=== PATIENT | female | born 1960 | race Caucasian/White ===

== ENCOUNTER 2016-09-01 10:11 | Inpatient (IN) | payer MEDICAID, OTHER ==
[~2016-09-01] VITALS: Ht 162.6 cm; Wt 83.8 kg
[2016-09-01] VITALS (11 sets, daily range): BP systolic 83–109; BP diastolic 52–73; PULSE 80–90; RESP 16–24; TEMP 98.5–98.6; O2SAT 94–98
[~2016-09-01 10:11] MED LIST: ADVAI100I PO; B-COCAP9 PO; CENTTAB8; LEVO.025 PO; PRO-CAP; TUMS500C PO; VENTAER INH
[2016-09-01] MEDS ORDERED: ADVA100A INH (10:33)
[2016-09-01] MEDS ORDERED: OMEP20TA PO (10:33)
[2016-09-01] MEDS ORDERED: LEVO25TA4 PO (10:33)
[2016-09-01] MEDS ORDERED: DICY10CA12 PO (10:34)
[2016-09-01] MEDS ORDERED: SODIUM CHLORIDE 0.9% FLUSH 5 ML FLUSH IVF PRN (11:00)
[2016-09-01 11:06] LABS: BASOPHIL % 0.3 % (0.0-2.0); EOSINOPHIL # 0.3 TH/MM3 (0-0.4); EOSINOPHIL % 1.7 % (0.0-4.0); HEMATOCRIT 34.2 % (35.0-46.0); LYMPH % 11.3 % (9.0-44.0); LYMPHOCYTE # 1.8 TH/MM3 (1.0-4.8); MEAN CELL VOLUME 73.6 FL (80.0-100.0); MEAN CORPUSCULAR HEMOGLOBIN 23.8 PG (27.0-34.0); MEAN CORPUSCULAR HGB CONC 32.4 % (32.0-36.0); NEUT % 80.7 % (16.0-70.0); PLATELET COUNT 365 TH/MM3 (150-450); RED BLOOD COUNT 4.65 MIL/MM3 (4.00-5.30); WHITE BLOOD COUNT 16.1 TH/MM3 (4.0-11.0)
[2016-09-01 11:07] LABS: HEMO FLAGS AUTO DIFF
--- NOTE | 2016-09-01 11:09 | RADRPT ---
EXAM DATE/TIME: 09/01/2016 10:46 [facility] COMPARISON: CHEST SINGLE AP, August 30, 2015, 16:00. CT PULMONARY ANGIOGRAM, August 30, 2015, 17:56. INDICATIONS : Chest pain and shortness of breath. MEDICAL HISTORY : None. SURGICAL HISTORY : None. ENCOUNTER: Initial ACUITY: 1 day PAIN SCORE: 0/10 LOCATION: Bilateral chest FINDINGS: One slight interval worsening in consolidative change in the left lung base. Right lung remains clear . Possible small associated left base effusion. Cardiac contours are stable. CONCLUSION: Worsening left base infiltrate Prateek Walters MD on September 01, 2016 at 11:06 Board Certified Radiologist. This report was verified electronically.
[2016-09-01] MEDS ORDERED: AZITHROMYCIN INJ 500 MG in SODIUM CHLOR 0.9% 250 ML INJ 250 ML IV ONE (11:15)
[2016-09-01] MEDS ORDERED: cefTRIAXone INJ 1,000 MG in SODIUM CHLORIDE 0.9% INJ 100 ML IV ONE (11:15)
[2016-09-01 11:24] LABS: APTT (PATIENT) 28.9 SEC (24.3-30.1); INTERNATIONAL NORMALIZED RATIO 1.1 RATIO; PROTHROMBIN TIME - PATIENT 11.7 SEC (9.8-11.6)
[2016-09-01 11:28] LABS: ANION GAP 9 MEQ/L (5-15); BICARBONATE 24.2 MEQ/L (21.0-32.0); BLOOD UREA NITROGEN 11 MG/DL (7-18); CHLORIDE 109 MEQ/L (98-107); GLOMERULAR FILTRATION RATE 53 ML/MIN (>89); MAGNESIUM 2.3 MG/DL (1.5-2.5); POTASSIUM 3.6 MEQ/L (3.5-5.1); SODIUM (NA) 142 MEQ/L (136-145)
[2016-09-01 11:32] LABS: CREATINE KINASE 98 U/L (26-192)
[2016-09-01 11:52] LABS: SCAN/DIFF AUTO DIFF CONFIRMED
--- NOTE | 2016-09-01 13:14 | PD ---
HPI Chief Complaint: Respiratory Symptoms Time Seen by Provider: 10:35 Travel History International Travel<30 days: No Contact w/Intl Traveler<30days: No Traveled to known affect area: No History of Present Illness HPI 55-year-old female came to the emergency room with history of cough, shortness of breath and coughing up blood. Patient says she has had symptoms of cough for past 1 week. However recently for past 2 days she has been coughing up blood which is in small quantity. She says every time she gets a pneumonia she has these symptoms. However patient was afebrile in the emergency room. She did not take any medication that would reduce her temperature. She says she's been getting chills at home. History of vomiting or diarrhea. No history of recent long distance travel, surgeries or procedures. No past history of PE or DVT. Vital signs were otherwise stable. [facility] Past Medical History Narrative Medical List of her past medical, surgical, social and family history is reviewed from the nursing note. Asthma: No Blood Disorders: No Heart Rhythm Problems: No Cancer: No Cardiovascular Problems: No High Cholesterol: No Chemotherapy: No Chest Pain: No Congestive Heart Failure: No COPD: Yes Diabetes: No Endocrine: No Genitourinary: No Immune Disorder: No Musculoskeletal: No Neurologic: No Psychiatric: No Reproductive: No Respiratory: Yes (COPD ) Radiation Therapy: No Sleep Apnea: No Thyroid Disease: No ?: Not Menopausal: Yes : 2 Para: 2 Miscarriage: 0 : 0 Tubal Ligation: Yes Past Surgical History Appendectomy: Yes Tonsillectomy: Yes Other Surgery: Yes (TONSILLS, APPENDIX, TUBAL LIGATION) Social History Alcohol Use: No Tobacco Use: No (QUIT 15 YEARS AGO - APPROX 1 PPD) Substance Use: No (MARIJUANA HX) Allergies-Medications (Allergen,Severity, Reaction): Coded Allergies: No Known Allergies (Unverified , 09/01/16) Comments No known drug allergies. Reported Meds & Prescriptions Reported Meds & Active Scripts Active Reported Dicyclomine (Dicyclomine HCl) 10 Mg Cap 10 Mg PO TID Levothyroxine (Levothyroxine Sodium) 25 Mcg Tab 25 Mcg PO DAILY Advair Diskus Inh (Fluticasone-Salmeterol Inh) 100-50 Mcg/Blist Aer 1 Puff INH BID Rinse mouth after use. Narrative Medication List of her home medications reviewed from the nursing note. Review of Systems Except as stated in HPI: all other systems reviewed are Neg Physical Exam Narrative GENERAL: Awake, alert, mild distress SKIN: Warm and dry. HEAD: Atraumatic. Normocephalic. EYES: Pupils equal and round. No scleral icterus. No injection or drainage. ENT: No nasal bleeding or discharge. Mucous membranes pink and moist. NECK: Trachea midline. No JVD. CARDIOVASCULAR: Regular rate and rhythm. No murmur appreciated. RESPIRATORY: No accessory muscle use. Decreased air entry left side GASTROINTESTINAL: Abdomen soft, non-tender, nondistended. Hepatic and splenic margins not palpable. MUSCULOSKELETAL: No obvious deformities. No clubbing. No cyanosis. No edema. NEUROLOGICAL: Awake and alert. No obvious cranial nerve deficits. Motor grossly within normal limits. Normal speech. PSYCHIATRIC: Appropriate mood and affect; insight and judgment normal. Data Data Last Documented VS Vital Signs Date Time Temp Pulse Resp B/P Pulse Ox O2 Delivery O2 Flow Rate FiO2 09/01/16 15:00 82 16 87/54 98 Nasal Cannula 2 09/01/16 10:12 98.5 Orders Electrocardiogram (09/01/16 10:37) Basic Metabolic Panel (Bmp) (09/01/16 10:48) B-Type Natriuretic Peptide (09/01/16 10:48) Ckmb (Isoenzyme) Profile (09/01/16 10:48) Complete Blood Count With Diff (09/01/16 10:48) D-Dimer (09/01/16 10:48) Magnesium (Mg) (09/01/16 10:48) Prothrombin Time / Inr (Pt) (09/01/16 10:48) Act Partial Throm Time (Ptt) (09/01/16 10:48) Troponin I (09/01/16 10:48) Chest, Single Ap (09/01/16 10:48) Ecg Monitoring (09/01/16 10:48) Bilateral Bp Monitoring (09/01/16 10:48) Iv Access Insert/Monitor (09/01/16 10:48) Oximetry (09/01/16 10:48) Oxygen Administration (09/01/16 10:48) Sodium Chloride 0.9% Flush (Ns Flush) (09/01/16 11:00) Blood Culture (09/01/16 11:15) Ceftriaxone Inj (Rocephin Inj) (09/01/16 11:15) Azithromycin Inj (Zithromax Inj) (09/01/16 11:15) Albuterol Neb (Albuterol Neb) (09/01/16 13:15) Sodium Chlor 0.9% 1000 Ml Inj (Ns 1000 M (09/01/16 13:15) Ct Pulmonary Angiogram (09/01/16 ) Iohexol 350 Inj (Omnipaque 350 Inj) (09/01/16 14:01) Sodium Chlor 0.9% 1000 Ml Inj (Ns 1000 M (09/01/16 15:15) Admit To Inpatient (09/01/16 ) Inpatient Certification (09/01/16 ) Diet Regular Basic (09/01/16 Dinner) Activity Bed Rest With Brp (09/01/16 15:24) Vital Signs (Adult) [id number].[id number] (09/01/16 15:24) Admit Order (Ed Use Only) (09/01/16 15:24) Labs Laboratory Tests Test 09/01/16 10:50 White Blood Count 16.1 TH/MM3 Red Blood Count 4.65 MIL/MM3 Hemoglobin 11.1 GM/DL Hematocrit 34.2 % Mean Corpuscular Volume 73.6 FL Mean Corpuscular Hemoglobin 23.8 PG Mean Corpuscular Hemoglobin 32.4 % Concent Red Cell Distribution Width 16.0 % Platelet Count 365 TH/MM3 Mean Platelet Volume 7.2 FL Neutrophils (%) (Auto) 80.7 % Lymphocytes (%) (Auto) 11.3 % Monocytes (%) (Auto) 6.0 % Eosinophils (%) (Auto) 1.7 % Basophils (%) (Auto) 0.3 % Neutrophils # (Auto) 13.0 TH/MM3 Lymphocytes # (Auto) 1.8 TH/MM3 Monocytes # (Auto) 1.0 TH/MM3 Eosinophils # (Auto) 0.3 TH/MM3 Basophils # (Auto) 0.0 TH/MM3 CBC Comment AUTO DIFF Differential Comment AUTO DIFF CONFIRMED Prothrombin Time 11.7 SEC Prothromb Time International 1.1 RATIO Ratio Activated Partial 28.9 SEC Thromboplast Time D-Dimer Quantitative (PE/DVT) 1.47 MG/L FEU Sodium Level 142 MEQ/L Potassium Level 3.6 MEQ/L Chloride Level 109 MEQ/L Carbon Dioxide Level 24.2 MEQ/L Anion Gap 9 MEQ/L Blood Urea Nitrogen 11 MG/DL Creatinine 1.08 MG/DL Estimat Glomerular Filtration 53 ML/MIN Rate Random Glucose 96 MG/DL Calcium Level 9.2 MG/DL Magnesium Level 2.3 MG/DL Total Creatine Kinase 98 U/L Troponin I LESS THAN 0.02 NG/ML B-Type Natriuretic Peptide 52 PG/ML MDM Medical Decision Making Medical Screen Exam Complete: Yes Emergency Medical Condition: Yes Medical Record Reviewed: Yes Interpretation(s) Twelve-lead EKG was reviewed by me. Normal sinus rhythm, normal axis, nonspecific ST-T wave changes. Heart rate of 88 bpm. Differential Diagnosis Pneumonia, PE, COPD exacerbation Narrative Course 1:12 PM patient has leukocytosis. Chest x-ray shows a left lobar infiltrate. However there was a d-dimer ordered since patient never had any documented fever and because of the hemoptysis history and that is elevated. I've ordered a CT pulmonary angiogram. Awaiting for the test to be done and resulted. Meanwhile patient received IV Rocephin and Zithromax. If the CT pulmonary angiogram is negative for PE patient probably could be discharged home. However her blood pressure was running in the 90s. I've ordered 1 L of IV fluid bolus. 2:[address] pulmonary exam did not show any PE. There was left lower lobe scattered infiltrate but there was also mass with hilar lymphadenopathy. Radiologist is recommending bronchoscopy. I would prefer to admit this patient at this point. 3:09 PM Her blood pressure is still running low and current systolic blood pressure is 81. I've ordered a second liter of IV fluid bolus. Awaiting for the hospitalist call back. Critical Care Narrative Aggregate critical care time was 30 minutes. Time to perform other separately billable procedures was not included in the critical care time. My time did not include minutes spent treating any other patients simultaneously or on activities that did not directly contribute to the patient's treatment. The services I provided to this patient were to treat and/or prevent clinically significant deterioration that could result in: Respiratory distress, lung mass, consolidation I provided critical care services requiring my management, as noted below: Chart data review, documentation time, medication orders and management, vital sign assessments/reviewing monitor data, ordering and reviewing lab tests, ordering and interpreting/reviewing x-rays and diagnostic studies, care of the patient and discussion of the patient with the admitting physicians. Procedures EKG Prior to Arrival: No Diagnosis Primary Impression: Respiratory distress Additional Impressions: Pneumonia Qualified Code: J18.1 - Pneumonia of left lower lobe due to infectious organism Lung mass Leukocytosis Qualified Code: D72.828 - Other elevated white blood cell (WBC) count Admitting Information Admitting Physician Requests: Admit Scripts Ferrous Sulfate 325 Mg [id number] Mg PO DAILY #30 TAB Ref 0 Prov:Lewis Monte MD 09/04/16 Cefuroxime (Ceftin)500 Mg [id number] Mg PO BID 6 Days Ref 0 Prov:Lewis Monte MD 09/04/16 Jerri Nolen MD Sep 01, 2016 13:13
[2016-09-01] MEDS ORDERED: SODIUM CHLOR 0.9% 1000 ML INJ 1,000 ML IV ONE ×2 (13:15→15:15)
[2016-09-01] MEDS ORDERED: RESP: ALBUTEROL 2.5 MG/3 ML NEB (SCH) NEB ONE (13:15)
[2016-09-01] MEDS ORDERED: IOHEXOL 350 MG/ML 10 ML VIAL (for RAD DIAG) IV ONE (14:01)
--- NOTE | 2016-09-01 14:20 | RADRPT ---
EXAM DATE/TIME: 09/01/2016 13:47 [facility] COMPARISON: CT PULMONARY ANGIOGRAM, August 30, 2015, 17:56. INDICATIONS : COPD exacerbation for 1 day; evaluate for pulmonary embolism. IV CONTRAST: 50 cc Omnipaque 350 (iohexol) IV RADIATION DOSE: 11.15 CTDIvol (mGy) MEDICAL HISTORY : Chronic obstructive pulmonary disease. SURGICAL HISTORY : Tubal ligation. ENCOUNTER: Initial ACUITY: 1 day PAIN SCALE: 0/10 LOCATION: chest TECHNIQUE: Volumetric scanning of the chest was performed using a pulmonary embolism protocol MIP images were re constructed. Using automated exposure control and adjustment of the mA and/or kV according to patien t size, radiation dose was kept as low as reasonably achievable to obtain optimal diagnostic quality images. FINDINGS: PULMONARY ARTERIES: No filling defects are seen in the pulmonary arteries through the segmental level. LUNGS: Patchy infiltrate seen of the left lung, most dense in the posterior lower lobe, more patchy in the u pper lobe and remainder of the lower lobe. There is emphysema. Unchanged 8 mm right lower lobe pulmon chirag nodule. 2 cm area of mildly masslike consolidation seen in the left hilum. PLEURAE: There is no pleural thickening or pleural effusion. MEDIASTINUM: There is a subcarinal lymph node measuring 2.4 x 3.8 cm, considerably larger than on the prior study. MUSCULOSKELETAL: Within normal limits for patient age. MISCELLANEOUS: Moderate to large hiatal hernia again noted. CONCLUSION: 1. No pulmonary embolus. 2. Multifocal pneumonia of the left lung. This is presumably infectious or inflammatory. A mildly mas slike area is seen in the left infrahilar region and bronchoscopy is suggested. There is also an enla rged subcarinal lymph node. 3. Emphysema. 4. Stable subcentimeter nodule of the right lower lobe. 5. Moderate to large hiatal hernia again noted. Prateek Gaviria MD on September 01, 2016 at 14:12 Board Certified Radiologist. This report was verified electronically.
--- NOTE | 2016-09-01 17:42 | HHI.HP ---
[facility] Primary [facility] Physician Nela Lundberg MD Admission Diagnosis pneumonia, hemoptysis, lung mass Diagnoses: Chief Complaint: C cough shortness of breath hemoptysis Travel History International Travel<30 Days: No Contact w/Intl Traveler <30 Da: No Traveled to Known Affected Are: No Sepsis Criteria SIRS Criteria (2 or more): Heart rate over 90 Sepsis Criteria (SIRS+source): Infect source susp/known History of Present Illness Patient is a 55-year-old female known history of COPD not oxygen dependent history of hypothyroidism also with history of chronic abdominal discomfort who came to the emergency room complaining of shortness of breath associated with left-sided chest pain pleuritic in nature worse with deep inspiration. Since yesterday night overnight had had 3 episodes of hemoptysis. Patient also all night with loose stools. Persistence prompted consult to ER where on evaluation was noted to have a white count and on x-ray shows consolidation with and unable to rule out mass. Patient admitted for further evaluation and management. Review of Systems Constitutional: DENIES: Diaphoretic episodes, Fatigue, Fever, Weight gain, Weight loss, Chills, Dizziness, Change in appetite, Night Sweats Endocrine: DENIES: Abnorml menstrual pattern, Heat/cold intolerance, Polydipsia , Polyuria, Polyphagia Eyes: DENIES: Blurred vision, Diplopia, Eye inflammation, Eye pain, Vision loss , Photosensitivity, Double Vision Ears, nose, mouth, throat: DENIES: Tinnitus, Hearing loss, Vertigo, Nasal discharge, Oral lesions, Throat pain, Hoarseness, Ear Pain, Running Nose, Epistaxis, Sinus Pain, Toothache, Odynophagia Respiratory: DENIES: Apneas, Cough, Snoring, Wheezing, Hemoptysis, Sputum production, Shortness of breath Cardiovascular: DENIES: Chest pain, Palpitations, Syncope, Dyspnea on Exertion , PND, Lower Extremity Edema, Orthopnea, Claudication Gastrointestinal: COMPLAINS OF: Abdominal pain, Diarrhea Musculoskeletal: DENIES: Joint pain, Muscle aches, Stiffness, Joint Swelling, Back pain, Neck pain Integumentary: DENIES: Abnormal pigmentation, Pruritus, Rash, Nail changes, Breast masses, Breast skin changes, Nipple discharge Hematologic/lymphatic: DENIES: Bruising, Lymphadenopathy Immunologic/allergic: DENIES: Eczema, Urticaria Neurologic: DENIES: Abnormal gait, Headache, Localized weakness, Paresthesias, Seizures, Speech Problems, Tremor, Poor Balance Psychiatric: DENIES: Anxiety, Confusion, Mood changes, Depression, Hallucinations, Agitation, Suicidal Ideation, Homicidal Ideation, Delusions Past Family Social History Past Medical History History of COPD History of chronic abdominal pain History of alcohol abuse quit 15 months History of polysubstance abuse - crack cocaine and marijuana quit 15 months ago Past Surgical History Appendectomy, tonsillectomy, tubal ligation Reported Medications Dicyclomine 10 mg 3 times a day Advair 100/50 twice a day next and 20 mg daily Synthroid 20 g by mouth daily Allergies: Coded Allergies: No Known Allergies (Unverified , 09/01/16) Family History Noncontributory Social History History of smoking quit 15 months ago a pack per day History of alcohol abuse quit 15 months ago History of substance abuse crack cocaine and marijuana quit 15 months ago Physical Exam Vital Signs Vital Signs Date Time Temp Pulse Resp B/P Pulse Ox O2 Delivery O2 Flow Rate FiO2 09/01/16 15:30 84 16 94/61 97 Nasal Cannula 2 09/01/16 15:00 82 16 87/54 98 Nasal Cannula 2 09/01/16 14:00 82 16 91/53 98 Nasal Cannula 2 09/01/16 13:17 98 Nasal Cannula 2.00 09/01/16 13:00 84 20 99/54 97 Nasal Cannula 2 09/01/16 12:00 80 20 96/64 96 Nasal Cannula 2 09/01/16 10:28 20 96 Room Air 09/01/16 10:28 96 Nasal Cannula 2 09/01/16 10:28 91/58 107/52 09/01/16 10:12 98.5 90 24 109/73 94 Room Air Physical Exam GENERAL: Awake alert appears comfortable on oxygen 2 L nasal cannula SKIN: No rashes, ecchymoses or lesions. Cool and dry. HEAD: Atraumatic. Normocephalic. No temporal or scalp tenderness. EYES: Pupils equal round and reactive. Extraocular motions intact. No scleral icterus. No injection or drainage. ENT: Nose without bleeding, purulent drainage or septal hematoma. Throat without erythema, tonsillar hypertrophy or exudate. Uvula midline. Airway patent. NECK: Trachea midline. No JVD or lymphadenopathy. Supple, nontender, no meningeal signs. CARDIOVASCULAR: Regular rate and rhythm without murmurs, gallops, or rubs. RESPIRATORY: Occasional rhonchi, decreased breath sounds both bases GASTROINTESTINAL: Abdomen soft, non-tender, nondistended. No hepato-splenomegaly , or palpable masses. No guarding. MUSCULOSKELETAL: Extremities without clubbing, cyanosis, or edema. No joint tenderness, effusion, or edema noted. No calf tenderness. Negative Homans sign bilaterally. NEUROLOGICAL: Awake and alert. Cranial nerves II through XII intact. Motor and sensory grossly within normal limits. Five out of 5 muscle strength in all muscle groups. Normal speech. Laboratory Laboratory Tests Test 09/01/16 10:50 White Blood Count 16.1 Red Blood Count 4.65 Hemoglobin 11.1 Hematocrit 34.2 Mean Corpuscular Volume 73.6 Mean Corpuscular Hemoglobin 23.8 Mean Corpuscular Hemoglobin 32.4 Concent Red Cell Distribution Width 16.0 Platelet Count 365 Mean Platelet Volume 7.2 Neutrophils (%) (Auto) 80.7 Lymphocytes (%) (Auto) 11.3 Monocytes (%) (Auto) 6.0 Eosinophils (%) (Auto) 1.7 Basophils (%) (Auto) 0.3 Neutrophils # (Auto) 13.0 Lymphocytes # (Auto) 1.8 Monocytes # (Auto) 1.0 Eosinophils # (Auto) 0.3 Basophils # (Auto) 0.0 CBC Comment AUTO DIFF Differential Comment AUTO DIFF CONFIRMED Prothrombin Time 11.7 Prothromb Time International 1.1 Ratio Activated Partial 28.9 Thromboplast Time D-Dimer Quantitative (PE/DVT) 1.47 Sodium Level 142 Potassium Level 3.6 Chloride Level 109 Carbon Dioxide Level 24.2 Anion Gap 9 Blood Urea Nitrogen 11 Creatinine 1.08 Estimat Glomerular Filtration 53 Rate Random Glucose 96 Calcium Level 9.2 Magnesium Level 2.3 Total Creatine Kinase 98 Troponin I LESS THAN 0.02 B-Type Natriuretic Peptide 52 Date/Time Procedure Status Source Growth 09/01/16 11:40 Aerobic Blood Culture Received Blood Peripheral Pending 09/01/16 11:40 Anaerobic Blood Culture Received Blood Peripheral Pending Result Diagram: 09/01/16 1050 09/01/16 1050 Imaging Last Impressions Chest X-Ray 3/8/17 1048 Signed Impressions: Service Date/Time: Thursday, September 01, 2016 10:46 - CONCLUSION: Worsening left base infiltrate Prateek Walters MD CT Angiography 09/01/16 0000 Signed Impressions: Service Date/Time: Thursday, September 01, 2016 13:47 - CONCLUSION: 1. No pulmonary embolus. 2. Multifocal pneumonia of the left lung. This is presumably infectious or inflammatory. A mildly masslike area is seen in the left infrahilar region and bronchoscopy is suggested. There is also an enlarged subcarinal lymph node. 3. Emphysema. 4. Stable subcentimeter nodule of the right lower lobe. 5. Moderate to large hiatal hernia again noted. Prateek Gaviria MD Assessment and Plan Assessment and Plan 55-year-old female presenting with cough hemoptysis shortness of breath Pneumonia Hemoptysis Leukocytosis Underlying COPD- no wheezes Start Antibiotics- Rocephin and Zithromax Continue on Advair. get PFTs Duonebs every 6 prn for shortness of breath sputum for studies recheck CBC in am Possible Lung mass We'll get a pulmonary consult for evaluation - History of chronic abdominal pain- recent diarrhea - sounds like with IBS we'll continue on dicyclomine 10 mg 3 times a day. Omeprazole 20 mg daily. stools for c diff History of hypothyroidism continue on Synthroid 25 g daily Mechanical DVT prophylaxis. encourage increase activity as tolerated. Physician Certification 2 Midnight Certification Type: Admission for Inpatient Services Order for Inpatient Services The services are ordered in accordance with Medicare regulations or non- Medicare payer requirements, as applicable. In the case of services not specified as inpatient-only, they are appropriately provided as inpatient services in accordance with the 2-midnight benchmark. Estimated LOS (days): 3 days is the estimated time the patient will need to remain in the hospital, assuming treatment plan goals are met and no additional complications. Post-Hospital Plan: Not yet determined eLwis Monte MD Sep 01, 2016 17:42
--- NOTE | 2016-09-01 18:23 | EKG ---
Date Performed: 09/01/2016 Time Performed: 10:43:05 PTAGE: 55 years EKG: Sinus rhythm NORMAL ECG PREVIOUS TRACING : 08/30/2015 16.23 DOCTOR: Jeremie Laureano Interpretating Date/Time 09/01/2016 18:22:38
[2016-09-01] MEDS: NS + KCL 20 MEQ INJ 1,000 ML IV SCH (19:55)
[2016-09-01] MEDS: RESP: ALBUTEROL 2.5 MG/IPRATROPIUM 0.5 MG NEB (SCH) NEB (19:57)
[2016-09-01] MEDS: SODIUM CHLORIDE 0.9% FLUSH 5 ML FLUSH IVF SCH (21:06)
[2016-09-02] VITALS (8 sets, daily range): BP systolic 98–118; BP diastolic 60–70; PULSE 81–93; RESP 7–20; TEMP 97.5–97.8; O2SAT 94–98
[2016-09-02] MEDS: RESP: ALBUTEROL 2.5 MG/IPRATROPIUM 0.5 MG NEB (SCH) NEB ×2 (04:18→09:51)
[2016-09-02] MEDS: NS + KCL 20 MEQ INJ 1,000 ML IV SCH ×2 (07:42→14:04)
[2016-09-02] MEDS: cefTRIAXone INJ 2,000 MG in SODIUM CHLORIDE 0.9% INJ 100 ML IV SCH (08:47)
[2016-09-02] MEDS: SODIUM CHLORIDE 0.9% FLUSH 5 ML FLUSH IVF SCH ×2 (08:57→20:49)
[2016-09-02 09:04] LABS: AUTOMATED NEUTROPHIL # 7.2 TH/MM3 (1.8-7.7); BASOPHIL # 0.1 TH/MM3 (0-0.2); BASOPHIL % 0.7 % (0.0-2.0); EOSINOPHIL # 0.2 TH/MM3 (0-0.4); EOSINOPHIL % 2.2 % (0.0-4.0); HEMATOCRIT 30.1 % (35.0-46.0); LYMPH % 18.7 % (9.0-44.0); LYMPHOCYTE # 1.9 TH/MM3 (1.0-4.8); MEAN CELL VOLUME 75.1 FL (80.0-100.0); MEAN CORPUSCULAR HEMOGLOBIN 24.1 PG (27.0-34.0); MEAN CORPUSCULAR HGB CONC 32.1 % (32.0-36.0); MONO % 6.4 % (0.0-8.0); PLATELET COUNT 304 TH/MM3 (150-450); WHITE BLOOD COUNT 9.9 TH/MM3 (4.0-11.0)
[2016-09-02 09:06] LABS: HEMO FLAGS AUTO DIFF
[2016-09-02 10:20] LABS: KERATOCYTES OCC (NORMAL); OVALOCYTES 1+ (NORMAL); PLATELET ESTIMATE SMEAR NORMAL (NORMAL); PLATELET MORPHOLOGY NORMAL (NORMAL); SCAN/DIFF AUTO DIFF CONFIRMED
[2016-09-02] MEDS: AZITHROMYCIN INJ 500 MG in SODIUM CHLOR 0.9% 250 ML INJ 250 ML IV SCH (11:48)
--- NOTE | 2016-09-02 16:50 | HHI.PR ---
Subjective Remarks feeling better no episodes of hemoptysis since admission no diarrhea feels abdominal bloating but no reflux sensation Objective Vitals Vital Signs Date Time Temp Pulse Resp B/P Pulse Ox O2 Delivery O2 Flow Rate FiO2 09/02/16 16:15 97.5 85 18 107/61 97 09/02/16 14:05 97.8 86 17 98/60 97 Nasal Cannula 2 09/02/16 11:48 88 17 98/60 97 Nasal Cannula 2.00 09/02/16 10:21 97.8 81 18 118/67 98 Nasal Cannula 2.00 09/02/16 09:52 97 Nasal Cannula 2.00 09/02/16 08:30 97 Nasal Cannula 2 09/02/16 05:45 81 20 110/70 98 Nasal Cannula 2 09/02/16 02:30 81 16 99/64 97 Nasal Cannula 2 09/01/16 22:37 90 18 95/59 98 Nasal Cannula 2 09/01/16 19:57 97 Nasal Cannula 2.00 09/01/16 19:50 98.6 90 18 83/54 98 Nasal Cannula 2 I/O 09/01/16 09/01/16 09/01/16 09/02/16 09/02/16 09/02/16 07:00 15:00 23:00 07:00 15:00 23:00 Intake Total 460 ml Balance 460 ml Intake Oral 460 ml # Voids 3 # Bowel Movements 1 Result Diagram: 09/02/16 0757 09/01/16 1050 Imaging Last Impressions Chest X-Ray 09/01/16 1048 Signed Impressions: Service Date/Time: Thursday, September 01, 2016 10:46 - CONCLUSION: Worsening left base infiltrate Prateek Walters MD CT Angiography 09/01/16 0000 Signed Impressions: Service Date/Time: Thursday, September 01, 2016 13:47 - CONCLUSION: 1. No pulmonary embolus. 2. Multifocal pneumonia of the left lung. This is presumably infectious or inflammatory. A mildly masslike area is seen in the left infrahilar region and bronchoscopy is suggested. There is also an enlarged subcarinal lymph node. 3. Emphysema. 4. Stable subcentimeter nodule of the right lower lobe. 5. Moderate to large hiatal hernia again noted. Prateek Gaviria MD Objective Remarks awake and alert anicteric lungs decreased breath sounds, no rales or wheezes regular rhythm abdomen soft, good bowel sounds, distended but soft extremities no edema neuro exam- non focal A/P Assessment and Plan 55-year-old female presenting with cough hemoptysis shortness of breath Pneumonia - left lower lobe infiltrate Hemoptysis likely secondary to pneumonic process- no further episodes Leukocytosis- WBC down Underlying COPD/smoker - Possible Lung Mass On - Rocephin and Zithromax Continue on Advair. get PFTs Duonebs every 6 prn for shortness of breath sputum for studies- pending Pulmonary consulted- Dr. Gadiel Moctezuma- ? need for Bronchoscopy History of chronic abdominal pain- recent diarrhea - sounds like with IBS GERD/Hiatal hernia we'll continue on dicyclomine 10 mg 3 times a day. PPI- - Advise on reflux measures stools for c diff- no further episodes of diarrhea in here since admission History of hypothyroidism continue on Synthroid 25 g daily Microcytosis- check iron studies Patient up and ambulating Lewis Monte MD Sep 02, 2016 16:50 Lewis Monte MD Sep 02, 2016 16:50
[2016-09-02] MEDS: LEVOTHYROXINE SODIUM 25 MCG TAB PO SCH (17:00)
[2016-09-02] MEDS ORDERED: SODIUM CHLORIDE 0.9% FLUSH 5 ML FLUSH IVF PRN (18:00)
[2016-09-02] MEDS: DICYCLOMINE HCL 10 MG CAP PO SCH (18:25)
[2016-09-02] MEDS: PANTOPRAZOLE SOD 40 MG DELAYED RELEASE TAB PO SCH (18:25)
[2016-09-02] MEDS: BUDESONIDE-FORMOTEROL 80/4.5 MCG INHALER INH SCH (20:58)
--- NOTE | 2016-09-02 23:37 | MB ---
cc: Jasmina ALONSO M.D. DATE OF CONSULTATION 09/02/16 HISTORY OF PRESENT ILLNESS Ms. Vieira is a 55-year-old white female with a known history of COPD who quit smoking about a year ago. She also a history of alcoholism and illicit drug use, but apparently quit all of these habits about 15 years ago after 30 years. I asked her quite specifically if she continued to smoke or use any drugs, marijuana, cocaine, any of them and she denied it clearly. She presented today with what she described as hemoptysis, pleuritic chest discomfort and increasing cough with congestion and shortness of breath. On presentation to the emergency room, she had a CT angiogram which reveals no evidence of pulmonary embolism but a patchy infiltrate scattered in the left lung. There was also fullness in the left infrahilar region with enlarged lymph node, underlying emphysema and a small nodule in the right lung which had been seen previously. She also had a large hiatal hernia. The patient is a fair historian, but did not recall having presented last year with very similar symptoms including hemoptysis. I noted that in the medical record of August 30, 2015. She does use albuterol and Advair at home. She is not oxygen dependent. Since admission, there has been no recurrent hemoptysis and she has been afebrile. Her white count was 16,000 on presentation; it is 9000 today. Coag profile is normal. BUN and creatinine are normal. PAST MEDICAL HISTORY 1. Chronic abdominal pain 2. Chronic reflux symptoms. When asked if she had ever been endoscoped she does not believe so. 3. Appendectomy 4. Tubal ligation 5. Distant tonsillectomy. ALLERGIES None known. SOCIAL HISTORY She lives apparently in a hotel room. She does live alone. There is smoking in the area, but not in her room specifically. No animal exposures. No other unusual inhalation exposures and again she denies any inhalation of illicit drugs. REVIEW OF SYSTEMS No headache. No syncope. Chronic reflux with what sounds like chronic indigestion. No recent vomiting. She has had diarrhea. No recent swelling in her legs. PHYSICAL EXAMINATION VITAL SIGNS: 98 degrees, 107/61, respirations 18, pulse 80, sat 97% 2 liters. HEENT: Sclerae anicteric. Mucous membranes are moist. NECK: Neck veins are not distended. CHEST: Chest is minimally congested. No wheezing. HEART: Regular rhythm. No harsh murmur. ABDOMEN: Abdomen is soft, nontender, maybe a little tenderness in the epigastrium. No rebound. EXTREMITIES: No peripheral edema or calf tenderness. No cyanosis. IMAGING STUDIES CT scan is reviewed and she does have patchy infiltrates in the left lung, some fullness in the left hilum. DISCUSSION Mrs. Vieira presents with syndrome consistent with pneumonia. Apparently had some episodes of hemoptysis. We will monitor that. Continue her on antibiotics and see whether or not she needs additional intervention at this point such as bronchoscopy or whether she can be followed up in the clinic where she is normally seen to ensure that this area clears completely. It could certainly be an inflammatory infectious process, although with her prior tobacco history malignancy is also possible. Further diagnostic and/or therapeutic intervention will depend on her ongoing clinical course. R. MD ROBEL Cotton/ /5:58 PM /11:21 PM
[2016-09-03] VITALS (8 sets, daily range): BP systolic 92–113; BP diastolic 54–76; PULSE 80–101; RESP 17–20; TEMP 96.1–98.1; O2SAT 94–98
[2016-09-03] MEDS: RESP: ALBUTEROL 2.5 MG/IPRATROPIUM 0.5 MG NEB (SCH) NEB ×5 (04:10→20:15)
[2016-09-03] MEDS: LEVOTHYROXINE SODIUM 25 MCG TAB PO SCH (06:19)
[2016-09-03] MEDS: PANTOPRAZOLE SOD 40 MG DELAYED RELEASE TAB PO SCH (09:33)
[2016-09-03] MEDS: SODIUM CHLORIDE 0.9% FLUSH 5 ML FLUSH IVF SCH ×2 (09:33→21:00)
[2016-09-03] MEDS: DICYCLOMINE HCL 10 MG CAP PO SCH ×3 (09:33→17:54)
[2016-09-03] MEDS: BUDESONIDE-FORMOTEROL 80/4.5 MCG INHALER INH SCH ×2 (09:34→21:00)
[2016-09-03] MEDS: cefTRIAXone INJ 2,000 MG in SODIUM CHLORIDE 0.9% INJ 100 ML IV SCH (09:45)
[2016-09-03 09:52] LABS: ALKALINE PHOSPHATASE 94 U/L (45-117); ALT (GPT) 18 U/L (10-53); ANION GAP 11 MEQ/L (5-15); AST (GOT) 16 U/L (15-37); BICARBONATE 22.2 MEQ/L (21.0-32.0); BLOOD UREA NITROGEN 7 MG/DL (7-18); CHLORIDE 111 MEQ/L (98-107); FERRITIN 71 NG/ML (8-252); GLOMERULAR FILTRATION RATE 70 ML/MIN (>89); POTASSIUM 3.6 MEQ/L (3.5-5.1); SODIUM (NA) 144 MEQ/L (136-145); TOTAL BILIRUBIN ADULT 0.4 MG/DL (0.2-1.0); TRANSFERRIN IRON PROFILE 173 MG/DL (200-360)
--- NOTE | 2016-09-03 12:23 | HHI.PR ---
Subjective Remarks feeling much better no further episodes of hemoptysis sputum "off whitish" up and ambulating Objective Vitals Vital Signs Date Time Temp Pulse Resp B/P Pulse Ox O2 Delivery O2 Flow Rate FiO2 09/03/16 08:22 96.1 86 18 96/55 94 09/03/16 05:27 97.3 83 17 113/76 94 09/03/16 04:13 98 Nasal Cannula 2.00 09/03/16 00:17 98.1 80 17 108/61 94 09/02/16 20:49 97.6 93 17 108/66 94 09/02/16 16:15 97.5 85 18 107/61 97 09/02/16 14:05 97.8 86 17 98/60 97 Nasal Cannula 2 I/O 09/02/16 09/02/16 09/02/16 09/03/16 09/03/16 09/03/16 07:00 15:00 23:00 07:00 15:00 23:00 Intake Total 460 ml 432 ml 360 ml Balance 460 ml 432 ml 360 ml Intake Oral 460 ml 360 ml IV Total 432 ml # Voids 3 5 # Bowel Movements 1 Result Diagram: 09/02/16 0757 09/03/16 0726 Imaging Last Impressions Chest X-Ray 09/01/16 1048 Signed Impressions: Service Date/Time: Thursday, September 01, 2016 10:46 - CONCLUSION: Worsening left base infiltrate Prateek Walters MD CT Angiography 09/01/16 0000 Signed Impressions: Service Date/Time: Thursday, September 01, 2016 13:47 - CONCLUSION: 1. No pulmonary embolus. 2. Multifocal pneumonia of the left lung. This is presumably infectious or inflammatory. A mildly masslike area is seen in the left infrahilar region and bronchoscopy is suggested. There is also an enlarged subcarinal lymph node. 3. Emphysema. 4. Stable subcentimeter nodule of the right lower lobe. 5. Moderate to large hiatal hernia again noted. Prateek Gaviria MD Objective Remarks awake and alert anicteric lungs decreased breath sounds, no rales or wheezes regular rhythm abdomen soft, good bowel sounds, distended but soft extremities no edema neuro exam- non focal A/P Assessment and Plan 55-year-old female presenting with cough hemoptysis shortness of breath Pneumonia - left lower lobe infiltrate Hemoptysis likely secondary to pneumonic process- no further episodes Leukocytosis- WBC down Underlying COPD/smoker - Possible Lung Mass On - Rocephin and Zithromax Continue on Advair. get PFTs Duonebs every 6 prn for shortness of breath sputum growing gram negative Seen by Pulmonary History of chronic abdominal pain- recent diarrhea - sounds like with IBS GERD/Hiatal hernia we'll continue on dicyclomine 10 mg 3 times a day. PPI-- Advise on reflux measures stools for c diff- no further episodes of diarrhea in here since admission History of hypothyroidism continue on Synthroid 25 g daily Microcytosis- check iron studies Patient up and ambulating ppossible DC today or in am- if continues to do well Lewis Monte MD Sep 03, 2016 12:23
[2016-09-03] MEDS: AZITHROMYCIN INJ 500 MG in SODIUM CHLOR 0.9% 250 ML INJ 250 ML IV SCH (12:52)
[2016-09-04] VITALS: BP 110/71; PULSE 90; RESP 22; TEMP 97; O2SAT 97
[2016-09-04 04:00] VITALS: BP 102/59; PULSE 96; RESP 18; TEMP 98.6; O2SAT 92
[2016-09-04] MEDS: RESP: ALBUTEROL 2.5 MG/IPRATROPIUM 0.5 MG NEB (SCH) NEB ×2 (04:26→09:03)
[2016-09-04 04:29] VITALS: O2SAT 96
[2016-09-04] MEDS: LEVOTHYROXINE SODIUM 25 MCG TAB PO SCH (05:39)
[2016-09-04] MEDS: BUDESONIDE-FORMOTEROL 80/4.5 MCG INHALER INH SCH (08:11)
[2016-09-04] MEDS: cefTRIAXone INJ 2,000 MG in SODIUM CHLORIDE 0.9% INJ 100 ML IV SCH (08:12)
[2016-09-04] MEDS: PANTOPRAZOLE SOD 40 MG DELAYED RELEASE TAB PO SCH (08:12)
[2016-09-04] MEDS: DICYCLOMINE HCL 10 MG CAP PO SCH (08:12)
[2016-09-04] MEDS: SODIUM CHLORIDE 0.9% FLUSH 5 ML FLUSH IVF SCH (08:13)
[2016-09-04 08:41] VITALS: BP 100/61; PULSE 90; RESP 18; TEMP 97.9; O2SAT 93
[2016-09-04 09:03] VITALS: O2SAT 99
--- NOTE | 2016-09-04 09:26 | HHI.PR ---
Subjective Remarks doing better cough minimal whitish sputum up and ambulating Objective Vitals Vital Signs Date Time Temp Pulse Resp B/P Pulse Ox O2 Delivery O2 Flow Rate FiO2 09/04/16 09:03 99 Nasal Cannula 2.00 09/04/16 08:41 97.9 90 18 100/61 93 09/04/16 04:29 96 21 09/04/16 04:00 98.6 96 18 102/59 92 09/04/16 00:00 97.0 90 22 110/71 97 09/03/16 20:17 98 Nasal Cannula 2.00 09/03/16 20:00 98.0 84 20 92/54 96 09/03/16 16:09 97.8 81 18 98/55 96 09/03/16 12:22 96.6 101 105/62 I/O 09/03/16 09/03/16 09/03/16 09/04/16 09/04/16 09/04/16 07:00 15:00 23:00 07:00 15:00 23:00 Intake Total 360 ml 480 ml 0 ml Balance 360 ml 480 ml 0 ml Intake Oral 360 ml 480 ml IV Total 0 ml # Voids 5 2 Result Diagram: 09/02/16 0757 09/03/16 0726 Imaging Last Impressions Chest X-Ray 09/01/16 1048 Signed Impressions: Service Date/Time: Thursday, September 01, 2016 10:46 - CONCLUSION: Worsening left base infiltrate Prateek Walters MD CT Angiography 09/01/16 0000 Signed Impressions: Service Date/Time: Thursday, September 01, 2016 13:47 - CONCLUSION: 1. No pulmonary embolus. 2. Multifocal pneumonia of the left lung. This is presumably infectious or inflammatory. A mildly masslike area is seen in the left infrahilar region and bronchoscopy is suggested. There is also an enlarged subcarinal lymph node. 3. Emphysema. 4. Stable subcentimeter nodule of the right lower lobe. 5. Moderate to large hiatal hernia again noted. Prateek Gaviria MD Objective Remarks awake and alert anicteric lungs decreased breath sounds, no rales or wheezes regular rhythm abdomen soft, good bowel sounds, distended but soft extremities no edema neuro exam- non focal A/P Assessment and Plan 55-year-old female presenting with cough hemoptysis shortness of breath Pneumonia - left lower lobe infiltrate Hemoptysis likely secondary to pneumonic process- no further episodes Leukocytosis- WBC down Underlying COPD/smoker - Possible Lung Mass On - Rocephin and Zithromax Continue on Advair. get PFTs Duonebs every 6 prn for shortness of breath sputum growing gram negative Seen by Pulmonary- OP ff up History of chronic abdominal pain- recent diarrhea - sounds like with IBS GERD/Hiatal hernia we'll continue on dicyclomine 10 mg 3 times a day. PPI-Advise on reflux measures Low Iron stores start Iron sulfate 325 mg po daily History of hypothyroidism continue on Synthroid 25 g daily Microcytosis- check iron studies Patient up and ambulating DC home today - on Levaquin 500 mg po daily x 6 days- total 10 days course Lewis Monte MD Sep 04, 2016 09:26
[2016-09-04] MEDS ORDERED: CEFT500T3 PO (09:37)
--- NOTE | 2016-09-04 09:43 | HHI.DS ---
Discharge Summary Admission Date Sep 01, 2016 at 15:27 Discharge Date: Sep 04, 2016 Admitting Diagnosis pneumonia, hemoptysis, lung mass (1) COPD exacerbation ICD Code: J44.1 Diagnosis: Principal (2) Pneumonia ICD Code: J18.9 Diagnosis: Principal (3) Lung mass ICD Code: R91.8 Diagnosis: Principal Procedures none Brief History - From Admission Patient is a 55-year-old female known history of COPD not oxygen dependent history of hypothyroidism also with history of chronic abdominal discomfort who came to the emergency room complaining of shortness of breath associated with left-sided chest pain pleuritic in nature worse with deep inspiration. Since yesterday night overnight had had 3 episodes of hemoptysis. Patient also all night with loose stools. Persistence prompted consult to ER where on evaluation was noted to have a white count and on x-ray shows consolidation with and unable to rule out mass. Patient admitted for further evaluation and management. CBC/BMP: 09/02/16 0757 09/03/16 0726 Significant Findings Laboratory Tests Test 09/01/16 09/02/16 09/03/16 10:50 07:57 07:26 White Blood Count 16.1 TH/MM3 (4.0-11.0) Hemoglobin 11.1 GM/DL 9.7 GM/DL (11.6-15.3) (11.6-15.3) Hematocrit 34.2 % 30.1 % (35.0-46.0) (35.0-46.0) Mean Corpuscular Volume 73.6 FL 75.1 FL (80.0-100.0) (80.0-100.0) Mean Corpuscular Hemoglobin 23.8 PG 24.1 PG (27.0-34.0) (27.0-34.0) Neutrophils (%) (Auto) 80.7 % 72.0 % (16.0-70.0) (16.0-70.0) Neutrophils # (Auto) 13.0 TH/MM3 (1.8-7.7) Monocytes # (Auto) 1.0 TH/MM3 (0-0.9) Prothrombin Time 11.7 SEC (9.8-11.6) D-Dimer Quantitative (PE/DVT) 1.47 MG/L FEU (0.00-0.50) Chloride Level 109 MEQ/L 111 MEQ/L (98-107) (98-107) Creatinine 1.08 MG/DL (0.50-1.00) Estimat Glomerular Filtration 53 ML/MIN (>89) 70 ML/MIN (>89) Rate Troponin I LESS THAN 0.02 NG/ML (0.02-0.05) Ovalocytes 1+ (NORMAL) Keratocytes OCC (NORMAL) Iron Level 18 MCG/DL (50-170) Total Iron Binding Capacity 242 MCG/DL (250-450) Percent Iron Saturation 7.4 % (20-50) Total Protein 6.3 GM/DL (6.4-8.2) Albumin 2.6 GM/DL (3.4-5.0) Imaging Last Impressions Chest X-Ray 09/01/16 1048 Signed Impressions: Service Date/Time: Thursday, September 01, 2016 10:46 - CONCLUSION: Worsening left base infiltrate Prateek Walters MD CT Angiography 09/01/16 0000 Signed Impressions: Service Date/Time: Thursday, September 01, 2016 13:47 - CONCLUSION: 1. No pulmonary embolus. 2. Multifocal pneumonia of the left lung. This is presumably infectious or inflammatory. A mildly masslike area is seen in the left infrahilar region and bronchoscopy is suggested. There is also an enlarged subcarinal lymph node. 3. Emphysema. 4. Stable subcentimeter nodule of the right lower lobe. 5. Moderate to large hiatal hernia again noted. Prateek Gaviria MD PE at Discharge awake and alert anicteric lungs decreased breath sounds, no rales or wheezes regular rhythm abdomen soft, good bowel sounds, distended but soft extremities no edema neuro exam- non focal Pt update on day of discharge doing well no rales or wheezes, afebrile abdomen soft Hospital Course 55-year-old female presenting with cough hemoptysis shortness of breath Pneumonia - left lower lobe infiltrate Hemoptysis likely secondary to pneumonic process- no further episodes Leukocytosis- WBC down Underlying COPD/smoker - Possible Lung Mass On - Rocephin and Zithromax Continue on Advair. get PFTs Duonebs every 6 prn for shortness of breath sputum growing gram negative Seen by Pulmonary- OP ff up History of chronic abdominal pain- recent diarrhea - sounds like with IBS GERD/Hiatal hernia we'll continue on dicyclomine 10 mg 3 times a day. PPI-Advise on reflux measures Low Iron stores start Iron sulfate 325 mg po daily History of hypothyroidism continue on Synthroid 25 g daily Microcytosis- check iron studies Patient up and ambulating DC home today - on Ceftin 500 mg po bid x 6 days- total 10 days course Pt Condition on Discharge: Stable Discharge Disposition: Discharge Home Discharge Time: <= 30 minutes Discharge Instructions DIET: Follow Instructions for: As Tolerated, No Restrictions Speech Therapy-Diet Recommends: Regular Activities you can perform: Weight Bearing as Gaurang Activities to Avoid: Strenuous Activity Follow up Referrals: PCP Follow-up - 09/09/16 with [facility] - 4 Weeks with Jasmina Moctezuma MD New Medications: Cefuroxime (Ceftin) 500 Mg Tab 500 MG PO BID Infection Days 6 Ref 0 TAB Continued Medications: Dicyclomine (Dicyclomine) 10 Mg Cap 10 MG PO TID Bowel Management Ref 0 CAP Fluticasone-Salmeterol Inh (Advair Diskus Inh) 100-50 Mcg/Blist Aer 1 PUFF INH BID Rinse mouth after use. Asthma Management #1 Ref 0 INHALER Levothyroxine (Levothyroxine) 25 Mcg Tab 25 MCG PO DAILY Thyroid #30 Ref 0 TAB Lewis Monte MD Sep 04, 2016 09:43
[2016-09-04] MEDS ORDERED: FERR325T PO (09:55)
[2016-09-04] MEDS ORDERED: AZITHROMYCIN 250 MG TAB PO SCH (10:00)
[2016-09-05] MEDS ORDERED: CIPROFLOXACIN 500 MG TAB PO SCH (08:00)
[2016-09-20] MEDS ORDERED: ANTA750C CHEW (08:46)
[2016-09-20] MEDS ORDERED: IBUP200T PO (08:46)
[2016-09-20] MEDS ORDERED: ROCE1INJ3 IM (09:16)
[2016-09-20] MEDS ORDERED: ZANT150T2 PO (09:19)
[2016-09-21] MEDS ORDERED: ROCE1INJ3 IM ×2 (14:35→15:22)
[2016-09-22] MEDS ORDERED: ROCE1INJ3 IM (10:55)
[2016-09-23] MEDS ORDERED: ROCE1INJ3 IM (11:43)
[2016-09-24] MEDS ORDERED: ROCE1INJ3 IM (11:02)
[2016-10-28] MEDS ORDERED: DOXY100C PO (12:08)
[2016-10-28] MEDS ORDERED: BIAX500T PO (12:08)
[2016-11-29] MEDS ORDERED: DOXY100C PO (13:00)
[2016-12-06] MEDS ORDERED: FERR325C (10:50)
[2016-12-06] MEDS ORDERED: CYCL5TAB PO (11:29)
[2016-12-06] MEDS ORDERED: DOXY100C PO (11:33)
== END 2016-09-04 11:28 | disposition home or self-care (01) | DRG 194 ==
LOC: NEPE 10:11 → NEDA 15:27 → NEDH 20:04 → NEDA 09-02 01:54 → NEDH 09-02 03:35 → NEDA 09-02 07:48 → N05A 09-02 14:55
PROVIDERS: ADMIT Internal Medicine; ATTEND Internal Medicine
DX: J18.9 Pneumonia, unspecified organism (principal); R04.2 Hemoptysis; R91.8 Other nonspecific abnormal finding of lung field; Z87.891 Personal history of nicotine dependence; J44.9 Chronic obstructive pulmonary disease, unspecified; E03.9 Hypothyroidism, unspecified; K44.9 Diaphragmatic hernia without obstruction or gangrene; G89.29 Other chronic pain; R10.9 Unspecified abdominal pain; K21.9 Gastro-esophageal reflux disease without esophagitis; K58.0 Irritable bowel syndrome with diarrhea
CPT/HCPCS: 71010; 71275; 80048; 80053; 82550; 82728; 83540; 83550; 83735; 83880; 84443; 84484; 85025; 85379; 85610; 85730; 87015; 87040; 87070; 87077; 87116; 87186; 87205; 87206; 93005; 94640; 94664; 96365; 96366; 96367; J0456; J0696; J3480; J7030; J7050; J7613; Q9967

== ENCOUNTER → 2016-09-20 | Outpatient (CLI) | payer OTHER ==
[~2016-09-20] MED LIST changes: +ADVA100A INH; -ADVAI100I PO; +ALBUAER3 INH; +ANTA750C CHEW; -B-COCAP9 PO; +BIAX500T PO; +CEFT500T3 PO; -CENTTAB8; +CYCL5TAB PO; +DICY10CA12 PO; +DOXY100C PO; +FERR325C; +FERR325T PO; +HYDR-3533 PO; +IBUP200T PO; -LEVO.025 PO; +LEVO25TA4 PO; -PRO-CAP; +ROCE1INJ3 IM; -TUMS500C PO; -VENTAER INH; +ZANT150T2 PO
== END ==
LOC: HRAD 10:15
PROVIDERS: ATTEND Family Medicine
DX: R14.0 Abdominal distension (gaseous) (principal); K21.9 Gastro-esophageal reflux disease without esophagitis

== ENCOUNTER 2016-10-04 10:13 | Inpatient (IN) | payer MEDICAID, OTHER ==
[~2016-10-04] VITALS: Ht 162.6 cm; Wt 78.0 kg
[~2016-10-04 10:13] MED LIST changes: -ALBUAER3 INH; -BIAX500T PO; -CEFT500T3 PO; -CYCL5TAB PO; -DICY10CA12 PO; -DOXY100C PO; -FERR325C; -HYDR-3533 PO; -ROCE1INJ3 IM
[2016-10-04 10:16] VITALS: BP 105/50; TEMP 98.2; O2SAT 97
[2016-10-04 10:18] VITALS: BP 110/63; PULSE 116; RESP 22; TEMP 98.2; O2SAT 95
--- NOTE | 2016-10-04 10:53 | PD ---
HPI Chief Complaint: Respiratory Symptoms Time Seen by Provider: 10:32 Travel History International Travel<30 days: No Contact w/Intl Traveler<30days: No Traveled to known affect area: No History of Present Illness HPI 55-year-old female complaining of chest pain abdominal pain and shortness of breath. Patient has history of chronic recurrent abdominal pain. Patient also has history of recurrent left-sided chest pain. Patient was admitted to [facility] September 01 and discharged September 04 with diagnosis of COPD exacerbation, pneumonia, lung mass. CT pulmonary angiogram shows no PE. Multifocal pneumonia on the left lung. Masslike area on the left infrahilar region and bronchoscopy was suggested. Patient was discharged home with prescription for Ceftin, Bentyl, Advair and levothyroxine. Patient states that she had persistent left-sided chest pain abdominal pain. Patient states the pain got worse for the past 2 days. Patient denies any fever chills. Patient states that she has persistent cough with mildly productive. Patient denies any dysuria or frequency. PFSH Past Medical History Asthma: No Blood Disorders: No Heart Rhythm Problems: No Cancer: No Cardiovascular Problems: No High Cholesterol: No Chemotherapy: No Chest Pain: No Congestive Heart Failure: No COPD: Yes Diabetes: No Endocrine: Yes Genitourinary: No Hiatal Hernia: Yes Immune Disorder: No Musculoskeletal: No Neurologic: No Psychiatric: No Reproductive: No Respiratory: Yes Radiation Therapy: No Sleep Apnea: No Thyroid Disease: Yes (Hypothyroid) Tetanus Vaccination: Unknown Influenza Vaccination: No ?: Not Menopausal: Yes : 2 Para: 2 Miscarriage: 0 : 0 Tubal Ligation: Yes Past Surgical History Abdominal Surgery: Yes (Appendix) Appendectomy: Yes Gynecologic Surgery: Yes (Tubal Ligation) Oral Surgery: Yes (Tonsills) Tonsillectomy: Yes Other Surgery: Yes (TONSILLS, APPENDIX, TUBAL LIGATION) Social History Alcohol Use: No Tobacco Use: No (QUIT 1 YEARS AGO - APPROX 1 PPD) Substance Use: Yes (Pt states "I've tried everything at least once, or twice.") Allergies-Medications (Allergen,Severity, Reaction): Coded Allergies: No Known Allergies (Unverified , 10/04/16) Reported Meds & Prescriptions Reported Meds & Active Scripts Active Zantac (Ranitidine HCl) 150 Mg Tab 150 Mg PO BID Ferrous Sulfate 325 Mg Tab 325 Mg PO DAILY Reported Antacid Extra Strength (Calcium Carbonate (Antacid)) 750 Mg Chew 750 Mg CHEW PRN Ibuprofen Pm (Ibuprofen-Diphenhydramine) 200-38 Mg Tab 1 Tab PO HS PRN Levothyroxine (Levothyroxine Sodium) 25 Mcg Tab 25 Mcg PO DAILY Advair Diskus Inh (Fluticasone-Salmeterol Inh) 100-50 Mcg/Blist Aer 1 Puff INH BID Rinse mouth after use. Review of Systems General / Constitutional: No: Fever Eyes: No: Visual changes HENT: No: Headaches Cardiovascular: Positive: Chest Pain or Discomfort Respiratory: No: Shortness of Breath Gastrointestinal: Positive: Abdominal Pain Genitourinary: No: Dysuria Musculoskeletal: No: Pain Skin: No Rash Neurologic: No: Weakness Psychiatric: No: Depression Endocrine: No: Polydipsia Hematologic/Lymphatic: No: Easy Bruising Physical Exam Narrative GENERAL: Well-nourished, well-developed patient. SKIN: Focused skin assessment warm/dry. HEAD: Normocephalic. EYES: No scleral icterus. No injection or drainage. NECK: Supple, trachea midline. No JVD or lymphadenopathy. CARDIOVASCULAR: Regular rate and rhythm without murmurs, gallops, or rubs. RESPIRATORY: Breath sounds equal bilaterally. No accessory muscle use. Patient has few rhonchi at the bases. GASTROINTESTINAL: Abdomen soft, nondistended. Patient has mild diffuse tenderness over the abdomen. No rebound tenderness. No mass. MUSCULOSKELETAL: No cyanosis, or edema. BACK: Nontender without obvious deformity. No CVA tenderness. Neurologic exam normal. Data Data Last Documented VS Vital Signs Date Time Temp Pulse Resp B/P Pulse Ox O2 Delivery O2 Flow Rate FiO2 10/04/16 11:00 98 Room Air 10/04/16 10:31 100 18 10/04/16 10:18 98.2 110/63 Orders Electrocardiogram (10/04/16 10:46) Complete Blood Count With Diff (10/04/16 10:46) Comprehensive Metabolic Panel (10/04/16 10:46) Prothrombin Time / Inr (Pt) (10/04/16 10:46) Act Partial Throm Time (Ptt) (10/04/16 10:46) Blood Culture (10/04/16 10:46) Lipase (10/04/16 10:46) Urinalysis - C+S If Indicated (10/04/16 10:46) Chest, Single Ap (10/04/16 10:46) Iv Access Insert/Monitor (10/04/16 10:46) Ecg Monitoring (10/04/16 10:46) Oximetry (10/04/16 10:46) Creatine Kinase (Cpk) (10/04/16 10:50) Troponin I (10/04/16 10:50) B-Type Natriuretic Peptide (10/04/16 10:50) Ct Abd/Pel W Iv Contrast(Rout) (10/04/16 12:57) Iohexol 350 Inj (Omnipaque 350 Inj) (10/04/16 14:12) Labs Laboratory Tests Test 10/04/16 10:55 White Blood Count 16.5 TH/MM3 Red Blood Count 5.40 MIL/MM3 Hemoglobin 12.9 GM/DL Hematocrit 40.3 % Mean Corpuscular Volume 74.6 FL Mean Corpuscular Hemoglobin 24.0 PG Mean Corpuscular Hemoglobin 32.1 % Concent Red Cell Distribution Width 17.9 % Platelet Count 283 TH/MM3 Mean Platelet Volume 7.3 FL Neutrophils (%) (Auto) 87.6 % Lymphocytes (%) (Auto) 7.3 % Monocytes (%) (Auto) 3.7 % Eosinophils (%) (Auto) 1.2 % Basophils (%) (Auto) 0.2 % Neutrophils # (Auto) 14.5 TH/MM3 Lymphocytes # (Auto) 1.2 TH/MM3 Monocytes # (Auto) 0.6 TH/MM3 Eosinophils # (Auto) 0.2 TH/MM3 Basophils # (Auto) 0.0 TH/MM3 CBC Comment AUTO DIFF Differential Total Cells 100 Counted Neutrophils % (Manual) 71 % Band Neutrophils % 16 % Lymphocytes % 9 % Monocytes % 3 % Eosinophils % 1 % Neutrophils # (Manual) 14.4 TH/MM3 Differential Comment FINAL DIFF MANUAL Platelet Estimate NORMAL Platelet Morphology Comment NORMAL Ovalocytes 1+ Prothrombin Time 10.8 SEC Prothromb Time International 1.0 RATIO Ratio Activated Partial 26.7 SEC Thromboplast Time Urine Color YELLOW Urine Turbidity CLEAR Urine pH 5.0 Urine Specific [place] 1.011 Urine Protein NEG mg/dL Urine Glucose (UA) NEG mg/dL Urine Ketones NEG mg/dL Urine Occult Blood NEG Urine Nitrite NEG Urine Bilirubin NEG Urine Urobilinogen LESS THAN 2.0 MG/DL Urine Leukocyte Esterase NEG Urine RBC 1 /hpf Urine WBC LESS THAN 1 /hpf Urine Squamous Epithelial 2 /hpf Cells Urine Bacteria RARE /hpf Urine Mucus FEW /lpf Microscopic Urinalysis Comment CULT NOT INDICATED Sodium Level 142 MEQ/L Potassium Level 4.1 MEQ/L Chloride Level 106 MEQ/L Carbon Dioxide Level 26.6 MEQ/L Anion Gap 9 MEQ/L Blood Urea Nitrogen 11 MG/DL Creatinine 1.15 MG/DL Estimat Glomerular Filtration 49 ML/MIN Rate Random Glucose 98 MG/DL Calcium Level 9.8 MG/DL Total Bilirubin 0.8 MG/DL Aspartate Amino Transf 20 U/L (AST/SGOT) Alanine Aminotransferase 24 U/L (ALT/SGPT) Alkaline Phosphatase 82 U/L Total Creatine Kinase 100 U/L Troponin I LESS THAN 0.02 NG/ML B-Type Natriuretic Peptide 48 PG/ML Total Protein 8.2 GM/DL Albumin 3.9 GM/DL Lipase 190 U/L MDM Medical Decision Making Medical Screen Exam Complete: Yes Emergency Medical Condition: Yes Interpretation(s) Last Impressions Chest X-Ray 10/04/16 1046 Signed Impressions: Service Date/Time: Tuesday, October 04, 2016 10:50 - CONCLUSION: Left basilar scarring versus linear atelectasis. Walt Sanz MD 12:37 PM. CBC WBC 16.5. Hemoglobin 12.9. MCV 74.6. 87 neutrophil. CMP within normal limit. Creatinine 1.15. Cardiac enzymes are normal. UA is negative. Differential Diagnosis Differential diagnosis including pneumonia, lung mass, gastritis, PUD, and otitis, cholecystitis, colitis, UTI, pyelonephritis, angina, WI, PE, pneumothorax. Narrative Course 55-year-old female with exacerbation of chest pain and abdominal pain. History of recently treated for pneumonia, lung mass, abdominal pain. Cefepime 1 g IV. Zithromax 500 mg IV. Diagnosis Primary Impression: Pneumonia Qualified Code: J18.9 - Pneumonia of both lungs due to infectious organism, unspecified part of lung Additional Impression: Ovarian cyst Qualified Code: N83.209 - Cyst of ovary, unspecified laterality Admitting Information Admitting Physician Requests: Admit Addison Franks MD Oct 04, 2016 10:53
[2016-10-04 11:00] VITALS: O2SAT 98
--- NOTE | 2016-10-04 11:06 | RADRPT ---
EXAM DATE/TIME: 10/04/2016 10:50 [facility] COMPARISON: CHEST SINGLE AP, September 01, 2016, 10:46. INDICATIONS : Chest pain, short of breath, coughing MEDICAL HISTORY : Chronic obstructive pulmonary disease. SURGICAL HISTORY : None. ENCOUNTER: Initial ACUITY: 1 day PAIN SCORE: 10/10 LOCATION: Bilateral chest FINDINGS: There is linear scarring versus atelectasis at the left base. The lungs are otherwise clear. Heart si ze normal. Osseous structures are intact. CONCLUSION: Left basilar scarring versus linear atelectasis. Walt Sanz MD on October 04, 2016 at 11:04 Board Certified Radiologist. This report was verified electronically.
[2016-10-04 11:33] LABS: AUTOMATED NEUTROPHIL # 14.5 TH/MM3 (1.8-7.7); BASOPHIL % 0.2 % (0.0-2.0); EOSINOPHIL # 0.2 TH/MM3 (0-0.4); EOSINOPHIL % 1.2 % (0.0-4.0); HEMATOCRIT 40.3 % (35.0-46.0); LYMPH % 7.3 % (9.0-44.0); LYMPHOCYTE # 1.2 TH/MM3 (1.0-4.8); MEAN CELL VOLUME 74.6 FL (80.0-100.0); MEAN CORPUSCULAR HGB CONC 32.1 % (32.0-36.0); MONO % 3.7 % (0.0-8.0); NEUT % 87.6 % (16.0-70.0); PLATELET COUNT 283 TH/MM3 (150-450); RED CELL DISTRIBUTION WIDTH 17.9 % (11.6-17.2); WHITE BLOOD COUNT 16.5 TH/MM3 (4.0-11.0)
[2016-10-04 11:37] LABS: APTT (PATIENT) 26.7 SEC (24.3-30.1); PROTHROMBIN TIME - PATIENT 10.8 SEC (9.8-11.6)
[2016-10-04 11:38] LABS: HEMO FLAGS AUTO DIFF
[2016-10-04 11:46] LABS: BACTERIA, URINE RARE /hpf; BLOOD, URINE NEG (NEG); COMMENT (UR) CULT NOT INDICATED; CULTURE IF INDICATED CULT NOT INDICATED; GLUCOSE,URINE NEG (NEG); KETONE, URINE NEG (NEG); MUCUS URINE FEW /lpf (OCC); NITRITE,URINE NEG (NEG); SQUAMOUS EPITHELIAL CELL URINE 2 /hpf (0-5); URINE COLOR YELLOW (YELLW/STRAW)
[2016-10-04 11:54] LABS: ALT (GPT) 24 U/L (10-53); ANION GAP 9 MEQ/L (5-15); AST (GOT) 20 U/L (15-37); BICARBONATE 26.6 MEQ/L (21.0-32.0); BLOOD UREA NITROGEN 11 MG/DL (7-18); CHLORIDE 106 MEQ/L (98-107); GLOMERULAR FILTRATION RATE 49 ML/MIN (>89); POTASSIUM 4.1 MEQ/L (3.5-5.1); SODIUM (NA) 142 MEQ/L (136-145)
[2016-10-04 11:56] LABS: ALKALINE PHOSPHATASE 82 U/L (45-117); TOTAL BILIRUBIN ADULT 0.8 MG/DL (0.2-1.0)
[2016-10-04 12:05] LABS: CREATINE KINASE 100 U/L (26-192)
[2016-10-04 12:11] LABS: BANDS 16 % (0-6); EOSINOPHILS 1 % (0-4); NEUTROPHIL # MANUAL DIFF 14.4 TH/MM3 (1.8-7.7); OVALOCYTES 1+ (NORMAL); PLATELET ESTIMATE SMEAR NORMAL (NORMAL); PLATELET MORPHOLOGY NORMAL (NORMAL); POLYS (SEG NEUTROPHILS) 71 % (16-70); SCAN/DIFF FINAL DIFF MANUAL; WBC DIFF SAMPLE 100
[2016-10-04] MEDS ORDERED: IOHEXOL 350 MG/ML 10 ML VIAL (for RAD DIAG) IV ONE (14:12)
--- NOTE | 2016-10-04 14:36 | RADRPT ---
EXAM DATE/TIME: 10/04/2016 13:26 [place] COMPARISON: No previous studies available for comparison. INDICATIONS : Evaluate for abdmenal mass. IV CONTRAST: 70 cc Omnipaque 350 (iohexol) IV ORAL CONTRAST: No oral contrast ingested. RADIATION DOSE: 15.22 CTDIvol (mGy) MEDICAL HISTORY : Hernia, hiatal. Chronic obstructive pulmonary disease. Lung mass SURGICAL HISTORY : Appendectomy. ENCOUNTER: Initial ACUITY: 2 days PAIN SCALE: 5/10 LOCATION: Abdomen TECHNIQUE: Volumetric scanning of the abdomen and pelvis was performed. Using automated exposure control and adjustment of the mA and/or kV according to patient size, radiation dose was kept as low as reasonably achievable to obtain optimal diagnostic quality images. FINDINGS: There is a large hiatal hernia. Liver, gallbladder, spleen, pancreas, adrenal glands, bilateral kidne ys are unremarkable. Atherosclerotic calcification of the aorta and iliac vessels are seen. There is diverticulosis of the sigmoid colon and descending colon, without evidence of diverticulitis. The exa mination demonstrates a large hypodense mass, cystic in appearance measuring 26 x 15 cm in transverse and AP dimension on axial image 53. This is seen within the abdomen and extends into the right upper pelvis believed to arise off the right ovary which is not clearly seen. There is a small enhancing m ass in the fundus on the left measuring 2.4 cm characteristic of a fibroid. The left ovary is normal. There is no lymphadenopathy. 4 mm nonobstructing right lower pole renal calculus. There is severe de generative disc disease at L4-5 and L5-S1. Review of the lung windows demonstrate patchy nodular infi ltrates within the right middle lobe, both lower lobes. A circumscribed nodule in the right lower lob e is present measuring 8.1 mm. CONCLUSION: 1. Large cystic right ovarian mass measuring up to 26 cm. 2. Hiatal hernia. 3. Atherosclerosis. 4. Di verticulosis. 5. Right renal calculus. 6. Lung nodular infiltrate and right lower lobe nodule. Walt Sanz MD on October 04, 2016 at 14:31 Board Certified Radiologist. This report was verified electronically.
[2016-10-04] MEDS ORDERED: AZITHROMYCIN INJ 500 MG in SODIUM CHLOR 0.9% 250 ML INJ 250 ML IV ONE (15:45)
[2016-10-04] MEDS ORDERED: CEFEPIME INJ 1,000 MG in SODIUM CHLORIDE 0.9% INJ 100 ML IV ONE (15:45)
[2016-10-04] MEDS ORDERED: ACETAMINOPHEN 325 MG TAB PO PRN (16:15)
[2016-10-04] MEDS: SODIUM CHLOR 0.9% 1000 ML INJ 1,000 ML IV SCH (16:36)
[2016-10-04 16:39] VITALS: BP 91/52; PULSE 107; RESP 22; O2SAT 95
--- NOTE | 2016-10-04 16:57 | HHI.HP ---
[facility] Service [facility] Primary Care Physician Nela Lundberg MD Admission Diagnosis pneumonia. Ovarian cyst. Diagnoses: (1) Pneumonia Diagnosis: Principal (2) Ovarian mass Diagnosis: Principal Travel History International Travel<30 Days: No Contact w/Intl Traveler <30 Da: No Traveled to Known Affected Are: No History of Present Illness patient is a 55 y/o female with history of COPD , who was treated for pneumonia last month, presented to ER with abdominal pain. she says that she's had this pain for a while but it started to get worse last week. the pain is in lower abdomen and constant. pain is moderate to severe in intensity with no radiation. she's had some nausea but no emesis. she says that she noticed that her abdomen is getting more distended and now this is causing some problem with her sob. she denies any fever or chills. Review of Systems Constitutional: DENIES: Fever, Weight loss, Chills, Night Sweats Eyes: DENIES: Blurred vision, Diplopia, Vision loss, Double Vision Ears, nose, mouth, throat: DENIES: Tinnitus, Vertigo, Throat pain, Epistaxis Respiratory: COMPLAINS OF: Shortness of breath, DENIES: Apneas, Cough, Snoring , Wheezing, Hemoptysis, Sputum production Cardiovascular: DENIES: Chest pain, Palpitations, Syncope, Dyspnea on Exertion , PND, Lower Extremity Edema, Orthopnea, Claudication Gastrointestinal: COMPLAINS OF: Abdominal pain, Nausea, DENIES: Black stools, Bloody stools, Constipation, Diarrhea, Vomiting, Difficulty Swallowing, Anorexia Genitourinary: DENIES: Urinary frequency, Urgency, Hematuria, Dysuria Musculoskeletal: DENIES: Joint pain, Muscle aches, Stiffness, Joint Swelling Integumentary: DENIES: Rash Neurologic: DENIES: Abnormal gait, Headache, Localized weakness, Paresthesias, Seizures, Speech Problems, Tremor, Poor Balance Psychiatric: DENIES: Anxiety, Confusion, Mood changes, Depression, Hallucinations, Agitation, Suicidal Ideation, Homicidal Ideation, Delusions Past Family Social History Past Medical History COPD hypothyroidism Past Surgical History tonsillectomy appendectomy Reported Medications Zantac (Ranitidine HCl) 150 Mg Tab 150 Mg PO BID Ferrous Sulfate 325 Mg Tab 325 Mg PO DAILY Antacid Extra Strength (Calcium Carbonate (Antacid)) 750 Mg Chew 750 Mg CHEW PRN Ibuprofen Pm (Ibuprofen-Diphenhydramine) 200-38 Mg Tab 1 Tab PO HS PRN Levothyroxine (Levothyroxine Sodium) 25 Mcg Tab 25 Mcg PO DAILY Advair Diskus Inh (Fluticasone-Salmeterol Inh) 100-50 Mcg/Blist Aer 1 Puff INH BID Rinse mouth after use. Allergies: Coded Allergies: No Known Allergies (Unverified , 10/04/16) Active Ordered Medications Current Medications Iohexol 70 ml 70 ml STK-MED ONCE IV Last administered on 10/04/16 14:12; Start 10/04/16 at 14:12; Stop 10/04/16 at 14:13; Status DC Cefepime HCl 1000 mg/Sodium Chloride 100 ml @ 200 mls/hr ONCE ONCE IV Last administered on 10/04/16 16:37; Start 10/04/16 at 15:45; Stop 10/04/16 at 16:14 ; Status DC Azithromycin 500 mg/Sodium Chloride 250 ml @ 250 mls/hr ONCE ONCE IV ; Start 10/04/16 at 15:45; Stop 10/04/16 at 16:44 Sodium Chloride (NS 1000 ml Inj) 1,000 ml @ 100 mls/hr Q10H IV Last administered on 10/04/16 16:36; Start 10/04/16 at 15:45 Acetaminophen (Tylenol) 650 mg Q4H PRN PO FEVER; Start 10/04/16 at 16:15 Ferrous Sulfate (Ferrous Sulfate) 325 mg DAILY PO ; Start 10/05/16 at 09:00 Levothyroxine Sodium (Synthroid) 25 mcg DAILY@06 PO ; Start 10/05/16 at 06:00 Non-Formulary Medication 1 puff BID INH AST; Start 10/04/16 at 21:00; Status UNV Non-Formulary Medication 150 mg BID PO Reduce Stomach Acid; Start 10/04/16 at 21 :00; Status UNV Famotidine (Pepcid) 20 mg BID PO ; Start 10/04/16 at 21:00 Budesonide/ Formoterol Fumarate (Symbicort 80-4.5 Mcg Inh) 2 puff BID INH ; Start 10/04/16 at 21:00 Social History quit smoking and drinking a year ago. Physical Exam Vital Signs Vital Signs Date Time Temp Pulse Resp B/P Pulse Ox O2 Delivery O2 Flow Rate FiO2 10/04/16 16:39 107 22 91/52 95 Room Air 10/04/16 11:00 98 Room Air 10/04/16 10:31 100 18 96 Room Air 10/04/16 10:18 98.2 116 22 110/63 95 Room Air 10/04/16 10:16 98.2 99 20 105/50 97 Physical Exam GENERAL: This is a well-nourished, well-developed patient, in no apparent distress. SKIN: No rashes, ecchymoses or lesions. Cool and dry. HEAD: Atraumatic. Normocephalic. No temporal or scalp tenderness. EYES: Pupils equal round and reactive. Extraocular motions intact. No scleral icterus. No injection or drainage. ENT: Nose without bleeding, purulent drainage or septal hematoma. Throat without erythema, tonsillar hypertrophy or exudate. Uvula midline. Airway patent. NECK: Trachea midline. No JVD or lymphadenopathy. Supple, nontender, no meningeal signs. CARDIOVASCULAR: Regular rate and rhythm without murmurs, gallops, or rubs. RESPIRATORY: Clear to auscultation. Breath sounds equal bilaterally. No wheezes , rales, or rhonchi. GASTROINTESTINAL: Abdomen soft, distended with mild to moderate generalized tenderness. MUSCULOSKELETAL: Extremities without clubbing, cyanosis, or edema. No joint tenderness, effusion, or edema noted. No calf tenderness. Negative Homans sign bilaterally. NEUROLOGICAL: Awake and alert. Cranial nerves II through XII intact. Motor and sensory grossly within normal limits. Five out of 5 muscle strength in all muscle groups. Normal speech. Laboratory Laboratory Tests Test 10/04/16 10:55 White Blood Count 16.5 Red Blood Count 5.40 Hemoglobin 12.9 Hematocrit 40.3 Mean Corpuscular Volume 74.6 Mean Corpuscular Hemoglobin 24.0 Mean Corpuscular Hemoglobin 32.1 Concent Red Cell Distribution Width 17.9 Platelet Count 283 Mean Platelet Volume 7.3 Neutrophils (%) (Auto) 87.6 Lymphocytes (%) (Auto) 7.3 Monocytes (%) (Auto) 3.7 Eosinophils (%) (Auto) 1.2 Basophils (%) (Auto) 0.2 Neutrophils # (Auto) 14.5 Lymphocytes # (Auto) 1.2 Monocytes # (Auto) 0.6 Eosinophils # (Auto) 0.2 Basophils # (Auto) 0.0 CBC Comment AUTO DIFF Differential Total Cells 100 Counted Neutrophils % (Manual) 71 Band Neutrophils % 16 Lymphocytes % 9 Monocytes % 3 Eosinophils % 1 Neutrophils # (Manual) 14.4 Differential Comment FINAL DIFF MANUAL Platelet Estimate NORMAL Platelet Morphology Comment NORMAL Ovalocytes 1+ Prothrombin Time 10.8 Prothromb Time International 1.0 Ratio Activated Partial 26.7 Thromboplast Time Urine Color YELLOW Urine Turbidity CLEAR Urine pH 5.0 Urine Specific [place] 1.011 Urine Protein NEG Urine Glucose (UA) NEG Urine Ketones NEG Urine Occult Blood NEG Urine Nitrite NEG Urine Bilirubin NEG Urine Urobilinogen LESS THAN 2.0 Urine Leukocyte Esterase NEG Urine RBC 1 Urine WBC LESS THAN 1 Urine Squamous Epithelial 2 Cells Urine Bacteria RARE Urine Mucus FEW Microscopic Urinalysis Comment CULT NOT INDICATED Sodium Level 142 Potassium Level 4.1 Chloride Level 106 Carbon Dioxide Level 26.6 Anion Gap 9 Blood Urea Nitrogen 11 Creatinine 1.15 Estimat Glomerular Filtration 49 Rate Random Glucose 98 Calcium Level 9.8 Total Bilirubin 0.8 Aspartate Amino Transf 20 (AST/SGOT) Alanine Aminotransferase 24 (ALT/SGPT) Alkaline Phosphatase 82 Total Creatine Kinase 100 Troponin I LESS THAN 0.02 B-Type Natriuretic Peptide 48 Total Protein 8.2 Albumin 3.9 Lipase 190 Date/Time Procedure Status Source Growth 10/04/16 11:00 Aerobic Blood Culture Received Blood Peripheral Pending 10/04/16 11:00 Anaerobic Blood Culture Received Blood Peripheral Pending Result Diagram: 10/04/16 1055 10/04/16 1055 Imaging Last Impressions Abdomen/Pelvis CT 10/04/16 1257 Signed Impressions: Service Date/Time: Tuesday, October 04, 2016 13:26 - CONCLUSION: 1. Large cystic right ovarian mass measuring up to 26 cm. 2. Hiatal hernia. 3. Atherosclerosis. 4. Diverticulosis. 5. Right renal calculus. 6. Lung nodular infiltrate and right lower lobe nodule. Walt Sanz MD Chest X-Ray 10/04/16 1046 Signed Impressions: Service Date/Time: Tuesday, October 04, 2016 10:50 - CONCLUSION: Left basilar scarring versus linear atelectasis. 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 -possible pneumonia continue with IV antibiotics- follow the cultures- will deescalate the antibiotic regimen when cultures resulted. will consider walk test before discharge. -COPD with no exacerbation; resume advair- neb treatment as needed. -lung nodule- f/u as outpatient. -hypothyroidism; resume levothyroxine -DVT prophylaxis with SCD's Discussed Condition With ER physician and the patient. Physician Certification 2 Midnight Certification Type: Admission for Inpatient Services Order for Inpatient Services The services are ordered in accordance with Medicare regulations or non- Medicare payer requirements, as applicable. In the case of services not specified as inpatient-only, they are appropriately provided as inpatient services in accordance with the 2-midnight benchmark. Estimated LOS (days): 2 days is the estimated time the patient will need to remain in the hospital, assuming treatment plan goals are met and no additional complications. Post-Hospital Plan: Home Problem Qualifiers (1) Pneumonia: Qualified Code: J18.9 - Pneumonia of both lungs due to infectious organism, unspecified part of lung Flory Benavides MD Oct 04, 2016 16:57
[2016-10-04] MEDS: RESP: ALBUTEROL 2.5 MG/IPRATROPIUM 0.5 MG NEB (PRN) NEB (17:07)
[2016-10-04 18:00] VITALS: BP 95/60; PULSE 120; RESP 22; O2SAT 93
--- NOTE | 2016-10-04 18:10 | PD.CONS ---
HPI Chief Complaint Consulted secondary to pelvic mass noted on CT. Date Seen: Oct 04, 2016 Travel History International Travel<30 Days: No Contact w/Intl Traveler<30Days: No Known Affected Area: No History of Present Illness HPI 55 yo , postmenopausal since 2016, admitted to medicine service for treatment of pneumonia. Patient reported abdominal pain, pressure, and distension since the beginning of this year. Patient reports not seeking evaluation before this admission. Denies N/V. Tolerating regular diet. Denies urinary or bowel problems. 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 Para: 2 : 2 Last Menstrual Period: Oct 04, 2016 History Past Medical History Narrative Medical COPD, Hiatal hernia Obstetric History Obstetric History 2 FT , LBB 1984, BBB 7# Past Surgical History Narrative Surgical Tonsillectomy, Appendectomy Family History Family History: Negative Social History Alcohol Use: No Tobacco Use: No Substance Abuse: No Allergies-Medications (Allergen,Severity, Reaction): Coded Allergies: No Known Allergies (Unverified , 10/04/16) Home Meds Active Scripts Ranitidine (Zantac)150 Mg [id number] Mg PO BID #60 TAB Ref 3 Prov:Nela Lundberg MD 09/20/16 Ferrous Sulfate 325 Mg [id number] Mg PO DAILY #30 TAB Ref 0 Prov:Lewis Monte MD 09/04/16 Reported Medications Calcium Carbonate (Antacid) (Antacid Extra Strength)750 Mg [id number] Mg CHEW PRN ( REFLUX) 09/20/16 Ibuprofen-Diphenhydramine (Ibuprofen Pm)200-38 Mg Tab1 Tab PO HS PRN (PAIN/SLEEP ) Ref 0 09/20/16 Levothyroxine 25 Mcg Tab25 Mcg PO DAILY #30 TAB Ref 0 09/01/16 Fluticasone-Salmeterol Inh (Advair Diskus Inh)100-50 Mcg/Blist Aer1 Puff INH BID #1 INHALER Ref 0 Rinse mouth after use. 09/01/16 Physical Exam Vital Signs Date Time Temp Pulse Resp B/P Pulse Ox O2 Delivery O2 Flow Rate FiO2 10/04/16 16:39 107 22 91/52 95 Room Air 10/04/16 11:00 98 Room Air 10/04/16 10:31 100 18 96 Room Air 10/04/16 10:18 98.2 116 22 110/63 95 Room Air 10/04/16 10:16 98.2 99 20 105/50 97 Narrative GENERAL: Well-nourished, well-developed patient. SKIN: Warm and dry. HEAD: Normocephalic and atraumatic. EYES: No scleral icterus. No injection or drainage. ENT: No nasal drainage noted. Mucous membranes pink. Airway patent. NECK: Supple, trachea midline. No JVD. CARDIOVASCULAR: Regular rate and rhythm without murmurs, gallops, or rubs. RESPIRATORY: Breath sounds equal bilaterally. No accessory muscle use. BREASTS: Bilateral exam showed no masses , no retractions, no nipple discharge. ABDOMEN/GI: Abdomen soft, non-tender, bowel sounds present, no rebound, no guarding Gravid to [-] weeks size Fundal Height: [-] GENITOURINARY: vault without lesions, pelvic mass palpated to umblicus, NT, non mobile External Genitalia: intact and normal in appearance BUS glands: [-] Cervix: [-] Dilatation: [-] Effacement: [-] Station: [-] Presentation: [-] Membranes: [intact or ruptured] Uterine Contractions: [-] FHT's: Category: [-] Baseline: [-] Reactive: [-] Variability: [-] Decels: [-] EXTREMITIES: No cyanosis or edema. BACK: Nontender without obvious deformity. No CVA tenderness. NEUROLOGICAL: Awake and alert. Motor and sensory grossly within normal limits. Five out of 5 muscle strength in all muscle groups. Normal speech. Data Data Orders Electrocardiogram (10/04/16 10:46) Complete Blood Count With Diff (10/04/16 10:46) Comprehensive Metabolic Panel (10/04/16 10:46) Prothrombin Time / Inr (Pt) (10/04/16 10:46) Act Partial Throm Time (Ptt) (10/04/16 10:46) Blood Culture (10/04/16 10:46) Lipase (10/04/16 10:46) Urinalysis - C+S If Indicated (10/04/16 10:46) Chest, Single Ap (10/04/16 10:46) Iv Access Insert/Monitor (10/04/16 10:46) Ecg Monitoring (10/04/16 10:46) Oximetry (10/04/16 10:46) Creatine Kinase (Cpk) (10/04/16 10:50) Troponin I (10/04/16 10:50) B-Type Natriuretic Peptide (10/04/16 10:50) Ct Abd/Pel W Iv Contrast(Rout) (10/04/16 12:57) Iohexol 350 Inj (Omnipaque 350 Inj) (10/04/16 14:12) Cefepime Inj (Maxipime Inj) (10/04/16 15:45) Azithromycin Inj (Zithromax Inj) (10/04/16 15:45) Sodium Chlor 0.9% 1000 Ml Inj (Ns 1000 M (10/04/16 15:45) Diet Regular Basic (10/04/16 Dinner) Vital Signs (Adult) NIKHIL.Q4H (10/04/16 16:10) Consult Gynecology (10/04/16 ) Acetaminophen (Tylenol) (10/04/16 16:15) Ferrous Sulfate (Ferrous Sulfate) (10/05/16 09:00) Levothyroxine (Synthroid) (10/05/16 09:00) Admit Order (Ed Use Only) (10/04/16 16:10) Famotidine (Pepcid) (10/04/16 21:00) Budeson-Formot 80-4.5 Mcg Inh (Symbicort (10/04/16 21:00) Resp Oxygen Handy C Titrat 1-4 L (10/04/16 ) Scd Bilateral/Knee High NIKHIL.QSHIFT (10/04/16 16:40) Complete Blood Count With Diff (10/05/16 06:00) Cefepime Inj (Maxipime Inj) (10/05/16 04:00) Albuterol-Ipratropium Neb (Duoneb Neb) (10/04/16 17:00) Acetamin-Hydrocod 325-5 Mg ([place] 5-325 (10/04/16 17:00) (Hub Use Only)Inp Phy Cons/Ref (10/04/16 17:25) Labs Laboratory Tests Test 10/04/16 10:55 White Blood Count 16.5 Red Blood Count 5.40 Hemoglobin 12.9 Hematocrit 40.3 Mean Corpuscular Volume 74.6 Mean Corpuscular Hemoglobin 24.0 Mean Corpuscular Hemoglobin 32.1 Concent Red Cell Distribution Width 17.9 Platelet Count 283 Mean Platelet Volume 7.3 Neutrophils (%) (Auto) 87.6 Lymphocytes (%) (Auto) 7.3 Monocytes (%) (Auto) 3.7 Eosinophils (%) (Auto) 1.2 Basophils (%) (Auto) 0.2 Neutrophils # (Auto) 14.5 Lymphocytes # (Auto) 1.2 Monocytes # (Auto) 0.6 Eosinophils # (Auto) 0.2 Basophils # (Auto) 0.0 CBC Comment AUTO DIFF Differential Total Cells 100 Counted Neutrophils % (Manual) 71 Band Neutrophils % 16 Lymphocytes % 9 Monocytes % 3 Eosinophils % 1 Neutrophils # (Manual) 14.4 Differential Comment FINAL DIFF MANUAL Platelet Estimate NORMAL Platelet Morphology Comment NORMAL Ovalocytes 1+ Prothrombin Time 10.8 Prothromb Time International 1.0 Ratio Activated Partial 26.7 Thromboplast Time Urine Color YELLOW Urine Turbidity CLEAR Urine pH 5.0 Urine Specific [place] 1.011 Urine Protein NEG Urine Glucose (UA) NEG Urine Ketones NEG Urine Occult Blood NEG Urine Nitrite NEG Urine Bilirubin NEG Urine Urobilinogen LESS THAN 2.0 Urine Leukocyte Esterase NEG Urine RBC 1 Urine WBC LESS THAN 1 Urine Squamous Epithelial 2 Cells Urine Bacteria RARE Urine Mucus FEW Microscopic Urinalysis Comment CULT NOT INDICATED Sodium Level 142 Potassium Level 4.1 Chloride Level 106 Carbon Dioxide Level 26.6 Anion Gap 9 Blood Urea Nitrogen 11 Creatinine 1.15 Estimat Glomerular Filtration 49 Rate Random Glucose 98 Calcium Level 9.8 Total Bilirubin 0.8 Aspartate Amino Transf 20 (AST/SGOT) Alanine Aminotransferase 24 (ALT/SGPT) Alkaline Phosphatase 82 Total Creatine Kinase 100 Troponin I LESS THAN 0.02 B-Type Natriuretic Peptide 48 Total Protein 8.2 Albumin 3.9 Lipase 190 Date/Time Procedure Status Source Growth 10/04/16 11:00 Aerobic Blood Culture Received Blood Peripheral Pending 10/04/16 11:00 Anaerobic Blood Culture Received Blood Peripheral Pending CT abd/pelvis- right ovarian mass/cyst: 26cm x 15cm, left ovary appearing normal ,possible small fundal fibroid noted measuring 2.4cm. MDM Narrative Course / MDM 55 yo admitted for pneumonia with right ovarian mass. Plan Continue care per admitting team. Recommend obtaining CA 125. Patient will need close f/u upon discharge with [facility]. October f/u with Dr. Patrick, message left with Dr. Patrick. D/w patient surgical therapy as well. All questions answered at this time. Admitting diagnosis: pneumonia. Ovarian cyst. Clara Bishop MD Oct 04, 2016 18:10
[2016-10-04] MEDS: ACETAMINOPHEN/HYDROcodone 325 MG/5 MG TAB PO PRN (19:04)
[2016-10-04] MEDS: BUDESONIDE-FORMOTEROL 80/4.5 MCG INHALER INH SCH (20:25)
[2016-10-04] MEDS: FAMOTIDINE 20 MG TAB PO SCH (20:25)
[2016-10-04 20:30] VITALS: BP 96/60; PULSE 102; RESP 18; TEMP 98.5; O2SAT 93
[2016-10-04] MEDS ORDERED: NON-FORMULARY DRUG (Fluticasone-Salmeterol Inh (Advair Diskus Inh) 1 PUFF) INH SCH (21:00)
[2016-10-04] MEDS ORDERED: NON-FORMULARY DRUG (Ranitidine (Zantac) 150 MG) PO SCH (21:00)
[2016-10-05] VITALS (7 sets, daily range): BP systolic 88–121; BP diastolic 61–92; PULSE 92–113; RESP 12–18; TEMP 97.8–101.8; O2SAT 93–96
[2016-10-05] MEDS: ACETAMINOPHEN/HYDROcodone 325 MG/5 MG TAB PO PRN ×4 (02:34→23:47)
[2016-10-05] MEDS: SODIUM CHLOR 0.9% 1000 ML INJ 1,000 ML IV SCH ×3 (02:36→21:45)
[2016-10-05] MEDS ORDERED: CEFEPIME INJ 2,000 MG in SODIUM CHLORIDE 0.9% INJ 100 ML IV SCH (04:00)
[2016-10-05] MEDS: LEVOTHYROXINE SODIUM 25 MCG TAB PO SCH (05:02)
[2016-10-05 06:56] LABS: AUTOMATED NEUTROPHIL # 17.3 TH/MM3 (1.8-7.7); BASOPHIL # 0.1 TH/MM3 (0-0.2); BASOPHIL % 0.3 % (0.0-2.0); EOSINOPHIL # 0.2 TH/MM3 (0-0.4); HEMATOCRIT 32.5 % (35.0-46.0); LYMPH % 10.5 % (9.0-44.0); LYMPHOCYTE # 2.2 TH/MM3 (1.0-4.8); MEAN CELL VOLUME 75.7 FL (80.0-100.0); MEAN CORPUSCULAR HEMOGLOBIN 23.7 PG (27.0-34.0); MEAN CORPUSCULAR HGB CONC 31.3 % (32.0-36.0); NEUT % 83.2 % (16.0-70.0); PLATELET COUNT 240 TH/MM3 (150-450); RED CELL DISTRIBUTION WIDTH 18.2 % (11.6-17.2); WHITE BLOOD COUNT 20.7 TH/MM3 (4.0-11.0)
[2016-10-05 06:58] LABS: HEMO FLAGS AUTO DIFF
[2016-10-05 08:35] LABS: BANDS 16 % (0-6); EOSINOPHILS 3 % (0-4); NEUTROPHIL # MANUAL DIFF 16.4 TH/MM3 (1.8-7.7); PLATELET ESTIMATE SMEAR NORMAL (NORMAL); PLATELET MORPHOLOGY NORMAL (NORMAL); POLYS (SEG NEUTROPHILS) 63 % (16-70); SCAN/DIFF FINAL DIFF MANUAL; WBC DIFF SAMPLE 100
--- NOTE | 2016-10-05 09:12 | HHI.PR ---
Subjective Remarks in no acute distress. has occasional cough but with no sputum production. no fever. still with some abdominal pain. Objective Vitals Vital Signs Date Time Temp Pulse Resp B/P Pulse Ox O2 Delivery O2 Flow Rate FiO2 10/05/16 04:00 100 18 121/68 95 10/05/16 04:00 97.8 10/05/16 00:00 98.4 106 16 115/64 10/04/16 20:30 98.5 102 18 96/60 93 10/04/16 18:00 120 22 95/60 93 Room Air 10/04/16 16:39 107 22 91/52 95 Room Air 10/04/16 11:00 98 Room Air 10/04/16 10:31 100 18 96 Room Air 10/04/16 10:18 98.2 116 22 110/63 95 Room Air 10/04/16 10:16 98.2 99 20 105/50 97 I/O 10/04/16 10/04/16 10/04/16 10/05/16 10/05/16 10/05/16 07:00 15:00 23:00 07:00 15:00 23:00 Intake Total 360 ml 240 ml Balance 360 ml 240 ml Intake Oral 360 ml 240 ml # Voids 1 2 Result Diagram: 10/05/16 0633 10/04/16 1055 Imaging Last Impressions Abdomen/Pelvis CT 10/04/16 1257 Signed Impressions: Service Date/Time: Tuesday, October 04, 2016 13:26 - CONCLUSION: 1. Large cystic right ovarian mass measuring up to 26 cm. 2. Hiatal hernia. 3. Atherosclerosis. 4. Diverticulosis. 5. Right renal calculus. 6. Lung nodular infiltrate and right lower lobe nodule. Walt Sanz MD Chest X-Ray 10/04/16 1046 Signed Impressions: Service Date/Time: Tuesday, October 04, 2016 10:50 - CONCLUSION: Left basilar scarring versus linear atelectasis. Walt Sanz MD Objective Remarks GENERAL: This is a well-nourished, well-developed patient, in no apparent distress. CARDIOVASCULAR: Regular rate and regular rhythm without murmurs, gallops, or rubs. RESPIRATORY: Clear to auscultation. Breath sounds equal bilaterally. No wheezes , rales, or rhonchi. GASTROINTESTINAL: Abdomen soft, generalized tenderness, distended. Normal, active bowel sounds MUSCULOSKELETAL: Extremities without clubbing, cyanosis, or edema. NEURO: Alert & Oriented x4 to person, place, time, situation. Moves all ext x4 Procedures none Medications and IVs Current Medications Iohexol 70 ml 70 ml STK-MED ONCE IV Last administered on 10/04/16 14:12; Start 10/04/16 at 14:12; Stop 10/04/16 at 14:13; Status DC Cefepime HCl 1000 mg/Sodium Chloride 100 ml @ 200 mls/hr ONCE ONCE IV Last administered on 10/04/16 16:37; Start 10/04/16 at 15:45; Stop 10/04/16 at 16:14 ; Status DC Azithromycin 500 mg/Sodium Chloride 250 ml @ 250 mls/hr ONCE ONCE IV Last administered on 10/04/16 17:30; Start 10/04/16 at 15:45; Stop 10/04/16 at 16:44 ; Status DC Sodium Chloride (NS 1000 ml Inj) 1,000 ml @ 100 mls/hr Q10H IV Last administered on 10/05/16 02:36; Start 10/04/16 at 15:45 Acetaminophen (Tylenol) 650 mg Q4H PRN PO FEVER; Start 10/04/16 at 16:15 Ferrous Sulfate (Ferrous Sulfate) 325 mg DAILY PO ; Start 10/05/16 at 09:00 Levothyroxine Sodium (Synthroid) 25 mcg DAILY@06 PO Last administered on 05:02; Start 10/05/16 at 06:00 Non-Formulary Medication 1 puff BID INH AST; Start 10/04/16 at 21:00; Status UNV Non-Formulary Medication 150 mg BID PO Reduce Stomach Acid; Start 10/04/16 at 21 :00; Status UNV Famotidine (Pepcid) 20 mg BID PO Last administered on 10/04/16 20:25; Start at 21:00 Budesonide/ Formoterol Fumarate (Symbicort 80-4.5 Mcg Inh) 2 puff BID INH Last administered on 10/04/16 20:25; Start 10/04/16 at 21:00 Albuterol/ Ipratropium 1 ampule 1 ampule Q4HR NEB PRN NEB SHORTNESS OF BREATH Last administered on 10/04/16 17:07; Start 10/04/16 at 17:00 Cefepime HCl/ Sodium Chloride (Maxipime Inj/NS Inj) 100 ml @ 200 mls/hr Q12H IV Last administered on 10/05/16 03:14; Start 10/05/16 at 04:00 Acetaminophen/ Hydrocodone Bitart ([place] 5-325 Mg) 1 tab Q4H PRN PO PAIN > 5 Last administered on 10/05/16 02:34; Start 10/04/16 at 17:00 A/P Assessment and Plan A/P - abdominal pain with large ovarian mass [facility] consult appreciated and recommended outpatient f/u- continue with pain control. -sepsis due to pneumonia continue with IV antibiotics- follow the cultures- will consult pulmonary and ID. of note the patient was recently treated for pneumonia. will consider walk test before discharge. -COPD with no exacerbation; resume advair- neb treatment as needed. -lung nodule- pulmonary consult -hypothyroidism; resumed levothyroxine -DVT prophylaxis with SCD's Flory Benavides MD Oct 05, 2016 09:12
[2016-10-05] MEDS: FAMOTIDINE 20 MG TAB PO SCH ×2 (09:26→20:01)
[2016-10-05] MEDS: FERROUS SULFATE 325 MG (65 MG ELEMENTAL IRON) TAB PO SCH (09:26)
[2016-10-05] MEDS: BUDESONIDE-FORMOTEROL 80/4.5 MCG INHALER INH SCH ×2 (09:26→20:01)
[2016-10-05] MEDS: RESP: ALBUTEROL 2.5 MG/IPRATROPIUM 0.5 MG NEB (PRN) NEB ×4 (09:37→19:38)
--- NOTE | 2016-10-05 10:33 | HHI.PR ---
[facility] Note Note Tumor markers ordered. CT scan reviewed with radiology. Given the size of the right pelvic mass I have consulted bilingual branch manager-oncology for their recommendations for management. Ghada Cooper MD Oct 05, 2016 10:33
--- NOTE | 2016-10-05 11:51 | EKG ---
Date Performed: 10/04/2016 Time Performed: 12:22:07 PTAGE: 55 years EKG: SINUS TACHYCARDIA ABNORMAL RHYTHM ECG PREVIOUS TRACING : 09/01/2016 10.43 DOCTOR: Jeremie Laureano Interpretating Date/Time 10/05/2016 11:45:11
[2016-10-05 12:27] LABS: BETA HCG TUMOR MARKER LESS THAN 1 MIU/ML (0-5); LDH SERUM 134 U/L (84-246)
[2016-10-05] MEDS ORDERED: Amikacin Consult Pharmacy 1 EA OTHER SCH (14:00)
--- NOTE | 2016-10-05 14:55 | PD.CONS ---
History of Present Illness Service FERN CUTTER/ONC Consult Requested By Dr. Cooper Reason for Consult large abdominopelvic cyst Primary Care Physician Nela Lundberg MD Diagnoses: (1) Ovarian cyst (2) Pneumonia History of Present Illness This is a 55 year old female who was treated about one month ago for pneumonia. She was started on antibiotics and completed treatment. She states she started to have abdominal pain, reflux and nausea. She denies any fevers or vomiting. She denies any vaginal bleeding she states her last menstrual cycle was 10/2015 and it has been many years since her last brush hand exam. Ct scan was obtained in the ER and shown a large cyst in the pelvis, large hiatal hernia and diverticulum. Review of Systems Constitutional: COMPLAINS OF: Change in appetite Respiratory: COMPLAINS OF: Shortness of breath Gastrointestinal: COMPLAINS OF: Abdominal pain, Constipation, Nausea Past Family Social History Allergies: Coded Allergies: No Known Allergies (Unverified , 10/04/16) Past Medical History COPD hypothyroidism Past Surgical History tonsillectomy appendectomy tubal ligation Reported Medications Zantac (Ranitidine HCl) 150 Mg Tab 150 Mg PO BID Ferrous Sulfate 325 Mg Tab 325 Mg PO DAILY Antacid Extra Strength (Calcium Carbonate (Antacid)) 750 Mg Chew 750 Mg CHEW PRN Ibuprofen Pm (Ibuprofen-Diphenhydramine) 200-38 Mg Tab 1 Tab PO HS PRN Levothyroxine (Levothyroxine Sodium) 25 Mcg Tab 25 Mcg PO DAILY Advair Diskus Inh (Fluticasone-Salmeterol Inh) 100-50 Mcg/Blist Aer 1 Puff INH BID Rinse mouth after use. Active Ordered Medications Current Medications Iohexol 70 ml 70 ml STK-MED ONCE IV Last administered on 10/04/16 14:12; Start 10/04/16 at 14:12; Stop 10/04/16 at 14:13; Status DC Cefepime HCl 1000 mg/Sodium Chloride 100 ml @ 200 mls/hr ONCE ONCE IV Last administered on 10/04/16 16:37; Start 10/04/16 at 15:45; Stop 10/04/16 at 16:14 ; Status DC Azithromycin 500 mg/Sodium Chloride 250 ml @ 250 mls/hr ONCE ONCE IV Last administered on 10/04/16 17:30; Start 10/04/16 at 15:45; Stop 10/04/16 at 16:44 ; Status DC Sodium Chloride (NS 1000 ml Inj) 1,000 ml @ 100 mls/hr Q10H IV Last administered on 10/05/16 02:36; Start 10/04/16 at 15:45 Acetaminophen (Tylenol) 650 mg Q4H PRN PO FEVER; Start 10/04/16 at 16:15 Ferrous Sulfate (Ferrous Sulfate) 325 mg DAILY PO Last administered on 09:26; Start 10/05/16 at 09:00 Levothyroxine Sodium (Synthroid) 25 mcg DAILY@06 PO Last administered on 05:02; Start 10/05/16 at 06:00 Non-Formulary Medication 1 puff BID INH AST; Start 10/04/16 at 21:00; Status UNV Non-Formulary Medication 150 mg BID PO Reduce Stomach Acid; Start 10/04/16 at 21 :00; Status UNV Famotidine (Pepcid) 20 mg BID PO Last administered on 10/05/16 09:26; Start at 21:00 Budesonide/ Formoterol Fumarate (Symbicort 80-4.5 Mcg Inh) 2 puff BID INH Last administered on 10/05/16 09:26; Start 10/04/16 at 21:00 Albuterol/ Ipratropium 1 ampule 1 ampule Q4HR NEB PRN NEB SHORTNESS OF BREATH Last administered on 10/05/16 13:39; Start 10/04/16 at 17:00 Cefepime HCl/ Sodium Chloride (Maxipime Inj/NS Inj) 100 ml @ 200 mls/hr Q12H IV Last administered on 10/05/16 03:14; Start 10/05/16 at 04:00; Stop at 13:52; Status DC Acetaminophen/ Hydrocodone Bitart 1 tab 1 tab Q4H PRN PO PAIN > 5 Last administered on 10/05/16 09:31; Start 10/04/16 at 17:00; Stop 10/05/16 at 13:53 ; Status DC Pharmacy Profile Note 0 ml @ 0 mls/hr UNSCH OTHER ; Start 10/05/16 at 14:00; Status UNV Cefoxitin Sodium/ Sodium Chloride (Mefoxin Inj/NS Inj) 100 ml @ 200 mls/hr Q4HR IV ; Start 10/05/16 at 16:00; Status UNV Ciprofloxacin (Cipro) 750 mg Q12HR PO ; Start 10/05/16 at 21:00; Status UNV Acetaminophen/ Hydrocodone Bitart ([place] 5-325 Mg) 1 tab Q6HR PRN PO PAIN > 5 ; Start 10/05/16 at 18:00; Status UNV Social History 3 children quit tobacco and alcohol 06/10 Physical Exam Vital Signs Vital Signs Date Time Temp Pulse Resp B/P Pulse Ox O2 Delivery O2 Flow Rate FiO2 10/05/16 12:00 99.3 98 12 88/92 93 10/05/16 08:00 99.0 92 12 103/73 96 10/05/16 04:00 100 18 121/68 95 10/05/16 04:00 97.8 10/05/16 00:00 98.4 106 16 115/64 10/04/16 20:30 98.5 102 18 96/60 93 10/04/16 18:00 120 22 95/60 93 Room Air 10/04/16 16:39 107 22 91/52 95 Room Air Physical Exam GENERAL: This is a well-nourished, well-developed patient, in NAD SKIN: No rashes, ecchymoses or lesions. Cool and dry. HEAD: Atraumatic. Normocephalic. EYES: Pupils equal round and reactive. Extraocular motions intact. No scleral icterus. No injection or drainage. NECK: Trachea midline. CARDIOVASCULAR: Regular rate and rhythm without murmurs, gallops, or rubs. RESPIRATORY: Clear to auscultation. Breath sounds equal bilaterally. GASTROINTESTINAL: Abdomen distended and firm, generalized tenderness with area of ecchymosis to mid abdomen MUSCULOSKELETAL: Extremities without clubbing, cyanosis, or edema. No joint tenderness, effusion, or edema noted. No calf tenderness. Negative Homans sign bilaterally. NEUROLOGICAL: Awake and alert. Normal speech. Laboratory Laboratory Tests Test 10/05/16 10/05/16 06:33 11:22 White Blood Count 20.7 Red Blood Count 4.30 Hemoglobin 10.2 Hematocrit 32.5 Mean Corpuscular Volume 75.7 Mean Corpuscular Hemoglobin 23.7 Mean Corpuscular Hemoglobin 31.3 Concent Red Cell Distribution Width 18.2 Platelet Count 240 Mean Platelet Volume 7.1 Neutrophils (%) (Auto) 83.2 Lymphocytes (%) (Auto) 10.5 Monocytes (%) (Auto) 5.0 Eosinophils (%) (Auto) 1.0 Basophils (%) (Auto) 0.3 Neutrophils # (Auto) 17.3 Lymphocytes # (Auto) 2.2 Monocytes # (Auto) 1.0 Eosinophils # (Auto) 0.2 Basophils # (Auto) 0.1 CBC Comment AUTO DIFF Differential Total Cells 100 Counted Neutrophils % (Manual) 63 Band Neutrophils % 16 Lymphocytes % 12 Monocytes % 6 Eosinophils % 3 Neutrophils # (Manual) 16.4 Differential Comment FINAL DIFF MANUAL Platelet Estimate NORMAL Platelet Morphology Comment NORMAL Lactate Dehydrogenase 134 Tumor Marker Alpha Fetoprotein 3.1 Carcinoembryonic Antigen 1.9 CA 125 Antigen 42.1 Tumor Marker HCG LESS THAN 1 Date/Time Procedure Status Source Growth 10/04/16 11:00 Aerobic Blood Culture - Preliminary Resulted Blood Peripheral NO GROWTH IN 1 DAY 10/04/16 11:00 Anaerobic Blood Culture - Preliminary Resulted Blood Peripheral NO GROWTH IN 1 DAY Result Diagram: 10/05/16 0633 10/04/16 1055 Imaging Last Impressions Abdomen/Pelvis CT 10/04/16 1257 Signed Impressions: Service Date/Time: Tuesday, October 04, 2016 13:26 - CONCLUSION: 1. Large cystic right ovarian mass measuring up to 26 cm. 2. Hiatal hernia. 3. Atherosclerosis. 4. Diverticulosis. 5. Right renal calculus. 6. Lung nodular infiltrate and right lower lobe nodule. Walt Sanz MD Chest X-Ray 10/04/16 1046 Signed Impressions: Service Date/Time: Tuesday, October 04, 2016 10:50 - CONCLUSION: Left basilar scarring versus linear atelectasis. Walt Sanz MD Assessment and Plan Problem List: (1) Ovarian cyst Status: Acute Plan: Plan for future surgical resection of pelvic cyst and ovary along with contralateral ovary. If patient wishes for hysterectomy then that can be completed during the same surgery as well. she has to be clear of any infection prior to surgery. we would also update brush hand exam as long as pap smear prior to a hysterectomy. (2) Pneumonia Status: Acute Plan: ID and pulmonology has been consulted ABX per EMR any infection would have to be resolved prior to surgical intervention, this was explained to Ms. Vieira. Discussed Condition With Dr. Loredo and he is in agreement with plan. Problem Qualifiers (1) Ovarian cyst: Qualified Code: N83.209 - Cyst of ovary, unspecified laterality (2) Pneumonia: Qualified Code: J18.9 - Pneumonia of both lungs due to infectious organism, unspecified part of lung Nirmal Armenta [facility] Oct 05, 2016 14:55
[2016-10-05] MEDS ORDERED: SODIUM CHLOR 0.9% IV ONE (16:00)
[2016-10-05] MEDS ORDERED: AMIKACIN IV ONE (16:00)
[2016-10-05] MEDS: ceFOXitin INJ 2 GM in SODIUM CHLORIDE 0.9% INJ 100 ML IV SCH ×3 (16:02→23:49)
--- NOTE | 2016-10-05 16:02 | MB ---
cc: BENEDICT YAP MD DATE OF CONSULTATION 10/05/[address] Benavides REASON FOR CONSULTATION Sepsis/pneumonia. HISTORY OF PRESENT ILLNESS This is a 55-year-old white female who presented to the emergency department on 10/04 with respiratory symptoms. The patient complained of chest pain, abdominal pain and shortness of breath. She was recently admitted to the hospital in August and was discharged on September 04 after a few days admission. She was diagnosed with COPD exacerbation and pneumonia. The patient at the time had hemoptysis and was seen by accreditation specialist. It was decided to treat her with antibiotics because of pneumonia which improved after she was hospitalized. The patient now has severe pain in her left chest. She states that the pain is worse when she takes a deep breath. She has no hemoptysis currently and the hemoptysis did not recur after she was discharged from the hospital in August. White blood cell count is elevated at 20,000. She is afebrile but she states that she gets hot and cold spells. 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 The patient states that she is coughing but not bringing up sputum currently. Blood cultures from admission have no growth. Chest x-ray shows left basilar scarring versus atelectasis and a CT scan of the abdomen shows large cystic right ovarian mass, hiatal hernia and lung nodular infiltrates and right lower lobe nodule. The patient notes pain in the left chest is sharp and constant. PAST MEDICAL HISTORY 1. COPD. 2. Hypothyroidism. 3. Appendectomy. 4. Tonsillectomy. 5. Pneumonia on five occasions in the past. ALLERGIES NO KNOWN DRUG ALLERGIES. MEDICATIONS 1. Cefepime 2. [place] 5 p.r.n. 3. Ferrous sulfate. 4. Synthroid. 5. Pepcid. 6. Symbicort. 7. Albuterol neb. SOCIAL HISTORY The patient is a former smoker. She quit smoking cigarettes one year ago after smoking for 30 years. No alcohol use. No illicit drugs. The patient moved to [place] from [place] in 2010. FAMILY HISTORY Noncontributory. REVIEW OF SYSTEMS CONSTITUTIONAL: No fever, chills or weight loss. HEAD, EYES, EARS, NOSE, AND THROAT: No visual blurring or diplopia. No difficulty swallowing or soreness of the throat. No nasal drainage or congestion. RESPIRATORY: Significant for shortness of breath. The patient denies hemoptysis. CARDIOVASCULAR: Denies chest pain or palpitations. GASTROINTESTINAL: Denies nausea, vomiting, abdominal pain or diarrhea. GENITOURINARY: The patient denies urgency, frequency, dysuria. MUSCULOSKELETAL: Significant for left chest pain. Denies joint aches or stiffness. INTEGUMENT: Denies skin rash or itching. ENDOCRINE: Denies polyuria, polydipsia. NEUROLOGIC: Denies problems with tremors. Denies headaches. PHYSICAL EXAMINATION GENERAL: This is a moderately obese female in no acute distress. She is awake and alert and oriented. VITAL SIGNS: Include a temperature 99.3, blood pressure 88/92, respirations 18, heart rate 98. HEENT: Head is atraumatic. Extraocular movements grossly intact, pupils reactive to light. No icterus. Oropharynx no visible lesions. Moist mucosa. No thrush. NECK: Supple without adenopathy or swelling. LUNGS: Has rhonchi at both lung bases. HEART: Regular S1-S2 without audible murmurs. ABDOMEN: Bowel sounds present, soft, nontender. RECTAL: Not performed. EXTREMITIES: No clubbing, cyanosis or edema. SKIN: No rash. NEUROLOGIC: Nonfocal. PSYCHIATRIC: The patient calm and cooperative. LABORATORY DATA WBC 20.7, 16% bands, 63% neutrophils, hemoglobin 10.2, platelet count 240. Creatinine 1.15, BUN 11, sodium 142. Liver function tests normal. IMPRESSION 1. 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 Patient with nodular lung infiltrate at the right lower lobe. 2. Leukocytosis secondary to pneumonia and possibly sepsis in patient with tachycardia on admission along with increased respiratory rate and pneumonia. 3. Renal insufficiency. RECOMMENDATIONS 1. Discontinue cefepime. 2. Begin amikacin. Pharmacy to assist with amikacin dosing. 3. Cefoxitin 2 grams IV q.4h. 4. Begin ciprofloxacin 500 mg p.o. q.12 hours. 5. Follow the sensitivities on the Mycobacterium abscesses recovered on the last hospitalization for antibiotic adjustments. I will notify microbiology that we need sensitivities on the organism. 6. Monitor the patient's clinical response. 7. Monitor white blood cell count. Thank you for this consultation. The patient's progress will be monitored and further recommendations will be given on followup if necessary. MD SVETLANA Montalvo /1:56 PM /3:39 PM JOSE ANTONIO
--- NOTE | 2016-10-05 17:01 | MB ---
cc: NETTENETTE DATE OF CONSULTATION 10/05/16 REASON FOR CONSULTATION Pneumonia. HISTORY OF PRESENT ILLNESS Mrs. Vieira is a 55-year-old female who was admitted with abdominal pain and nausea. CT scan of the abdomen revealed a large ovarian cyst followed by gynecology for same. The patient as well had a low grade fever, 99.3, although she denies any temperature elevation, occasional dry cough, no hemoptysis. No TB, no previous industrial exposure. CT scan of the chest with some scarring at the bases. No definite acute infiltrate. The patient does have previous history of pneumonia for which she was treated recently. PAST MEDICAL HISTORY 1. COPD, 2. Hypothyroidism. ALLERGIES None known to medication MEDICATIONS Home medications 1. Zantac 2. Iron 3. Antacids. 4. Ibuprofen p.r.n. 5. Levothyroxine 6. Advair twice daily 7. Albuterol p.r.n. FAMILY HISTORY Noncontributory. REVIEW OF SYSTEMS 12-point review of systems as per HPI and past history otherwise negative. PHYSICAL EXAMINATION GENERAL: The patient is alert. VITAL SIGNS: Max temperature 99.3. Pulse 99, respirations 18. Blood pressure 90/65. HEENT: Exam unremarkable. Eyes without icterus. NECK: Without adenopathy or thyroid enlargement. Central trachea. CHEST: No dullness to percussion. Few scattered rhonchi on auscultation. CARDIAC: PMI distant, S1, S2 audible. No murmur or rub. ABDOMEN: Lax, bowel sounds audible. EXTREMITIES: No clubbing, cyanosis or edema. LABORATORY DATA White count 20,000, hemoglobin 10, hematocrit 30. Sodium 142, potassium 4.1, BUN 11, creatinine 1.5. IMAGING STUDIES CT scan of abdomen and pelvis with large cyst about 26 cm in size, right lower lobe nodular infiltrate as well some left basilar scarring by chest x-ray. Oxygen saturation 93-96% room air. IMPRESSION 1. Question pneumonia 2. Renal cyst PLAN The patient has been started on antibiotic therapy and appropriately so. Bronchodilator therapy would be appropriate as well. I am now sure she actually has an acute pneumonia, not at this stage, but she does complain of left-sided chest discomfort which is aggravated by movement and pressure which has not been musculoskeletal related underlying cough. We will follow her course along with you and obtain a follow-up chest x-ray in a few days. Meanwhile, continue antibiotic therapy. She has been seen by infectious disease as well. I do thank you for asking me to partake in Mrs. Vieira's care. Nette Perdue MD WWW/ /4:04 PM /4:50 PM
[2016-10-05] MEDS: CIPROFLOXACIN 750 MG TAB PO SCH (20:01)
[2016-10-06] VITALS (13 sets, daily range): BP systolic 94–114; BP diastolic 55–73; PULSE 83–105; RESP 16–20; TEMP 96.3–98.7; O2SAT 92–96
[2016-10-06] MEDS: ceFOXitin INJ 2 GM in SODIUM CHLORIDE 0.9% INJ 100 ML IV SCH ×5 (04:16→20:34)
[2016-10-06] MEDS: LEVOTHYROXINE SODIUM 25 MCG TAB PO SCH (05:29)
[2016-10-06] MEDS: ACETAMINOPHEN/HYDROcodone 325 MG/5 MG TAB PO PRN ×3 (06:12→18:35)
[2016-10-06] MEDS: FAMOTIDINE 20 MG TAB PO SCH ×2 (07:41→20:33)
[2016-10-06] MEDS: CIPROFLOXACIN 750 MG TAB PO SCH ×2 (07:41→20:33)
[2016-10-06] MEDS: BUDESONIDE-FORMOTEROL 80/4.5 MCG INHALER INH SCH ×2 (07:42→20:33)
[2016-10-06] MEDS: FERROUS SULFATE 325 MG (65 MG ELEMENTAL IRON) TAB PO SCH (07:42)
[2016-10-06] MEDS: SODIUM CHLOR 0.9% 1000 ML INJ 1,000 ML IV SCH ×2 (07:45→17:45)
[2016-10-06] MEDS ORDERED: ONDANSETRON HCL 4 MG/2 ML VIAL IV PUSH PRN (08:15)
--- NOTE | 2016-10-06 08:44 | HHI.PR ---
STATE TESTED NURSING ASSISTANT Note Note S: Patient febrile to 101.8F 10/05 at 1600 w/ tachycardia to 113 bpm; O2 saturations have remained ~92-94%. Patient reports that she has continued to have chest and abdominal pain over the past couple days; no significant change in degree or location of pain. Patient questions whether steroid therapy would improve pulmonary function due to her COPD. Patient otherwise does not report complaints at this time. O: Gen: NAD Skin: No visible lesions or rashes CV: Regular rate and rhythm; no murmurs. Grossly normal perfusion Respiratory: Normal rate; CTAB, no wheezing Abdomen: Mild tenderness to palpation. Abdomen appears distended. Normal BS. EXT: No calf pain, swelling, or asymmetry A/P: Ovarian mass Impression: Large cystic R ovarian mass measuring up to 26 cm per A/P CT 10/04 -RADIO INTERFERENCE SUPERVISOR/ONC consulted -Plan for surgical resection following infection clearance -Plan for preoperative RADIO INTERFERENCE SUPERVISOR exam and PAP smear -Tumor markers- -CEA- 1.9 -CA125- 42 (mildly elevated) -LDH- 134 HCG- <1 -AFP- 3.1 Pneumonia/Sepsis -Per primary team -ID and Pulmonology consulted -IV Cefoxitin, Ciprofloxacin -Management of other medical conditions per primary team (Yoel Pearl MD R2) Collaborating MD Comments Agree with care. Legal Transcriber oncology consult obtained with pelvic mass and slightly elevated Ca125 (Ghada Cooper MD) Yoel Pearl MD R2 Oct 06, 2016 08:44 Ghada Cooper MD Oct 06, 2016 09:13
--- NOTE | 2016-10-06 08:54 | HHI.PR ---
Subjective Remarks resting comfortably in no distress. T max 101.8. had some nausea and vomiting earlier. abdominal pain is slightly better today. d/w the RN. Objective Vitals Vital Signs Date Time Temp Pulse Resp B/P Pulse Ox O2 Delivery O2 Flow Rate FiO2 10/06/16 06:14 114/72 10/06/16 04:00 98.6 97 16 99/64 92 10/06/16 00:00 98.7 98 16 101/55 94 10/05/16 20:00 97.8 109 18 94/61 94 10/05/16 17:30 98.2 93 10/05/16 16:00 101.8 113 12 111/85 10/05/16 12:00 99.3 98 12 88/92 93 I/O 10/05/16 10/05/16 10/05/16 10/06/16 10/06/16 10/06/16 07:00 15:00 23:00 07:00 15:00 23:00 Intake Total 240 ml 480 ml 480 ml 480 ml Balance 240 ml 480 ml 480 ml 480 ml Intake Oral 240 ml 480 ml 480 ml 480 ml # Voids 2 5 2 2 Result Diagram: 10/05/16 0633 10/06/16 0705 Imaging Last Impressions Abdomen/Pelvis CT 10/04/16 1257 Signed Impressions: Service Date/Time: Tuesday, October 04, 2016 13:26 - CONCLUSION: 1. Large cystic right ovarian mass measuring up to 26 cm. 2. Hiatal hernia. 3. Atherosclerosis. 4. Diverticulosis. 5. Right renal calculus. 6. Lung nodular infiltrate and right lower lobe nodule. Walt Sanz MD Chest X-Ray 10/04/16 1046 Signed Impressions: Service Date/Time: Tuesday, October 04, 2016 10:50 - CONCLUSION: Left basilar scarring versus linear atelectasis. Walt Sanz MD Objective Remarks GENERAL: This is a well-nourished, well-developed patient, in no apparent distress. CARDIOVASCULAR: Regular rate and regular rhythm without murmurs, gallops, or rubs. RESPIRATORY: Clear to auscultation. Breath sounds equal bilaterally. No wheezes , rales, or rhonchi. GASTROINTESTINAL: Abdomen soft, generalized tenderness, distended. Normal, active bowel sounds MUSCULOSKELETAL: Extremities without clubbing, cyanosis, or edema. NEURO: Alert & Oriented x4 to person, place, time, situation. Moves all ext x4 Procedures none Medications and IVs Current Medications Iohexol 70 ml 70 ml STK-MED ONCE IV Last administered on 10/04/16 14:12; Start 10/04/16 at 14:12; Stop 10/04/16 at 14:13; Status DC Cefepime HCl 1000 mg/Sodium Chloride 100 ml @ 200 mls/hr ONCE ONCE IV Last administered on 10/04/16 16:37; Start 10/04/16 at 15:45; Stop 10/04/16 at 16:14 ; Status DC Azithromycin 500 mg/Sodium Chloride 250 ml @ 250 mls/hr ONCE ONCE IV Last administered on 10/04/16 17:30; Start 10/04/16 at 15:45; Stop 10/04/16 at 16:44 ; Status DC Sodium Chloride (NS 1000 ml Inj) 1,000 ml @ 100 mls/hr Q10H IV Last administered on 10/05/16 15:00; Start 10/04/16 at 15:45 Acetaminophen (Tylenol) 650 mg Q4H PRN PO FEVER Last administered on 10/05/16 16:28; Start 10/04/16 at 16:15 Ferrous Sulfate (Ferrous Sulfate) 325 mg DAILY PO Last administered on 07:42; Start 10/05/16 at 09:00 Levothyroxine Sodium (Synthroid) 25 mcg DAILY@06 PO Last administered on 05:29; Start 10/05/16 at 06:00 Non-Formulary Medication 1 puff BID INH AST; Start 10/04/16 at 21:00; Status UNV Non-Formulary Medication 150 mg BID PO Reduce Stomach Acid; Start 10/04/16 at 21 :00; Status UNV Famotidine (Pepcid) 20 mg BID PO Last administered on 10/06/16 07:41; Start at 21:00 Budesonide/ Formoterol Fumarate (Symbicort 80-4.5 Mcg Inh) 2 puff BID INH Last administered on 10/06/16 07:42; Start 10/04/16 at 21:00 Albuterol/ Ipratropium 1 ampule 1 ampule Q4HR NEB PRN NEB SHORTNESS OF BREATH Last administered on 10/05/16 19:38; Start 10/04/16 at 17:00 Cefepime HCl/ Sodium Chloride (Maxipime Inj/NS Inj) 100 ml @ 200 mls/hr Q12H IV Last administered on 10/05/16 03:14; Start 10/05/16 at 04:00; Stop at 13:52; Status DC Acetaminophen/ Hydrocodone Bitart 1 tab 1 tab Q4H PRN PO PAIN > 5 Last administered on 10/05/16 09:31; Start 10/04/16 at 17:00; Stop 10/05/16 at 13:53 ; Status DC Pharmacy Profile Note 0 ml @ 0 mls/hr UNSCH OTHER ; Start 10/05/16 at 14:00 Cefoxitin Sodium/ Sodium Chloride (Mefoxin Inj/NS Inj) 100 ml @ 200 mls/hr Q4HR IV Last administered on 10/06/16 07:41; Start 10/05/16 at 16:00 Ciprofloxacin (Cipro) 750 mg Q12HR PO Last administered on 10/06/16 07:41; Start 10/05/16 at 21:00 Acetaminophen/ Hydrocodone Bitart 1 tab 1 tab Q6HR PRN PO PAIN > 5 Last administered on 10/06/16 06:12; Start 10/05/16 at 18:00 Amikacin Sulfate/ Sodium Chloride (Amikin Inj/NS 250 ml Inj) 254 ml @ 250 mls/ hr ONCE ONCE IV Last administered on 10/05/16 16:02; Start 10/05/16 at 16:00 ; Stop 10/05/16 at 17:00; Status DC Ondansetron HCl (Zofran Inj) 4 mg Q8HR PRN IV PUSH NAUSEA; Start 10/06/16 at 08 :15 A/P Assessment and Plan A/P - abdominal pain with large ovarian mass 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 IR consulted for drainage of the mass. -sepsis due to pneumonia due to mycobacterium abscesses antibiotics per ID- follow the sensitivity on the sputum culture from last admission. pulmonary consulted. will consider walk test before discharge. -COPD with no exacerbation; resumed advair- neb treatment as needed. -lung nodule- pulmonary consult as noted above. -hypothyroidism; resumed levothyroxine -DVT prophylaxis with SCD's. Flory Benavides MD Oct 06, 2016 08:54
--- NOTE | 2016-10-06 09:10 | MB ---
cc: KAMINI NELSON MD, WAHBA W. M.D. HADDOX, LINDA M.D. MINOUEI, MOHAMMADREZA MD DONTFRAID, FRANKLYN F. MD DATE OF CONSULTATION: 10/06/[address] Flory Benav[address]. Dr. Ghada Cooper. REASON FOR CONSULTATION Large cystic pelvic mass. This patient is seen, her findings are reviewed. She is evaluated, counseled and examined by me in conjunction with our nurse practitioner (Nirmal Armenta). I agree with her findings, assessment and plan of care. HISTORY OF PRESENT ILLNESS This is a 55-year-old female who is admitted with signs and symptoms of pneumonia. She has had prior hospital admissions because of hemoptysis, left-sided chest pain, febrile illness. 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 She is re-admitted to the hospital where she was started on antibiotics. Cultures show no growth to date. She has not yet been able to elicit any sputum for sputum cultures. She spiked a temperature yesterday afternoon to 101.8 degrees and her white count went from 16.5 to 20.7. Pulmonary and infectious disease services are involved as well and has made recommendations, change for antibiotics and these steps have been initiated. Also in her findings are that of a very large, smooth-walled cystic mass that is thought to quite probably be of ovarian origin and measures approximately 26 cm in greatest dimension, it is smooth-walled, fluid-filled, no internal septations or solid component. No adenopathy, ascites, intraperitoneal or retroperitoneal nodularities to suggest metastatic disease. CA-125 is not appreciably elevated, just above normal at 42. AFP CEA are normal at 3.1 and 1.9, respectively. Imaging also shows a hiatal hernia, atherosclerotic changes, diverticulosis, right renal stone, nodular infiltrate and right lower lobe nodule. She is admitted to the hospital for evaluation and management of the aforementioned findings. PAST MEDICAL HISTORY Her past medical history is as outlined above and reviewed in the chart. PAST SURGICAL HISTORY Abdominal surgeries, notable for a tubal ligation and appendectomy. Tonsillectomy. ALLERGIES She has no known drug allergies. MEDICATION Medications are as listed in the record and are reviewed. No changes were elicited during discussion. REVIEW OF SYSTEMS Review of systems as per history of present illness. Also she has a sense of abdominal distension, discomfort. She has a tendency towards heartburn, reflux type symptomatology and at the present time she complains of nausea but without emesis. ADDITIONAL OBJECTIVE DATA Serial troponins have been less than 0.02. H&H currently 10.2 and 32.5, platelet count 240. Renal function, BUN and creatinine 11 and 1.15. Electrolytes otherwise normal. PHYSICAL EXAMINATION VITAL SIGNS: At the present time she is afebrile, maximum temperature last 24 hours 101.8 degrees, pulse 97-113, respirations 12-18, blood pressure 94-111 over 55-85, O2 saturations 92%. She is sitting up on the edge of the bed, respirations are mildly labored. She appears to be feeling poorly from reported nausea. Her abdomen is diffusely distended. There is a smooth-walled palpable fullness that extends well above the umbilicus, while she is in the sitting position, extends to the level of the sternum, it extends laterally to occupy the width of the abdominopelvic cavity. It is nonacute. There is no rebound or guarding but it is associated with some discomfort. Time is spent in discussion with her reviewing the findings in her case to date, the reason for PATENT ATTORNEY oncology consultation. She cannot remember the time of her last PATENT ATTORNEY exam but we recommended considering updated exam and Pap smear when we can get a more optimal setting. We reviewed the findings and explained that there are benign masses that can occur in the pelvis and there are malignant masses, the best way to figure that out and to treat the problem is to remove it. There are certain features that favor a benign entity versus malignant and given that this is a very large, smooth-walled cyst, fluid-filled without internal septation, solid component nodularity or other findings to suggest metastatic disease, it favors a benign mass. Ultimately we recommend surgical resection. It may be able to be done through minimally invasive techniques if we drain the fluid component to reduce the size and allow surgical delivery. However, at the present time I would recommend against surgery and anesthesia because of her febrile pulmonary issues and compromised respiratory status would put her at significantly increased perioperative risk of worsening pulmonary condition, worsening overall status. In this particular set of circumstances I think it may be quite reasonable to ask interventional radiology if they would be willing to do an ultrasound aspiration of this mass, remove as much fluid as possible to reduce the size of the mass, to alleviate her symptoms as it is contributing to her abdominal symptoms and may well be contributing to her limited respiratory excursion and at least indirectly contributing to some of her pulmonary problems and pulmonary symptoms. Ultimately, the mass will need to be removed. As long as the capsule remains in situ it will fill up with fluid over time again, but we may be able to get her some immediate relief by drainage of this cystic mass. Discussion ensued, questions were answered. She expressed good understanding and agreed. ASSESSMENT 1. A 55-year-old female admitted for signs and symptoms of pneumonia, sepsis with ongoing evaluation and treatment. 2. Large, smooth-walled cystic mass of probable ovarian origin of which may be contributing directly or indirectly to her pulmonary and abdominal symptoms. 3. Extensive discussion. PLAN 1. Consult interventional radiology for ultrasound-guided aspiration to remove as much fluid as possible from this mass to alleviate symptomatology. It would be reasonable to send fluid for cytology as well as gram stain culture and sensitivity, although the expectations is that this would be benign and not part of an infectious process. 2. Ultimately she will need outpatient followup reevaluation and consideration of definitive surgery once her acute pulmonary and infectious problems are resolved. Thank you for the consultation. We will follow along in her care. MD SILVER Natarajan/FADY /8:07 AM /8:36 AM
[2016-10-06] MEDS: RESP: ALBUTEROL 2.5 MG/IPRATROPIUM 0.5 MG NEB (PRN) NEB ×4 (12:36→23:42)
[2016-10-06] MEDS ORDERED: SODIUM BICARBONATE 8.4% INJ 50 MEQ/50 ML SYR ONE (16:05)
[2016-10-06] MEDS ORDERED: LIDOCAINE HCL 1% PF 30 ML VIAL ONE (16:05)
--- NOTE | 2016-10-06 16:14 | RADRPT ---
EXAM DATE/TIME: 10/06/2016 14:50 [facility] COMPARISON: CT ABDOMEN & PELVIS W CONTRAST, October 04, 2016, 13:26. INDICATIONS : Pelvic cystic mass. MEDICAL HISTORY : Hypothyroidism. Chronic obstructive pulmonary disease. Dyspnea. Hiatal hernia. SURGICAL HISTORY : Tonsillectomy. Appendectomy. Tubal ligation. ENCOUNTER: Initial ACUITY: 1 day PAIN SCORE: 0/10 LOCATION: Left lower quadrant FLUID: Total volume of 3,760 of clear, yellow fluid was removed. Fluid was sent to lab for ordered studies. Post procedure scanning reveals no hematoma or other complication. TECHNIQUE: 1. Ultrasound guidance for needle aspiration. 2. Aspiration. The risks, benefits, and alternatives to ultrasound guided aspiration were explained to the patient i n detail including the risk of bleeding and infection. Written and verbal informed consent was obtai heide. With the patient on the ultrasound table, ultrasound imaging was used to select the most appropriate approach for aspiration. Ultrasound imaging documents a cystic lesion within the abdomen and pelvis measuring approximately 23.6 x 20.9 x 13.2 cm. It is overall relatively simple but at the inferior an d right lateral aspect there are several septations. No solid components are identified. Overlying sk in was prepped and draped in the usual sterile fashion and with local anesthetic a dermatotomy was ma de with an 11 blade scalpel. A catheter was introduced into the lesion and fluid was collected. CONCLUSION: Uncomplicated ultrasound guided aspiration of an abdomen and pelvic cystic lesion measuring up to 23. 6 cm. It is presumed to be ovarian in origin and contains septations along the right lateral and infe rior aspect. The lesion was almost completely drained except for the septated portion inferiorly. Prateek Pate MD on October 06, 2016 at 16:11 Board Certified Radiologist. This report was verified electronically.
--- NOTE | 2016-10-06 16:25 | HHI.PR ---
Subjective Remarks ALERT LESS SOB LESS CHEST PAIN POS5T NEEDLE ASPIRATION OVARIAN CYST Objective Vital Signs Date Time Temp Pulse Resp B/P Pulse Ox O2 Delivery O2 Flow Rate FiO2 10/06/16 15:02 97.5 83 16 106/73 95 10/06/16 12:35 86 101/66 10/06/16 11:50 97.3 90 20 94/59 94 10/06/16 10:27 96 21 10/06/16 07:50 96.5 97 20 104/68 10/06/16 06:14 114/72 10/06/16 04:00 98.6 97 16 99/64 92 10/06/16 00:00 98.7 98 16 101/55 94 10/05/16 20:00 97.8 109 18 94/61 94 10/05/16 17:30 98.2 93 I/O 10/05/16 10/05/16 10/05/16 10/06/16 10/06/16 10/06/16 07:00 15:00 23:00 07:00 15:00 23:00 Intake Total 240 ml 480 ml 480 ml 480 ml Balance 240 ml 480 ml 480 ml 480 ml Intake Oral 240 ml 480 ml 480 ml 480 ml # Voids 2 5 2 2 Result Diagram: 10/05/16 0633 10/06/16 0705 Objective Remarks GENERAL: SKIN: Warm and dry. HEAD: Atraumatic. Normocephalic. EYES: Pupils equal and round. No scleral icterus. No injection or drainage. ENT: No nasal bleeding or discharge. Mucous membranes pink and moist. NECK: Trachea midline. No JVD. CARDIOVASCULAR: Regular rate and rhythm. RESPIRATORY: No accessory muscle use. Clear to auscultation. Breath sounds equal bilaterally. GASTROINTESTINAL: Abdomen soft, non-tender, nondistended. Hepatic and splenic margins not palpable. MUSCULOSKELETAL: Extremities without clubbing, cyanosis, or edema. No obvious deformities. NEUROLOGICAL: Awake and alert. No obvious cranial nerve deficits. Motor grossly within normal limits. Five out of 5 muscle strength in the arms and legs. Normal speech. PSYCHIATRIC: Appropriate mood and affect; insight and judgment normal. Assessment and Plan Assessment and Plan PNA RESOLVING PLAN INCREASE ACTIVITY Nette Perdue MD Oct 06, 2016 16:25
[2016-10-07] VITALS (8 sets, daily range): BP systolic 91–127; BP diastolic 55–75; PULSE 99–107; RESP 16–20; TEMP 96.3–97.8; O2SAT 94–97
[2016-10-07] MEDS: ceFOXitin INJ 2 GM in SODIUM CHLORIDE 0.9% INJ 100 ML IV SCH ×7 (00:12→23:47)
[2016-10-07] MEDS: ACETAMINOPHEN/HYDROcodone 325 MG/5 MG TAB PO PRN ×4 (02:22→22:59)
[2016-10-07] MEDS: SODIUM CHLOR 0.9% 1000 ML INJ 1,000 ML IV SCH ×3 (02:23→23:45)
[2016-10-07] MEDS: RESP: ALBUTEROL 2.5 MG/IPRATROPIUM 0.5 MG NEB (PRN) NEB ×4 (03:33→19:29)
[2016-10-07] MEDS: AMIKACIN IV SCH (04:55)
[2016-10-07] MEDS: LEVOTHYROXINE SODIUM 25 MCG TAB PO SCH (04:55)
[2016-10-07] MEDS: SODIUM CHLOR 0.9% IV SCH (04:55)
[2016-10-07 06:44] LABS: AUTOMATED NEUTROPHIL # 6.7 TH/MM3 (1.8-7.7); BASOPHIL # 0.1 TH/MM3 (0-0.2); BASOPHIL % 0.6 % (0.0-2.0); EOSINOPHIL # 0.2 TH/MM3 (0-0.4); EOSINOPHIL % 2.4 % (0.0-4.0); HEMATOCRIT 28.3 % (35.0-46.0); LYMPH % 12.9 % (9.0-44.0); LYMPHOCYTE # 1.1 TH/MM3 (1.0-4.8); MEAN CELL VOLUME 74.6 FL (80.0-100.0); MEAN CORPUSCULAR HEMOGLOBIN 24.4 PG (27.0-34.0); MEAN CORPUSCULAR HGB CONC 32.7 % (32.0-36.0); NEUT % 78.1 % (16.0-70.0); PLATELET COUNT 247 TH/MM3 (150-450); RED CELL DISTRIBUTION WIDTH 17.7 % (11.6-17.2); WHITE BLOOD COUNT 8.6 TH/MM3 (4.0-11.0)
[2016-10-07 06:53] LABS: HEMO FLAGS AUTO DIFF
[2016-10-07 07:42] LABS: BICARBONATE 21.7 MEQ/L (21.0-32.0); POTASSIUM 3.5 MEQ/L (3.5-5.1)
[2016-10-07 08:03] LABS: OVALOCYTES 1+ (NORMAL); PLATELET ESTIMATE SMEAR NORMAL (NORMAL); PLATELET MORPHOLOGY NORMAL (NORMAL); SCAN/DIFF AUTO DIFF CONFIRMED
[2016-10-07] MEDS: BUDESONIDE-FORMOTEROL 80/4.5 MCG INHALER INH SCH ×2 (08:15→20:05)
[2016-10-07] MEDS: FERROUS SULFATE 325 MG (65 MG ELEMENTAL IRON) TAB PO SCH (08:15)
[2016-10-07] MEDS: FAMOTIDINE 20 MG TAB PO SCH ×2 (08:15→20:04)
[2016-10-07] MEDS: CIPROFLOXACIN 750 MG TAB PO SCH (08:15)
--- NOTE | 2016-10-07 08:26 | HHI.PR ---
Subjective Remarks ALERT LESS SOB LESS CHEST PAIN POS5T NEEDLE ASPIRATION OVARIAN CYST Objective Vital Signs Date Time Temp Pulse Resp B/P Pulse Ox O2 Delivery O2 Flow Rate FiO2 10/07/16 07:58 96 10/07/16 04:00 97.3 18 127/68 94 10/07/16 03:22 18 10/07/16 00:00 97.5 99 16 99/55 95 10/06/16 20:08 94 21 10/06/16 20:00 97.2 105 16 98/61 95 10/06/16 16:15 96.3 90 20 114/71 96 10/06/16 16:00 98.5 91 20 107/59 94 10/06/16 15:02 97.5 83 16 106/73 95 10/06/16 12:35 86 101/66 10/06/16 11:50 97.3 90 20 94/59 94 10/06/16 10:27 96 21 I/O 10/06/16 10/06/16 10/06/16 10/07/16 10/07/16 10/07/16 07:00 15:00 23:00 07:00 15:00 23:00 Intake Total 480 ml 360 ml 800 ml 480 ml Balance 480 ml 360 ml 800 ml 480 ml Intake Oral 480 ml 360 ml 480 ml IV Total 800 ml # Voids 2 5 2 # Bowel Movements 0 Result Diagram: 10/07/1660110/07/16601 Objective Remarks GENERAL: SKIN: Warm and dry. HEAD: Atraumatic. Normocephalic. EYES: Pupils equal and round. No scleral icterus. No injection or drainage. ENT: No nasal bleeding or discharge. Mucous membranes pink and moist. NECK: Trachea midline. No JVD. CARDIOVASCULAR: Regular rate and rhythm. RESPIRATORY: No accessory muscle use. Clear to auscultation. Breath sounds equal bilaterally. GASTROINTESTINAL: Abdomen soft, non-tender, nondistended. Hepatic and splenic margins not palpable. MUSCULOSKELETAL: Extremities without clubbing, cyanosis, or edema. No obvious deformities. NEUROLOGICAL: Awake and alert. No obvious cranial nerve deficits. Motor grossly within normal limits. Five out of 5 muscle strength in the arms and legs. Normal speech. PSYCHIATRIC: Appropriate mood and affect; insight and judgment normal. Assessment and Plan Assessment and Plan PNA RESOLVING PLAN INCREASE ACTIVITY check pft, abtg Nette,Nette Wadie MD Oct 07, 2016 08:26
--- NOTE | 2016-10-07 10:19 | HHI.PR ---
Subjective Remarks looks more comfortable today. no fever. abdominal pain seems to be improving. Objective Vitals Vital Signs Date Time Temp Pulse Resp B/P Pulse Ox O2 Delivery O2 Flow Rate FiO2 10/07/16 07:58 96 10/07/16 07:50 96.3 99 20 93/55 96 10/07/16 04:00 97.3 18 127/68 94 10/07/16 03:22 18 10/07/16 00:00 97.5 99 16 99/55 95 10/06/16 20:08 94 21 10/06/16 20:00 97.2 105 16 98/61 95 10/06/16 16:15 96.3 90 20 114/71 96 10/06/16 16:00 98.5 91 20 107/59 94 10/06/16 15:02 97.5 83 16 106/73 95 10/06/16 12:35 86 101/66 10/06/16 11:50 97.3 90 20 94/59 94 10/06/16 10:27 96 21 I/O 10/06/16 10/06/16 10/06/16 10/07/16 10/07/16 10/07/16 07:00 15:00 23:00 07:00 15:00 23:00 Intake Total 480 ml 360 ml 800 ml 480 ml Balance 480 ml 360 ml 800 ml 480 ml Intake Oral 480 ml 360 ml 480 ml IV Total 800 ml # Voids 2 5 2 # Bowel Movements 0 Result Diagram: 10/07/16 0602 10/07/16 0602 Imaging Last Impressions Needle Aspiration Ultrasound 10/06/16 0000 Signed Impressions: Service Date/Time: Thursday, October 06, 2016 14:50 - CONCLUSION: Uncomplicated ultrasound guided aspiration of an abdomen and pelvic cystic lesion measuring up to 23.6 cm. It is presumed to be ovarian in origin and contains septations along the right lateral and inferior aspect. The lesion was almost completely drained except for the septated portion inferiorly. Prateek Pate MD Abdomen/Pelvis CT 10/04/16 1257 Signed Impressions: Service Date/Time: Tuesday, October 04, 2016 13:26 - CONCLUSION: 1. Large cystic right ovarian mass measuring up to 26 cm. 2. Hiatal hernia. 3. Atherosclerosis. 4. Diverticulosis. 5. Right renal calculus. 6. Lung nodular infiltrate and right lower lobe nodule. Walt Sanz MD Chest X-Ray 10/04/16 1046 Signed Impressions: Service Date/Time: Tuesday, October 04, 2016 10:50 - CONCLUSION: Left basilar scarring versus linear atelectasis. Walt Sanz MD Objective Remarks GENERAL: This is a well-nourished, well-developed patient, in no apparent distress. CARDIOVASCULAR: Regular rate and regular rhythm without murmurs, gallops, or rubs. RESPIRATORY: Clear to auscultation. Breath sounds equal bilaterally. No wheezes , rales, or rhonchi. GASTROINTESTINAL: Abdomen soft, generalized tenderness, distended. Normal, active bowel sounds MUSCULOSKELETAL: Extremities without clubbing, cyanosis, or edema. NEURO: Alert & Oriented x4 to person, place, time, situation. Moves all ext x4 Procedures needle aspiration of the ovarian mass Medications and IVs Current Medications Iohexol 70 ml 70 ml STK-MED ONCE IV Last administered on 10/04/16 14:12; Start 10/04/16 at 14:12; Stop 10/04/16 at 14:13; Status DC Cefepime HCl 1000 mg/Sodium Chloride 100 ml @ 200 mls/hr ONCE ONCE IV Last administered on 10/04/16 16:37; Start 10/04/16 at 15:45; Stop 10/04/16 at 16:14 ; Status DC Azithromycin 500 mg/Sodium Chloride 250 ml @ 250 mls/hr ONCE ONCE IV Last administered on 10/04/16 17:30; Start 10/04/16 at 15:45; Stop 10/04/16 at 16:44 ; Status DC Sodium Chloride (NS 1000 ml Inj) 1,000 ml @ 100 mls/hr Q10H IV Last administered on 10/07/16 02:23; Start 10/04/16 at 15:45 Acetaminophen (Tylenol) 650 mg Q4H PRN PO FEVER Last administered on 10/05/16 16:28; Start 10/04/16 at 16:15 Ferrous Sulfate (Ferrous Sulfate) 325 mg DAILY PO Last administered on 08:15; Start 10/05/16 at 09:00 Levothyroxine Sodium (Synthroid) 25 mcg DAILY@06 PO Last administered on 04:55; Start 10/05/16 at 06:00 Non-Formulary Medication 1 puff BID INH AST; Start 10/04/16 at 21:00; Status UNV Non-Formulary Medication 150 mg BID PO Reduce Stomach Acid; Start 10/04/16 at 21 :00; Status UNV Famotidine (Pepcid) 20 mg BID PO Last administered on 10/07/16 08:15; Start at 21:00 Budesonide/ Formoterol Fumarate (Symbicort 80-4.5 Mcg Inh) 2 puff BID INH Last administered on 10/07/16 08:15; Start 10/04/16 at 21:00 Albuterol/ Ipratropium 1 ampule 1 ampule Q4HR NEB PRN NEB SHORTNESS OF BREATH Last administered on 10/07/16 07:58; Start 10/04/16 at 17:00 Cefepime HCl/ Sodium Chloride (Maxipime Inj/NS Inj) 100 ml @ 200 mls/hr Q12H IV Last administered on 10/05/16 03:14; Start 10/05/16 at 04:00; Stop at 13:52; Status DC Acetaminophen/ Hydrocodone Bitart 1 tab 1 tab Q4H PRN PO PAIN > 5 Last administered on 10/05/16 09:31; Start 10/04/16 at 17:00; Stop 10/05/16 at 13:53 ; Status DC Pharmacy Profile Note 0 ml @ 0 mls/hr UNSCH OTHER ; Start 10/05/16 at 14:00 Cefoxitin Sodium/ Sodium Chloride (Mefoxin Inj/NS Inj) 100 ml @ 200 mls/hr Q4HR IV Last administered on 10/07/16 08:15; Start 10/05/16 at 16:00 Ciprofloxacin (Cipro) 750 mg Q12HR PO Last administered on 10/07/16 08:15; Start 10/05/16 at 21:00 Acetaminophen/ Hydrocodone Bitart 1 tab 1 tab Q6HR PRN PO PAIN > 5 Last administered on 10/07/16 09:49; Start 10/05/16 at 18:00 Amikacin Sulfate/ Sodium Chloride (Amikin Inj/NS 250 ml Inj) 254 ml @ 250 mls/ hr ONCE ONCE IV Last administered on 10/05/16 16:02; Start 10/05/16 at 16:00 ; Stop 10/05/16 at 17:00; Status DC Ondansetron HCl (Zofran Inj) 4 mg Q8HR PRN IV PUSH NAUSEA; Start 10/06/16 at 08 :15 Lidocaine HCl (Xylocaine-Mpf 1% Inj) 30 ml STK-MED ONCE .ROUTE Last administered on 10/06/16 16:05; Start 10/06/16 at 16:05; Stop 10/06/16 at 16:06 ; Status DC Sodium Bicarbonate 50 meq 50 meq STK-MED ONCE .ROUTE Last administered on 16:05; Start 10/06/16 at 16:05; Stop 10/06/16 at 16:06; Status DC Amikacin Sulfate/ Sodium Chloride (Amikin Inj/NS 250 ml Inj) 254 ml @ 250 mls/ hr Q36H IV Last administered on 10/07/16 04:55; Start 10/07/16 at 04:00 A/P Assessment and Plan A/P - abdominal pain with large ovarian mass s/p needle aspiration of the mass - follow the culture and pathology. 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 pulmonary following. will consider walk test before discharge. -COPD with no exacerbation; resumed advair- neb treatment as needed. -lung nodule- pulmonary consult as noted above. -hypothyroidism; resumed levothyroxine -DVT prophylaxis with SCD's. Discharge Planning when cleared by consultants. Flory Benavides MD Oct 07, 2016 10:19
[2016-10-07 10:35] LABS: BLOOD GAS BASE EXCESS -5.3 mmol/L (-2-2); BLOOD GAS CARBOXYHEMOGLOBIN 1.7 % (0-4); BLOOD GAS HCO3 18 mmol/L (22-26); BLOOD GAS O2 HGB SATURATION 93 % (90-100); BLOOD GAS OXYGEN CONTENT 16.7 Vol % (12.0-20.0); BLOOD GAS PCO2 29 mmHg (38-42); BLOOD GAS PO2 76 mmHg (61-120); BLOOD GAS TOTAL HGB 12.8 G/DL (12.0-16.0); TEMP CORR TO 98.6
[2016-10-07 10:36] LABS: CRITICAL VALUE NO; DRAW SITE LT RADIAL; FIO2 21 %; NUMBER OF ARTERIAL PUNCTURES 1; STAT NO; ULNAR PULSE PRESENT
[2016-10-07] MEDS ORDERED: LORazepam 0.5 MG TAB PO PRN (10:45)
[2016-10-07] MEDS ORDERED: D5-1/2 NS + KCL 20 MEQ INJ 1,000 ML IV SCH (10:45)
[2016-10-07] MEDS ORDERED: KETOROLAC TROMETHAMINE 30 MG/ML (IVP) VIAL IVP SCH (10:45)
[2016-10-07] MEDS ORDERED: SODIUM CHLORIDE 0.9% FLUSH 10 ML FLUSH IV FLUSH PRN (10:45)
[2016-10-07] MEDS ORDERED: [UNRECOGNIZED DRUG - OTHER] PO PRN (10:45)
[2016-10-07] MEDS ORDERED: ONDANSETRON HCL 4 MG/2 ML VIAL IVP PRN (10:45)
[2016-10-07] MEDS ORDERED: oxyCODONE/ACETAMINOPHEN 5 MG/325 MG TAB PO PRN ×2 (10:45)
--- NOTE | 2016-10-07 12:09 | HHI.IDPN ---
Note Infectious Disease Note Patient currently having breathing treatment. Coughing up creamy/beige sputum. Afebrile. Presented to the emergency department on 10/04 with respiratory symptoms. The patient complained of chest pain, abdominal pain and shortness of breath. PAST MEDICAL HISTORY 1. COPD. 2. Hypothyroidism. 3. Appendectomy. 4. Tonsillectomy. 5. Pneumonia on five occasions in the past. ALLERGIES NO KNOWN DRUG ALLERGIES. ANTIBIOTICS: Cipro. Amikacin. Cefoxitin. SOCIAL HISTORY The patient is a former smoker. She quit smoking cigarettes one year ago after smoking for 30 years. No alcohol use. No illicit drugs. The patient moved to [place] from [place] in 2010. OBJECTIVE Vital Signs Date Time Temp Pulse Resp B/P Pulse Ox O2 Delivery O2 Flow Rate FiO2 10/07/16 07:58 96 10/07/16 07:50 96.3 99 20 93/55 96 10/07/16 04:00 97.3 18 127/68 94 10/07/16 03:22 18 10/07/16 00:00 97.5 99 16 99/55 95 10/06/16 20:08 94 21 10/06/16 20:00 97.2 105 16 98/61 95 10/06/16 16:15 96.3 90 20 114/71 96 10/06/16 16:00 98.5 91 20 107/59 94 10/06/16 15:02 97.5 83 16 106/73 95 10/06/16 12:35 86 101/66 Laboratory Tests Test 10/07/16 10/07/16 06:02 10:25 White Blood Count 8.6 TH/MM3 Red Blood Count 3.80 MIL/MM3 Hemoglobin 9.3 GM/DL Hematocrit 28.3 % Mean Corpuscular Volume 74.6 FL Mean Corpuscular Hemoglobin 24.4 PG Mean Corpuscular Hemoglobin 32.7 % Concent Red Cell Distribution Width 17.7 % Platelet Count 247 TH/MM3 Mean Platelet Volume 7.5 FL Neutrophils (%) (Auto) 78.1 % Lymphocytes (%) (Auto) 12.9 % Monocytes (%) (Auto) 6.0 % Eosinophils (%) (Auto) 2.4 % Basophils (%) (Auto) 0.6 % Neutrophils # (Auto) 6.7 TH/MM3 Lymphocytes # (Auto) 1.1 TH/MM3 Monocytes # (Auto) 0.5 TH/MM3 Eosinophils # (Auto) 0.2 TH/MM3 Basophils # (Auto) 0.1 TH/MM3 CBC Comment AUTO DIFF Differential Comment AUTO DIFF CONFIRMED Platelet Estimate NORMAL Platelet Morphology Comment NORMAL Ovalocytes 1+ Sodium Level 140 MEQ/L Potassium Level 3.5 MEQ/L Chloride Level 109 MEQ/L Carbon Dioxide Level 21.7 MEQ/L Anion Gap 9 MEQ/L Blood Urea Nitrogen 7 MG/DL Creatinine 1.23 MG/DL Estimat Glomerular Filtration 46 ML/MIN Rate Random Glucose 105 MG/DL Calcium Level 8.7 MG/DL Blood Gas Puncture Site LT RADIAL Blood Gas Patient Temperature 98.6 Blood Gas HCO3 18 mmol/L Blood Gas Base Excess -5.3 mmol/L Blood Gas Oxygen Saturation 93 % Arterial Blood pH 7.42 Arterial Blood Partial 29 mmHg Pressure CO2 Arterial Blood Partial 76 mmHg Pressure O2 Arterial Blood Oxygen Content 16.7 Vol % Arterial Blood 1.7 % Carboxyhemoglobin Arterial Blood Methemoglobin 1.0 % Blood Gas Hemoglobin 12.8 G/DL Blood Gas Inspired Oxygen 21 % IMAGING: Needle Aspiration Ultrasound 10/06/16 0000 Signed Impressions: Service Date/Time: Thursday, October 06, 2016 14:50 - CONCLUSION: Uncomplicated ultrasound guided aspiration of an abdomen and pelvic cystic lesion measuring up to 23.6 cm. It is presumed to be ovarian in origin and contains septations along the right lateral and inferior aspect. The lesion was almost completely drained except for the septated portion inferiorly. Prateek Pate MD Abdomen/Pelvis CT 10/04/16 1257 Signed Impressions: Service Date/Time: Tuesday, October 04, 2016 13:26 - CONCLUSION: 1. Large cystic right ovarian mass measuring up to 26 cm. 2. Hiatal hernia. 3. Atherosclerosis. 4. Diverticulosis. 5. Right renal calculus. 6. Lung nodular infiltrate and right lower lobe nodule. Walt Sanz MD Chest X-Ray 10/04/16 1046 Signed Impressions: Service Date/Time: Tuesday, October 04, 2016 10:50 - CONCLUSION: Left basilar scarring versus linear atelectasis. Walt Sanz MD PHYSICAL EXAMINATION GENERAL: o acute distress. Awake and alert and oriented. HEENT: Extraocular movements grossly intact, pupils reactive to light. No icterus. Oropharynx: No visible lesions. Moist mucosa. No thrush. NECK: Supple without adenopathy or swelling. LUNGS: Rhonchi at both lung bases. HEART: Regular S1-S2 without audible murmurs. ABDOMEN: Bowel sounds present, soft, nontender. EXTREMITIES: No clubbing, cyanosis or edema. SKIN: No rash. NEUROLOGIC: Nonfocal. PSYCHIATRIC: Calm and cooperative. IMPRESSION 1. 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 Patient with nodular lung infiltrate at the right lower lobe. 2. Leukocytosis secondary to pneumonia. WBC improved. 3. Renal insufficiency. RECOMMENDATIONS 1. Start Biaxin PO. 2. Continue Amikacin. Pharmacy to assist with amikacin dosing. 3. Continue Cefoxitin 2 grams IV q.4h. 4. Stop Ciprofloxacin. 5. Follow the sensitivities on the Mycobacterium abscesses recovered on the last hospitalization for antibiotic adjustments. I will notify microbiology that we need sensitivities on the organism. 6. Repeat sputum culture. 7. Monitor the patient's clinical response. Treatment of the mycobacteria abscessus with Amikacin and cefoxitin x 2 weeks followed by PO antibiotic guided by sensitivities for another 2 months or until sputum is negative. Treatment sometimes have to be given up to 12 months. Alan Yarbrough MD Oct 07, 2016 12:09
--- NOTE | 2016-10-07 15:47 | PD.ONC.PN ---
Subjective Subjective Remarks pt is resting in bed states that she is having pain mostly at the site of cyst drainage. 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 She needs to be cleared from any infection prior to surgery. Objective Data Date Time Temp Pulse Resp B/P Pulse Ox O2 Delivery O2 Flow Rate FiO2 10/07/16 11:50 97.7 102 20 91/55 95 10/07/16 07:58 96 10/07/16 07:50 96.3 99 20 93/55 96 10/07/16 04:00 97.3 18 127/68 94 10/07/16 03:22 18 10/07/16 00:00 97.5 99 16 99/55 95 10/06/16 20:08 94 21 10/06/16 20:00 97.2 105 16 98/61 95 10/06/16 16:15 96.3 90 20 114/71 96 10/06/16 16:00 98.5 91 20 107/59 94 10/07/16 10/07/16 10/07/16 07:00 15:00 23:00 Intake Total 480 ml 671 ml Balance 480 ml 671 ml Result Diagram: 10/07/1660110/07/16601 Laboratory Results Laboratory Tests Test 10/07/16 10/07/16 06:02 10:25 White Blood Count 8.6 TH/MM3 Red Blood Count 3.80 MIL/MM3 Hemoglobin 9.3 GM/DL Hematocrit 28.3 % Mean Corpuscular Volume 74.6 FL Mean Corpuscular Hemoglobin 24.4 PG Mean Corpuscular Hemoglobin 32.7 % Concent Red Cell Distribution Width 17.7 % Platelet Count 247 TH/MM3 Mean Platelet Volume 7.5 FL Neutrophils (%) (Auto) 78.1 % Lymphocytes (%) (Auto) 12.9 % Monocytes (%) (Auto) 6.0 % Eosinophils (%) (Auto) 2.4 % Basophils (%) (Auto) 0.6 % Neutrophils # (Auto) 6.7 TH/MM3 Lymphocytes # (Auto) 1.1 TH/MM3 Monocytes # (Auto) 0.5 TH/MM3 Eosinophils # (Auto) 0.2 TH/MM3 Basophils # (Auto) 0.1 TH/MM3 CBC Comment AUTO DIFF Differential Comment AUTO DIFF CONFIRMED Platelet Estimate NORMAL Platelet Morphology Comment NORMAL Ovalocytes 1+ Sodium Level 140 MEQ/L Potassium Level 3.5 MEQ/L Chloride Level 109 MEQ/L Carbon Dioxide Level 21.7 MEQ/L Anion Gap 9 MEQ/L Blood Urea Nitrogen 7 MG/DL Creatinine 1.23 MG/DL Estimat Glomerular Filtration 46 ML/MIN Rate Random Glucose 105 MG/DL Calcium Level 8.7 MG/DL Blood Gas Puncture Site LT RADIAL Blood Gas Patient Temperature 98.6 Blood Gas HCO3 18 mmol/L Blood Gas Base Excess -5.3 mmol/L Blood Gas Oxygen Saturation 93 % Arterial Blood pH 7.42 Arterial Blood Partial 29 mmHg Pressure CO2 Arterial Blood Partial 76 mmHg Pressure O2 Arterial Blood Oxygen Content 16.7 Vol % Arterial Blood 1.7 % Carboxyhemoglobin Arterial Blood Methemoglobin 1.0 % Blood Gas Hemoglobin 12.8 G/DL Blood Gas Inspired Oxygen 21 % Culture Results Microbiology Date/Time Procedure Status Source Growth 10/06/16 15:15 Gram Stain - Final Resulted Fluid Other 10/06/16 15:15 Body Fluid Culture - Preliminary Resulted Fluid Other NO GROWTH IN 24 HOURS. Administered Medications Medications (Trade) Dose Ordered Sig/Felix Route PRN Reason Start Time Stop Time Status Last Admin Dose Admin Sodium Chloride (NS 1000 ml Inj) 1,000 ml @ 100 mls/hr Q10H IV 10/04/16 15:45 10/07/16 02:23 Acetaminophen (Tylenol) 650 mg Q4H PRN PO FEVER 10/04/16 16:15 10/05/16 16:28 Ferrous Sulfate (Ferrous Sulfate) 325 mg DAILY PO 10/05/16 09:00 10/07/16 08:15 Levothyroxine Sodium (Synthroid) 25 mcg DAILY@06 PO 10/05/16 06:00 10/07/16 04:55 Famotidine (Pepcid) 20 mg BID PO 10/04/16 21:00 10/07/16 08:15 Budesonide/ Formoterol Fumarate 2 puff 2 puff BID INH 10/04/16 21:00 10/07/16 08:15 Cefoxitin Sodium/ Sodium Chloride (Mefoxin Inj/NS Inj) 100 ml @ 200 mls/hr Q4HR IV 10/05/16 16:00 10/07/16 12:27 Acetaminophen/ Hydrocodone Bitart 1 tab 1 tab Q6HR PRN PO PAIN > 5 10/05/16 18:00 10/07/16 09:49 Amikacin Sulfate/ Sodium Chloride (Amikin Inj/NS 250 ml Inj) 254 ml @ 250 mls/hr Q36H IV 10/07/16 04:00 10/07/16 04:55 Objective Remarks GENERAL: Well-nourished, well-developed patient. SKIN: Warm and dry. HEAD: Normocephalic. EYES: No scleral icterus. No injection or drainage. CARDIOVASCULAR: Regular rate and rhythm without murmurs. RESPIRATORY: Breath sounds equal bilaterally. No accessory muscle use. GASTROINTESTINAL: Abdomen soft, generalized tenderness, dressing is C/D/I EXTREMITIES: No cyanosis, or edema. MUSCULOSKELETAL: Adequate muscle tone. NEUROLOGICAL: No obvious focal deficit. Awake, alert, and oriented x3. PSYCHIATRIC: Appropriate mood and affect; insight and judgment normal. Assessment/Plan Problem List: (1) Ovarian cyst Status: Acute Plan: s/p IR drainage of cyst fluid is pending cytology pt will follow up as outpt for consideration of surgery once infection has cleared. (2) Pneumonia Status: Acute Plan: ID following pulmonary following abx per ID Problem Qualifiers (1) Ovarian cyst: Qualified Code: N83.201 - Cyst of right ovary (2) Pneumonia: Qualified Code: J18.9 - Pneumonia of both lungs due to infectious organism, unspecified part of lung Nirmal Armenta Oct 07, 2016 15:47
[2016-10-07] MEDS ORDERED: RESP: ALBUTEROL 2.5 MG/3 ML NEB (SCH) NEB (16:00)
[2016-10-07] MEDS: CLARITHROMYCIN 500 MG TAB PO SCH (20:04)
[2016-10-07] MEDS ORDERED: SODIUM CHLORIDE 0.9% FLUSH 10 ML FLUSH IV FLUSH SCH (21:00)
[2016-10-08] VITALS: BP 112/77; PULSE 97; RESP 18; TEMP 97; O2SAT 94
[2016-10-08] MEDS: ceFOXitin INJ 2 GM in SODIUM CHLORIDE 0.9% INJ 100 ML IV SCH ×5 (05:03→20:51)
[2016-10-08] MEDS: ACETAMINOPHEN/HYDROcodone 325 MG/5 MG TAB PO PRN ×3 (05:03→19:05)
[2016-10-08] MEDS: LEVOTHYROXINE SODIUM 25 MCG TAB PO SCH (05:03)
[2016-10-08] MEDS ORDERED: LEVOTHYROXINE SODIUM 25 MCG TAB PO SCH (06:00)
[2016-10-08 07:32] LABS: BICARBONATE 22.7 MEQ/L (21.0-32.0); POTASSIUM 3.7 MEQ/L (3.5-5.1)
--- NOTE | 2016-10-08 08:09 | HHI.PR ---
Subjective Remarks looks and feels better today. abdominal pain is better. no sob. no fever. Objective Vitals Vital Signs Date Time Temp Pulse Resp B/P Pulse Ox O2 Delivery O2 Flow Rate FiO2 10/08/16 00:00 97.0 97 18 112/77 94 10/07/16 20:00 97.3 107 19 107/75 96 10/07/16 19:30 97 10/07/16 15:30 97.8 104 20 104/60 95 10/07/16 11:50 97.7 102 20 91/55 95 I/O 10/07/16 10/07/16 10/07/16 10/08/16 10/08/16 10/08/16 07:00 15:00 23:00 07:00 15:00 23:00 Intake Total 480 ml 671 ml 240 ml 480 ml Balance 480 ml 671 ml 240 ml 480 ml Intake Oral 480 ml 671 ml 240 ml 480 ml # Voids 2 2 1 2 # Bowel Movements 1 0 0 Result Diagram: 10/07/16 0602 10/08/16 0655 Imaging Last Impressions Needle Aspiration Ultrasound 10/06/16 0000 Signed Impressions: Service Date/Time: Thursday, October 06, 2016 14:50 - CONCLUSION: Uncomplicated ultrasound guided aspiration of an abdomen and pelvic cystic lesion measuring up to 23.6 cm. It is presumed to be ovarian in origin and contains septations along the right lateral and inferior aspect. The lesion was almost completely drained except for the septated portion inferiorly. Prateek Pate MD Abdomen/Pelvis CT 10/04/16 1257 Signed Impressions: Service Date/Time: Tuesday, October 04, 2016 13:26 - CONCLUSION: 1. Large cystic right ovarian mass measuring up to 26 cm. 2. Hiatal hernia. 3. Atherosclerosis. 4. Diverticulosis. 5. Right renal calculus. 6. Lung nodular infiltrate and right lower lobe nodule. Walt Sanz MD Chest X-Ray 10/04/16 1046 Signed Impressions: Service Date/Time: Tuesday, October 04, 2016 10:50 - CONCLUSION: Left basilar scarring versus linear atelectasis. Walt Sanz MD Objective Remarks GENERAL: This is a well-nourished, well-developed patient, in no apparent distress. CARDIOVASCULAR: Regular rate and regular rhythm without murmurs, gallops, or rubs. RESPIRATORY: Clear to auscultation. Breath sounds equal bilaterally. No wheezes , rales, or rhonchi. GASTROINTESTINAL: Abdomen soft, generalized tenderness, distended. Normal, active bowel sounds MUSCULOSKELETAL: Extremities without clubbing, cyanosis, or edema. NEURO: Alert & Oriented x4 to person, place, time, situation. Moves all ext x4 Procedures needle aspiration of the ovarian mass Medications and IVs Current Medications Iohexol 70 ml 70 ml STK-MED ONCE IV Last administered on 10/04/16 14:12; Start 10/04/16 at 14:12; Stop 10/04/16 at 14:13; Status DC Cefepime HCl 1000 mg/Sodium Chloride 100 ml @ 200 mls/hr ONCE ONCE IV Last administered on 10/04/16 16:37; Start 10/04/16 at 15:45; Stop 10/04/16 at 16:14 ; Status DC Azithromycin 500 mg/Sodium Chloride 250 ml @ 250 mls/hr ONCE ONCE IV Last administered on 10/04/16 17:30; Start 10/04/16 at 15:45; Stop 10/04/16 at 16:44 ; Status DC Sodium Chloride (NS 1000 ml Inj) 1,000 ml @ 100 mls/hr Q10H IV Last administered on 10/07/16 02:23; Start 10/04/16 at 15:45 Acetaminophen (Tylenol) 650 mg Q4H PRN PO FEVER Last administered on 10/05/16 16:28; Start 10/04/16 at 16:15 Ferrous Sulfate (Ferrous Sulfate) 325 mg DAILY PO Last administered on 08:15; Start 10/05/16 at 09:00 Levothyroxine Sodium (Synthroid) 25 mcg DAILY@06 PO Last administered on 05:03; Start 10/05/16 at 06:00 Non-Formulary Medication 1 puff BID INH AST; Start 10/04/16 at 21:00; Status UNV Non-Formulary Medication 150 mg BID PO Reduce Stomach Acid; Start 10/04/16 at 21 :00; Status UNV Famotidine (Pepcid) 20 mg BID PO Last administered on 10/07/16 20:04; Start at 21:00 Budesonide/ Formoterol Fumarate (Symbicort 80-4.5 Mcg Inh) 2 puff BID INH Last administered on 10/07/16 20:05; Start 10/04/16 at 21:00 Albuterol/ Ipratropium 1 ampule 1 ampule Q4HR NEB PRN NEB SHORTNESS OF BREATH Last administered on 10/07/16 19:29; Start 10/04/16 at 17:00 Cefepime HCl/ Sodium Chloride (Maxipime Inj/NS Inj) 100 ml @ 200 mls/hr Q12H IV Last administered on 10/05/16 03:14; Start 10/05/16 at 04:00; Stop at 13:52; Status DC Acetaminophen/ Hydrocodone Bitart 1 tab 1 tab Q4H PRN PO PAIN > 5 Last administered on 10/05/16 09:31; Start 10/04/16 at 17:00; Stop 10/05/16 at 13:53 ; Status DC Pharmacy Profile Note 0 ml @ 0 mls/hr UNSCH OTHER ; Start 10/05/16 at 14:00 Cefoxitin Sodium/ Sodium Chloride (Mefoxin Inj/NS Inj) 100 ml @ 200 mls/hr Q4HR IV Last administered on 10/08/16 05:03; Start 10/05/16 at 16:00 Ciprofloxacin (Cipro) 750 mg Q12HR PO Last administered on 10/07/16 08:15; Start 10/05/16 at 21:00; Stop 10/07/16 at 12:11; Status DC Acetaminophen/ Hydrocodone Bitart 1 tab 1 tab Q6HR PRN PO PAIN > 5 Last administered on 10/08/16 05:03; Start 10/05/16 at 18:00 Amikacin Sulfate/ Sodium Chloride (Amikin Inj/NS 250 ml Inj) 254 ml @ 250 mls/ hr ONCE ONCE IV Last administered on 10/05/16 16:02; Start 10/05/16 at 16:00 ; Stop 10/05/16 at 17:00; Status DC Ondansetron HCl (Zofran Inj) 4 mg Q8HR PRN IV PUSH NAUSEA; Start 10/06/16 at 08 :15 Lidocaine HCl (Xylocaine-Mpf 1% Inj) 30 ml STK-MED ONCE .ROUTE Last administered on 10/06/16 16:05; Start 10/06/16 at 16:05; Stop 10/06/16 at 16:06 ; Status DC Sodium Bicarbonate 50 meq 50 meq STK-MED ONCE .ROUTE Last administered on 16:05; Start 10/06/16 at 16:05; Stop 10/06/16 at 16:06; Status DC Amikacin Sulfate/ Sodium Chloride (Amikin Inj/NS 250 ml Inj) 254 ml @ 250 mls/ hr Q36H IV Last administered on 10/07/16 04:55; Start 10/07/16 at 04:00 Non-Formulary Medication 1 tab HS PRN PO PAIN/SLEEP; Start 10/07/16 at 10:45; Status UNV Levothyroxine Sodium (Synthroid) 25 mcg DAILY@0600 PO ; Start 10/08/16 at 06:00 ; Status UNV Albuterol Sulfate 2.5 mg 2.5 mg Q6HR NEB NEB ; Start 10/07/16 at 16:00; Stop at 16:00; Status UNV Potassium Chloride/Dextrose/ Sod Cl (D5-1/2 NS + KCl 20 Meq Inj) 1,000 ml @ 75 mls/hr [id number] IV ; Start 10/07/16 at 10:45; Status UNV Sodium Chloride (NS Flush) 2 ml UNSCH PRN IV FLUSH FLUSH AFTER USING IV ACCESS ; Start 10/07/16 at 10:45; Status UNV Sodium Chloride (NS Flush) 2 ml BID IV FLUSH ; Start 10/07/16 at 21:00; Status UNV Ketorolac Tromethamine (Toradol Inj) 15 mg Q6H IVP ; Start 10/07/16 at 10:45; Stop 10/08/16 at 04:46; Status UNV Oxycodone/ Acetaminophen (Percocet 5-325 Mg) 1 tab Q4H PRN PO PAIN SCALE 1 TO 5; Start 10/07/16 at 10:45; Status UNV Oxycodone/ Acetaminophen (Percocet 5-325 Mg) 2 tab Q4H PRN PO PAIN SCALE 6 TO 10; Start 10/07/16 at 10:45; Status UNV Ondansetron HCl (Zofran Inj) 4 mg Q6H PRN IVP NAUSEA OR VOMITING; Start at 10:45; Status UNV Lorazepam (Ativan) 0.5 mg Q8H PRN PO ANXIETY; Start 10/07/16 at 10:45; Status UNV Clarithromycin (Biaxin) 500 mg Q12HR PO Last administered on 10/07/16t 20:04; Start 10/07/16 at 21:00 Hydromorphone HCl (Dilaudid Pf Inj) 0.2 mg Q4H PRN IV PUSH BREAKTHROUGH PAIN; Start 10/07/16 at 12:30 A/P Assessment and Plan A/P - abdominal pain with large ovarian mass s/p needle aspiration of the mass - follow the culture and pathology. 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 repeat the sputum culture. pulmonary following. will consider walk test before discharge. -COPD with no exacerbation; resumed advair- neb treatment as needed. -lung nodule- pulmonary consult as noted above. -hypothyroidism; resumed levothyroxine -DVT prophylaxis with SCD's. Discharge Planning when cleared by consultants. Flory Benavides MD Oct 08, 2016 08:09
[2016-10-08] MEDS: FERROUS SULFATE 325 MG (65 MG ELEMENTAL IRON) TAB PO SCH (08:45)
[2016-10-08] MEDS: CLARITHROMYCIN 500 MG TAB PO SCH ×2 (08:45→20:50)
[2016-10-08] MEDS: FAMOTIDINE 20 MG TAB PO SCH ×2 (08:45→20:50)
[2016-10-08] MEDS: BUDESONIDE-FORMOTEROL 80/4.5 MCG INHALER INH SCH ×2 (08:46→20:50)
[2016-10-08 12:00] VITALS: BP 115/63; PULSE 88; RESP 19; TEMP 96.8; O2SAT 97
--- NOTE | 2016-10-08 13:48 | HHI.PR ---
Subjective Remarks ALERT LESS SOB LESS CHEST PAIN POS5T NEEDLE ASPIRATION OVARIAN CYST Objective Vital Signs Date Time Temp Pulse Resp B/P Pulse Ox O2 Delivery O2 Flow Rate FiO2 10/08/16 12:00 96.8 88 19 115/63 97 10/08/16 00:00 97.0 97 18 112/77 94 10/07/16 20:00 97.3 107 19 107/75 96 10/07/16 19:30 97 10/07/16 15:30 97.8 104 20 104/60 95 I/O 10/07/16 10/07/16 10/07/16 10/08/16 10/08/16 10/08/16 07:00 15:00 23:00 07:00 15:00 23:00 Intake Total 480 ml 671 ml 240 ml 480 ml Balance 480 ml 671 ml 240 ml 480 ml Intake Oral 480 ml 671 ml 240 ml 480 ml # Voids 2 2 1 2 # Bowel Movements 1 0 0 Result Diagram: 10/07/16 0602 10/08/16 0655 Objective Remarks GENERAL: SKIN: Warm and dry. HEAD: Atraumatic. Normocephalic. EYES: Pupils equal and round. No scleral icterus. No injection or drainage. ENT: No nasal bleeding or discharge. Mucous membranes pink and moist. NECK: Trachea midline. No JVD. CARDIOVASCULAR: Regular rate and rhythm. RESPIRATORY: No accessory muscle use. Clear to auscultation. Breath sounds equal bilaterally. GASTROINTESTINAL: Abdomen soft, non-tender, nondistended. Hepatic and splenic margins not palpable. MUSCULOSKELETAL: Extremities without clubbing, cyanosis, or edema. No obvious deformities. NEUROLOGICAL: Awake and alert. No obvious cranial nerve deficits. Motor grossly within normal limits. Five out of 5 muscle strength in the arms and legs. Normal speech. PSYCHIATRIC: Appropriate mood and affect; insight and judgment normal. Assessment and Plan Assessment and Plan PNA RESOLVING PLAN INCREASE ACTIVITY check pft, abtg F/U Cxray Nette Perdue MD Oct 08, 2016 13:48
--- NOTE | 2016-10-08 14:54 | RADRPT ---
EXAM DATE/TIME: 10/08/2016 14:31 [facility] COMPARISON: CHEST PA & LAT, September 25, 2012, 14:21. INDICATIONS : Cough. MEDICAL HISTORY : Chronic obstructive pulmonary disease. Hypothyroidism. hiatal hernia SURGICAL HISTORY : Appendectomy. ENCOUNTER: Subsequent ACUITY: 2 days PAIN SCORE: 0/10 LOCATION: Bilateral upper chest FINDINGS: There is patchy airspace disease in the left lower lobe. No effusions. Osseous structures are intact the lingular parenchymal infiltrate is also suspected. Cardiomegaly. CONCLUSION: Left lower lobe and lingular airspace disease. Walt Sanz MD on October 08, 2016 at 14:52 Board Certified Radiologist. This report was verified electronically.
[2016-10-08] MEDS: RESP: ALBUTEROL 2.5 MG/IPRATROPIUM 0.5 MG NEB (PRN) NEB ×2 (15:26→21:40)
[2016-10-08 16:00] VITALS: BP 106/62; PULSE 89; RESP 19; TEMP 97.4; O2SAT 95
[2016-10-08] MEDS: AMIKACIN IV SCH (17:44)
[2016-10-08] MEDS: SODIUM CHLOR 0.9% IV SCH (17:44)
[2016-10-08] MEDS: SODIUM CHLOR 0.9% 1000 ML INJ 1,000 ML IV SCH (19:45)
[2016-10-08 20:00] VITALS: BP 113/69; PULSE 96; RESP 18; TEMP 97.7; O2SAT 96
[2016-10-08 21:42] VITALS: O2SAT 96
[2016-10-09] VITALS (8 sets, daily range): BP systolic 96–129; BP diastolic 55–82; PULSE 83–96; RESP 16–20; TEMP 96–98.4; O2SAT 94–97
[2016-10-09] MEDS: ACETAMINOPHEN/HYDROcodone 325 MG/5 MG TAB PO PRN ×3 (00:53→20:02)
[2016-10-09] MEDS: ceFOXitin INJ 2 GM in SODIUM CHLORIDE 0.9% INJ 100 ML IV SCH ×6 (00:54→20:03)
[2016-10-09] MEDS: SODIUM CHLOR 0.9% 1000 ML INJ 1,000 ML IV SCH ×2 (02:01→20:04)
[2016-10-09] MEDS: LEVOTHYROXINE SODIUM 25 MCG TAB PO SCH (04:43)
[2016-10-09] MEDS: RESP: ALBUTEROL 2.5 MG/IPRATROPIUM 0.5 MG NEB (PRN) NEB ×3 (07:53→20:32)
[2016-10-09] MEDS: CLARITHROMYCIN 500 MG TAB PO SCH ×2 (08:59→20:03)
[2016-10-09] MEDS: FERROUS SULFATE 325 MG (65 MG ELEMENTAL IRON) TAB PO SCH (08:59)
[2016-10-09] MEDS: FAMOTIDINE 20 MG TAB PO SCH ×2 (09:00→20:03)
[2016-10-09] MEDS: BUDESONIDE-FORMOTEROL 80/4.5 MCG INHALER INH SCH ×2 (09:00→20:03)
--- NOTE | 2016-10-09 10:00 | HHI.PR ---
Subjective Remarks in no distress. no sob. abdominal pain is better. no new complaints. Objective Vitals Vital Signs Date Time Temp Pulse Resp B/P Pulse Ox O2 Delivery O2 Flow Rate FiO2 10/09/16 08:00 98.4 87 20 118/69 95 10/09/16 07:53 94 21 10/09/16 04:00 97.2 87 18 129/72 97 10/09/16 00:00 96.3 96 17 116/82 94 10/08/16 21:42 96 21 10/08/16 20:00 97.7 96 18 113/69 96 10/08/16 16:00 97.4 89 19 106/62 95 10/08/16 12:00 96.8 88 19 115/63 97 I/O 10/08/16 10/08/16 10/08/16 10/09/16 10/09/16 10/09/16 07:00 15:00 23:00 07:00 15:00 23:00 Intake Total 480 ml 600 ml 240 ml Balance 480 ml 600 ml 240 ml Intake Oral 480 ml 600 ml 240 ml # Voids 2 5 2 # Bowel Movements 0 0 0 Result Diagram: 10/07/16 0602 10/08/16 0655 Imaging Last Impressions Chest X-Ray 10/08/16 0000 Signed Impressions: Service Date/Time: Saturday, October 08, 2016 14:31 - CONCLUSION: Left lower lobe and lingular airspace disease. Walt Sanz MD Needle Aspiration Ultrasound 10/06/16 0000 Signed Impressions: Service Date/Time: Thursday, October 06, 2016 14:50 - CONCLUSION: Uncomplicated ultrasound guided aspiration of an abdomen and pelvic cystic lesion measuring up to 23.6 cm. It is presumed to be ovarian in origin and contains septations along the right lateral and inferior aspect. The lesion was almost completely drained except for the septated portion inferiorly. Prateek Pate MD Abdomen/Pelvis CT 10/04/16 1257 Signed Impressions: Service Date/Time: Tuesday, October 04, 2016 13:26 - CONCLUSION: 1. Large cystic right ovarian mass measuring up to 26 cm. 2. Hiatal hernia. 3. Atherosclerosis. 4. Diverticulosis. 5. Right renal calculus. 6. Lung nodular infiltrate and right lower lobe nodule. Walt Sanz MD Objective Remarks GENERAL: This is a well-nourished, well-developed patient, in no apparent distress. CARDIOVASCULAR: Regular rate and regular rhythm without murmurs, gallops, or rubs. RESPIRATORY: Clear to auscultation. Breath sounds equal bilaterally. No wheezes , rales, or rhonchi. GASTROINTESTINAL: Abdomen soft, generalized tenderness, distended. Normal, active bowel sounds MUSCULOSKELETAL: Extremities without clubbing, cyanosis, or edema. NEURO: Alert & Oriented x4 to person, place, time, situation. Moves all ext x4 Procedures needle aspiration of the ovarian mass Medications and IVs Current Medications Iohexol 70 ml 70 ml STK-MED ONCE IV Last administered on 10/04/16 14:12; Start 10/04/16 at 14:12; Stop 10/04/16 at 14:13; Status DC Cefepime HCl 1000 mg/Sodium Chloride 100 ml @ 200 mls/hr ONCE ONCE IV Last administered on 10/04/16 16:37; Start 10/04/16 at 15:45; Stop 10/04/16 at 16:14 ; Status DC Azithromycin 500 mg/Sodium Chloride 250 ml @ 250 mls/hr ONCE ONCE IV Last administered on 10/04/16 17:30; Start 10/04/16 at 15:45; Stop 10/04/16 at 16:44 ; Status DC Sodium Chloride (NS 1000 ml Inj) 1,000 ml @ 100 mls/hr Q10H IV Last administered on 10/07/16 02:23; Start 10/04/16 at 15:45 Acetaminophen (Tylenol) 650 mg Q4H PRN PO FEVER Last administered on 10/05/16 16:28; Start 10/04/16 at 16:15 Ferrous Sulfate (Ferrous Sulfate) 325 mg DAILY PO Last administered on 08:59; Start 10/05/16 at 09:00 Levothyroxine Sodium (Synthroid) 25 mcg DAILY@06 PO Last administered on 04:43; Start 10/05/16 at 06:00 Non-Formulary Medication 1 puff BID INH AST; Start 10/04/16 at 21:00; Status UNV Non-Formulary Medication 150 mg BID PO Reduce Stomach Acid; Start 10/04/16 at 21 :00; Status UNV Famotidine (Pepcid) 20 mg BID PO Last administered on 10/08/16 20:50; Start at 21:00; Stop 10/09/16 at 08:19; Status DC Budesonide/ Formoterol Fumarate (Symbicort 80-4.5 Mcg Inh) 2 puff BID INH Last administered on 10/09/16 09:00; Start 10/04/16 at 21:00 Albuterol/ Ipratropium 1 ampule 1 ampule Q4HR NEB PRN NEB SHORTNESS OF BREATH Last administered on 10/08/16 15:26; Start 10/04/16 at 17:00; Stop 10/08/16 at 17:00; Status DC Cefepime HCl/ Sodium Chloride (Maxipime Inj/NS Inj) 100 ml @ 200 mls/hr Q12H IV Last administered on 10/05/16 03:14; Start 10/05/16 at 04:00; Stop at 13:52; Status DC Acetaminophen/ Hydrocodone Bitart 1 tab 1 tab Q4H PRN PO PAIN > 5 Last administered on 10/05/16 09:31; Start 10/04/16 at 17:00; Stop 10/05/16 at 13:53 ; Status DC Pharmacy Profile Note 0 ml @ 0 mls/hr UNSCH OTHER ; Start 10/05/16 at 14:00 Cefoxitin Sodium/ Sodium Chloride (Mefoxin Inj/NS Inj) 100 ml @ 200 mls/hr Q4HR IV Last administered on 10/09/16 08:59; Start 10/05/16 at 16:00 Ciprofloxacin (Cipro) 750 mg Q12HR PO Last administered on 10/07/16 08:15; Start 10/05/16 at 21:00; Stop 10/07/16 at 12:11; Status DC Acetaminophen/ Hydrocodone Bitart 1 tab 1 tab Q6HR PRN PO PAIN > 5 Last administered on 10/09/16 00:53; Start 10/05/16 at 18:00 Amikacin Sulfate/ Sodium Chloride (Amikin Inj/NS 250 ml Inj) 254 ml @ 250 mls/ hr ONCE ONCE IV Last administered on 10/05/16 16:02; Start 10/05/16 at 16:00 ; Stop 10/05/16 at 17:00; Status DC Ondansetron HCl (Zofran Inj) 4 mg Q8HR PRN IV PUSH NAUSEA; Start 10/06/16 at 08 :15 Lidocaine HCl (Xylocaine-Mpf 1% Inj) 30 ml STK-MED ONCE .ROUTE Last administered on 10/06/16 16:05; Start 10/06/16 at 16:05; Stop 10/06/16 at 16:06 ; Status DC Sodium Bicarbonate 50 meq 50 meq STK-MED ONCE .ROUTE Last administered on 16:05; Start 10/06/16 at 16:05; Stop 10/06/16 at 16:06; Status DC Amikacin Sulfate/ Sodium Chloride (Amikin Inj/NS 250 ml Inj) 254 ml @ 250 mls/ hr Q36H IV Last administered on 10/08/16 17:44; Start 10/07/16 at 04:00 Non-Formulary Medication 1 tab HS PRN PO PAIN/SLEEP; Start 10/07/16 at 10:45; Status UNV Levothyroxine Sodium (Synthroid) 25 mcg DAILY@0600 PO ; Start 10/08/16 at 06:00 ; Status UNV Albuterol Sulfate 2.5 mg 2.5 mg Q6HR NEB NEB ; Start 10/07/16 at 16:00; Stop at 16:00; Status UNV Potassium Chloride/Dextrose/ Sod Cl (D5-1/2 NS + KCl 20 Meq Inj) 1,000 ml @ 75 mls/hr [id number] IV ; Start 10/07/16 at 10:45; Status UNV Sodium Chloride (NS Flush) 2 ml UNSCH PRN IV FLUSH FLUSH AFTER USING IV ACCESS ; Start 10/07/16 at 10:45; Status UNV Sodium Chloride (NS Flush) 2 ml BID IV FLUSH ; Start 10/07/16 at 21:00; Status UNV Ketorolac Tromethamine (Toradol Inj) 15 mg Q6H IVP ; Start 10/07/16 at 10:45; Stop 10/08/16 at 04:46; Status UNV Oxycodone/ Acetaminophen (Percocet 5-325 Mg) 1 tab Q4H PRN PO PAIN SCALE 1 TO 5; Start 4/13/17 at 10:45; Status UNV Oxycodone/ Acetaminophen (Percocet 5-325 Mg) 2 tab Q4H PRN PO PAIN SCALE 6 TO 10; Start 10/07/16 at 10:45; Status UNV Ondansetron HCl (Zofran Inj) 4 mg Q6H PRN IVP NAUSEA OR VOMITING; Start at 10:45; Status UNV Lorazepam (Ativan) 0.5 mg Q8H PRN PO ANXIETY; Start 10/07/16 at 10:45; Status UNV Clarithromycin (Biaxin) 500 mg Q12HR PO Last administered on 10/09/16 08:59; Start 10/07/16 at 21:00 Hydromorphone HCl (Dilaudid Pf Inj) 0.2 mg Q4H PRN IV PUSH BREAKTHROUGH PAIN; Start 10/07/16 at 12:30 Albuterol/ Ipratropium (Duoneb Neb) 1 ampule Q4HR NEB PRN NEB SHORTNESS OF BREATH Last administered on 10/09/16 07:53; Start 10/08/16 at 21:45 Famotidine (Pepcid) 10 mg BID PO Last administered on 10/09/16 09:00; Start at 09:00 A/P Assessment and Plan A/P - abdominal pain with large ovarian mass- now pain has improved. s/p needle aspiration of the mass -cultures negative-pathology pending. 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 repeat the sputum culture. pulmonary following. will consider walk test before discharge. -COPD with no exacerbation; resumed advair- neb treatment as needed. -lung nodule- pulmonary consult as noted above. -hypothyroidism; resumed levothyroxine -DVT prophylaxis with SCD's. Discharge Planning when cleared by consultants. Flory Benavides MD Oct 09, 2016 09:59
--- NOTE | 2016-10-09 13:32 | HHI.PR ---
Subjective Remarks ALERT LESS SOB LESS CHEST PAIN POS5T NEEDLE ASPIRATION OVARIAN CYST Objective Vital Signs Date Time Temp Pulse Resp B/P Pulse Ox O2 Delivery O2 Flow Rate FiO2 10/09/16 12:00 97.4 90 18 96/55 95 10/09/16 08:00 98.4 87 20 118/69 95 10/09/16 07:53 94 21 10/09/16 04:00 97.2 87 18 129/72 97 10/09/16 00:00 96.3 96 17 116/82 94 10/08/16 21:42 96 21 10/08/16 20:00 97.7 96 18 113/69 96 10/08/16 16:00 97.4 89 19 106/62 95 I/O 10/08/16 10/08/16 10/08/16 10/09/16 10/09/16 10/09/16 07:00 15:00 23:00 07:00 15:00 23:00 Intake Total 480 ml 600 ml 240 ml Balance 480 ml 600 ml 240 ml Intake Oral 480 ml 600 ml 240 ml # Voids 2 5 2 # Bowel Movements 0 0 0 Result Diagram: 10/07/16 0602 10/08/16 0655 Objective Remarks GENERAL: SKIN: Warm and dry. HEAD: Atraumatic. Normocephalic. EYES: Pupils equal and round. No scleral icterus. No injection or drainage. ENT: No nasal bleeding or discharge. Mucous membranes pink and moist. NECK: Trachea midline. No JVD. CARDIOVASCULAR: Regular rate and rhythm. RESPIRATORY: No accessory muscle use. Clear to auscultation. Breath sounds equal bilaterally. GASTROINTESTINAL: Abdomen soft, non-tender, nondistended. Hepatic and splenic margins not palpable. MUSCULOSKELETAL: Extremities without clubbing, cyanosis, or edema. No obvious deformities. NEUROLOGICAL: Awake and alert. No obvious cranial nerve deficits. Motor grossly within normal limits. Five out of 5 muscle strength in the arms and legs. Normal speech. PSYCHIATRIC: Appropriate mood and affect; insight and judgment normal. Assessment and Plan Assessment and Plan PNA RESOLVING PLAN INCREASE ACTIVITY check pft, abtg F/U Cxray Nette Perdue MD Oct 09, 2016 13:32
[2016-10-10] MEDS: SODIUM CHLOR 0.9% 1000 ML INJ 1,000 ML IV SCH ×3 (00:24→20:00)
[2016-10-10] MEDS: ceFOXitin INJ 2 GM in SODIUM CHLORIDE 0.9% INJ 100 ML IV SCH ×7 (00:24→22:52)
[2016-10-10 04:00] VITALS: BP 96/67; PULSE 78; RESP 20; TEMP 96.1; O2SAT 97
[2016-10-10] MEDS: SODIUM CHLOR 0.9% IV SCH (04:21)
[2016-10-10] MEDS: AMIKACIN IV SCH (04:21)
[2016-10-10] MEDS: LEVOTHYROXINE SODIUM 25 MCG TAB PO SCH (05:45)
[2016-10-10 08:00] VITALS: BP 101/65; PULSE 85; RESP 20; TEMP 97.7; O2SAT 95
[2016-10-10] MEDS: CLARITHROMYCIN 500 MG TAB PO SCH ×2 (08:22→20:00)
[2016-10-10] MEDS: FERROUS SULFATE 325 MG (65 MG ELEMENTAL IRON) TAB PO SCH (08:22)
[2016-10-10] MEDS: FAMOTIDINE 20 MG TAB PO SCH ×2 (08:22→20:00)
[2016-10-10] MEDS: BUDESONIDE-FORMOTEROL 80/4.5 MCG INHALER INH SCH ×2 (08:22→20:00)
--- NOTE | 2016-10-10 09:14 | HHI.PR ---
Subjective Remarks in no acute distress. no sob or fever. no abdominal pain. no new complaints. Objective Vitals Vital Signs Date Time Temp Pulse Resp B/P Pulse Ox O2 Delivery O2 Flow Rate FiO2 10/10/16 04:00 96.1 78 20 96/67 97 10/09/16 20:52 96.0 83 18 97/62 96 10/09/16 20:35 96 10/09/16 16:00 97.5 85 16 97/55 95 10/09/16 12:00 97.4 90 18 96/55 95 I/O 10/09/16 10/09/16 10/09/16 10/10/16 10/10/16 10/10/16 07:00 15:00 23:00 07:00 15:00 23:00 Intake Total 720 ml Balance 720 ml Intake Oral 720 ml # Voids 2 Result Diagram: 10/07/16 0602 10/08/16 0655 Imaging Last Impressions Chest X-Ray 10/08/16 0000 Signed Impressions: Service Date/Time: Saturday, October 08, 2016 14:31 - CONCLUSION: Left lower lobe and lingular airspace disease. Walt Sanz MD Needle Aspiration Ultrasound 10/06/16 0000 Signed Impressions: Service Date/Time: Thursday, October 06, 2016 14:50 - CONCLUSION: Uncomplicated ultrasound guided aspiration of an abdomen and pelvic cystic lesion measuring up to 23.6 cm. It is presumed to be ovarian in origin and contains septations along the right lateral and inferior aspect. The lesion was almost completely drained except for the septated portion inferiorly. Prateek Pate MD Abdomen/Pelvis CT 10/04/16 1257 Signed Impressions: Service Date/Time: Tuesday, October 04, 2016 13:26 - CONCLUSION: 1. Large cystic right ovarian mass measuring up to 26 cm. 2. Hiatal hernia. 3. Atherosclerosis. 4. Diverticulosis. 5. Right renal calculus. 6. Lung nodular infiltrate and right lower lobe nodule. Walt Sanz MD Objective Remarks GENERAL: This is a well-nourished, well-developed patient, in no apparent distress. CARDIOVASCULAR: Regular rate and regular rhythm without murmurs, gallops, or rubs. RESPIRATORY: Clear to auscultation. Breath sounds equal bilaterally. No wheezes , rales, or rhonchi. GASTROINTESTINAL: Abdomen soft, generalized tenderness, distended. Normal, active bowel sounds MUSCULOSKELETAL: Extremities without clubbing, cyanosis, or edema. NEURO: Alert & Oriented x4 to person, place, time, situation. Moves all ext x4 Procedures needle aspiration of the ovarian mass Medications and IVs Current Medications Iohexol 70 ml 70 ml STK-MED ONCE IV Last administered on 10/04/16 14:12; Start 10/04/16 at 14:12; Stop 10/04/16 at 14:13; Status DC Cefepime HCl 1000 mg/Sodium Chloride 100 ml @ 200 mls/hr ONCE ONCE IV Last administered on 10/04/16 16:37; Start 10/04/16 at 15:45; Stop 10/04/16 at 16:14 ; Status DC Azithromycin 500 mg/Sodium Chloride 250 ml @ 250 mls/hr ONCE ONCE IV Last administered on 10/04/16 17:30; Start 10/04/16 at 15:45; Stop 10/04/16 at 16:44 ; Status DC Sodium Chloride (NS 1000 ml Inj) 1,000 ml @ 100 mls/hr Q10H IV Last administered on 10/10/16 00:24; Start 10/04/16 at 15:45 Acetaminophen (Tylenol) 650 mg Q4H PRN PO FEVER Last administered on 10/05/16 16:28; Start 10/04/16 at 16:15 Ferrous Sulfate (Ferrous Sulfate) 325 mg DAILY PO Last administered on 08:22; Start 10/05/16 at 09:00 Levothyroxine Sodium (Synthroid) 25 mcg DAILY@06 PO Last administered on 05:45; Start 10/05/16 at 06:00 Non-Formulary Medication 1 puff BID INH AST; Start 10/04/16 at 21:00; Status UNV Non-Formulary Medication 150 mg BID PO Reduce Stomach Acid; Start 10/04/16 at 21 :00; Status UNV Famotidine (Pepcid) 20 mg BID PO Last administered on 10/08/16 20:50; Start at 21:00; Stop 10/09/16 at 08:19; Status DC Budesonide/ Formoterol Fumarate (Symbicort 80-4.5 Mcg Inh) 2 puff BID INH Last administered on 10/10/16 08:22; Start 10/04/16 at 21:00 Albuterol/ Ipratropium 1 ampule 1 ampule Q4HR NEB PRN NEB SHORTNESS OF BREATH Last administered on 10/08/16 15:26; Start 10/04/16 at 17:00; Stop 10/08/16 at 17:00; Status DC Cefepime HCl/ Sodium Chloride (Maxipime Inj/NS Inj) 100 ml @ 200 mls/hr Q12H IV Last administered on 10/05/16 03:14; Start 10/05/16 at 04:00; Stop at 13:52; Status DC Acetaminophen/ Hydrocodone Bitart 1 tab 1 tab Q4H PRN PO PAIN > 5 Last administered on 10/05/16 09:31; Start 10/04/16 at 17:00; Stop 10/05/16 at 13:53 ; Status DC Pharmacy Profile Note 0 ml @ 0 mls/hr UNSCH OTHER ; Start 10/05/16 at 14:00 Cefoxitin Sodium/ Sodium Chloride (Mefoxin Inj/NS Inj) 100 ml @ 200 mls/hr Q4HR IV Last administered on 10/10/16 08:22; Start 10/05/16 at 16:00 Ciprofloxacin (Cipro) 750 mg Q12HR PO Last administered on 10/07/16 08:15; Start 10/05/16 at 21:00; Stop 10/07/16 at 12:11; Status DC Acetaminophen/ Hydrocodone Bitart 1 tab 1 tab Q6HR PRN PO PAIN > 5 Last administered on 10/09/16 20:02; Start 10/05/16 at 18:00 Amikacin Sulfate/ Sodium Chloride (Amikin Inj/NS 250 ml Inj) 254 ml @ 250 mls/ hr ONCE ONCE IV Last administered on 10/05/16 16:02; Start 10/05/16 at 16:00 ; Stop 10/05/16 at 17:00; Status DC Ondansetron HCl (Zofran Inj) 4 mg Q8HR PRN IV PUSH NAUSEA; Start 10/06/16 at 08 :15 Lidocaine HCl (Xylocaine-Mpf 1% Inj) 30 ml STK-MED ONCE .ROUTE Last administered on 10/06/16 16:05; Start 10/06/16 at 16:05; Stop 10/06/16 at 16:06 ; Status DC Sodium Bicarbonate 50 meq 50 meq STK-MED ONCE .ROUTE Last administered on 16:05; Start 10/06/16 at 16:05; Stop 10/06/16 at 16:06; Status DC Amikacin Sulfate/ Sodium Chloride (Amikin Inj/NS 250 ml Inj) 254 ml @ 250 mls/ hr Q36H IV Last administered on 10/10/16 04:21; Start 10/07/16 at 04:00 Non-Formulary Medication 1 tab HS PRN PO PAIN/SLEEP; Start 10/07/16 at 10:45; Status UNV Levothyroxine Sodium (Synthroid) 25 mcg DAILY@0600 PO ; Start 10/08/16 at 06:00 ; Status UNV Albuterol Sulfate 2.5 mg 2.5 mg Q6HR NEB NEB ; Start 10/07/16 at 16:00; Stop at 16:00; Status UNV Potassium Chloride/Dextrose/ Sod Cl (D5-1/2 NS + KCl 20 Meq Inj) 1,000 ml @ 75 mls/hr [id number] IV ; Start 10/07/16 at 10:45; Status UNV Sodium Chloride (NS Flush) 2 ml UNSCH PRN IV FLUSH FLUSH AFTER USING IV ACCESS ; Start 10/07/16 at 10:45; Status UNV Sodium Chloride (NS Flush) 2 ml BID IV FLUSH ; Start 10/07/16 at 21:00; Status UNV Ketorolac Tromethamine (Toradol Inj) 15 mg Q6H IVP ; Start 10/07/16 at 10:45; Stop 10/08/16 at 04:46; Status UNV Oxycodone/ Acetaminophen (Percocet 5-325 Mg) 1 tab Q4H PRN PO PAIN SCALE 1 TO 5; Start 10/07/16 at 10:45; Status UNV Oxycodone/ Acetaminophen (Percocet 5-325 Mg) 2 tab Q4H PRN PO PAIN SCALE 6 TO 10; Start 10/07/16 at 10:45; Status UNV Ondansetron HCl (Zofran Inj) 4 mg Q6H PRN IVP NAUSEA OR VOMITING; Start at 10:45; Status UNV Lorazepam (Ativan) 0.5 mg Q8H PRN PO ANXIETY; Start 10/07/16 at 10:45; Status UNV Clarithromycin (Biaxin) 500 mg Q12HR PO Last administered on 10/10/16 08:22; Start 10/07/16 at 21:00 Hydromorphone HCl (Dilaudid Pf Inj) 0.2 mg Q4H PRN IV PUSH BREAKTHROUGH PAIN; Start 10/07/16 at 12:30 Albuterol/ Ipratropium (Duoneb Neb) 1 ampule Q4HR NEB PRN NEB SHORTNESS OF BREATH Last administered on 10/09/16 20:32; Start 10/08/16 at 21:45 Famotidine (Pepcid) 10 mg BID PO Last administered on 10/10/16 08:22; Start at 09:00 Miscellaneous Information SPECIFIC LAB TO BE ... ONCE ONCE .XX ; Start 10/13 at 03:45; Stop 10/13/16 at 03:46 A/P Assessment and Plan A/P - abdominal pain with large ovarian mass- now pain has much improved. s/p needle aspiration of the mass -cultures negative-pathology pending. 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 will follow the repeated sputum culture. pulmonary following. will consider walk test before discharge. -COPD with no exacerbation; resumed advair- neb treatment as needed. -lung nodule- pulmonary consult as noted above. -hypothyroidism; resumed levothyroxine -DVT prophylaxis with SCD's. Discharge Planning when cleared by ID. Flory Benavides MD Oct 10, 2016 09:14
[2016-10-10] MEDS: ACETAMINOPHEN/HYDROcodone 325 MG/5 MG TAB PO PRN ×3 (10:58→22:52)
[2016-10-10 12:00] VITALS: BP 105/67; PULSE 82; RESP 18; TEMP 96.9; O2SAT 95
--- NOTE | 2016-10-10 12:49 | HHI.PR ---
Subjective Remarks ALERT LESS SOB LESS CHEST PAIN POS5T NEEDLE ASPIRATION OVARIAN CYST Objective Vital Signs Date Time Temp Pulse Resp B/P Pulse Ox O2 Delivery O2 Flow Rate FiO2 10/10/16 12:00 96.9 82 18 105/67 95 10/10/16 08:00 97.7 85 20 101/65 95 10/10/16 04:00 96.1 78 20 96/67 97 10/09/16 20:52 96.0 83 18 97/62 96 10/09/16 20:35 96 10/09/16 16:00 97.5 85 16 97/55 95 I/O 10/09/16 10/09/16 10/09/16 10/10/16 10/10/16 10/10/16 07:00 15:00 23:00 07:00 15:00 23:00 Intake Total 720 ml Balance 720 ml Intake Oral 720 ml # Voids 2 Result Diagram: 10/07/16 0602 10/10/16 0859 Objective Remarks GENERAL: SKIN: Warm and dry. HEAD: Atraumatic. Normocephalic. EYES: Pupils equal and round. No scleral icterus. No injection or drainage. ENT: No nasal bleeding or discharge. Mucous membranes pink and moist. NECK: Trachea midline. No JVD. CARDIOVASCULAR: Regular rate and rhythm. RESPIRATORY: No accessory muscle use. Clear to auscultation. Breath sounds equal bilaterally. GASTROINTESTINAL: Abdomen soft, non-tender, nondistended. Hepatic and splenic margins not palpable. MUSCULOSKELETAL: Extremities without clubbing, cyanosis, or edema. No obvious deformities. NEUROLOGICAL: Awake and alert. No obvious cranial nerve deficits. Motor grossly within normal limits. Five out of 5 muscle strength in the arms and legs. Normal speech. PSYCHIATRIC: Appropriate mood and affect; insight and judgment normal. Assessment and Plan Assessment and Plan PNA RESOLVING PLAN INCREASE ACTIVITY Nette Perdue MD Oct 10, 2016 12:49
[2016-10-10 16:00] VITALS: BP 113/67; PULSE 86; RESP 16; TEMP 98.4; O2SAT 95
[2016-10-10] MEDS: RESP: ALBUTEROL 2.5 MG/IPRATROPIUM 0.5 MG NEB (PRN) NEB (16:03)
[2016-10-10 20:00] VITALS: BP 107/75; PULSE 93; RESP 18; TEMP 96.6; O2SAT 96
[2016-10-11] VITALS: BP 97/66; PULSE 88; RESP 16; TEMP 96.4; O2SAT 95
[2016-10-11] MEDS: ceFOXitin INJ 2 GM in SODIUM CHLORIDE 0.9% INJ 100 ML IV SCH ×7 (00:16→23:51)
[2016-10-11 04:00] VITALS: BP 108/75; PULSE 73; RESP 16; TEMP 96.6; O2SAT 95
[2016-10-11] MEDS: LEVOTHYROXINE SODIUM 25 MCG TAB PO SCH (04:17)
[2016-10-11 08:00] VITALS: BP 100/60; PULSE 102; RESP 18; TEMP 96.2; O2SAT 95
[2016-10-11] MEDS: FERROUS SULFATE 325 MG (65 MG ELEMENTAL IRON) TAB PO SCH (08:20)
[2016-10-11] MEDS: CLARITHROMYCIN 500 MG TAB PO SCH ×2 (08:21→19:49)
[2016-10-11] MEDS: FAMOTIDINE 20 MG TAB PO SCH ×2 (08:21→19:50)
[2016-10-11] MEDS: BUDESONIDE-FORMOTEROL 80/4.5 MCG INHALER INH SCH ×2 (08:21→19:50)
--- NOTE | 2016-10-11 09:05 | PD.ONC.PN ---
Subjective Subjective Remarks pt sitting along side of bed eating breakfast states she feels like the cyst is filling back up again Objective Data Date Time Temp Pulse Resp B/P Pulse Ox O2 Delivery O2 Flow Rate FiO2 10/11/16 04:00 96.6 73 16 108/75 95 10/11/16 00:00 96.4 88 16 97/66 95 10/10/16 20:00 96.6 93 18 107/75 96 10/10/16 16:00 98.4 86 16 113/67 95 10/10/16 12:00 96.9 82 18 105/67 95 Result Diagram: 10/07/16 0602 10/10/16 0859 Culture Results Microbiology Date/Time Procedure Status Source Growth 10/10/16 00:00 Gram Stain - Final Resulted Sputum Expectorated Sputum 10/10/16 00:00 Sputum Culture Resulted Sputum Expectorated Sputum Pending Administered Medications Medications (Trade) Dose Ordered Sig/Felix Route PRN Reason Start Time Stop Time Status Last Admin Dose Admin Sodium Chloride (NS 1000 ml Inj) 1,000 ml @ 100 mls/hr Q10H IV 10/04/16 15:45 10/10/16 00:24 Acetaminophen (Tylenol) 650 mg Q4H PRN PO FEVER 10/04/16 16:15 10/05/16 16:28 Ferrous Sulfate (Ferrous Sulfate) 325 mg DAILY PO 10/05/16 09:00 10/11/16 08:20 Levothyroxine Sodium (Synthroid) 25 mcg DAILY@06 PO 10/05/16 06:00 10/11/16 04:17 Budesonide/ Formoterol Fumarate 2 puff 2 puff BID INH 10/04/16 21:00 10/11/16 08:21 Cefoxitin Sodium/ Sodium Chloride (Mefoxin Inj/NS Inj) 100 ml @ 200 mls/hr Q4HR IV 10/05/16 16:00 10/11/16 08:20 Acetaminophen/ Hydrocodone Bitart 1 tab 1 tab Q6HR PRN PO PAIN > 5 10/05/16 18:00 10/10/16 22:52 Amikacin Sulfate/ Sodium Chloride (Amikin Inj/NS 250 ml Inj) 254 ml @ 250 mls/hr Q36H IV 10/07/16 04:00 10/10/16 04:21 Clarithromycin (Biaxin) 500 mg Q12HR PO 10/07/16 21:00 10/11/16 08:21 Famotidine (Pepcid) 10 mg BID PO 10/09/16 09:00 10/11/16 08:21 Objective Remarks GENERAL: Well-nourished, well-developed patient. SKIN: Warm and dry. HEAD: Normocephalic. EYES: No scleral icterus. No injection or drainage. EXTREMITIES:teds MUSCULOSKELETAL: Adequate muscle tone. NEUROLOGICAL: No obvious focal deficit. Awake, alert, and oriented x3. PSYCHIATRIC: Appropriate mood and affect; insight and judgment normal. Assessment/Plan Problem List: (1) Ovarian cyst Status: Acute Plan: s/p IR drainage of cyst fluid is pending cytology pt will follow up as outpt for consideration of surgery once infection has cleared. 10/11/18: pt will follow up in our office once cleared of her pneumonia cultures neg and cytology is pending (2) Pneumonia Status: Acute Plan: ID following pulmonary following abx per ID Attending Statement Dr. Loredo is in agreement with this plan of care. Problem Qualifiers (1) Ovarian cyst: Qualified Code: N83.201 - Cyst of right ovary (2) Pneumonia: Qualified Code: J18.9 - Pneumonia of both lungs due to infectious organism, unspecified part of lung Nirmal Armenta Oct 11, 2016 09:05
--- NOTE | 2016-10-11 09:07 | HHI.PR ---
Subjective Remarks in no acute distress. afebrile. has mild abdominal pain. Objective Vitals Vital Signs Date Time Temp Pulse Resp B/P Pulse Ox O2 Delivery O2 Flow Rate FiO2 10/11/16 04:00 96.6 73 16 108/75 95 10/11/16 00:00 96.4 88 16 97/66 95 10/10/16 20:00 96.6 93 18 107/75 96 10/10/16 16:00 98.4 86 16 113/67 95 10/10/16 12:00 96.9 82 18 105/67 95 I/O 10/10/16 10/10/16 10/10/16 10/11/16 10/11/16 10/11/16 07:00 15:00 23:00 07:00 15:00 23:00 Intake Total 720 ml 240 ml Balance 720 ml 240 ml Intake Oral 720 ml 240 ml # Voids 6 2 # Bowel Movements 0 Result Diagram: 10/07/16 0602 10/10/16 0859 Imaging Last Impressions Chest X-Ray 10/08/16 0000 Signed Impressions: Service Date/Time: Saturday, October 08, 2016 14:31 - CONCLUSION: Left lower lobe and lingular airspace disease. Walt Sanz MD Needle Aspiration Ultrasound 10/06/16 0000 Signed Impressions: Service Date/Time: Thursday, October 06, 2016 14:50 - CONCLUSION: Uncomplicated ultrasound guided aspiration of an abdomen and pelvic cystic lesion measuring up to 23.6 cm. It is presumed to be ovarian in origin and contains septations along the right lateral and inferior aspect. The lesion was almost completely drained except for the septated portion inferiorly. Prateek Pate MD Abdomen/Pelvis CT 10/04/16 1257 Signed Impressions: Service Date/Time: Tuesday, October 04, 2016 13:26 - CONCLUSION: 1. Large cystic right ovarian mass measuring up to 26 cm. 2. Hiatal hernia. 3. Atherosclerosis. 4. Diverticulosis. 5. Right renal calculus. 6. Lung nodular infiltrate and right lower lobe nodule. Walt Sanz MD Objective Remarks GENERAL: This is a well-nourished, well-developed patient, in no apparent distress. CARDIOVASCULAR: Regular rate and regular rhythm without murmurs, gallops, or rubs. RESPIRATORY: Clear to auscultation. Breath sounds equal bilaterally. No wheezes , rales, or rhonchi. GASTROINTESTINAL: Abdomen soft, generalized tenderness, distended. Normal, active bowel sounds MUSCULOSKELETAL: Extremities without clubbing, cyanosis, or edema. NEURO: Alert & Oriented x4 to person, place, time, situation. Moves all ext x4 Procedures needle aspiration of the ovarian mass Medications and IVs Current Medications Iohexol 70 ml 70 ml STK-MED ONCE IV Last administered on 10/04/16 14:12; Start 10/04/16 at 14:12; Stop 10/04/16 at 14:13; Status DC Cefepime HCl 1000 mg/Sodium Chloride 100 ml @ 200 mls/hr ONCE ONCE IV Last administered on 10/04/16 16:37; Start 10/04/16 at 15:45; Stop 10/04/16 at 16:14 ; Status DC Azithromycin 500 mg/Sodium Chloride 250 ml @ 250 mls/hr ONCE ONCE IV Last administered on 10/04/16 17:30; Start 10/04/16 at 15:45; Stop 10/04/16 at 16:44 ; Status DC Sodium Chloride (NS 1000 ml Inj) 1,000 ml @ 100 mls/hr Q10H IV Last administered on 10/10/16 00:24; Start 10/04/16 at 15:45 Acetaminophen (Tylenol) 650 mg Q4H PRN PO FEVER Last administered on 10/05/16 16:28; Start 10/04/16 at 16:15 Ferrous Sulfate (Ferrous Sulfate) 325 mg DAILY PO Last administered on 08:20; Start 10/05/16 at 09:00 Levothyroxine Sodium (Synthroid) 25 mcg DAILY@06 PO Last administered on 04:17; Start 10/05/16 at 06:00 Non-Formulary Medication 1 puff BID INH AST; Start 10/04/16 at 21:00; Status UNV Non-Formulary Medication 150 mg BID PO Reduce Stomach Acid; Start 10/04/16 at 21 :00; Status UNV Famotidine (Pepcid) 20 mg BID PO Last administered on 10/08/16 20:50; Start at 21:00; Stop 10/09/16 at 08:19; Status DC Budesonide/ Formoterol Fumarate (Symbicort 80-4.5 Mcg Inh) 2 puff BID INH Last administered on 10/11/16 08:21; Start 10/04/16 at 21:00 Albuterol/ Ipratropium 1 ampule 1 ampule Q4HR NEB PRN NEB SHORTNESS OF BREATH Last administered on 10/08/16 15:26; Start 10/04/16 at 17:00; Stop 10/08/16 at 17:00; Status DC Cefepime HCl/ Sodium Chloride (Maxipime Inj/NS Inj) 100 ml @ 200 mls/hr Q12H IV Last administered on 10/05/16 03:14; Start 10/05/16 at 04:00; Stop at 13:52; Status DC Acetaminophen/ Hydrocodone Bitart 1 tab 1 tab Q4H PRN PO PAIN > 5 Last administered on 10/05/16 09:31; Start 10/04/16 at 17:00; Stop 10/05/16 at 13:53 ; Status DC Pharmacy Profile Note 0 ml @ 0 mls/hr UNSCH OTHER ; Start 10/05/16 at 14:00 Cefoxitin Sodium/ Sodium Chloride (Mefoxin Inj/NS Inj) 100 ml @ 200 mls/hr Q4HR IV Last administered on 10/11/16 08:20; Start 10/05/16 at 16:00 Ciprofloxacin (Cipro) 750 mg Q12HR PO Last administered on 10/07/16 08:15; Start 10/05/16 at 21:00; Stop 10/07/16 at 12:11; Status DC Acetaminophen/ Hydrocodone Bitart 1 tab 1 tab Q6HR PRN PO PAIN > 5 Last administered on 10/10/16 22:52; Start 10/05/16 at 18:00 Amikacin Sulfate/ Sodium Chloride (Amikin Inj/NS 250 ml Inj) 254 ml @ 250 mls/ hr ONCE ONCE IV Last administered on 10/05/16 16:02; Start 10/05/16 at 16:00 ; Stop 10/05/16 at 17:00; Status DC Ondansetron HCl (Zofran Inj) 4 mg Q8HR PRN IV PUSH NAUSEA; Start 10/06/16 at 08 :15 Lidocaine HCl (Xylocaine-Mpf 1% Inj) 30 ml STK-MED ONCE .ROUTE Last administered on 10/06/16 16:05; Start 10/06/16 at 16:05; Stop 10/06/16 at 16:06 ; Status DC Sodium Bicarbonate 50 meq 50 meq STK-MED ONCE .ROUTE Last administered on 16:05; Start 10/06/16 at 16:05; Stop 10/06/16 at 16:06; Status DC Amikacin Sulfate/ Sodium Chloride (Amikin Inj/NS 250 ml Inj) 254 ml @ 250 mls/ hr Q36H IV Last administered on 10/10/16 04:21; Start 10/07/16 at 04:00 Non-Formulary Medication 1 tab HS PRN PO PAIN/SLEEP; Start 10/07/16 at 10:45; Status UNV Levothyroxine Sodium (Synthroid) 25 mcg DAILY@0600 PO ; Start 10/08/16 at 06:00 ; Status UNV Albuterol Sulfate 2.5 mg 2.5 mg Q6HR NEB NEB ; Start 10/07/16 at 16:00; Stop at 16:00; Status UNV Potassium Chloride/Dextrose/ Sod Cl (D5-1/2 NS + KCl 20 Meq Inj) 1,000 ml @ 75 mls/hr [id number] IV ; Start 10/07/16 at 10:45; Status UNV Sodium Chloride (NS Flush) 2 ml UNSCH PRN IV FLUSH FLUSH AFTER USING IV ACCESS ; Start 10/07/16 at 10:45; Status UNV Sodium Chloride (NS Flush) 2 ml BID IV FLUSH ; Start 10/07/16 at 21:00; Status UNV Ketorolac Tromethamine (Toradol Inj) 15 mg Q6H IVP ; Start 10/07/16 at 10:45; Stop 10/08/16 at 04:46; Status UNV Oxycodone/ Acetaminophen (Percocet 5-325 Mg) 1 tab Q4H PRN PO PAIN SCALE 1 TO 5; Start 10/07/16 at 10:45; Status UNV Oxycodone/ Acetaminophen (Percocet 5-325 Mg) 2 tab Q4H PRN PO PAIN SCALE 6 TO 10; Start 10/07/16 at 10:45; Status UNV Ondansetron HCl (Zofran Inj) 4 mg Q6H PRN IVP NAUSEA OR VOMITING; Start at 10:45; Status UNV Lorazepam (Ativan) 0.5 mg Q8H PRN PO ANXIETY; Start 10/07/16 at 10:45; Status UNV Clarithromycin (Biaxin) 500 mg Q12HR PO Last administered on 10/11/16 08:21; Start 10/07/16 at 21:00 Hydromorphone HCl (Dilaudid Pf Inj) 0.2 mg Q4H PRN IV PUSH BREAKTHROUGH PAIN; Start 10/07/16 at 12:30 Albuterol/ Ipratropium (Duoneb Neb) 1 ampule Q4HR NEB PRN NEB SHORTNESS OF BREATH Last administered on 10/10/16 16:03; Start 10/08/16 at 21:45 Famotidine (Pepcid) 10 mg BID PO Last administered on 10/11/16 08:21; Start at 09:00 Miscellaneous Information SPECIFIC LAB TO BE ... ONCE ONCE .XX ; Start 10/13 at 03:45; Stop 10/13/16 at 03:46 A/P Assessment and Plan A/P - abdominal pain with large ovarian mass- now pain has improved. s/p needle aspiration of the mass -cultures negative-pathology pending. 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 will follow the repeated sputum culture. pulmonary following. will consider walk test before discharge. -acute kidney injury; likely due to Amikacin- will monitor I/O ,renal function and electrolytes closely - hold Amikacin for now ( next dose previously scheduled for tomorrow) - pharmacy consulted for dosing- continue IV fluid. d/w and pharmacy. -COPD with no exacerbation; resumed advair- neb treatment as needed. -lung nodule- f/u as outpatient- pulmonary following. -hypothyroidism; resumed levothyroxine -DVT prophylaxis with SCD's. Flory Benavides MD Oct 11, 2016 09:07
[2016-10-11] MEDS: ACETAMINOPHEN/HYDROcodone 325 MG/5 MG TAB PO PRN ×2 (09:57→17:27)
[2016-10-11 12:00] VITALS: BP 88/71; PULSE 79; RESP 18; TEMP 96.2; O2SAT 96
[2016-10-11] MEDS: RESP: ALBUTEROL 2.5 MG/IPRATROPIUM 0.5 MG NEB (PRN) NEB (15:15)
[2016-10-11 16:00] VITALS: BP 98/70; PULSE 86; RESP 18; TEMP 96.5; O2SAT 93
--- NOTE | 2016-10-11 17:16 | HHI.PR ---
Subjective Remarks ALERT , no SOB LESS CHEST PAIN POS5T NEEDLE ASPIRATION OVARIAN CYST Objective Vital Signs Date Time Temp Pulse Resp B/P Pulse Ox O2 Delivery O2 Flow Rate FiO2 10/11/16 12:00 96.2 79 18 88/71 96 10/11/16 08:00 96.2 102 18 100/60 95 10/11/16 04:00 96.6 73 16 108/75 95 10/11/16 00:00 96.4 88 16 97/66 95 10/10/16 20:00 96.6 93 18 107/75 96 I/O 10/10/16 10/10/16 10/10/16 10/11/16 10/11/16 10/11/16 07:00 15:00 23:00 07:00 15:00 23:00 Intake Total 720 ml 240 ml Balance 720 ml 240 ml Intake Oral 720 ml 240 ml # Voids 6 2 # Bowel Movements 0 Result Diagram: 10/07/16 0602 10/10/16 0859 Objective Remarks GENERAL: SKIN: Warm and dry. HEAD: Atraumatic. Normocephalic. EYES: Pupils equal and round. No scleral icterus. No injection or drainage. ENT: No nasal bleeding or discharge. Mucous membranes pink and moist. NECK: Trachea midline. No JVD. CARDIOVASCULAR: Regular rate and rhythm. RESPIRATORY: No accessory muscle use. Clear to auscultation. Breath sounds equal bilaterally. GASTROINTESTINAL: Abdomen soft, non-tender, nondistended. Hepatic and splenic margins not palpable. MUSCULOSKELETAL: Extremities without clubbing, cyanosis, or edema. No obvious deformities. NEUROLOGICAL: Awake and alert. No obvious cranial nerve deficits. Motor grossly within normal limits. Five out of 5 muscle strength in the arms and legs. Normal speech. PSYCHIATRIC: Appropriate mood and affect; insight and judgment normal. Assessment and Plan Assessment and Plan PNA RESOLVING PLAN INCREASE ACTIVITY F/U CXNette Medeiros MD Oct 11, 2016 17:16
[2016-10-11] MEDS: SODIUM CHLOR 0.9% 1000 ML INJ 1,000 ML IV SCH (17:27)
[2016-10-11 20:00] VITALS: BP 98/54; PULSE 91; RESP 18; TEMP 96.9; O2SAT 94
[2016-10-12] VITALS: BP 97/60; PULSE 73; RESP 18; TEMP 96.8; O2SAT 94
[2016-10-12] MEDS: ACETAMINOPHEN/HYDROcodone 325 MG/5 MG TAB PO PRN ×3 (02:56→16:08)
[2016-10-12] MEDS: SODIUM CHLOR 0.9% 1000 ML INJ 1,000 ML IV SCH ×2 (03:00→20:50)
[2016-10-12 04:00] VITALS: BP 90/55; PULSE 73; RESP 17; TEMP 96.4; O2SAT 94
[2016-10-12] MEDS: ceFOXitin INJ 2 GM in SODIUM CHLORIDE 0.9% INJ 100 ML IV SCH ×5 (04:31→20:49)
[2016-10-12] MEDS: LEVOTHYROXINE SODIUM 25 MCG TAB PO SCH (04:32)
[2016-10-12 05:39] LABS: AUTOMATED NEUTROPHIL # 4.1 TH/MM3 (1.8-7.7); BASOPHIL % 0.6 % (0.0-2.0); EOSINOPHIL # 0.6 TH/MM3 (0-0.4); EOSINOPHIL % 8.5 % (0.0-4.0); HEMATOCRIT 29.9 % (35.0-46.0); LYMPH % 29.4 % (9.0-44.0); LYMPHOCYTE # 2.1 TH/MM3 (1.0-4.8); MEAN CELL VOLUME 73.2 FL (80.0-100.0); MEAN CORPUSCULAR HEMOGLOBIN 24.4 PG (27.0-34.0); MEAN CORPUSCULAR HGB CONC 33.3 % (32.0-36.0); MONO % 5.6 % (0.0-8.0); NEUT % 55.9 % (16.0-70.0); PLATELET COUNT 460 TH/MM3 (150-450); RED BLOOD COUNT 4.08 MIL/MM3 (4.00-5.30); RED CELL DISTRIBUTION WIDTH 17.9 % (11.6-17.2); WHITE BLOOD COUNT 7.3 TH/MM3 (4.0-11.0)
[2016-10-12 05:47] LABS: POTASSIUM 4.7 MEQ/L (3.5-5.1)
[2016-10-12 05:48] LABS: HEMO FLAGS AUTO DIFF
--- NOTE | 2016-10-12 08:15 | HHI.PR ---
Subjective Remarks ALERT , no SOB LESS CHEST PAIN POS5T NEEDLE ASPIRATION OVARIAN CYST Objective Vital Signs Date Time Temp Pulse Resp B/P Pulse Ox O2 Delivery O2 Flow Rate FiO2 10/12/16 04:00 96.4 73 17 90/55 94 10/12/16 00:00 96.8 73 18 97/60 94 10/11/16 20:00 96.9 91 18 98/54 94 10/11/16 16:00 96.5 86 18 98/70 93 10/11/16 12:00 96.2 79 18 88/71 96 I/O 10/11/16 10/11/16 10/11/16 10/12/16 10/12/16 10/12/16 07:00 15:00 23:00 07:00 15:00 23:00 Intake Total 920 ml 240 ml 1733 ml Balance 920 ml 240 ml 1733 ml Intake Oral 720 ml 240 ml IV Total 200 ml 1733 ml # Voids 2 4 1 Result Diagram: 10/12/16 0451 10/12/16 0451 Objective Remarks GENERAL: SKIN: Warm and dry. HEAD: Atraumatic. Normocephalic. EYES: Pupils equal and round. No scleral icterus. No injection or drainage. ENT: No nasal bleeding or discharge. Mucous membranes pink and moist. NECK: Trachea midline. No JVD. CARDIOVASCULAR: Regular rate and rhythm. RESPIRATORY: No accessory muscle use. Clear to auscultation. Breath sounds equal bilaterally. GASTROINTESTINAL: Abdomen soft, non-tender, nondistended. Hepatic and splenic margins not palpable. MUSCULOSKELETAL: Extremities without clubbing, cyanosis, or edema. No obvious deformities. NEUROLOGICAL: Awake and alert. No obvious cranial nerve deficits. Motor grossly within normal limits. Five out of 5 muscle strength in the arms and legs. Normal speech. PSYCHIATRIC: Appropriate mood and affect; insight and judgment normal. Assessment and Plan Assessment and Plan PNA RESOLVING PLAN INCREASE ACTIVITY F/U CXNette Medeiros MD Oct 12, 2016 08:15
[2016-10-12 08:25] VITALS: BP 95/68; PULSE 80; RESP 16; TEMP 96.3; O2SAT 96
[2016-10-12 09:10] LABS: OVALOCYTES 1+ (NORMAL); SCAN/DIFF AUTO DIFF CONFIRMED
--- NOTE | 2016-10-12 10:16 | RADRPT ---
EXAM DATE/TIME: 10/12/2016 08:34 [facility] COMPARISON: CHEST PA & LAT, October 08, 2016, 14:31. INDICATIONS : Cough, evaluate pneumonia MEDICAL HISTORY : Chronic obstructive pulmonary disease. Hiatal hernia. SURGICAL HISTORY : Appendectomy. ENCOUNTER: Subsequent ACUITY: 4 - 6 days PAIN SCORE: 0/10 LOCATION: Bilateral chest FINDINGS: There is persistent partially consolidated infiltrate in the left lower lung causing loss of delineat ion of a portion of the medial left hemidiaphragm and inferolateral left heart border. Patchy areas of interstitial infiltrate in the medial one third of both lungs is also stable. The heart is normal size. The right hemidiaphragm is well delineated. No evidence of pneumothorax. CONCLUSION: Left lower lobe infiltrates, stable. jT Robins MD on October 12, 2016 at 10:14 Board Certified Radiologist. This report was verified electronically.
[2016-10-12] MEDS: FERROUS SULFATE 325 MG (65 MG ELEMENTAL IRON) TAB PO SCH (10:25)
[2016-10-12] MEDS: CLARITHROMYCIN 500 MG TAB PO SCH ×2 (10:25→20:49)
[2016-10-12] MEDS: FAMOTIDINE 20 MG TAB PO SCH ×2 (10:25→20:49)
[2016-10-12] MEDS: BUDESONIDE-FORMOTEROL 80/4.5 MCG INHALER INH SCH ×2 (10:26→20:50)
--- NOTE | 2016-10-12 11:28 | HHI.PR ---
Subjective Remarks Seen screener and blender. In bed, appears in nad. Says she feels tired. Abd pain is controlled by meds. Some cough, nonproductive. No fevers or chills overnight. Had a BM 2 days ago. No nausea or vomiting. Tolerates food. Objective Vitals Vital Signs Date Time Temp Pulse Resp B/P Pulse Ox O2 Delivery O2 Flow Rate FiO2 10/12/16 08:25 96.3 80 16 95/68 96 10/12/16 04:00 96.4 73 17 90/55 94 10/12/16 00:00 96.8 73 18 97/60 94 10/11/16 20:00 96.9 91 18 98/54 94 10/11/16 16:00 96.5 86 18 98/70 93 10/11/16 12:00 96.2 79 18 88/71 96 I/O 10/11/16 10/11/16 10/11/16 10/12/16 10/12/16 10/12/16 07:00 15:00 23:00 07:00 15:00 23:00 Intake Total 920 ml 240 ml 1733 ml Balance 920 ml 240 ml 1733 ml Intake Oral 720 ml 240 ml IV Total 200 ml 1733 ml # Voids 2 4 1 Result Diagram: 10/12/16 0451 10/12/16 0451 Imaging Last Impressions Chest X-Ray 10/12/16 0000 Signed Impressions: Service Date/Time: Wednesday, October 12, 2016 08:34 - CONCLUSION: Left lower lobe infiltrates, stable. Tj Robins MD Needle Aspiration Ultrasound 10/06/16 0000 Signed Impressions: Service Date/Time: Thursday, October 06, 2016 14:50 - CONCLUSION: Uncomplicated ultrasound guided aspiration of an abdomen and pelvic cystic lesion measuring up to 23.6 cm. It is presumed to be ovarian in origin and contains septations along the right lateral and inferior aspect. The lesion was almost completely drained except for the septated portion inferiorly. Prateek Pate MD Abdomen/Pelvis CT 10/04/16 1257 Signed Impressions: Service Date/Time: Tuesday, October 04, 2016 13:26 - CONCLUSION: 1. Large cystic right ovarian mass measuring up to 26 cm. 2. Hiatal hernia. 3. Atherosclerosis. 4. Diverticulosis. 5. Right renal calculus. 6. Lung nodular infiltrate and right lower lobe nodule. Walt Sanz MD Objective Remarks GENERAL: This is a pleasant 55 yo F, well-nourished, well-developed patient, in no apparent distress. CARDIOVASCULAR: Regular rate and regular rhythm without murmurs, gallops, or rubs. RESPIRATORY: Clear to auscultation. Breath sounds equal bilaterally. No wheezes , rales, or rhonchi. GASTROINTESTINAL: Abdomen soft, generalized tenderness, distended. Normal, active bowel sounds MUSCULOSKELETAL: Extremities without clubbing, cyanosis, or edema. NEURO: Alert & Oriented x4 to person, place, time, situation. Moves all ext x4 Procedures needle aspiration of the ovarian mass A/P Problem List: (1) Pneumonia ICD Code: J18.9 Status: Acute (2) Ovarian mass ICD Code: N83.9 Status: Acute Assessment and Plan Abdominal pain with large ovarian mass- now pain has improved. s/p needle aspiration of the mass -cultures negative-pathology pending. 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 will follow the repeated sputum culture. pulmonary following. will consider walk test before discharge. Acute kidney injury: likely due to Amikacin- will monitor I/O ,renal function and electrolytes closely - hold Amikacin for now ( next dose previously scheduled for tomorrow) - pharmacy consulted for dosing- continue IV fluid. d/w and pharmacy. COPD with no exacerbation; resumed advair- neb treatment as needed. Lung nodule- f/u as outpatient- pulmonary following. Hypothyroidism: resumed levothyroxine -DVT prophylaxis with SCD's. Discussed with the patient, nurse Problem Qualifiers (1) Pneumonia: Qualified Code: J18.9 - Pneumonia of both lungs due to infectious organism, unspecified part of lung Rebekah Boyd MD Oct 12, 2016 11:28
[2016-10-12 12:00] VITALS: BP 108/71; PULSE 93; RESP 16; TEMP 96.9; O2SAT 96
[2016-10-12 16:00] VITALS: BP 87/65; PULSE 96; RESP 16; TEMP 96.2; O2SAT 95
[2016-10-12] MEDS ORDERED: SODIUM CHLOR 0.9% IV SCH (18:00)
[2016-10-12] MEDS ORDERED: AMIKACIN IV SCH (18:00)
[2016-10-12 20:00] VITALS: BP 96/51; PULSE 80; RESP 18; TEMP 96.5; O2SAT 94
[2016-10-12] MEDS: HYDROmorphone HCL PF 1 MG/ML VIAL IV PUSH PRN (20:52)
[2016-10-13] VITALS: BP 104/57; PULSE 70; RESP 18; TEMP 96; O2SAT 96
[2016-10-13] MEDS: ceFOXitin INJ 2 GM in SODIUM CHLORIDE 0.9% INJ 100 ML IV SCH ×7 (00:59→23:53)
[2016-10-13] MEDS: ACETAMINOPHEN/HYDROcodone 325 MG/5 MG TAB PO PRN ×4 (01:02→22:09)
[2016-10-13] MEDS ORDERED: PHARMACY ORDERED LAB ONE (03:45)
[2016-10-13 04:00] VITALS: BP 100/60; PULSE 77; RESP 18; TEMP 96.6; O2SAT 95
[2016-10-13] MEDS: LEVOTHYROXINE SODIUM 25 MCG TAB PO SCH (05:20)
[2016-10-13 08:00] VITALS: BP 114/72; PULSE 79; RESP 15; TEMP 96.4; O2SAT 96
[2016-10-13] MEDS: FAMOTIDINE 20 MG TAB PO SCH ×2 (08:49→20:30)
[2016-10-13] MEDS: FERROUS SULFATE 325 MG (65 MG ELEMENTAL IRON) TAB PO SCH (08:49)
[2016-10-13] MEDS: CLARITHROMYCIN 500 MG TAB PO SCH ×2 (08:49→20:30)
[2016-10-13] MEDS: BUDESONIDE-FORMOTEROL 80/4.5 MCG INHALER INH SCH ×2 (08:50→20:30)
[2016-10-13] MEDS: SODIUM CHLOR 0.9% 1000 ML INJ 1,000 ML IV SCH ×2 (08:51→22:20)
--- NOTE | 2016-10-13 09:10 | RADRPT ---
EXAM DATE/TIME: 10/13/2016 08:34 [facility] COMPARISON: CHEST PA & LAT, October 12, 2016, 8:34. INDICATIONS : Short of breath. MEDICAL HISTORY : Chronic obstructive pulmonary disease. SURGICAL HISTORY : None. ENCOUNTER: Subsequent ACUITY: 1 week PAIN SCORE: 0/10 LOCATION: Bilateral chest FINDINGS: Mild hyperinflation is evident. Minimal airspace disease persists in the left base, stable in the short interval. The portion of the bony skeleton visualized is unremarkable. CONCLUSION: . Minimal airspace disease persists in the left base, stable in the short interval. Joss Salinas MD FACR on October 13, 2016 at 9:07 Board Certified Radiologist. This report was verified electronically.
[2016-10-13 12:00] VITALS: BP 106/72; PULSE 73; RESP 20; TEMP 96.5; O2SAT 97
--- NOTE | 2016-10-13 14:53 | HHI.PR ---
Subjective Remarks Patient at the margin of the bed. Says she feels tired. Denies nausea or vomiting, not eating much. No diarrhea or constipation. Denies fevers or chills. Reports less cough. She is sob especially when she needs to walk to the bath. No sputum production. Objective Vitals Vital Signs Date Time Temp Pulse Resp B/P Pulse Ox O2 Delivery O2 Flow Rate FiO2 10/13/16 12:00 96.5 73 20 106/72 97 10/13/16 08:00 96.4 79 15 114/72 96 10/13/16 04:00 96.6 77 18 100/60 95 10/13/16 02:00 16 10/13/16 00:00 96.0 70 18 104/57 96 10/12/16 21:20 16 10/12/16 20:00 96.5 80 18 96/51 94 10/12/16 16:00 96.2 96 16 87/65 95 I/O 10/12/16 10/12/16 10/12/16 10/13/16 10/13/16 10/13/16 07:00 15:00 23:00 07:00 15:00 23:00 Intake Total 240 ml 3113 ml 1452 ml Balance 240 ml 3113 ml 1452 ml Intake Oral 240 ml 720 ml IV Total 2393 ml 1452 ml # Voids 1 4 1 Result Diagram: 10/12/16 0451 10/12/16 0451 Imaging Last Impressions Chest X-Ray 10/13/16 0000 Signed Impressions: Service Date/Time: Thursday, October 13, 2016 08:34 - CONCLUSION: . Minimal airspace disease persists in the left base, stable in the short interval. Joss Salinas MD FACR Needle Aspiration Ultrasound 10/06/16 0000 Signed Impressions: Service Date/Time: Thursday, October 06, 2016 14:50 - CONCLUSION: Uncomplicated ultrasound guided aspiration of an abdomen and pelvic cystic lesion measuring up to 23.6 cm. It is presumed to be ovarian in origin and contains septations along the right lateral and inferior aspect. The lesion was almost completely drained except for the septated portion inferiorly. Prateek Pate MD Abdomen/Pelvis CT 10/04/16 1257 Signed Impressions: Service Date/Time: Tuesday, October 04, 2016 13:26 - CONCLUSION: 1. Large cystic right ovarian mass measuring up to 26 cm. 2. Hiatal hernia. 3. Atherosclerosis. 4. Diverticulosis. 5. Right renal calculus. 6. Lung nodular infiltrate and right lower lobe nodule. Walt Sanz MD Objective Remarks GENERAL: This is a pleasant 55 yo F, well-nourished, well-developed patient, in no apparent distress. CARDIOVASCULAR: Regular rate and regular rhythm without murmurs, gallops, or rubs. RESPIRATORY: Clear to auscultation. Breath sounds equal bilaterally. No wheezes , rales, or rhonchi. GASTROINTESTINAL: Abdomen soft, generalized tenderness, distended. Normal, active bowel sounds MUSCULOSKELETAL: Extremities without clubbing, cyanosis, or edema. NEURO: Alert & Oriented x4 to person, place, time, situation. Moves all ext x4 Procedures needle aspiration of the ovarian mass A/P Problem List: (1) Pneumonia ICD Code: J18.9 Status: Acute (2) Ovarian mass ICD Code: N83.9 Status: Acute Assessment and Plan Abdominal pain with large ovarian mass- now pain has improved. s/p needle aspiration of the mass -cultures negative-pathology pending. 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 will follow the repeated sputum culture. pulmonary following. will consider walk test before discharge. Acute kidney injury: likely due to Amikacin- will monitor I/O ,renal function and electrolytes closely - hold Amikacin for now ( next dose previously scheduled for tomorrow) - pharmacy consulted for dosing- continue IV fluid. d/w and pharmacy. COPD with no exacerbation; resumed advair- neb treatment as needed. Lung nodule- f/u as outpatient- pulmonary following. Hypothyroidism: resumed levothyroxine -DVT prophylaxis with SCD's. Discussed with the patient, nurse Discussed with Dr Yarbrough ID appreciate recommendations. Patient needs IV abx until 10/21/16 and plan to administer while inpatient because patient needs frequent doses and also monitoring kidney function. Problem Qualifiers (1) Pneumonia: Qualified Code: J18.9 - Pneumonia of both lungs due to infectious organism, unspecified part of lung Rebekah Boyd MD Oct 13, 2016 14:53
--- NOTE | 2016-10-13 15:15 | HHI.IDPN ---
Note Infectious Disease Note Patient occasionally coughs up greenish sputum. notes left lower abdominal pain. No nausea or vomiting. Afebrile. Awaiting sensitivity on the mycobacterium abscessus from admission. Presented to the emergency department on 10/04 with respiratory symptoms. The patient complained of chest pain, abdominal pain and shortness of breath. PAST MEDICAL HISTORY 1. COPD. 2. Hypothyroidism. 3. Appendectomy. 4. Tonsillectomy. 5. Pneumonia on five occasions in the past. ALLERGIES NO KNOWN DRUG ALLERGIES. ANTIBIOTICS: Biaxin. Amikacin. Cefoxitin. SOCIAL HISTORY The patient is a former smoker. She quit smoking cigarettes one year ago after smoking for 30 years. No alcohol use. No illicit drugs. The patient moved to [place] from [place] in 2010. OBJECTIVE Vital Signs Date Time Temp Pulse Resp B/P Pulse Ox O2 Delivery O2 Flow Rate FiO2 10/13/16 12:00 96.5 73 20 106/72 97 10/13/16 08:00 96.4 79 15 114/72 96 10/13/16 04:00 96.6 77 18 100/60 95 10/13/16 02:00 16 10/13/16 00:00 96.0 70 18 104/57 96 10/12/16 21:20 16 10/12/16 20:00 96.5 80 18 96/51 94 10/12/16 16:00 96.2 96 16 87/65 95 10/12/16 10/12/16 10/13/16 15:00 23:00 07:00 Intake Total 3113 ml 1452 ml Balance 3113 ml 1452 ml Intake Oral 720 ml IV Total 2393 ml 1452 ml # Voids 4 1 Laboratory Tests Test 10/12/16 04:51 White Blood Count 7.3 TH/MM3 Red Blood Count 4.08 MIL/MM3 Hemoglobin 10.0 GM/DL Hematocrit 29.9 % Mean Corpuscular Volume 73.2 FL Mean Corpuscular Hemoglobin 24.4 PG Mean Corpuscular Hemoglobin 33.3 % Concent Red Cell Distribution Width 17.9 % Platelet Count 460 TH/MM3 Mean Platelet Volume 6.7 FL Neutrophils (%) (Auto) 55.9 % Lymphocytes (%) (Auto) 29.4 % Monocytes (%) (Auto) 5.6 % Eosinophils (%) (Auto) 8.5 % Basophils (%) (Auto) 0.6 % Neutrophils # (Auto) 4.1 TH/MM3 Lymphocytes # (Auto) 2.1 TH/MM3 Monocytes # (Auto) 0.4 TH/MM3 Eosinophils # (Auto) 0.6 TH/MM3 Basophils # (Auto) 0.0 TH/MM3 CBC Comment AUTO DIFF Differential Comment AUTO DIFF CONFIRMED Ovalocytes 1+ Laboratory Tests Test 10/12/16 04:51 Sodium Level 140 MEQ/L Potassium Level 4.7 MEQ/L Chloride Level 106 MEQ/L Carbon Dioxide Level 28.0 MEQ/L Anion Gap 6 MEQ/L Blood Urea Nitrogen 13 MG/DL Creatinine 1.43 MG/DL Estimat Glomerular Filtration 38 ML/MIN Rate Random Glucose 84 MG/DL Calcium Level 9.1 MG/DL IMAGING: Needle Aspiration Ultrasound 10/06/16 0000 Signed Impressions: Service Date/Time: Thursday, October 06, 2016 14:50 - CONCLUSION: Uncomplicated ultrasound guided aspiration of an abdomen and pelvic cystic lesion measuring up to 23.6 cm. It is presumed to be ovarian in origin and contains septations along the right lateral and inferior aspect. The lesion was almost completely drained except for the septated portion inferiorly. Prateek Pate MD Abdomen/Pelvis CT 10/04/16 1257 Signed Impressions: Service Date/Time: Tuesday, October 04, 2016 13:26 - CONCLUSION: 1. Large cystic right ovarian mass measuring up to 26 cm. 2. Hiatal hernia. 3. Atherosclerosis. 4. Diverticulosis. 5. Right renal calculus. 6. Lung nodular infiltrate and right lower lobe nodule. Walt Sanz MD Chest X-Ray 10/04/16 1046 Signed Impressions: Service Date/Time: Tuesday, October 04, 2016 10:50 - CONCLUSION: Left basilar scarring versus linear atelectasis. Walt Sanz MD PHYSICAL EXAMINATION GENERAL: No acute distress. Awake and alert and oriented. HEENT: No icterus. Oropharynx: No visible lesions. Moist mucosa. No thrush. NECK: Supple without adenopathy or swelling. LUNGS: Rhonchi at the lung bases. HEART: Regular S1-S2 without audible murmurs. ABDOMEN: Bowel sounds present, soft, nontender. EXTREMITIES: No clubbing, cyanosis or edema. SKIN: No rash. NEUROLOGIC: Nonfocal. PSYCHIATRIC: Calm and cooperative. IMPRESSION 1. 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 Patient with nodular lung infiltrate at the right lower lobe. 2. Leukocytosis secondary to pneumonia. WBC improved. 3. Renal insufficiency. RECOMMENDATIONS 1. Continue Biaxin PO. 2. Continue Amikacin. Adjusted for renal function. Pharmacy to assist with amikacin dosing. 3. Continue Cefoxitin 2 grams IV q.4h. 4. Follow the sensitivities on the Mycobacterium abscesses recovered on the last hospitalization for antibiotic adjustments. Sample sent to [facility] in [place] for sensitivities. 5. Repeat sputum AFB culture. Treatment of the mycobacteria abscessus with IV Amikacin, and cefoxitin every 4 hours until 10/21. Hopefully we will have sensitivities from [facility] to determine PO antibiotics. Microbiology to notify when sensitivities comes back. PO antibiotic to be guided by sensitivities for another 12 months. Alan Yarbrough MD Oct 13, 2016 15:15
[2016-10-13] MEDS: RESP: ALBUTEROL 2.5 MG/IPRATROPIUM 0.5 MG NEB (PRN) NEB ×2 (15:24→19:19)
[2016-10-13 17:00] VITALS: BP 93/68; PULSE 81; RESP 24; TEMP 96.6; O2SAT 96
--- NOTE | 2016-10-13 19:15 | HHI.PR ---
Subjective Remarks ALERT , no SOB LESS CHEST PAIN POS5T NEEDLE ASPIRATION OVARIAN CYST Objective Vital Signs Date Time Temp Pulse Resp B/P Pulse Ox O2 Delivery O2 Flow Rate FiO2 10/13/16 17:00 96.6 81 24 93/68 96 10/13/16 12:00 96.5 73 20 106/72 97 10/13/16 08:00 96.4 79 15 114/72 96 10/13/16 04:00 96.6 77 18 100/60 95 10/13/16 02:00 16 10/13/16 00:00 96.0 70 18 104/57 96 10/12/16 21:20 16 10/12/16 20:00 96.5 80 18 96/51 94 I/O 10/12/16 10/12/16 10/12/16 10/13/16 10/13/16 10/13/16 07:00 15:00 23:00 07:00 15:00 23:00 Intake Total 240 ml 3113 ml 1452 ml 840 ml Balance 240 ml 3113 ml 1452 ml 840 ml Intake Oral 240 ml 720 ml 840 ml IV Total 2393 ml 1452 ml # Voids 1 4 1 10 # Bowel Movements 1 Result Diagram: 10/12/16 0451 10/12/16 0451 Objective Remarks GENERAL: SKIN: Warm and dry. HEAD: Atraumatic. Normocephalic. EYES: Pupils equal and round. No scleral icterus. No injection or drainage. ENT: No nasal bleeding or discharge. Mucous membranes pink and moist. NECK: Trachea midline. No JVD. CARDIOVASCULAR: Regular rate and rhythm. RESPIRATORY: No accessory muscle use. Clear to auscultation. Breath sounds equal bilaterally. GASTROINTESTINAL: Abdomen soft, non-tender, nondistended. Hepatic and splenic margins not palpable. MUSCULOSKELETAL: Extremities without clubbing, cyanosis, or edema. No obvious deformities. NEUROLOGICAL: Awake and alert. No obvious cranial nerve deficits. Motor grossly within normal limits. Five out of 5 muscle strength in the arms and legs. Normal speech. PSYCHIATRIC: Appropriate mood and affect; insight and judgment normal. Assessment and Plan Assessment and Plan PNA RESOLVING CXRAY minimal rewsidual infiltrate PLAN INCREASE ACTIVITY home soon Nette Perdue MD Oct 13, 2016 19:15
[2016-10-13 20:00] VITALS: BP 98/60; PULSE 95; RESP 17; TEMP 96.1; O2SAT 99
[2016-10-14] VITALS: BP 99/60; PULSE 74; RESP 17; TEMP 96.4; O2SAT 97
[2016-10-14 04:00] VITALS: BP 100/66; PULSE 77; RESP 17; TEMP 97; O2SAT 98
[2016-10-14] MEDS: LEVOTHYROXINE SODIUM 25 MCG TAB PO SCH (05:10)
[2016-10-14] MEDS: ceFOXitin INJ 2 GM in SODIUM CHLORIDE 0.9% INJ 100 ML IV SCH ×6 (05:10→23:27)
[2016-10-14] MEDS: ACETAMINOPHEN/HYDROcodone 325 MG/5 MG TAB PO PRN ×4 (05:11→23:24)
[2016-10-14] MEDS: SODIUM CHLOR 0.9% 1000 ML INJ 1,000 ML IV SCH (05:15)
[2016-10-14 08:00] VITALS: BP 121/58; PULSE 77; RESP 16; TEMP 98; O2SAT 98
[2016-10-14] MEDS: CLARITHROMYCIN 500 MG TAB PO SCH ×2 (08:22→20:34)
[2016-10-14] MEDS: FERROUS SULFATE 325 MG (65 MG ELEMENTAL IRON) TAB PO SCH (08:22)
[2016-10-14] MEDS: FAMOTIDINE 20 MG TAB PO SCH ×2 (08:22→20:34)
[2016-10-14] MEDS: BUDESONIDE-FORMOTEROL 80/4.5 MCG INHALER INH SCH ×2 (08:23→20:35)
[2016-10-14] MEDS: HYDROmorphone HCL PF 1 MG/ML VIAL IV PUSH PRN (08:28)
--- NOTE | 2016-10-14 08:41 | HHI.PR ---
Subjective Remarks ALERT , no SOB LESS CHEST PAIN POS5T NEEDLE ASPIRATION OVARIAN CYST Objective Vital Signs Date Time Temp Pulse Resp B/P Pulse Ox O2 Delivery O2 Flow Rate FiO2 10/14/16 06:11 18 10/14/16 04:00 97.0 77 17 100/66 98 10/14/16 00:00 96.4 74 17 99/60 97 10/13/16 20:00 96.1 95 17 98/60 99 10/13/16 17:00 96.6 81 24 93/68 96 10/13/16 12:00 96.5 73 20 106/72 97 I/O 10/13/16 10/13/16 10/13/16 10/14/16 10/14/16 10/14/16 07:00 15:00 23:00 07:00 15:00 23:00 Intake Total 1452 ml 840 ml Balance 1452 ml 840 ml Intake Oral 840 ml IV Total 1452 ml # Voids 10 1 # Bowel Movements 1 Result Diagram: 10/12/16 0451 10/12/16 0451 Objective Remarks GENERAL: SKIN: Warm and dry. HEAD: Atraumatic. Normocephalic. EYES: Pupils equal and round. No scleral icterus. No injection or drainage. ENT: No nasal bleeding or discharge. Mucous membranes pink and moist. NECK: Trachea midline. No JVD. CARDIOVASCULAR: Regular rate and rhythm. RESPIRATORY: No accessory muscle use. Clear to auscultation. Breath sounds equal bilaterally. GASTROINTESTINAL: Abdomen soft, non-tender, nondistended. Hepatic and splenic margins not palpable. MUSCULOSKELETAL: Extremities without clubbing, cyanosis, or edema. No obvious deformities. NEUROLOGICAL: Awake and alert. No obvious cranial nerve deficits. Motor grossly within normal limits. Five out of 5 muscle strength in the arms and legs. Normal speech. PSYCHIATRIC: Appropriate mood and affect; insight and judgment normal. Assessment and Plan Assessment and Plan PNA RESOLVING CXRAY minimal rewsidual infiltrate PLAN INCREASE ACTIVITY home Nette Sandy MD Oct 14, 2016 08:41
[2016-10-14 12:00] VITALS: BP 115/62; PULSE 90; RESP 16; TEMP 96.6; O2SAT 98
[2016-10-14] MEDS: RESP: ALBUTEROL 2.5 MG/IPRATROPIUM 0.5 MG NEB (PRN) NEB ×2 (12:11→16:47)
--- NOTE | 2016-10-14 12:56 | HHI.PR ---
Subjective Remarks The patient is in bed, denies having any fever or chills. Says she was coughing less overnight. No nausea or vomiting. Denies having any abdominal pain. The patient says her belly is getting distended and she is requesting paracentesis. I explained to the patient will hold on paracentesis at this time. Also Dr. price gynecology signed off on the case as surgery for the mass. Begun nose outpatient later on after the patient is treated for her pulmonary issues. Patient is requesting another doctor, to come and see her. Objective Vitals Vital Signs Date Time Temp Pulse Resp B/P Pulse Ox O2 Delivery O2 Flow Rate FiO2 10/14/16 08:00 98.0 77 16 121/58 98 10/14/16 06:11 18 10/14/16 04:00 97.0 77 17 100/66 98 10/14/16 00:00 96.4 74 17 99/60 97 10/13/16 20:00 96.1 95 17 98/60 99 10/13/16 17:00 96.6 81 24 93/68 96 I/O 10/13/16 10/13/16 10/13/16 10/14/16 10/14/16 10/14/16 07:00 15:00 23:00 07:00 15:00 23:00 Intake Total 1452 ml 840 ml Balance 1452 ml 840 ml Intake Oral 840 ml IV Total 1452 ml # Voids 10 1 # Bowel Movements 1 Result Diagram: 10/12/16 0451 10/14/16 0810 Imaging Last Impressions Chest X-Ray 10/13/16 0000 Signed Impressions: Service Date/Time: Thursday, October 13, 2016 08:34 - CONCLUSION: . Minimal airspace disease persists in the left base, stable in the short interval. Joss Salinas MD FACR Needle Aspiration Ultrasound 10/06/16 0000 Signed Impressions: Service Date/Time: Thursday, October 06, 2016 14:50 - CONCLUSION: Uncomplicated ultrasound guided aspiration of an abdomen and pelvic cystic lesion measuring up to 23.6 cm. It is presumed to be ovarian in origin and contains septations along the right lateral and inferior aspect. The lesion was almost completely drained except for the septated portion inferiorly. Prateek Pate MD Abdomen/Pelvis CT 10/04/16 1257 Signed Impressions: Service Date/Time: Tuesday, October 04, 2016 13:26 - CONCLUSION: 1. Large cystic right ovarian mass measuring up to 26 cm. 2. Hiatal hernia. 3. Atherosclerosis. 4. Diverticulosis. 5. Right renal calculus. 6. Lung nodular infiltrate and right lower lobe nodule. Wlat Sanz MD Objective Remarks GENERAL: This is a pleasant 55 yo F, well-nourished, well-developed patient, in no apparent distress. CARDIOVASCULAR: Regular rate and regular rhythm without murmurs, gallops, or rubs. RESPIRATORY: Clear to auscultation. Breath sounds equal bilaterally. No wheezes , rales, or rhonchi. GASTROINTESTINAL: Abdomen soft, generalized tenderness, distended. Normal, active bowel sounds MUSCULOSKELETAL: Extremities without clubbing, cyanosis, or edema. NEURO: Alert & Oriented x4 to person, place, time, situation. Moves all ext x4 Procedures needle aspiration of the ovarian mass A/P Problem List: (1) Pneumonia ICD Code: J18.9 Status: Acute (2) Ovarian mass ICD Code: N83.9 Status: Acute Assessment and Plan Abdominal pain with large ovarian mass- now pain has improved/resolved. s/p needle aspiration of the mass -cultures negative-pathology pending. 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 will follow the repeated sputum culture. Discussed with ID control patient is on isolation N95 mask, will order sputum cx to r/o TB. 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 pulmonary following. will consider walk test before discharge. Acute kidney injury: likely due to Amikacin- will monitor I/O ,renal function and electrolytes closely - hold Amikacin for now - pharmacy consulted for dosing- continue IV fluid. d/w and pharmacy. COPD with no exacerbation; resumed advair- neb treatment as needed. Lung nodule- f/u as outpatient- pulmonary following. Hypothyroidism: resumed levothyroxine -DVT prophylaxis with SCD's. Discussed with the patient, nurse Discussed with Dr Yarbrough ID appreciate recommendations. Patient needs IV abx until 10/21/16 and plan to administer while inpatient because patient needs frequent doses and also monitoring kidney function. Discussed with ID control recommends r/o TB test undergoing. On isolation N95 at this time. Note: patient is requesting other physician to see her. She si requesting another paracenthesis and she wants the large ovarian mass to be operated on. I discussed with the patient at length. She knows Dr Loredo indications for surgery at a later time after done with iv abx. Problem Qualifiers (1) Pneumonia: Qualified Code: J18.9 - Pneumonia of both lungs due to infectious organism, unspecified part of lung Rebekah Boyd MD Oct 14, 2016 12:56
[2016-10-14 16:00] VITALS: BP 103/57; PULSE 98; RESP 16; TEMP 96.7; O2SAT 95
[2016-10-14] MEDS ORDERED: PHARMACY ORDERED LAB ONE (17:45)
[2016-10-14] MEDS: AMIKACIN IV SCH (18:27)
[2016-10-14] MEDS: SODIUM CHLOR 0.9% IV SCH (18:27)
[2016-10-14 20:00] VITALS: BP 99/55; PULSE 94; RESP 17; TEMP 96.2; O2SAT 98
[2016-10-15] VITALS: BP 95/54; PULSE 80; RESP 17; TEMP 96.3; O2SAT 98
[2016-10-15 04:00] VITALS: BP 102/55; PULSE 73; RESP 16; TEMP 96.7; O2SAT 97
[2016-10-15] MEDS: LEVOTHYROXINE SODIUM 25 MCG TAB PO SCH (05:17)
[2016-10-15] MEDS: ceFOXitin INJ 2 GM in SODIUM CHLORIDE 0.9% INJ 100 ML IV SCH ×5 (05:17→20:12)
[2016-10-15] MEDS: FERROUS SULFATE 325 MG (65 MG ELEMENTAL IRON) TAB PO SCH (07:37)
[2016-10-15] MEDS: CLARITHROMYCIN 500 MG TAB PO SCH ×2 (07:37→20:11)
[2016-10-15] MEDS: FAMOTIDINE 20 MG TAB PO SCH ×2 (07:37→20:11)
[2016-10-15] MEDS: SODIUM CHLOR 0.9% 1000 ML INJ 1,000 ML IV SCH (07:38)
[2016-10-15] MEDS: BUDESONIDE-FORMOTEROL 80/4.5 MCG INHALER INH SCH ×2 (07:38→20:11)
[2016-10-15 08:00] VITALS: BP 92/50; PULSE 94; RESP 16; TEMP 97.1; O2SAT 96
[2016-10-15] MEDS: RESP: ALBUTEROL 2.5 MG/IPRATROPIUM 0.5 MG NEB (PRN) NEB (08:04)
--- NOTE | 2016-10-15 08:11 | HHI.PR ---
Subjective Remarks in no acute distress. says that she's feeling better today. no sob or fever. Objective Vitals Vital Signs Date Time Temp Pulse Resp B/P Pulse Ox O2 Delivery O2 Flow Rate FiO2 10/15/16 04:00 96.7 73 16 102/55 97 10/15/16 00:00 96.3 80 17 95/54 98 10/14/16 20:00 96.2 94 17 99/55 98 10/14/16 16:00 96.7 98 16 103/57 95 10/14/16 12:00 96.6 90 16 115/62 98 I/O 10/14/16 10/14/16 10/14/16 10/15/16 10/15/16 10/15/16 07:00 15:00 23:00 07:00 15:00 23:00 Intake Total 1200 ml 240 ml 720 ml Balance 1200 ml 240 ml 720 ml Intake Oral 1200 ml 240 ml 720 ml # Voids 1 7 1 3 # Bowel Movements 0 1 Result Diagram: 10/12/16 0451 10/14/16 0810 Imaging Last Impressions Chest X-Ray 10/13/16 0000 Signed Impressions: Service Date/Time: Thursday, October 13, 2016 08:34 - CONCLUSION: . Minimal airspace disease persists in the left base, stable in the short interval. Joss Salinas MD FACR Needle Aspiration Ultrasound 10/06/16 0000 Signed Impressions: Service Date/Time: Thursday, October 06, 2016 14:50 - CONCLUSION: Uncomplicated ultrasound guided aspiration of an abdomen and pelvic cystic lesion measuring up to 23.6 cm. It is presumed to be ovarian in origin and contains septations along the right lateral and inferior aspect. The lesion was almost completely drained except for the septated portion inferiorly. Prateek Pate MD Abdomen/Pelvis CT 10/04/16 1257 Signed Impressions: Service Date/Time: Tuesday, October 04, 2016 13:26 - CONCLUSION: 1. Large cystic right ovarian mass measuring up to 26 cm. 2. Hiatal hernia. 3. Atherosclerosis. 4. Diverticulosis. 5. Right renal calculus. 6. Lung nodular infiltrate and right lower lobe nodule. Walt Sanz MD Objective Remarks GENERAL: This is a well-nourished, well-developed patient, in no apparent distress. CARDIOVASCULAR: Regular rate and regular rhythm without murmurs, gallops, or rubs. RESPIRATORY: Clear to auscultation. Breath sounds equal bilaterally. No wheezes , rales, or rhonchi. GASTROINTESTINAL: Abdomen soft, generalized tenderness, distended. Normal, active bowel sounds MUSCULOSKELETAL: Extremities without clubbing, cyanosis, or edema. NEURO: Alert & Oriented x4 to person, place, time, situation. Moves all ext x4 Procedures needle aspiration of the ovarian mass Medications and IVs Current Medications Iohexol 70 ml 70 ml STK-MED ONCE IV Last administered on 10/04/16 14:12; Start 10/04/16 at 14:12; Stop 10/04/16 at 14:13; Status DC Cefepime HCl 1000 mg/Sodium Chloride 100 ml @ 200 mls/hr ONCE ONCE IV Last administered on 10/04/16 16:37; Start 10/04/16 at 15:45; Stop 10/04/16 at 16:14 ; Status DC Azithromycin 500 mg/Sodium Chloride 250 ml @ 250 mls/hr ONCE ONCE IV Last administered on 10/04/16 17:30; Start 10/04/16 at 15:45; Stop 10/04/16 at 16:44 ; Status DC Sodium Chloride (NS 1000 ml Inj) 1,000 ml @ 100 mls/hr Q10H IV Last administered on 10/10/16 00:24; Start 10/04/16 at 15:45; Stop 10/11/16 at 17:02 ; Status DC Acetaminophen (Tylenol) 650 mg Q4H PRN PO FEVER Last administered on 10/05/16 16:28; Start 10/04/16 at 16:15 Ferrous Sulfate (Ferrous Sulfate) 325 mg DAILY PO Last administered on 07:37; Start 10/05/16 at 09:00 Levothyroxine Sodium (Synthroid) 25 mcg DAILY@06 PO Last administered on 05:17; Start 10/05/16 at 06:00 Non-Formulary Medication 1 puff BID INH AST; Start 10/04/16 at 21:00; Status UNV Non-Formulary Medication 150 mg BID PO Reduce Stomach Acid; Start 10/04/16 at 21 :00; Status UNV Famotidine (Pepcid) 20 mg BID PO Last administered on 10/08/16 20:50; Start at 21:00; Stop 10/09/16 at 08:19; Status DC Budesonide/ Formoterol Fumarate (Symbicort 80-4.5 Mcg Inh) 2 puff BID INH Last administered on 10/15/16 07:38; Start 10/04/16 at 21:00 Albuterol/ Ipratropium 1 ampule 1 ampule Q4HR NEB PRN NEB SHORTNESS OF BREATH Last administered on 10/08/16 15:26; Start 10/04/16 at 17:00; Stop 10/08/16 at 17:00; Status DC Cefepime HCl/ Sodium Chloride (Maxipime Inj/NS Inj) 100 ml @ 200 mls/hr Q12H IV Last administered on 10/05/16 03:14; Start 10/05/16 at 04:00; Stop at 13:52; Status DC Acetaminophen/ Hydrocodone Bitart 1 tab 1 tab Q4H PRN PO PAIN > 5 Last administered on 10/05/16 09:31; Start 10/04/16 at 17:00; Stop 10/05/16 at 13:53 ; Status DC Pharmacy Profile Note 0 ml @ 0 mls/hr UNSCH OTHER ; Start 10/05/16 at 14:00; Status Hold Cefoxitin Sodium/ Sodium Chloride (Mefoxin Inj/NS Inj) 100 ml @ 200 mls/hr Q4HR IV Last administered on 10/15/16 07:37; Start 10/05/16 at 16:00 Ciprofloxacin (Cipro) 750 mg Q12HR PO Last administered on 10/07/16 08:15; Start 10/05/16 at 21:00; Stop 10/07/16 at 12:11; Status DC Acetaminophen/ Hydrocodone Bitart 1 tab 1 tab Q6HR PRN PO PAIN > 5 Last administered on 10/14/16 23:24; Start 10/05/16 at 18:00 Amikacin Sulfate/ Sodium Chloride (Amikin Inj/NS 250 ml Inj) 254 ml @ 250 mls/ hr ONCE ONCE IV Last administered on 10/05/16 16:02; Start 10/05/16 at 16:00 ; Stop 10/05/16 at 17:00; Status DC Ondansetron HCl (Zofran Inj) 4 mg Q8HR PRN IV PUSH NAUSEA; Start 10/06/16 at 08 :15 Lidocaine HCl (Xylocaine-Mpf 1% Inj) 30 ml STK-MED ONCE .ROUTE Last administered on 10/06/16 16:05; Start 10/06/16 at 16:05; Stop 10/06/16 at 16:06 ; Status DC Sodium Bicarbonate 50 meq 50 meq STK-MED ONCE .ROUTE Last administered on 16:05; Start 10/06/16 at 16:05; Stop 10/06/16 at 16:06; Status DC Amikacin Sulfate/ Sodium Chloride (Amikin Inj/NS 250 ml Inj) 254 ml @ 250 mls/ hr Q36H IV Last administered on 10/10/16 04:21; Start 10/07/16 at 04:00; Stop 10/12/16 at 15:34; Status DC Non-Formulary Medication 1 tab HS PRN PO PAIN/SLEEP; Start 10/07/16 at 10:45; Status UNV Levothyroxine Sodium (Synthroid) 25 mcg DAILY@0600 PO ; Start 10/08/16 at 06:00 ; Status UNV Albuterol Sulfate 2.5 mg 2.5 mg Q6HR NEB NEB ; Start 10/07/16 at 16:00; Stop at 16:00; Status UNV Potassium Chloride/Dextrose/ Sod Cl (D5-1/2 NS + KCl 20 Meq Inj) 1,000 ml @ 75 mls/hr [id number] IV ; Start 10/07/16 at 10:45; Status UNV Sodium Chloride (NS Flush) 2 ml UNSCH PRN IV FLUSH FLUSH AFTER USING IV ACCESS ; Start 10/07/16 at 10:45; Status UNV Sodium Chloride (NS Flush) 2 ml BID IV FLUSH ; Start 10/07/16 at 21:00; Status UNV Ketorolac Tromethamine (Toradol Inj) 15 mg Q6H IVP ; Start 10/07/16 at 10:45; Stop 10/08/16 at 04:46; Status UNV Oxycodone/ Acetaminophen (Percocet 5-325 Mg) 1 tab Q4H PRN PO PAIN SCALE 1 TO 5; Start 10/07/16 at 10:45; Status UNV Oxycodone/ Acetaminophen (Percocet 5-325 Mg) 2 tab Q4H PRN PO PAIN SCALE 6 TO 10; Start 10/07/16 at 10:45; Status UNV Ondansetron HCl (Zofran Inj) 4 mg Q6H PRN IVP NAUSEA OR VOMITING; Start at 10:45; Status UNV Lorazepam (Ativan) 0.5 mg Q8H PRN PO ANXIETY; Start 10/07/16 at 10:45; Status UNV Clarithromycin (Biaxin) 500 mg Q12HR PO Last administered on 10/15/16 07:37; Start 10/07/16 at 21:00 Hydromorphone HCl (Dilaudid Pf Inj) 0.2 mg Q4H PRN IV PUSH BREAKTHROUGH PAIN Last administered on 10/14/16 08:28; Start 10/07/16 at 12:30 Albuterol/ Ipratropium (Duoneb Neb) 1 ampule Q4HR NEB PRN NEB SHORTNESS OF BREATH Last administered on 10/14/16 16:47; Start 10/08/16 at 21:45 Famotidine (Pepcid) 10 mg BID PO Last administered on 10/15/16 07:37; Start at 09:00 Miscellaneous Information SPECIFIC LAB TO BE [facility]... ONCE ONCE .XX ; Start 10/13 at 03:45; Stop 10/13/16 at 03:46; Status Cancel Sodium Chloride 1,000 ml @ 75 mls/hr [id number] IV Last administered on 05:15; Start 10/11/16 at 17:00 Amikacin Sulfate/ Sodium Chloride (Amikin Inj/NS 250 ml Inj) 254 ml @ 250 mls/ hr Q48H IV ; Start 10/12/16 at 18:00; Stop 10/14/16 at 11:57; Status DC Miscellaneous Information SPECIFIC LAB TO BE DRAWN:AMIKACIN TROUGH DATE TO... ONCE ONCE .XX ; Start 10/14/16 at 17:45; Stop 10/14/16 at 17:46; Status Cancel Amikacin Sulfate/ Sodium Chloride (Amikin Inj/NS 250 ml Inj) 254 ml @ 250 mls/ hr Q36H IV Last administered on 10/14/16t 18:27; Start 10/14/16 at 14:00 A/P Assessment and Plan A/P Abdominal pain with large ovarian mass- now pain has resolved. s/p needle aspiration of the mass -cultures negative-pathology suggestive of follicular cyst. 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 will follow the repeated sputum culture. pulmonary and ID following. will consider walk test before discharge. Acute kidney injury: likely due to Amikacin- will monitor I/O ,renal function and electrolytes closely - pharmacy consulted for dosing- continue IV fluid. COPD with no exacerbation; resumed advair- neb treatment as needed. Lung nodule- f/u as outpatient- pulmonary following. Hypothyroidism: resumed levothyroxine -DVT prophylaxis with SCD's. Discharge Planning when has finished the course of IV Abx. Flory Benavides MD Oct 15, 2016 08:11
--- NOTE | 2016-10-15 09:10 | HHI.PR ---
Subjective Remarks ALERT , no SOB POST NEEDLE ASPIRATION OVARIAN CYST Objective Vital Signs Date Time Temp Pulse Resp B/P Pulse Ox O2 Delivery O2 Flow Rate FiO2 10/15/16 04:00 96.7 73 16 102/55 97 10/15/16 00:00 96.3 80 17 95/54 98 10/14/16 20:00 96.2 94 17 99/55 98 10/14/16 16:00 96.7 98 16 103/57 95 10/14/16 12:00 96.6 90 16 115/62 98 I/O 10/14/16 10/14/16 10/14/16 10/15/16 10/15/16 10/15/16 07:00 15:00 23:00 07:00 15:00 23:00 Intake Total 1200 ml 240 ml 720 ml Balance 1200 ml 240 ml 720 ml Intake Oral 1200 ml 240 ml 720 ml # Voids 1 7 1 3 # Bowel Movements 0 1 Result Diagram: 10/12/16 0451 10/15/16 0723 Objective Remarks GENERAL: SKIN: Warm and dry. HEAD: Atraumatic. Normocephalic. EYES: Pupils equal and round. No scleral icterus. No injection or drainage. ENT: No nasal bleeding or discharge. Mucous membranes pink and moist. NECK: Trachea midline. No JVD. CARDIOVASCULAR: Regular rate and rhythm. RESPIRATORY: No accessory muscle use. Clear to auscultation. Breath sounds equal bilaterally. GASTROINTESTINAL: Abdomen soft, non-tender, nondistended. Hepatic and splenic margins not palpable. MUSCULOSKELETAL: Extremities without clubbing, cyanosis, or edema. No obvious deformities. NEUROLOGICAL: Awake and alert. No obvious cranial nerve deficits. Motor grossly within normal limits. Five out of 5 muscle strength in the arms and legs. Normal speech. PSYCHIATRIC: Appropriate mood and affect; insight and judgment normal. Assessment and Plan Assessment and Plan PNA RESOLVING CXRAY minimal rewsidual infiltrate PLAN INCREASE ACTIVITY home soon Nette Perdue MD Oct 15, 2016 09:10
[2016-10-15 12:00] VITALS: BP 110/73; PULSE 84; RESP 16; TEMP 97.3; O2SAT 98
[2016-10-15] MEDS: ACETAMINOPHEN/HYDROcodone 325 MG/5 MG TAB PO PRN ×2 (13:27→19:34)
[2016-10-15 16:00] VITALS: BP 119/75; PULSE 86; RESP 16; TEMP 96.7; O2SAT 98
[2016-10-15 20:00] VITALS: BP 106/70; PULSE 74; RESP 17; TEMP 96.3; O2SAT 96
[2016-10-16] VITALS: BP 107/70; PULSE 72; RESP 17; TEMP 97.6; O2SAT 96
[2016-10-16] MEDS: ceFOXitin INJ 2 GM in SODIUM CHLORIDE 0.9% INJ 100 ML IV SCH ×6 (00:16→20:45)
[2016-10-16] MEDS: AMIKACIN IV SCH (02:20)
[2016-10-16] MEDS: SODIUM CHLOR 0.9% IV SCH (02:20)
[2016-10-16] MEDS: SODIUM CHLOR 0.9% 1000 ML INJ 1,000 ML IV SCH ×2 (03:40→15:38)
[2016-10-16 04:00] VITALS: BP 99/61; PULSE 68; RESP 16; TEMP 96.3; O2SAT 96
[2016-10-16] MEDS: LEVOTHYROXINE SODIUM 25 MCG TAB PO SCH (04:36)
[2016-10-16 08:00] VITALS: BP 126/70; PULSE 75; RESP 18; TEMP 97.4; O2SAT 94
--- NOTE | 2016-10-16 08:01 | HHI.PR ---
Subjective Remarks resting comfortably with no distress. denies pain. no fever. no new complaints. Objective Vitals Vital Signs Date Time Temp Pulse Resp B/P Pulse Ox O2 Delivery O2 Flow Rate FiO2 10/16/16 04:00 96.3 68 16 99/61 96 10/16/16 00:00 97.6 72 17 107/70 96 10/15/16 20:00 96.3 74 17 106/70 96 10/15/16 16:00 96.7 86 16 119/75 98 10/15/16 12:00 97.3 84 16 110/73 98 10/15/16 08:00 97.1 94 16 92/50 96 I/O 10/15/16 10/15/16 10/15/16 10/16/16 10/16/16 10/16/16 07:00 15:00 23:00 07:00 15:00 23:00 Intake Total 720 ml 720 ml 620 ml 960 ml Balance 720 ml 720 ml 620 ml 960 ml Intake Oral 720 ml 720 ml 240 ml 960 ml IV Total 380 ml # Voids 3 4 2 4 # Bowel Movements 1 1 Result Diagram: 10/12/16 0451 10/15/16 0723 Imaging Last Impressions Chest X-Ray 10/13/16 0000 Signed Impressions: Service Date/Time: Thursday, October 13, 2016 08:34 - CONCLUSION: . Minimal airspace disease persists in the left base, stable in the short interval. Joss Salinas MD FACR Needle Aspiration Ultrasound 10/06/16 0000 Signed Impressions: Service Date/Time: Thursday, October 06, 2016 14:50 - CONCLUSION: Uncomplicated ultrasound guided aspiration of an abdomen and pelvic cystic lesion measuring up to 23.6 cm. It is presumed to be ovarian in origin and contains septations along the right lateral and inferior aspect. The lesion was almost completely drained except for the septated portion inferiorly. Prateek Pate MD Abdomen/Pelvis CT 10/04/16 1257 Signed Impressions: Service Date/Time: Tuesday, October 04, 2016 13:26 - CONCLUSION: 1. Large cystic right ovarian mass measuring up to 26 cm. 2. Hiatal hernia. 3. Atherosclerosis. 4. Diverticulosis. 5. Right renal calculus. 6. Lung nodular infiltrate and right lower lobe nodule. Walt Sanz MD Objective Remarks GENERAL: This is a well-nourished, well-developed patient, in no apparent distress. CARDIOVASCULAR: Regular rate and regular rhythm without murmurs, gallops, or rubs. RESPIRATORY: Clear to auscultation. Breath sounds equal bilaterally. No wheezes , rales, or rhonchi. GASTROINTESTINAL: Abdomen soft, generalized tenderness, distended. Normal, active bowel sounds MUSCULOSKELETAL: Extremities without clubbing, cyanosis, or edema. NEURO: Alert & Oriented x4 to person, place, time, situation. Moves all ext x4 Procedures needle aspiration of the ovarian mass Medications and IVs Current Medications Iohexol 70 ml 70 ml STK-MED ONCE IV Last administered on 10/04/16 14:12; Start 10/04/16 at 14:12; Stop 10/04/16 at 14:13; Status DC Cefepime HCl 1000 mg/Sodium Chloride 100 ml @ 200 mls/hr ONCE ONCE IV Last administered on 10/04/16 16:37; Start 10/04/16 at 15:45; Stop 10/04/16 at 16:14 ; Status DC Azithromycin 500 mg/Sodium Chloride 250 ml @ 250 mls/hr ONCE ONCE IV Last administered on 10/04/16 17:30; Start 10/04/16 at 15:45; Stop 10/04/16 at 16:44 ; Status DC Sodium Chloride (NS 1000 ml Inj) 1,000 ml @ 100 mls/hr Q10H IV Last administered on 10/10/16 00:24; Start 10/04/16 at 15:45; Stop 10/11/16 at 17:02 ; Status DC Acetaminophen (Tylenol) 650 mg Q4H PRN PO FEVER Last administered on 10/05/16 16:28; Start 10/04/16 at 16:15 Ferrous Sulfate (Ferrous Sulfate) 325 mg DAILY PO Last administered on 07:37; Start 10/05/16 at 09:00 Levothyroxine Sodium (Synthroid) 25 mcg DAILY@06 PO Last administered on 04:36; Start 10/05/16 at 06:00 Non-Formulary Medication 1 puff BID INH AST; Start 10/04/16 at 21:00; Status UNV Non-Formulary Medication 150 mg BID PO Reduce Stomach Acid; Start 10/04/16 at 21 :00; Status UNV Famotidine (Pepcid) 20 mg BID PO Last administered on 10/08/16 20:50; Start at 21:00; Stop 10/09/16 at 08:19; Status DC Budesonide/ Formoterol Fumarate (Symbicort 80-4.5 Mcg Inh) 2 puff BID INH Last administered on 10/15/16 20:11; Start 10/04/16 at 21:00 Albuterol/ Ipratropium 1 ampule 1 ampule Q4HR NEB PRN NEB SHORTNESS OF BREATH Last administered on 10/08/16 15:26; Start 10/04/16 at 17:00; Stop 10/08/16 at 17:00; Status DC Cefepime HCl/ Sodium Chloride (Maxipime Inj/NS Inj) 100 ml @ 200 mls/hr Q12H IV Last administered on 10/05/16 03:14; Start 10/05/16 at 04:00; Stop at 13:52; Status DC Acetaminophen/ Hydrocodone Bitart 1 tab 1 tab Q4H PRN PO PAIN > 5 Last administered on 10/05/16 09:31; Start 10/04/16 at 17:00; Stop 10/05/16 at 13:53 ; Status DC Pharmacy Profile Note 0 ml @ 0 mls/hr UNSCH OTHER ; Start 10/05/16 at 14:00; Status Hold Cefoxitin Sodium/ Sodium Chloride (Mefoxin Inj/NS Inj) 100 ml @ 200 mls/hr Q4HR IV Last administered on 10/16/16 04:36; Start 10/05/16 at 16:00 Ciprofloxacin (Cipro) 750 mg Q12HR PO Last administered on 10/07/16 08:15; Start 10/05/16 at 21:00; Stop 10/07/16 at 12:11; Status DC Acetaminophen/ Hydrocodone Bitart 1 tab 1 tab Q6HR PRN PO PAIN > 5 Last administered on 10/15/16 19:34; Start 10/05/16 at 18:00 Amikacin Sulfate/ Sodium Chloride (Amikin Inj/NS 250 ml Inj) 254 ml @ 250 mls/ hr ONCE ONCE IV Last administered on 10/05/16 16:02; Start 10/05/16 at 16:00 ; Stop 10/05/16 at 17:00; Status DC Ondansetron HCl (Zofran Inj) 4 mg Q8HR PRN IV PUSH NAUSEA; Start 10/06/16 at 08 :15 Lidocaine HCl (Xylocaine-Mpf 1% Inj) 30 ml STK-MED ONCE .ROUTE Last administered on 10/06/16 16:05; Start 10/06/16 at 16:05; Stop 10/06/16 at 16:06 ; Status DC Sodium Bicarbonate 50 meq 50 meq STK-MED ONCE .ROUTE Last administered on 16:05; Start 10/06/16 at 16:05; Stop 10/06/16 at 16:06; Status DC Amikacin Sulfate/ Sodium Chloride (Amikin Inj/NS 250 ml Inj) 254 ml @ 250 mls/ hr Q36H IV Last administered on 10/10/16 04:21; Start 10/07/16 at 04:00; Stop 10/12/16 at 15:34; Status DC Non-Formulary Medication 1 tab HS PRN PO PAIN/SLEEP; Start 10/07/16 at 10:45; Status UNV Levothyroxine Sodium (Synthroid) 25 mcg DAILY@0600 PO ; Start 10/08/16 at 06:00 ; Status UNV Albuterol Sulfate 2.5 mg 2.5 mg Q6HR NEB NEB ; Start 10/07/16 at 16:00; Stop at 16:00; Status UNV Potassium Chloride/Dextrose/ Sod Cl (D5-1/2 NS + KCl 20 Meq Inj) 1,000 ml @ 75 mls/hr [id number] IV ; Start 10/07/16 at 10:45; Status UNV Sodium Chloride (NS Flush) 2 ml UNSCH PRN IV FLUSH FLUSH AFTER USING IV ACCESS ; Start 10/07/16 at 10:45; Status UNV Sodium Chloride (NS Flush) 2 ml BID IV FLUSH ; Start 10/07/16 at 21:00; Status UNV Ketorolac Tromethamine (Toradol Inj) 15 mg Q6H IVP ; Start 10/07/16 at 10:45; Stop 10/08/16 at 04:46; Status UNV Oxycodone/ Acetaminophen (Percocet 5-325 Mg) 1 tab Q4H PRN PO PAIN SCALE 1 TO 5; Start 10/07/16 at 10:45; Status UNV Oxycodone/ Acetaminophen (Percocet 5-325 Mg) 2 tab Q4H PRN PO PAIN SCALE 6 TO 10; Start 10/07/16 at 10:45; Status UNV Ondansetron HCl (Zofran Inj) 4 mg Q6H PRN IVP NAUSEA OR VOMITING; Start at 10:45; Status UNV Lorazepam (Ativan) 0.5 mg Q8H PRN PO ANXIETY; Start 10/07/16 at 10:45; Status UNV Clarithromycin (Biaxin) 500 mg Q12HR PO Last administered on 10/15/16 20:11; Start 10/07/16 at 21:00 Hydromorphone HCl (Dilaudid Pf Inj) 0.2 mg Q4H PRN IV PUSH BREAKTHROUGH PAIN Last administered on 10/14/16 08:28; Start 10/07/16 at 12:30 Albuterol/ Ipratropium (Duoneb Neb) 1 ampule Q4HR NEB PRN NEB SHORTNESS OF BREATH Last administered on 10/15/16 08:04; Start 10/08/16 at 21:45 Famotidine (Pepcid) 10 mg BID PO Last administered on 10/15/16 20:11; Start at 09:00 Miscellaneous Information SPECIFIC LAB TO BE [facility]... ONCE ONCE .XX ; Start 10/13 at 03:45; Stop 10/13/16 at 03:46; Status Cancel Sodium Chloride 1,000 ml @ 75 mls/hr [id number] IV Last administered on 05:15; Start 10/11/16 at 17:00 Amikacin Sulfate/ Sodium Chloride (Amikin Inj/NS 250 ml Inj) 254 ml @ 250 mls/ hr Q48H IV ; Start 10/12/16 at 18:00; Stop 10/14/16 at 11:57; Status DC Miscellaneous Information SPECIFIC LAB TO BE DRAWN:AM[facility]ACIN TROUGH DATE TO... ONCE ONCE .XX ; Start 10/14/16 at 17:45; Stop 10/14/16 at 17:46; Status Cancel Amikacin Sulfate/ Sodium Chloride (Amikin Inj/NS 250 ml Inj) 254 ml @ 250 mls/ hr Q36H IV Last administered on 10/16/16t 02:20; Start 10/14/16 at 14:00 A/P Assessment and Plan A/P Abdominal pain with large ovarian mass- now pain has resolved. s/p needle aspiration of the mass -cultures negative-pathology suggestive of follicular cyst. 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 will follow the repeated sputum culture. pulmonary and ID following. will consider walk test before discharge. Acute kidney injury:likely due to Amikacin-renal function now fairly stable. will monitor I/O ,renal function and electrolytes closely - pharmacy consulted for dosing- continue IV fluid. COPD with no exacerbation; resumed advair- neb treatment as needed. Lung nodule- f/u as outpatient- pulmonary following. Hypothyroidism: resumed levothyroxine -DVT prophylaxis with SCD's. Discharge Planning when has finished the course of IV Abx. Flory Benavides MD Oct 16, 2016 08:01
[2016-10-16] MEDS: CLARITHROMYCIN 500 MG TAB PO SCH ×2 (09:42→20:45)
[2016-10-16] MEDS: FAMOTIDINE 20 MG TAB PO SCH ×2 (09:42→20:45)
[2016-10-16] MEDS: FERROUS SULFATE 325 MG (65 MG ELEMENTAL IRON) TAB PO SCH (09:42)
[2016-10-16] MEDS: BUDESONIDE-FORMOTEROL 80/4.5 MCG INHALER INH SCH ×2 (09:46→20:46)
[2016-10-16 12:00] VITALS: BP 111/63; PULSE 76; RESP 18; TEMP 97.6; O2SAT 93
[2016-10-16 16:00] VITALS: BP 110/70; PULSE 75; RESP 16; TEMP 97.6; O2SAT 93
[2016-10-16 20:00] VITALS: BP 90/55; PULSE 93; RESP 18; TEMP 97.6; O2SAT 96
--- NOTE | 2016-10-16 20:19 | HHI.PR ---
Subjective Remarks ALERT , no SOB POST NEEDLE ASPIRATION OVARIAN CYST Objective Vital Signs Date Time Temp Pulse Resp B/P Pulse Ox O2 Delivery O2 Flow Rate FiO2 10/16/16 16:00 97.6 75 16 110/70 93 10/16/16 12:00 97.6 76 18 111/63 93 10/16/16 08:00 97.4 75 18 126/70 94 10/16/16 04:00 96.3 68 16 99/61 96 10/16/16 00:00 97.6 72 17 107/70 96 I/O 10/15/16 10/15/16 10/15/16 10/16/16 10/16/16 10/16/16 07:00 15:00 23:00 07:00 15:00 23:00 Intake Total 720 ml 720 ml 620 ml 960 ml 960 ml Balance 720 ml 720 ml 620 ml 960 ml 960 ml Intake Oral 720 ml 720 ml 240 ml 960 ml 960 ml IV Total 380 ml # Voids 3 4 2 4 7 # Bowel Movements 1 1 1 Result Diagram: 10/12/16 0451 10/15/16 0723 Objective Remarks GENERAL: SKIN: Warm and dry. HEAD: Atraumatic. Normocephalic. EYES: Pupils equal and round. No scleral icterus. No injection or drainage. ENT: No nasal bleeding or discharge. Mucous membranes pink and moist. NECK: Trachea midline. No JVD. CARDIOVASCULAR: Regular rate and rhythm. RESPIRATORY: No accessory muscle use. Clear to auscultation. Breath sounds equal bilaterally. GASTROINTESTINAL: Abdomen soft, non-tender, nondistended. Hepatic and splenic margins not palpable. MUSCULOSKELETAL: Extremities without clubbing, cyanosis, or edema. No obvious deformities. NEUROLOGICAL: Awake and alert. No obvious cranial nerve deficits. Motor grossly within normal limits. Five out of 5 muscle strength in the arms and legs. Normal speech. PSYCHIATRIC: Appropriate mood and affect; insight and judgment normal. Assessment and Plan Assessment and Plan PNA RESOLVING CXRAY minimal rewsidual infiltrate PLAN INCREASE ACTIVITYwill sighn off please call PRN home Nette Sandy MD Oct 16, 2016 20:19
[2016-10-16] MEDS: ACETAMINOPHEN/HYDROcodone 325 MG/5 MG TAB PO PRN (20:50)
[2016-10-16] MEDS: RESP: ALBUTEROL 2.5 MG/IPRATROPIUM 0.5 MG NEB (PRN) NEB (20:51)
[2016-10-17] VITALS: BP 99/56; PULSE 71; RESP 17; TEMP 97.3; O2SAT 98
[2016-10-17] MEDS: ceFOXitin INJ 2 GM in SODIUM CHLORIDE 0.9% INJ 100 ML IV SCH ×8 (00:12→23:30)
[2016-10-17 04:00] VITALS: BP 101/58; PULSE 90; RESP 18; TEMP 97.2; O2SAT 98
[2016-10-17] MEDS: LEVOTHYROXINE SODIUM 25 MCG TAB PO SCH (04:36)
[2016-10-17 08:00] VITALS: BP 101/70; PULSE 74; RESP 16; TEMP 97.8; O2SAT 95
--- NOTE | 2016-10-17 08:22 | HHI.PR ---
Subjective Remarks resting comfortably with no distress. denies pain. no fever. d/w the RN and no acute issues over night. Objective Vitals Vital Signs Date Time Temp Pulse Resp B/P Pulse Ox O2 Delivery O2 Flow Rate FiO2 10/17/16 04:00 97.2 90 18 101/58 98 10/17/16 00:00 97.3 71 17 99/56 98 10/16/16 20:00 97.6 93 18 90/55 96 10/16/16 16:00 97.6 75 16 110/70 93 10/16/16 12:00 97.6 76 18 111/63 93 I/O 10/16/16 10/16/16 10/16/16 10/17/16 10/17/16 10/17/16 07:00 15:00 23:00 07:00 15:00 23:00 Intake Total 960 ml 960 ml 240 ml 698 ml Balance 960 ml 960 ml 240 ml 698 ml Intake Oral 960 ml 960 ml 240 ml IV Total 698 ml # Voids 4 7 1 # Bowel Movements 1 1 0 Result Diagram: 10/17/16 0655 Imaging Last Impressions Chest X-Ray 10/13/16 0000 Signed Impressions: Service Date/Time: Thursday, October 13, 2016 08:34 - CONCLUSION: . Minimal airspace disease persists in the left base, stable in the short interval. Joss Salinas MD FACR Needle Aspiration Ultrasound 10/06/16 0000 Signed Impressions: Service Date/Time: Thursday, October 06, 2016 14:50 - CONCLUSION: Uncomplicated ultrasound guided aspiration of an abdomen and pelvic cystic lesion measuring up to 23.6 cm. It is presumed to be ovarian in origin and contains septations along the right lateral and inferior aspect. The lesion was almost completely drained except for the septated portion inferiorly. Prateek Pate MD Abdomen/Pelvis CT 10/04/16 1257 Signed Impressions: Service Date/Time: Tuesday, October 04, 2016 13:26 - CONCLUSION: 1. Large cystic right ovarian mass measuring up to 26 cm. 2. Hiatal hernia. 3. Atherosclerosis. 4. Diverticulosis. 5. Right renal calculus. 6. Lung nodular infiltrate and right lower lobe nodule. Walt Sanz MD Objective Remarks GENERAL: This is a well-nourished, well-developed patient, in no apparent distress. CARDIOVASCULAR: Regular rate and regular rhythm without murmurs, gallops, or rubs. RESPIRATORY: Clear to auscultation. Breath sounds equal bilaterally. No wheezes , rales, or rhonchi. GASTROINTESTINAL: Abdomen soft, generalized tenderness, distended. Normal, active bowel sounds MUSCULOSKELETAL: Extremities without clubbing, cyanosis, or edema. NEURO: Alert & Oriented x4 to person, place, time, situation. Moves all ext x4 Procedures needle aspiration of the ovarian mass Medications and IVs Current Medications Iohexol 70 ml 70 ml STK-MED ONCE IV Last administered on 10/04/16 14:12; Start 10/04/16 at 14:12; Stop 10/04/16 at 14:13; Status DC Cefepime HCl 1000 mg/Sodium Chloride 100 ml @ 200 mls/hr ONCE ONCE IV Last administered on 10/04/16 16:37; Start 10/04/16 at 15:45; Stop 10/04/16 at 16:14 ; Status DC Azithromycin 500 mg/Sodium Chloride 250 ml @ 250 mls/hr ONCE ONCE IV Last administered on 10/04/16 17:30; Start 10/04/16 at 15:45; Stop 10/04/16 at 16:44 ; Status DC Sodium Chloride (NS 1000 ml Inj) 1,000 ml @ 100 mls/hr Q10H IV Last administered on 10/10/16 00:24; Start 10/04/16 at 15:45; Stop 10/11/16 at 17:02 ; Status DC Acetaminophen (Tylenol) 650 mg Q4H PRN PO FEVER Last administered on 10/05/16 16:28; Start 10/04/16 at 16:15 Ferrous Sulfate (Ferrous Sulfate) 325 mg DAILY PO Last administered on 09:42; Start 10/05/16 at 09:00 Levothyroxine Sodium (Synthroid) 25 mcg DAILY@06 PO Last administered on 04:36; Start 10/05/16 at 06:00 Non-Formulary Medication 1 puff BID INH AST; Start 10/04/16 at 21:00; Status UNV Non-Formulary Medication 150 mg BID PO Reduce Stomach Acid; Start 10/04/16 at 21 :00; Status UNV Famotidine (Pepcid) 20 mg BID PO Last administered on 10/08/16 20:50; Start at 21:00; Stop 10/09/16 at 08:19; Status DC Budesonide/ Formoterol Fumarate (Symbicort 80-4.5 Mcg Inh) 2 puff BID INH Last administered on 10/16/16 20:46; Start 10/04/16 at 21:00 Albuterol/ Ipratropium 1 ampule 1 ampule Q4HR NEB PRN NEB SHORTNESS OF BREATH Last administered on 10/08/16 15:26; Start 10/04/16 at 17:00; Stop 10/08/16 at 17:00; Status DC Cefepime HCl/ Sodium Chloride (Maxipime Inj/NS Inj) 100 ml @ 200 mls/hr Q12H IV Last administered on 10/05/16 03:14; Start 10/05/16 at 04:00; Stop at 13:52; Status DC Acetaminophen/ Hydrocodone Bitart 1 tab 1 tab Q4H PRN PO PAIN > 5 Last administered on 10/05/16 09:31; Start 10/04/16 at 17:00; Stop 10/05/16 at 13:53 ; Status DC Pharmacy Profile Note 0 ml @ 0 mls/hr UNSCH OTHER ; Start 10/05/16 at 14:00; Status Hold Cefoxitin Sodium/ Sodium Chloride (Mefoxin Inj/NS Inj) 100 ml @ 200 mls/hr Q4HR IV Last administered on 10/17/16 04:36; Start 10/05/16 at 16:00 Ciprofloxacin (Cipro) 750 mg Q12HR PO Last administered on 10/07/16 08:15; Start 10/05/16 at 21:00; Stop 10/07/16 at 12:11; Status DC Acetaminophen/ Hydrocodone Bitart 1 tab 1 tab Q6HR PRN PO PAIN > 5 Last administered on 10/16/16 20:50; Start 10/05/16 at 18:00 Amikacin Sulfate/ Sodium Chloride (Amikin Inj/NS 250 ml Inj) 254 ml @ 250 mls/ hr ONCE ONCE IV Last administered on 10/05/16 16:02; Start 10/05/16 at 16:00 ; Stop 10/05/16 at 17:00; Status DC Ondansetron HCl (Zofran Inj) 4 mg Q8HR PRN IV PUSH NAUSEA; Start 10/06/16 at 08 :15 Lidocaine HCl (Xylocaine-Mpf 1% Inj) 30 ml STK-MED ONCE .ROUTE Last administered on 10/06/16 16:05; Start 10/06/16 at 16:05; Stop 10/06/16 at 16:06 ; Status DC Sodium Bicarbonate 50 meq 50 meq STK-MED ONCE .ROUTE Last administered on 16:05; Start 10/06/16 at 16:05; Stop 10/06/16 at 16:06; Status DC Amikacin Sulfate/ Sodium Chloride (Amikin Inj/NS 250 ml Inj) 254 ml @ 250 mls/ hr Q36H IV Last administered on 10/10/16 04:21; Start 10/07/16 at 04:00; Stop 10/12/16 at 15:34; Status DC Non-Formulary Medication 1 tab HS PRN PO PAIN/SLEEP; Start 10/07/16 at 10:45; Status UNV Levothyroxine Sodium (Synthroid) 25 mcg DAILY@0600 PO ; Start 10/08/16 at 06:00 ; Status UNV Albuterol Sulfate 2.5 mg 2.5 mg Q6HR NEB NEB ; Start 10/07/16 at 16:00; Stop at 16:00; Status UNV Potassium Chloride/Dextrose/ Sod Cl (D5-1/2 NS + KCl 20 Meq Inj) 1,000 ml @ 75 mls/hr [id number] IV ; Start 10/07/16 at 10:45; Status UNV Sodium Chloride (NS Flush) 2 ml UNSCH PRN IV FLUSH FLUSH AFTER USING IV ACCESS ; Start 10/07/16 at 10:45; Status UNV Sodium Chloride (NS Flush) 2 ml BID IV FLUSH ; Start 10/07/16 at 21:00; Status UNV Ketorolac Tromethamine (Toradol Inj) 15 mg Q6H IVP ; Start 10/07/16 at 10:45; Stop 10/08/16 at 04:46; Status UNV Oxycodone/ Acetaminophen (Percocet 5-325 Mg) 1 tab Q4H PRN PO PAIN SCALE 1 TO 5; Start 10/07/16 at 10:45; Status UNV Oxycodone/ Acetaminophen (Percocet 5-325 Mg) 2 tab Q4H PRN PO PAIN SCALE 6 TO 10; Start 10/07/16 at 10:45; Status UNV Ondansetron HCl (Zofran Inj) 4 mg Q6H PRN IVP NAUSEA OR VOMITING; Start at 10:45; Status UNV Lorazepam (Ativan) 0.5 mg Q8H PRN PO ANXIETY; Start 10/07/16 at 10:45; Status UNV Clarithromycin (Biaxin) 500 mg Q12HR PO Last administered on 10/16/16 20:45; Start 10/07/16 at 21:00 Hydromorphone HCl (Dilaudid Pf Inj) 0.2 mg Q4H PRN IV PUSH BREAKTHROUGH PAIN Last administered on 10/14/16 08:28; Start 10/07/16 at 12:30 Albuterol/ Ipratropium (Duoneb Neb) 1 ampule Q4HR NEB PRN NEB SHORTNESS OF BREATH Last administered on 10/16/16 20:51; Start 10/08/16 at 21:45 Famotidine (Pepcid) 10 mg BID PO Last administered on 10/16/16 20:45; Start at 09:00 Miscellaneous Information SPECIFIC LAB TO BE [facility]... ONCE ONCE .XX ; Start 10/13 at 03:45; Stop 10/13/16 at 03:46; Status Cancel Sodium Chloride 1,000 ml @ 75 mls/hr [id number] IV Last administered on 15:38; Start 10/11/16 at 17:00 Amikacin Sulfate/ Sodium Chloride (Amikin Inj/NS 250 ml Inj) 254 ml @ 250 mls/ hr Q48H IV ; Start 10/12/16 at 18:00; Stop 10/14/16 at 11:57; Status DC Miscellaneous Information SPECIFIC LAB TO BE DRAWN:AMIKACIN TROUGH DATE TO... ONCE ONCE .XX ; Start 10/14/16 at 17:45; Stop 10/14/16 at 17:46; Status Cancel Amikacin Sulfate/ Sodium Chloride (Amikin Inj/NS 250 ml Inj) 254 ml @ 250 mls/ hr Q36H IV Last administered on 10/16/16t 02:20; Start 10/14/16 at 14:00 A/P Assessment and Plan A/P Abdominal pain with large ovarian mass- now pain has resolved. s/p needle aspiration of the mass -cultures negative-pathology suggestive of follicular cyst. 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 sputum culture with normal respiratory yeimy- mycobacterial culture pending. pulmonary has signed off. ID following. will consider walk test before discharge. Acute kidney injury:likely due to Amikacin-renal function now fairly stable. will monitor I/O ,renal function and electrolytes closely - pharmacy consulted for dosing- continue gentle IV hydration. COPD with no exacerbation; resumed advair- neb treatment as needed. Lung nodule- f/u as outpatient- pulmonary following. Hypothyroidism: resumed levothyroxine -DVT prophylaxis with SCD's. Discharge Planning when has finished the course of IV Abx. Flory Benavides MD Oct 17, 2016 08:22
[2016-10-17] MEDS: CLARITHROMYCIN 500 MG TAB PO SCH ×2 (10:00→19:13)
[2016-10-17] MEDS: FERROUS SULFATE 325 MG (65 MG ELEMENTAL IRON) TAB PO SCH (10:00)
[2016-10-17] MEDS: FAMOTIDINE 20 MG TAB PO SCH ×2 (10:01→19:13)
[2016-10-17] MEDS: BUDESONIDE-FORMOTEROL 80/4.5 MCG INHALER INH SCH ×2 (10:02→19:14)
[2016-10-17 12:00] VITALS: BP 110/58; PULSE 75; RESP 18; TEMP 96.8; O2SAT 97
[2016-10-17] MEDS: SODIUM CHLOR 0.9% IV SCH (15:08)
[2016-10-17] MEDS: AMIKACIN IV SCH (15:08)
[2016-10-17 16:00] VITALS: BP 110/58; PULSE 84; RESP 18; TEMP 97.3; O2SAT 94
[2016-10-17 20:00] VITALS: BP 99/58; PULSE 81; RESP 17; TEMP 96.3; O2SAT 95
[2016-10-17] MEDS: SODIUM CHLOR 0.9% 1000 ML INJ 1,000 ML IV SCH (23:32)
[2016-10-18] VITALS: BP 107/54; PULSE 78; RESP 17; TEMP 97.2; O2SAT 96
[2016-10-18 04:00] VITALS: BP 111/55; PULSE 70; RESP 17; TEMP 96.4; O2SAT 96
[2016-10-18] MEDS: ceFOXitin INJ 2 GM in SODIUM CHLORIDE 0.9% INJ 100 ML IV SCH ×5 (04:36→19:24)
[2016-10-18] MEDS: LEVOTHYROXINE SODIUM 25 MCG TAB PO SCH (04:36)
[2016-10-18 08:00] VITALS: BP 112/72; PULSE 81; RESP 18; TEMP 96.6; O2SAT 98
[2016-10-18] MEDS: FERROUS SULFATE 325 MG (65 MG ELEMENTAL IRON) TAB PO SCH (08:21)
[2016-10-18] MEDS: FAMOTIDINE 20 MG TAB PO SCH ×2 (08:22→19:24)
[2016-10-18] MEDS: BUDESONIDE-FORMOTEROL 80/4.5 MCG INHALER INH SCH ×2 (08:22→19:24)
--- NOTE | 2016-10-18 08:34 | HHI.PR ---
Subjective Remarks resting comfortably with no acute distress. no fever. denies pain. no new complaints. Objective Vitals Vital Signs Date Time Temp Pulse Resp B/P Pulse Ox O2 Delivery O2 Flow Rate FiO2 10/18/16 04:00 96.4 70 17 111/55 96 10/18/16 00:00 97.2 78 17 107/54 96 10/17/16 20:00 96.3 81 17 99/58 95 10/17/16 16:00 97.3 84 18 110/58 94 10/17/16 12:00 96.8 75 18 110/58 97 I/O 10/17/16 10/17/16 10/17/16 10/18/16 10/18/16 10/18/16 07:00 15:00 23:00 07:00 15:00 23:00 Intake Total 698 ml 840 ml 1803 ml 762 ml Balance 698 ml 840 ml 1803 ml 762 ml Intake Oral 840 ml 960 ml IV Total 698 ml 843 ml 762 ml # Voids 8 2 # Bowel Movements 0 0 Result Diagram: 10/17/16 0655 Imaging Last Impressions Chest X-Ray 10/13/16 0000 Signed Impressions: Service Date/Time: Thursday, October 13, 2016 08:34 - CONCLUSION: . Minimal airspace disease persists in the left base, stable in the short interval. Joss Salinas MD FACR Needle Aspiration Ultrasound 10/06/16 0000 Signed Impressions: Service Date/Time: Thursday, October 06, 2016 14:50 - CONCLUSION: Uncomplicated ultrasound guided aspiration of an abdomen and pelvic cystic lesion measuring up to 23.6 cm. It is presumed to be ovarian in origin and contains septations along the right lateral and inferior aspect. The lesion was almost completely drained except for the septated portion inferiorly. Prateek Pate MD Abdomen/Pelvis CT 10/04/16 1257 Signed Impressions: Service Date/Time: Tuesday, October 04, 2016 13:26 - CONCLUSION: 1. Large cystic right ovarian mass measuring up to 26 cm. 2. Hiatal hernia. 3. Atherosclerosis. 4. Diverticulosis. 5. Right renal calculus. 6. Lung nodular infiltrate and right lower lobe nodule. Walt Sanz MD Objective Remarks GENERAL: This is a well-nourished, well-developed patient, in no apparent distress. CARDIOVASCULAR: Regular rate and regular rhythm without murmurs, gallops, or rubs. RESPIRATORY: Clear to auscultation. Breath sounds equal bilaterally. No wheezes , rales, or rhonchi. GASTROINTESTINAL: Abdomen soft, generalized tenderness, distended. Normal, active bowel sounds MUSCULOSKELETAL: Extremities without clubbing, cyanosis, or edema. NEURO: Alert & Oriented x4 to person, place, time, situation. Moves all ext x4 Procedures needle aspiration of the ovarian mass Medications and IVs Current Medications Iohexol 70 ml 70 ml STK-MED ONCE IV Last administered on 10/04/16 14:12; Start 10/04/16 at 14:12; Stop 10/04/16 at 14:13; Status DC Cefepime HCl 1000 mg/Sodium Chloride 100 ml @ 200 mls/hr ONCE ONCE IV Last administered on 10/04/16 16:37; Start 10/04/16 at 15:45; Stop 10/04/16 at 16:14 ; Status DC Azithromycin 500 mg/Sodium Chloride 250 ml @ 250 mls/hr ONCE ONCE IV Last administered on 10/04/16 17:30; Start 10/04/16 at 15:45; Stop 10/04/16 at 16:44 ; Status DC Sodium Chloride (NS 1000 ml Inj) 1,000 ml @ 100 mls/hr Q10H IV Last administered on 10/10/16 00:24; Start 10/04/16 at 15:45; Stop 10/11/16 at 17:02 ; Status DC Acetaminophen (Tylenol) 650 mg Q4H PRN PO FEVER Last administered on 10/05/16 16:28; Start 10/04/16 at 16:15 Ferrous Sulfate (Ferrous Sulfate) 325 mg DAILY PO Last administered on 10:00; Start 10/05/16 at 09:00 Levothyroxine Sodium (Synthroid) 25 mcg DAILY@06 PO Last administered on 04:36; Start 10/05/16 at 06:00 Non-Formulary Medication 1 puff BID INH AST; Start 10/04/16 at 21:00; Status UNV Non-Formulary Medication 150 mg BID PO Reduce Stomach Acid; Start 10/04/16 at 21 :00; Status UNV Famotidine (Pepcid) 20 mg BID PO Last administered on 10/08/16 20:50; Start at 21:00; Stop 10/09/16 at 08:19; Status DC Budesonide/ Formoterol Fumarate (Symbicort 80-4.5 Mcg Inh) 2 puff BID INH Last administered on 10/17/16 19:14; Start 10/04/16 at 21:00 Albuterol/ Ipratropium 1 ampule 1 ampule Q4HR NEB PRN NEB SHORTNESS OF BREATH Last administered on 10/08/16 15:26; Start 10/04/16 at 17:00; Stop 10/08/16 at 17:00; Status DC Cefepime HCl/ Sodium Chloride (Maxipime Inj/NS Inj) 100 ml @ 200 mls/hr Q12H IV Last administered on 10/05/16 03:14; Start 10/05/16 at 04:00; Stop at 13:52; Status DC Acetaminophen/ Hydrocodone Bitart 1 tab 1 tab Q4H PRN PO PAIN > 5 Last administered on 10/05/16 09:31; Start 10/04/16 at 17:00; Stop 10/05/16 at 13:53 ; Status DC Pharmacy Profile Note 0 ml @ 0 mls/hr UNSCH OTHER ; Start 10/05/16 at 14:00; Status Hold Cefoxitin Sodium/ Sodium Chloride (Mefoxin Inj/NS Inj) 100 ml @ 200 mls/hr Q4HR IV Last administered on 10/18/16 04:36; Start 10/05/16 at 16:00 Ciprofloxacin (Cipro) 750 mg Q12HR PO Last administered on 10/07/16 08:15; Start 10/05/16 at 21:00; Stop 10/07/16 at 12:11; Status DC Acetaminophen/ Hydrocodone Bitart 1 tab 1 tab Q6HR PRN PO PAIN > 5 Last administered on 10/16/16 20:50; Start 10/05/16 at 18:00 Amikacin Sulfate/ Sodium Chloride (Amikin Inj/NS 250 ml Inj) 254 ml @ 250 mls/ hr ONCE ONCE IV Last administered on 10/05/16 16:02; Start 10/05/16 at 16:00 ; Stop 10/05/16 at 17:00; Status DC Ondansetron HCl (Zofran Inj) 4 mg Q8HR PRN IV PUSH NAUSEA; Start 10/06/16 at 08 :15 Lidocaine HCl (Xylocaine-Mpf 1% Inj) 30 ml STK-MED ONCE .ROUTE Last administered on 10/06/16 16:05; Start 10/06/16 at 16:05; Stop 10/06/16 at 16:06 ; Status DC Sodium Bicarbonate 50 meq 50 meq STK-MED ONCE .ROUTE Last administered on 16:05; Start 10/06/16 at 16:05; Stop 10/06/16 at 16:06; Status DC Amikacin Sulfate/ Sodium Chloride (Amikin Inj/NS 250 ml Inj) 254 ml @ 250 mls/ hr Q36H IV Last administered on 10/10/16 04:21; Start 10/07/16 at 04:00; Stop 10/12/16 at 15:34; Status DC Non-Formulary Medication 1 tab HS PRN PO PAIN/SLEEP; Start 10/07/16 at 10:45; Status UNV Levothyroxine Sodium (Synthroid) 25 mcg DAILY@0600 PO ; Start 10/08/16 at 06:00 ; Status UNV Albuterol Sulfate 2.5 mg 2.5 mg Q6HR NEB NEB ; Start 10/07/16 at 16:00; Stop at 16:00; Status UNV Potassium Chloride/Dextrose/ Sod Cl (D5-1/2 NS + KCl 20 Meq Inj) 1,000 ml @ 75 mls/hr [id number] IV ; Start 10/07/16 at 10:45; Status UNV Sodium Chloride (NS Flush) 2 ml UNSCH PRN IV FLUSH FLUSH AFTER USING IV ACCESS ; Start 10/07/16 at 10:45; Status UNV Sodium Chloride (NS Flush) 2 ml BID IV FLUSH ; Start 10/07/16 at 21:00; Status UNV Ketorolac Tromethamine (Toradol Inj) 15 mg Q6H IVP ; Start 10/07/16 at 10:45; Stop 10/08/16 at 04:46; Status UNV Oxycodone/ Acetaminophen (Percocet 5-325 Mg) 1 tab Q4H PRN PO PAIN SCALE 1 TO 5; Start 10/07/16 at 10:45; Status UNV Oxycodone/ Acetaminophen (Percocet 5-325 Mg) 2 tab Q4H PRN PO PAIN SCALE 6 TO 10; Start 10/07/16 at 10:45; Status UNV Ondansetron HCl (Zofran Inj) 4 mg Q6H PRN IVP NAUSEA OR VOMITING; Start at 10:45; Status UNV Lorazepam (Ativan) 0.5 mg Q8H PRN PO ANXIETY; Start 10/07/16 at 10:45; Status UNV Clarithromycin (Biaxin) 500 mg Q12HR PO Last administered on 10/17/16 19:13; Start 10/07/16 at 21:00 Hydromorphone HCl (Dilaudid Pf Inj) 0.2 mg Q4H PRN IV PUSH BREAKTHROUGH PAIN Last administered on 10/14/16 08:28; Start 10/07/16 at 12:30 Albuterol/ Ipratropium (Duoneb Neb) 1 ampule Q4HR NEB PRN NEB SHORTNESS OF BREATH Last administered on 10/16/16 20:51; Start 10/08/16 at 21:45 Famotidine (Pepcid) 10 mg BID PO Last administered on 10/17/16 19:13; Start at 09:00 Miscellaneous Information SPECIFIC LAB TO BE [facility]... ONCE ONCE .XX ; Start 10/13 at 03:45; Stop 10/13/16 at 03:46; Status Cancel Sodium Chloride 1,000 ml @ 50 mls/hr Q20H IV Last administered on 10/17/16 23 :32; Start 10/11/16 at 17:00 Amikacin Sulfate/ Sodium Chloride (Amikin Inj/NS 250 ml Inj) 254 ml @ 250 mls/ hr Q48H IV ; Start 10/12/16 at 18:00; Stop 10/14/16 at 11:57; Status DC Miscellaneous Information SPECIFIC LAB TO BE DRAWN:AMIKACIN TROUGH DATE TO... ONCE ONCE .XX ; Start 10/14/16 at 17:45; Stop 10/14/16 at 17:46; Status Cancel Amikacin Sulfate/ Sodium Chloride (Amikin Inj/NS 250 ml Inj) 254 ml @ 250 mls/ hr Q36H IV Last administered on 10/17/16t 15:08; Start 10/14/16 at 14:00 A/P Assessment and Plan A/P Abdominal pain with large ovarian mass- now pain has resolved. s/p needle aspiration of the mass -cultures negative-pathology suggestive of follicular cyst. 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 pulmonary has signed off. ID following. will consider walk test before discharge. Acute kidney injury:likely due to Amikacin-renal function now fairly stable. will monitor I/O ,renal function and electrolytes closely - pharmacy consulted for dosing- continue gentle IV hydration. COPD with no exacerbation; resumed advair- neb treatment as needed. Lung nodule- f/u as outpatient- pulmonary following. Hypothyroidism: resumed levothyroxine -DVT prophylaxis with SCD's. Discharge Planning when has finished the course of IV Abx. Flory Benavides MD Oct 18, 2016 08:34
[2016-10-18] MEDS: CLARITHROMYCIN 500 MG TAB PO SCH ×2 (11:24→19:24)
[2016-10-18 12:00] VITALS: BP 103/57; PULSE 80; RESP 18; TEMP 97.2; O2SAT 96
[2016-10-18 16:00] VITALS: BP 122/74; PULSE 85; RESP 18; TEMP 97.7; O2SAT 97
[2016-10-18] MEDS: SODIUM CHLOR 0.9% 1000 ML INJ 1,000 ML IV SCH (19:24)
[2016-10-18 20:00] VITALS: BP 90/61; PULSE 71; RESP 18; TEMP 96.1; O2SAT 95
[2016-10-19] VITALS: BP 117/57; PULSE 72; RESP 16; TEMP 97; O2SAT 94
[2016-10-19] MEDS: ceFOXitin INJ 2 GM in SODIUM CHLORIDE 0.9% INJ 100 ML IV SCH ×7 (00:05→23:12)
[2016-10-19] MEDS ORDERED: PHARMACY ORDERED LAB ONE (01:45)
[2016-10-19] MEDS: SODIUM CHLOR 0.9% IV SCH (02:11)
[2016-10-19] MEDS: AMIKACIN IV SCH (02:11)
[2016-10-19 04:00] VITALS: BP 99/57; PULSE 67; RESP 17; TEMP 97.5; O2SAT 98
[2016-10-19] MEDS: LEVOTHYROXINE SODIUM 25 MCG TAB PO SCH (04:50)
[2016-10-19 07:44] LABS: AUTOMATED NEUTROPHIL # 3.7 TH/MM3 (1.8-7.7); BASOPHIL # 0.1 TH/MM3 (0-0.2); BASOPHIL % 1.2 % (0.0-2.0); EOSINOPHIL % 13.1 % (0.0-4.0); HEMATOCRIT 34.3 % (35.0-46.0); LYMPH % 32.4 % (9.0-44.0); LYMPHOCYTE # 2.5 TH/MM3 (1.0-4.8); MEAN CELL VOLUME 74.8 FL (80.0-100.0); MEAN CORPUSCULAR HEMOGLOBIN 23.6 PG (27.0-34.0); MEAN CORPUSCULAR HGB CONC 31.6 % (32.0-36.0); MONO % 5.9 % (0.0-8.0); NEUT % 47.4 % (16.0-70.0); PLATELET COUNT 416 TH/MM3 (150-450); RED BLOOD COUNT 4.58 MIL/MM3 (4.00-5.30); RED CELL DISTRIBUTION WIDTH 18.1 % (11.6-17.2); WHITE BLOOD COUNT 7.8 TH/MM3 (4.0-11.0)
[2016-10-19 07:55] LABS: ALT (GPT) 29 U/L (10-53); ANION GAP 8 MEQ/L (5-15); AST (GOT) 20 U/L (15-37); BICARBONATE 25.1 MEQ/L (21.0-32.0); BLOOD UREA NITROGEN 14 MG/DL (7-18); CHLORIDE 107 MEQ/L (98-107); GLOMERULAR FILTRATION RATE 47 ML/MIN (>89); POTASSIUM 4.2 MEQ/L (3.5-5.1); SODIUM (NA) 140 MEQ/L (136-145)
[2016-10-19 07:57] LABS: ALKALINE PHOSPHATASE 107 U/L (45-117); TOTAL BILIRUBIN ADULT 0.4 MG/DL (0.2-1.0)
[2016-10-19 08:00] VITALS: BP 96/63; PULSE 74; RESP 18; TEMP 97.8; O2SAT 95
[2016-10-19 08:01] LABS: HEMO FLAGS AUTO DIFF
[2016-10-19] MEDS: FAMOTIDINE 20 MG TAB PO SCH ×2 (08:37→19:57)
[2016-10-19] MEDS: FERROUS SULFATE 325 MG (65 MG ELEMENTAL IRON) TAB PO SCH (08:37)
[2016-10-19] MEDS: CLARITHROMYCIN 500 MG TAB PO SCH ×2 (08:37→19:57)
[2016-10-19] MEDS: BUDESONIDE-FORMOTEROL 80/4.5 MCG INHALER INH SCH ×2 (08:38→19:58)
[2016-10-19 09:03] LABS: OVALOCYTES 1+ (NORMAL); SCAN/DIFF AUTO DIFF CONFIRMED
--- NOTE | 2016-10-19 11:37 | HHI.PR ---
Subjective Remarks resting comfortably with no distress. denies pain. remains afebrile. no new complaints. Objective Vitals Vital Signs Date Time Temp Pulse Resp B/P Pulse Ox O2 Delivery O2 Flow Rate FiO2 10/19/16 08:00 97.8 74 18 96/63 95 10/19/16 04:00 97.5 67 17 99/57 98 10/19/16 00:00 97.0 72 16 117/57 94 10/18/16 20:00 96.1 71 18 90/61 95 10/18/16 16:00 97.7 85 18 122/74 97 10/18/16 12:00 97.2 80 18 103/57 96 I/O 10/18/16 10/18/16 10/18/16 10/19/16 10/19/16 10/19/16 07:00 15:00 23:00 07:00 15:00 23:00 Intake Total 762 ml 1320 ml 1798 ml Balance 762 ml 1320 ml 1798 ml Intake Oral 1320 ml 200 ml IV Total 762 ml 1598 ml # Voids 6 2 # Bowel Movements 1 Result Diagram: 10/19/16 0655 10/19/16 0655 Imaging Last Impressions Chest X-Ray 10/13/16 0000 Signed Impressions: Service Date/Time: Thursday, October 13, 2016 08:34 - CONCLUSION: . Minimal airspace disease persists in the left base, stable in the short interval. Joss Salinas MD FACR Needle Aspiration Ultrasound 10/06/16 0000 Signed Impressions: Service Date/Time: Thursday, October 06, 2016 14:50 - CONCLUSION: Uncomplicated ultrasound guided aspiration of an abdomen and pelvic cystic lesion measuring up to 23.6 cm. It is presumed to be ovarian in origin and contains septations along the right lateral and inferior aspect. The lesion was almost completely drained except for the septated portion inferiorly. Prateek Pate MD Abdomen/Pelvis CT 10/04/16 1257 Signed Impressions: Service Date/Time: Tuesday, October 04, 2016 13:26 - CONCLUSION: 1. Large cystic right ovarian mass measuring up to 26 cm. 2. Hiatal hernia. 3. Atherosclerosis. 4. Diverticulosis. 5. Right renal calculus. 6. Lung nodular infiltrate and right lower lobe nodule. Walt Sanz MD Objective Remarks GENERAL: This is a well-nourished, well-developed patient, in no apparent distress. CARDIOVASCULAR: Regular rate and regular rhythm without murmurs, gallops, or rubs. RESPIRATORY: Clear to auscultation. Breath sounds equal bilaterally. No wheezes , rales, or rhonchi. GASTROINTESTINAL: Abdomen soft, generalized tenderness, distended. Normal, active bowel sounds MUSCULOSKELETAL: Extremities without clubbing, cyanosis, or edema. NEURO: Alert & Oriented x4 to person, place, time, situation. Moves all ext x4 Procedures needle aspiration of the ovarian mass Medications and IVs Current Medications Iohexol 70 ml 70 ml STK-MED ONCE IV Last administered on 10/04/16 14:12; Start 10/04/16 at 14:12; Stop 10/04/16 at 14:13; Status DC Cefepime HCl 1000 mg/Sodium Chloride 100 ml @ 200 mls/hr ONCE ONCE IV Last administered on 10/04/16 16:37; Start 10/04/16 at 15:45; Stop 10/04/16 at 16:14 ; Status DC Azithromycin 500 mg/Sodium Chloride 250 ml @ 250 mls/hr ONCE ONCE IV Last administered on 10/04/16 17:30; Start 10/04/16 at 15:45; Stop 10/04/16 at 16:44 ; Status DC Sodium Chloride (NS 1000 ml Inj) 1,000 ml @ 100 mls/hr Q10H IV Last administered on 10/10/16 00:24; Start 10/04/16 at 15:45; Stop 10/11/16 at 17:02 ; Status DC Acetaminophen (Tylenol) 650 mg Q4H PRN PO FEVER Last administered on 10/05/16 16:28; Start 10/04/16 at 16:15 Ferrous Sulfate (Ferrous Sulfate) 325 mg DAILY PO Last administered on 08:37; Start 10/05/16 at 09:00 Levothyroxine Sodium (Synthroid) 25 mcg DAILY@06 PO Last administered on 04:50; Start 10/05/16 at 06:00 Non-Formulary Medication 1 puff BID INH AST; Start 10/04/16 at 21:00; Status UNV Non-Formulary Medication 150 mg BID PO Reduce Stomach Acid; Start 10/04/16 at 21 :00; Status UNV Famotidine (Pepcid) 20 mg BID PO Last administered on 10/08/16 20:50; Start at 21:00; Stop 10/09/16 at 08:19; Status DC Budesonide/ Formoterol Fumarate (Symbicort 80-4.5 Mcg Inh) 2 puff BID INH Last administered on 10/19/16 08:38; Start 10/04/16 at 21:00 Albuterol/ Ipratropium 1 ampule 1 ampule Q4HR NEB PRN NEB SHORTNESS OF BREATH Last administered on 10/08/16 15:26; Start 10/04/16 at 17:00; Stop 10/08/16 at 17:00; Status DC Cefepime HCl/ Sodium Chloride (Maxipime Inj/NS Inj) 100 ml @ 200 mls/hr Q12H IV Last administered on 10/05/16 03:14; Start 10/05/16 at 04:00; Stop at 13:52; Status DC Acetaminophen/ Hydrocodone Bitart 1 tab 1 tab Q4H PRN PO PAIN > 5 Last administered on 10/05/16 09:31; Start 10/04/16 at 17:00; Stop 10/05/16 at 13:53 ; Status DC Pharmacy Profile Note 0 ml @ 0 mls/hr UNSCH OTHER ; Start 10/05/16 at 14:00; Status Hold Cefoxitin Sodium/ Sodium Chloride (Mefoxin Inj/NS Inj) 100 ml @ 200 mls/hr Q4HR IV Last administered on 10/19/16 08:40; Start 10/05/16 at 16:00 Ciprofloxacin (Cipro) 750 mg Q12HR PO Last administered on 10/07/16 08:15; Start 10/05/16 at 21:00; Stop 10/07/16 at 12:11; Status DC Acetaminophen/ Hydrocodone Bitart 1 tab 1 tab Q6HR PRN PO PAIN > 5 Last administered on 10/16/16 20:50; Start 10/05/16 at 18:00 Amikacin Sulfate/ Sodium Chloride (Amikin Inj/NS 250 ml Inj) 254 ml @ 250 mls/ hr ONCE ONCE IV Last administered on 10/05/16 16:02; Start 10/05/16 at 16:00 ; Stop 10/05/16 at 17:00; Status DC Ondansetron HCl (Zofran Inj) 4 mg Q8HR PRN IV PUSH NAUSEA; Start 10/06/16 at 08 :15 Lidocaine HCl (Xylocaine-Mpf 1% Inj) 30 ml STK-MED ONCE .ROUTE Last administered on 10/06/16 16:05; Start 10/06/16 at 16:05; Stop 10/06/16 at 16:06 ; Status DC Sodium Bicarbonate 50 meq 50 meq STK-MED ONCE .ROUTE Last administered on 16:05; Start 10/06/16 at 16:05; Stop 10/06/16 at 16:06; Status DC Amikacin Sulfate/ Sodium Chloride (Amikin Inj/NS 250 ml Inj) 254 ml @ 250 mls/ hr Q36H IV Last administered on 10/10/16 04:21; Start 10/07/16 at 04:00; Stop 10/12/16 at 15:34; Status DC Non-Formulary Medication 1 tab HS PRN PO PAIN/SLEEP; Start 10/07/16 at 10:45; Status UNV Levothyroxine Sodium (Synthroid) 25 mcg DAILY@0600 PO ; Start 10/08/16 at 06:00 ; Status UNV Albuterol Sulfate 2.5 mg 2.5 mg Q6HR NEB NEB ; Start 10/07/16 at 16:00; Stop at 16:00; Status UNV Potassium Chloride/Dextrose/ Sod Cl (D5-1/2 NS + KCl 20 Meq Inj) 1,000 ml @ 75 mls/hr [id number] IV ; Start 10/07/16 at 10:45; Status UNV Sodium Chloride (NS Flush) 2 ml UNSCH PRN IV FLUSH FLUSH AFTER USING IV ACCESS ; Start 10/07/16 at 10:45; Status UNV Sodium Chloride (NS Flush) 2 ml BID IV FLUSH ; Start 10/07/16 at 21:00; Status UNV Ketorolac Tromethamine (Toradol Inj) 15 mg Q6H IVP ; Start 10/07/16 at 10:45; Stop 10/08/16 at 04:46; Status UNV Oxycodone/ Acetaminophen (Percocet 5-325 Mg) 1 tab Q4H PRN PO PAIN SCALE 1 TO 5; Start 10/07/16 at 10:45; Status UNV Oxycodone/ Acetaminophen (Percocet 5-325 Mg) 2 tab Q4H PRN PO PAIN SCALE 6 TO 10; Start 10/07/16 at 10:45; Status UNV Ondansetron HCl (Zofran Inj) 4 mg Q6H PRN IVP NAUSEA OR VOMITING; Start at 10:45; Status UNV Lorazepam (Ativan) 0.5 mg Q8H PRN PO ANXIETY; Start 10/07/16 at 10:45; Status UNV Clarithromycin (Biaxin) 500 mg Q12HR PO Last administered on 10/19/16 08:37; Start 10/07/16 at 21:00 Hydromorphone HCl (Dilaudid Pf Inj) 0.2 mg Q4H PRN IV PUSH BREAKTHROUGH PAIN Last administered on 10/14/16 08:28; Start 10/07/16 at 12:30 Albuterol/ Ipratropium (Duoneb Neb) 1 ampule Q4HR NEB PRN NEB SHORTNESS OF BREATH Last administered on 10/16/16 20:51; Start 10/08/16 at 21:45 Famotidine (Pepcid) 10 mg BID PO Last administered on 10/19/16 08:37; Start at 09:00 Miscellaneous Information SPECIFIC LAB TO BE BYRON... ONCE ONCE .XX ; Start 10/13 at 03:45; Stop 10/13/16 at 03:46; Status Cancel Sodium Chloride 1,000 ml @ 50 mls/hr Q20H IV Last administered on 10/18/16 19 :24; Start 10/11/16 at 17:00 Amikacin Sulfate/ Sodium Chloride (Amikin Inj/NS 250 ml Inj) 254 ml @ 250 mls/ hr Q48H IV ; Start 10/12/16 at 18:00; Stop 10/14/16 at 11:57; Status DC Miscellaneous Information SPECIFIC LAB TO BE DRAWN:AMIKACIN TROUGH DATE TO... ONCE ONCE .XX ; Start 10/14/16 at 17:45; Stop 10/14/16 at 17:46; Status Cancel Amikacin Sulfate/ Sodium Chloride (Amikin Inj/NS 250 ml Inj) 254 ml @ 250 mls/ hr Q36H IV Last administered on 10/19/16 02:11; Start 10/14/16 at 14:00 Miscellaneous Information SPECIFIC LAB TO BE . ONCE ONCE .XX Last administered on 10/19/16 02:05; Start 10/19/16 at 01:45; Stop 10/19/16 at 01:46 ; Status DC A/P Assessment and Plan A/P Abdominal pain with large ovarian mass- now pain has resolved. s/p needle aspiration of the mass -cultures negative-pathology suggestive of follicular cyst. 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 pulmonary has signed off. ID following. will consider walk test before discharge. Acute kidney injury:likely due to Amikacin-renal function now fairly stable. will monitor I/O ,renal function and electrolytes closely - pharmacy consulted for dosing- continue gentle IV hydration. COPD with no exacerbation; resumed advair- neb treatment as needed. Lung nodule- f/u as outpatient- pulmonary following. Hypothyroidism: resumed levothyroxine -DVT prophylaxis with SCD's. Discharge Planning likely later this week when has finished the course of IV Abx. Flory Benavides MD Oct 19, 2016 11:37
[2016-10-19 12:00] VITALS: BP 98/58; PULSE 85; RESP 18; TEMP 97.7; O2SAT 96
[2016-10-19 16:00] VITALS: BP 104/53; PULSE 78; RESP 16; TEMP 96.5; O2SAT 95
[2016-10-19] MEDS: SODIUM CHLOR 0.9% 1000 ML INJ 1,000 ML IV SCH (19:56)
[2016-10-19 20:00] VITALS: BP 95/56; PULSE 84; RESP 18; TEMP 96.6; O2SAT 95
[2016-10-19] MEDS: ACETAMINOPHEN/HYDROcodone 325 MG/5 MG TAB PO PRN (20:03)
[2016-10-20] VITALS (7 sets, daily range): BP systolic 88–99; BP diastolic 51–69; PULSE 64–77; RESP 15–18; TEMP 96–97.7; O2SAT 96–98
[2016-10-20] MEDS: LEVOTHYROXINE SODIUM 25 MCG TAB PO SCH (04:24)
[2016-10-20] MEDS: ceFOXitin INJ 2 GM in SODIUM CHLORIDE 0.9% INJ 100 ML IV SCH ×6 (04:25→23:43)
[2016-10-20] MEDS: BUDESONIDE-FORMOTEROL 80/4.5 MCG INHALER INH SCH ×2 (09:03→20:08)
[2016-10-20] MEDS: FERROUS SULFATE 325 MG (65 MG ELEMENTAL IRON) TAB PO SCH (09:04)
[2016-10-20] MEDS: FAMOTIDINE 20 MG TAB PO SCH ×2 (09:04→20:08)
[2016-10-20] MEDS: CLARITHROMYCIN 500 MG TAB PO SCH ×2 (09:04→20:08)
--- NOTE | 2016-10-20 09:12 | HHI.PR ---
Subjective Remarks resting comfortably with no distress. denies pain and no fever. no new complaints. Objective Vitals Vital Signs Date Time Temp Pulse Resp B/P Pulse Ox O2 Delivery O2 Flow Rate FiO2 10/20/16 04:00 97.1 69 17 94/69 96 10/20/16 00:00 96.2 64 17 99/62 97 10/19/16 20:00 96.6 84 18 95/56 95 10/19/16 16:00 96.5 78 16 104/53 95 10/19/16 12:00 97.7 85 18 98/58 96 I/O 10/19/16 10/19/16 10/19/16 10/20/16 10/20/16 10/20/16 07:00 15:00 23:00 07:00 15:00 23:00 Intake Total 1798 ml 805 ml 2400 ml 680 ml Balance 1798 ml 805 ml 2400 ml 680 ml Intake Oral 200 ml 2400 ml 680 ml IV Total 1598 ml 805 ml # Voids 2 9 4 # Bowel Movements 1 Result Diagram: 10/19/16 0655 10/19/16 0655 Imaging Last Impressions Chest X-Ray 10/13/16 0000 Signed Impressions: Service Date/Time: Thursday, October 13, 2016 08:34 - CONCLUSION: . Minimal airspace disease persists in the left base, stable in the short interval. Joss Salinas MD FACR Needle Aspiration Ultrasound 10/06/16 0000 Signed Impressions: Service Date/Time: Thursday, October 06, 2016 14:50 - CONCLUSION: Uncomplicated ultrasound guided aspiration of an abdomen and pelvic cystic lesion measuring up to 23.6 cm. It is presumed to be ovarian in origin and contains septations along the right lateral and inferior aspect. The lesion was almost completely drained except for the septated portion inferiorly. Prateek Pate MD Abdomen/Pelvis CT 10/04/16 1257 Signed Impressions: Service Date/Time: Tuesday, October 04, 2016 13:26 - CONCLUSION: 1. Large cystic right ovarian mass measuring up to 26 cm. 2. Hiatal hernia. 3. Atherosclerosis. 4. Diverticulosis. 5. Right renal calculus. 6. Lung nodular infiltrate and right lower lobe nodule. Walt Sanz MD Objective Remarks GENERAL: This is a well-nourished, well-developed patient, in no apparent distress. CARDIOVASCULAR: Regular rate and regular rhythm without murmurs, gallops, or rubs. RESPIRATORY: Clear to auscultation. Breath sounds equal bilaterally. No wheezes , rales, or rhonchi. GASTROINTESTINAL: Abdomen soft, generalized tenderness, distended. Normal, active bowel sounds MUSCULOSKELETAL: Extremities without clubbing, cyanosis, or edema. NEURO: Alert & Oriented x4 to person, place, time, situation. Moves all ext x4 Procedures needle aspiration of the ovarian mass Medications and IVs Current Medications Iohexol 70 ml 70 ml STK-MED ONCE IV Last administered on 10/04/16 14:12; Start 10/04/16 at 14:12; Stop 10/04/16 at 14:13; Status DC Cefepime HCl 1000 mg/Sodium Chloride 100 ml @ 200 mls/hr ONCE ONCE IV Last administered on 10/04/16 16:37; Start 10/04/16 at 15:45; Stop 10/04/16 at 16:14 ; Status DC Azithromycin 500 mg/Sodium Chloride 250 ml @ 250 mls/hr ONCE ONCE IV Last administered on 10/04/16 17:30; Start 10/04/16 at 15:45; Stop 10/04/16 at 16:44 ; Status DC Sodium Chloride (NS 1000 ml Inj) 1,000 ml @ 100 mls/hr Q10H IV Last administered on 10/10/16 00:24; Start 10/04/16 at 15:45; Stop 10/11/16 at 17:02 ; Status DC Acetaminophen (Tylenol) 650 mg Q4H PRN PO FEVER Last administered on 10/05/16 16:28; Start 10/04/16 at 16:15 Ferrous Sulfate (Ferrous Sulfate) 325 mg DAILY PO Last administered on 09:04; Start 10/05/16 at 09:00 Levothyroxine Sodium (Synthroid) 25 mcg DAILY@06 PO Last administered on 04:24; Start 10/05/16 at 06:00 Non-Formulary Medication 1 puff BID INH AST; Start 10/04/16 at 21:00; Status UNV Non-Formulary Medication 150 mg BID PO Reduce Stomach Acid; Start 10/04/16 at 21 :00; Status UNV Famotidine (Pepcid) 20 mg BID PO Last administered on 10/08/16 20:50; Start at 21:00; Stop 10/09/16 at 08:19; Status DC Budesonide/ Formoterol Fumarate (Symbicort 80-4.5 Mcg Inh) 2 puff BID INH Last administered on 10/20/16 09:03; Start 10/04/16 at 21:00 Albuterol/ Ipratropium 1 ampule 1 ampule Q4HR NEB PRN NEB SHORTNESS OF BREATH Last administered on 10/08/16 15:26; Start 10/04/16 at 17:00; Stop 10/08/16 at 17:00; Status DC Cefepime HCl/ Sodium Chloride (Maxipime Inj/NS Inj) 100 ml @ 200 mls/hr Q12H IV Last administered on 10/05/16 03:14; Start 10/05/16 at 04:00; Stop at 13:52; Status DC Acetaminophen/ Hydrocodone Bitart 1 tab 1 tab Q4H PRN PO PAIN > 5 Last administered on 10/05/16 09:31; Start 10/04/16 at 17:00; Stop 10/05/16 at 13:53 ; Status DC Pharmacy Profile Note 0 ml @ 0 mls/hr UNSCH OTHER ; Start 10/05/16 at 14:00; Status Hold Cefoxitin Sodium/ Sodium Chloride (Mefoxin Inj/NS Inj) 100 ml @ 200 mls/hr Q4HR IV Last administered on 10/20/16 09:03; Start 10/05/16 at 16:00 Ciprofloxacin (Cipro) 750 mg Q12HR PO Last administered on 10/07/16 08:15; Start 10/05/16 at 21:00; Stop 10/07/16 at 12:11; Status DC Acetaminophen/ Hydrocodone Bitart 1 tab 1 tab Q6HR PRN PO PAIN > 5 Last administered on 10/19/16 20:03; Start 10/05/16 at 18:00 Amikacin Sulfate/ Sodium Chloride (Amikin Inj/NS 250 ml Inj) 254 ml @ 250 mls/ hr ONCE ONCE IV Last administered on 10/05/16 16:02; Start 10/05/16 at 16:00 ; Stop 10/05/16 at 17:00; Status DC Ondansetron HCl (Zofran Inj) 4 mg Q8HR PRN IV PUSH NAUSEA; Start 10/06/16 at 08 :15 Lidocaine HCl (Xylocaine-Mpf 1% Inj) 30 ml STK-MED ONCE .ROUTE Last administered on 10/06/16 16:05; Start 10/06/16 at 16:05; Stop 10/06/16 at 16:06 ; Status DC Sodium Bicarbonate 50 meq 50 meq STK-MED ONCE .ROUTE Last administered on 16:05; Start 10/06/16 at 16:05; Stop 10/06/16 at 16:06; Status DC Amikacin Sulfate/ Sodium Chloride (Amikin Inj/NS 250 ml Inj) 254 ml @ 250 mls/ hr Q36H IV Last administered on 10/10/16 04:21; Start 10/07/16 at 04:00; Stop 10/12/16 at 15:34; Status DC Non-Formulary Medication 1 tab HS PRN PO PAIN/SLEEP; Start 10/07/16 at 10:45; Status UNV Levothyroxine Sodium (Synthroid) 25 mcg DAILY@0600 PO ; Start 10/08/16 at 06:00 ; Status UNV Albuterol Sulfate 2.5 mg 2.5 mg Q6HR NEB NEB ; Start 10/07/16 at 16:00; Stop at 16:00; Status UNV Potassium Chloride/Dextrose/ Sod Cl (D5-1/2 NS + KCl 20 Meq Inj) 1,000 ml @ 75 mls/hr [id number] IV ; Start 10/07/16 at 10:45; Status UNV Sodium Chloride (NS Flush) 2 ml UNSCH PRN IV FLUSH FLUSH AFTER USING IV ACCESS ; Start 10/07/16 at 10:45; Status UNV Sodium Chloride (NS Flush) 2 ml BID IV FLUSH ; Start 10/07/16 at 21:00; Status UNV Ketorolac Tromethamine (Toradol Inj) 15 mg Q6H IVP ; Start 10/07/16 at 10:45; Stop 10/08/16 at 04:46; Status UNV Oxycodone/ Acetaminophen (Percocet 5-325 Mg) 1 tab Q4H PRN PO PAIN SCALE 1 TO 5; Start 10/07/16 at 10:45; Status UNV Oxycodone/ Acetaminophen (Percocet 5-325 Mg) 2 tab Q4H PRN PO PAIN SCALE 6 TO 10; Start 10/07/16 at 10:45; Status UNV Ondansetron HCl (Zofran Inj) 4 mg Q6H PRN IVP NAUSEA OR VOMITING; Start at 10:45; Status UNV Lorazepam (Ativan) 0.5 mg Q8H PRN PO ANXIETY; Start 10/07/16 at 10:45; Status UNV Clarithromycin (Biaxin) 500 mg Q12HR PO Last administered on 10/20/16 09:04; Start 10/07/16 at 21:00 Hydromorphone HCl (Dilaudid Pf Inj) 0.2 mg Q4H PRN IV PUSH BREAKTHROUGH PAIN Last administered on 10/14/16 08:28; Start 10/07/16 at 12:30 Albuterol/ Ipratropium (Duoneb Neb) 1 ampule Q4HR NEB PRN NEB SHORTNESS OF BREATH Last administered on 10/16/16 20:51; Start 10/08/16 at 21:45 Famotidine (Pepcid) 10 mg BID PO Last administered on 10/20/16 09:04; Start at 09:00 Miscellaneous Information SPECIFIC LAB TO BE BY[facility]... ONCE ONCE .XX ; Start 10/13 at 03:45; Stop 10/13/16 at 03:46; Status Cancel Sodium Chloride 1,000 ml @ 50 mls/hr Q20H IV Last administered on 10/19/16 19 :56; Start 10/11/16 at 17:00 Amikacin Sulfate/ Sodium Chloride (Amikin Inj/NS 250 ml Inj) 254 ml @ 250 mls/ hr Q48H IV ; Start 10/12/16 at 18:00; Stop 10/14/16 at 11:57; Status DC Miscellaneous Information SPECIFIC LAB TO BE DRAWN:AMIKACIN TROUGH DATE TO... ONCE ONCE .XX ; Start 10/14/16 at 17:45; Stop 10/14/16 at 17:46; Status Cancel Amikacin Sulfate/ Sodium Chloride (Amikin Inj/NS 250 ml Inj) 254 ml @ 250 mls/ hr Q36H IV Last administered on 10/19/16 02:11; Start 10/14/16 at 14:00 Miscellaneous Information SPECIFIC LAB TO BE ... ONCE ONCE .XX Last administered on 10/19/16 02:05; Start 10/19/16 at 01:45; Stop 10/19/16 at 01:46 ; Status DC A/P Assessment and Plan A/P Abdominal pain with large ovarian mass- now pain has resolved. s/p needle aspiration of the mass -cultures negative-pathology suggestive of follicular cyst. 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 pulmonary has signed off. ID following; previously d/w on 10/19. will consider walk test before discharge. Acute kidney injury:likely due to Amikacin-renal function now fairly stable. will monitor I/O ,renal function and electrolytes closely - pharmacy consulted for dosing- continue gentle IV hydration. COPD with no exacerbation; resumed advair- neb treatment as needed. Lung nodule- f/u as outpatient- pulmonary following. Hypothyroidism: resumed levothyroxine -DVT prophylaxis with SCD's. Discharge Planning she has medicaid with share of cost. d/w the case management regarding dc planning today; she needs a close f/u and possible assistance with her po Abx. Flory Benavides MD Oct 20, 2016 09:12
[2016-10-20] MEDS: SODIUM CHLOR 0.9% 1000 ML INJ 1,000 ML IV SCH (13:22)
[2016-10-20] MEDS: AMIKACIN IV SCH (13:22)
[2016-10-20] MEDS: SODIUM CHLOR 0.9% IV SCH (13:22)
--- NOTE | 2016-10-20 14:11 | HHI.IDPN ---
Note Infectious Disease Note Patient feels better. Not coughing up sputum. Not SOB. No chest pain. Afebrile. Awaiting sensitivity on the mycobacterium abscessus from admission. Presented to the emergency department on 10/04 with respiratory symptoms. The patient complained of chest pain, abdominal pain and shortness of breath. PAST MEDICAL HISTORY 1. COPD. 2. Hypothyroidism. 3. Appendectomy. 4. Tonsillectomy. 5. Pneumonia on five occasions in the past. ALLERGIES NO KNOWN DRUG ALLERGIES. ANTIBIOTICS: Biaxin. Amikacin. Cefoxitin. SOCIAL HISTORY The patient is a former smoker. She quit smoking cigarettes one year ago after smoking for 30 years. No alcohol use. No illicit drugs. The patient moved to [place] from [place] in 2010. OBJECTIVE Vital Signs Date Time Temp Pulse Resp B/P Pulse Ox O2 Delivery O2 Flow Rate FiO2 10/20/16 12:00 97.7 67 18 90/64 98 10/20/16 10:10 71 95/53 10/20/16 08:00 96.5 77 15 88/51 96 10/20/16 04:00 97.1 69 17 94/69 96 10/20/16 00:00 96.2 64 17 99/62 97 10/19/16 20:00 96.6 84 18 95/56 95 10/19/16 16:00 96.5 78 16 104/53 95 10/19/16 10/19/16 10/20/16 15:00 23:00 07:00 Intake Total 805 ml 2400 ml 680 ml Balance 805 ml 2400 ml 680 ml Intake Oral 2400 ml 680 ml IV Total 805 ml # Voids 9 4 # Bowel Movements 1 Laboratory Tests Test 10/19/16 06:55 White Blood Count 7.8 TH/MM3 Red Blood Count 4.58 MIL/MM3 Hemoglobin 10.8 GM/DL Hematocrit 34.3 % Mean Corpuscular Volume 74.8 FL Mean Corpuscular Hemoglobin 23.6 PG Mean Corpuscular Hemoglobin 31.6 % Concent Red Cell Distribution Width 18.1 % Platelet Count 416 TH/MM3 Mean Platelet Volume 6.7 FL Neutrophils (%) (Auto) 47.4 % Lymphocytes (%) (Auto) 32.4 % Monocytes (%) (Auto) 5.9 % Eosinophils (%) (Auto) 13.1 % Basophils (%) (Auto) 1.2 % Neutrophils # (Auto) 3.7 TH/MM3 Lymphocytes # (Auto) 2.5 TH/MM3 Monocytes # (Auto) 0.5 TH/MM3 Eosinophils # (Auto) 1.0 TH/MM3 Basophils # (Auto) 0.1 TH/MM3 CBC Comment AUTO DIFF Differential Comment AUTO DIFF CONFIRMED Ovalocytes 1+ Laboratory Tests Test 10/19/16 06:55 Sodium Level 140 MEQ/L Potassium Level 4.2 MEQ/L Chloride Level 107 MEQ/L Carbon Dioxide Level 25.1 MEQ/L Anion Gap 8 MEQ/L Blood Urea Nitrogen 14 MG/DL Creatinine 1.20 MG/DL Estimat Glomerular Filtration 47 ML/MIN Rate Random Glucose 75 MG/DL Calcium Level 9.2 MG/DL Total Bilirubin 0.4 MG/DL Aspartate Amino Transf 20 U/L (AST/SGOT) Alanine Aminotransferase 29 U/L (ALT/SGPT) Alkaline Phosphatase 107 U/L Total Protein 6.8 GM/DL Albumin 3.0 GM/DL IMAGING: Needle Aspiration Ultrasound 10/06/16 0000 Signed Impressions: Service Date/Time: Thursday, October 06, 2016 14:50 - CONCLUSION: Uncomplicated ultrasound guided aspiration of an abdomen and pelvic cystic lesion measuring up to 23.6 cm. It is presumed to be ovarian in origin and contains septations along the right lateral and inferior aspect. The lesion was almost completely drained except for the septated portion inferiorly. Prateek Pate MD Abdomen/Pelvis CT 10/04/16 1257 Signed Impressions: Service Date/Time: Tuesday, October 04, 2016 13:26 - CONCLUSION: 1. Large cystic right ovarian mass measuring up to 26 cm. 2. Hiatal hernia. 3. Atherosclerosis. 4. Diverticulosis. 5. Right renal calculus. 6. Lung nodular infiltrate and right lower lobe nodule. Walt Sanz MD Chest X-Ray 10/04/16 1046 Signed Impressions: Service Date/Time: Tuesday, October 04, 2016 10:50 - CONCLUSION: Left basilar scarring versus linear atelectasis. Walt Sanz MD PHYSICAL EXAMINATION GENERAL: No acute distress. Awake and alert and oriented. HEENT: No icterus. Oropharynx: No visible lesions. Moist mucosa. NECK: Supple without adenopathy or swelling. LUNGS: Decreased breath sounds. HEART: Regular S1-S2 without audible murmurs. ABDOMEN: Bowel sounds present, soft, nontender. EXTREMITIES: No clubbing, cyanosis or edema. SKIN: No rash. NEUROLOGIC: Nonfocal. PSYCHIATRIC: Calm and cooperative. IMPRESSION 1. 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 Patient with nodular lung infiltrate at the right lower lobe. 2. Leukocytosis secondary to pneumonia. WBC improved. 3. Renal insufficiency. Stable. Doing well on antibiotic therapy. RECOMMENDATIONS Finish IV antibiotics on 10/21, then discharge on PO Biaxin 500mg BID and Doxycycline 100 mg BID PO. Follow up with DR Lundberg in clinic in 1 week. The sensitivities on the Mycobacterium abscesses recovered on the last hospitalization sent to [facility] in [place] for sensitivities should be available in a week. I have asked microbiology to fax results to Dr. Lundberg. PO antibiotic to be guided by sensitivities for another 12 months. D/W Dr. Benavides. Alan Yarbrough MD Oct 20, 2016 14:11
[2016-10-21] VITALS: BP 104/66; PULSE 67; RESP 18; TEMP 96.1; O2SAT 97
[2016-10-21 04:00] VITALS: BP 103/56; PULSE 67; RESP 17; TEMP 96.4; O2SAT 97
[2016-10-21] MEDS: ceFOXitin INJ 2 GM in SODIUM CHLORIDE 0.9% INJ 100 ML IV SCH ×4 (04:58→16:14)
[2016-10-21] MEDS: LEVOTHYROXINE SODIUM 25 MCG TAB PO SCH (04:58)
[2016-10-21] MEDS: FERROUS SULFATE 325 MG (65 MG ELEMENTAL IRON) TAB PO SCH (08:27)
[2016-10-21] MEDS: FAMOTIDINE 20 MG TAB PO SCH (08:27)
[2016-10-21] MEDS: CLARITHROMYCIN 500 MG TAB PO SCH (08:27)
[2016-10-21] MEDS: BUDESONIDE-FORMOTEROL 80/4.5 MCG INHALER INH SCH (08:28)
[2016-10-21 08:52] VITALS: BP 106/74; PULSE 80; RESP 16; TEMP 97.8; O2SAT 97
--- NOTE | 2016-10-21 10:01 | HHI.PR ---
Subjective Remarks resting comfortably with no distress. denies pain. no fever or sob. d/w the RN. Objective Vitals Vital Signs Date Time Temp Pulse Resp B/P Pulse Ox O2 Delivery O2 Flow Rate FiO2 10/21/16 08:52 97.8 80 16 106/74 97 10/21/16 04:00 96.4 67 17 103/56 97 10/21/16 00:00 96.1 67 18 104/66 97 10/20/16 20:00 96.0 69 18 94/55 97 10/20/16 16:00 96.3 76 18 95/69 98 10/20/16 12:00 97.7 67 18 90/64 98 10/20/16 10:10 71 95/53 I/O 10/20/16 10/20/16 10/20/16 10/21/16 10/21/16 10/21/16 07:00 15:00 23:00 07:00 15:00 23:00 Intake Total 680 ml 2676 ml 480 ml Balance 680 ml 2676 ml 480 ml Intake Oral 680 ml 1320 ml 480 ml IV Total 1356 ml # Voids 4 5 1 1 # Bowel Movements 0 Result Diagram: 10/19/16 0655 10/21/16 0606 Imaging Last Impressions Chest X-Ray 10/13/16 0000 Signed Impressions: Service Date/Time: Thursday, October 13, 2016 08:34 - CONCLUSION: . Minimal airspace disease persists in the left base, stable in the short interval. Jsos Salinas MD FACR Needle Aspiration Ultrasound 10/06/16 0000 Signed Impressions: Service Date/Time: Thursday, October 06, 2016 14:50 - CONCLUSION: Uncomplicated ultrasound guided aspiration of an abdomen and pelvic cystic lesion measuring up to 23.6 cm. It is presumed to be ovarian in origin and contains septations along the right lateral and inferior aspect. The lesion was almost completely drained except for the septated portion inferiorly. Prateek Pate MD Abdomen/Pelvis CT 10/04/16 1257 Signed Impressions: Service Date/Time: Tuesday, October 04, 2016 13:26 - CONCLUSION: 1. Large cystic right ovarian mass measuring up to 26 cm. 2. Hiatal hernia. 3. Atherosclerosis. 4. Diverticulosis. 5. Right renal calculus. 6. Lung nodular infiltrate and right lower lobe nodule. Walt Snaz MD Objective Remarks GENERAL: This is a well-nourished, well-developed patient, in no apparent distress. CARDIOVASCULAR: Regular rate and regular rhythm without murmurs, gallops, or rubs. RESPIRATORY: Clear to auscultation. Breath sounds equal bilaterally. No wheezes , rales, or rhonchi. GASTROINTESTINAL: Abdomen soft, generalized tenderness, distended. Normal, active bowel sounds MUSCULOSKELETAL: Extremities without clubbing, cyanosis, or edema. NEURO: Alert & Oriented x4 to person, place, time, situation. Moves all ext x4 Procedures needle aspiration of the ovarian mass Medications and IVs Current Medications Iohexol 70 ml 70 ml STK-MED ONCE IV Last administered on 10/04/16 14:12; Start 10/04/16 at 14:12; Stop 10/04/16 at 14:13; Status DC Cefepime HCl 1000 mg/Sodium Chloride 100 ml @ 200 mls/hr ONCE ONCE IV Last administered on 10/04/16 16:37; Start 10/04/16 at 15:45; Stop 10/04/16 at 16:14 ; Status DC Azithromycin 500 mg/Sodium Chloride 250 ml @ 250 mls/hr ONCE ONCE IV Last administered on 10/04/16 17:30; Start 10/04/16 at 15:45; Stop 10/04/16 at 16:44 ; Status DC Sodium Chloride (NS 1000 ml Inj) 1,000 ml @ 100 mls/hr Q10H IV Last administered on 10/10/16 00:24; Start 10/04/16 at 15:45; Stop 10/11/16 at 17:02 ; Status DC Acetaminophen (Tylenol) 650 mg Q4H PRN PO FEVER Last administered on 10/05/16 16:28; Start 10/04/16 at 16:15 Ferrous Sulfate (Ferrous Sulfate) 325 mg DAILY PO Last administered on 08:27; Start 10/05/16 at 09:00 Levothyroxine Sodium (Synthroid) 25 mcg DAILY@06 PO Last administered on 04:58; Start 10/05/16 at 06:00 Non-Formulary Medication 1 puff BID INH AST; Start 10/04/16 at 21:00; Status UNV Non-Formulary Medication 150 mg BID PO Reduce Stomach Acid; Start 10/04/16 at 21 :00; Status UNV Famotidine (Pepcid) 20 mg BID PO Last administered on 10/08/16 20:50; Start at 21:00; Stop 10/09/16 at 08:19; Status DC Budesonide/ Formoterol Fumarate (Symbicort 80-4.5 Mcg Inh) 2 puff BID INH Last administered on 10/21/16 08:28; Start 10/04/16 at 21:00 Albuterol/ Ipratropium 1 ampule 1 ampule Q4HR NEB PRN NEB SHORTNESS OF BREATH Last administered on 10/08/16 15:26; Start 10/04/16 at 17:00; Stop 10/08/16 at 17:00; Status DC Cefepime HCl/ Sodium Chloride (Maxipime Inj/NS Inj) 100 ml @ 200 mls/hr Q12H IV Last administered on 10/05/16 03:14; Start 10/05/16 at 04:00; Stop at 13:52; Status DC Acetaminophen/ Hydrocodone Bitart 1 tab 1 tab Q4H PRN PO PAIN > 5 Last administered on 10/05/16 09:31; Start 10/04/16 at 17:00; Stop 10/05/16 at 13:53 ; Status DC Pharmacy Profile Note 0 ml @ 0 mls/hr UNSCH OTHER ; Start 10/05/16 at 14:00; Status Hold Cefoxitin Sodium/ Sodium Chloride (Mefoxin Inj/NS Inj) 100 ml @ 200 mls/hr Q4HR IV Last administered on 10/21/16 08:27; Start 10/05/16 at 16:00 Ciprofloxacin (Cipro) 750 mg Q12HR PO Last administered on 10/07/16 08:15; Start 10/05/16 at 21:00; Stop 10/07/16 at 12:11; Status DC Acetaminophen/ Hydrocodone Bitart 1 tab 1 tab Q6HR PRN PO PAIN > 5 Last administered on 10/19/16 20:03; Start 10/05/16 at 18:00 Amikacin Sulfate/ Sodium Chloride (Amikin Inj/NS 250 ml Inj) 254 ml @ 250 mls/ hr ONCE ONCE IV Last administered on 10/05/16 16:02; Start 10/05/16 at 16:00 ; Stop 10/05/16 at 17:00; Status DC Ondansetron HCl (Zofran Inj) 4 mg Q8HR PRN IV PUSH NAUSEA; Start 10/06/16 at 08 :15 Lidocaine HCl (Xylocaine-Mpf 1% Inj) 30 ml STK-MED ONCE .ROUTE Last administered on 10/06/16 16:05; Start 10/06/16 at 16:05; Stop 10/06/16 at 16:06 ; Status DC Sodium Bicarbonate 50 meq 50 meq STK-MED ONCE .ROUTE Last administered on 16:05; Start 10/06/16 at 16:05; Stop 10/06/16 at 16:06; Status DC Amikacin Sulfate/ Sodium Chloride (Amikin Inj/NS 250 ml Inj) 254 ml @ 250 mls/ hr Q36H IV Last administered on 10/10/16 04:21; Start 10/07/16 at 04:00; Stop 10/12/16 at 15:34; Status DC Non-Formulary Medication 1 tab HS PRN PO PAIN/SLEEP; Start 10/07/16 at 10:45; Status UNV Levothyroxine Sodium (Synthroid) 25 mcg DAILY@0600 PO ; Start 10/08/16 at 06:00 ; Status UNV Albuterol Sulfate 2.5 mg 2.5 mg Q6HR NEB NEB ; Start 10/07/16 at 16:00; Stop at 16:00; Status UNV Potassium Chloride/Dextrose/ Sod Cl (D5-1/2 NS + KCl 20 Meq Inj) 1,000 ml @ 75 mls/hr [id number] IV ; Start 10/07/16 at 10:45; Status UNV Sodium Chloride (NS Flush) 2 ml UNSCH PRN IV FLUSH FLUSH AFTER USING IV ACCESS ; Start 10/07/16 at 10:45; Status UNV Sodium Chloride (NS Flush) 2 ml BID IV FLUSH ; Start 10/07/16 at 21:00; Status UNV Ketorolac Tromethamine (Toradol Inj) 15 mg Q6H IVP ; Start 10/07/16 at 10:45; Stop 10/08/16 at 04:46; Status UNV Oxycodone/ Acetaminophen (Percocet 5-325 Mg) 1 tab Q4H PRN PO PAIN SCALE 1 TO 5; Start 10/07/16 at 10:45; Status UNV Oxycodone/ Acetaminophen (Percocet 5-325 Mg) 2 tab Q4H PRN PO PAIN SCALE 6 TO 10; Start 10/07/16 at 10:45; Status UNV Ondansetron HCl (Zofran Inj) 4 mg Q6H PRN IVP NAUSEA OR VOMITING; Start at 10:45; Status UNV Lorazepam (Ativan) 0.5 mg Q8H PRN PO ANXIETY; Start 10/07/16 at 10:45; Status UNV Clarithromycin (Biaxin) 500 mg Q12HR PO Last administered on 10/21/16 08:27; Start 10/07/16 at 21:00 Hydromorphone HCl (Dilaudid Pf Inj) 0.2 mg Q4H PRN IV PUSH BREAKTHROUGH PAIN Last administered on 10/14/16 08:28; Start 10/07/16 at 12:30 Albuterol/ Ipratropium (Duoneb Neb) 1 ampule Q4HR NEB PRN NEB SHORTNESS OF BREATH Last administered on 10/16/16 20:51; Start 10/08/16 at 21:45 Famotidine (Pepcid) 10 mg BID PO Last administered on 10/21/16 08:27; Start at 09:00 Miscellaneous Information SPECIFIC LAB TO BE BYRON... ONCE ONCE .XX ; Start 10/13 at 03:45; Stop 10/13/16 at 03:46; Status Cancel Sodium Chloride 1,000 ml @ 50 mls/hr Q20H IV Last administered on 10/20/16 13 :22; Start 10/11/16 at 17:00 Amikacin Sulfate/ Sodium Chloride (Amikin Inj/NS 250 ml Inj) 254 ml @ 250 mls/ hr Q48H IV ; Start 10/12/16 at 18:00; Stop 10/14/16 at 11:57; Status DC Miscellaneous Information SPECIFIC LAB TO BE DRAWN:AMIKACIN TROUGH DATE TO... ONCE ONCE .XX ; Start 10/14/16 at 17:45; Stop 10/14/16 at 17:46; Status Cancel Amikacin Sulfate/ Sodium Chloride (Amikin Inj/NS 250 ml Inj) 254 ml @ 250 mls/ hr Q36H IV Last administered on 10/20/16 13:22; Start 10/14/16 at 14:00 Miscellaneous Information SPECIFIC LAB TO BE ... ONCE ONCE .XX Last administered on 10/19/16 02:05; Start 10/19/16 at 01:45; Stop 10/19/16 at 01:46 ; Status DC A/P Assessment and Plan A/P Abdominal pain with large ovarian mass- now pain has resolved. s/p needle aspiration of the mass -cultures negative-pathology suggestive of follicular cyst. 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 sputum culture with normal respiratory yeimy- mycobacterial culture negative so far. pulmonary has signed off. Acute kidney injury:likely due to Amikacin-renal function now fairly stable. will monitor I/O ,renal function and electrolytes closely - pharmacy consulted for dosing- continue gentle IV hydration. BUN/ Cr in am. COPD with no exacerbation; resumed advair- neb treatment as needed. Lung nodule- f/u as outpatient- pulmonary following. Hypothyroidism: resumed levothyroxine -DVT prophylaxis with SCD's. Discharge Planning dc home today when the case management has set up the outpatient f/u's. f/u; pcp, pulmonary and LUMP RECEIVER. see med list. d/w the patient, RN and case management. previously d/w . time spent 40 min. Flory Benavides MD Oct 21, 2016 10:01
[2016-10-21] MEDS ORDERED: DOXY100C PO (10:03)
[2016-10-21] MEDS ORDERED: ALBUAER3 INH (10:03)
[2016-10-21] MEDS ORDERED: BIAX500T PO (10:03)
--- NOTE | 2016-10-21 10:03 | HHI.DCPOC ---
Discharge Care Plan Diagnosis: (1) Pneumonia (2) Ovarian mass Your Health Problems Are: Chronic Pain Cough Shortness of Breath Goals to Promote Your Health * To prevent worsening of your condition and complications * To maintain your health at the optimal level Directions to Meet Your Goals Take your medications as prescribed Follow your dietary instruction Follow activity as directed Keep your appointments as scheduled Take your immunizations and boosters as scheduled If your symptoms worsen call your PCP, if no PCP go to Urgent Care Center or Emergency Room Smoking is Dangerous to Your Health. Avoid second hand smoke Call the 24-hour hour crisis hotline for domestic abuse at Flory Benavides MD Oct 21, 2016 10:03
--- NOTE | 2016-10-21 11:12 | HHI.DS ---
Discharge Summary Admission Date Oct 04, 2016 at 16:17 Discharge Date: Oct 21, 2016 Admitting Diagnosis pneumonia. Ovarian cyst. (1) Pneumonia ICD Code: J18.9 Diagnosis: Principal (2) Ovarian mass ICD Code: N83.9 Diagnosis: Principal Procedures needle aspiration of the ovarian mass Brief History - From Admission patient is a 55 y/o female with history of COPD , who was treated for pneumonia last month, presented to ER with abdominal pain. she says that she's had this pain for a while but it started to get worse last week. the pain is in lower abdomen and constant. pain is moderate to severe in intensity with no radiation. she's had some nausea but no emesis. she says that she noticed that her abdomen is getting more distended and now this is causing some problem with her sob. she denies any fever or chills. CBC/BMP: 10/19/16 0655 10/21/16 0606 Significant Findings Laboratory Tests Test 10/19/16 10/21/16 06:55 06:06 Hemoglobin 10.8 GM/DL (11.6-15.3) Hematocrit 34.3 % (35.0-46.0) Mean Corpuscular Volume 74.8 FL (80.0-100.0) Mean Corpuscular Hemoglobin 23.6 PG (27.0-34.0) Mean Corpuscular Hemoglobin 31.6 % Concent (32.0-36.0) Red Cell Distribution Width 18.1 % (11.6-17.2) Mean Platelet Volume 6.7 FL (7.0-11.0) Eosinophils (%) (Auto) 13.1 % (0.0-4.0) Eosinophils # (Auto) 1.0 TH/MM3 (0-0.4) Ovalocytes 1+ (NORMAL) Creatinine 1.20 MG/DL 1.52 MG/DL (0.50-1.00) (0.50-1.00) Estimat Glomerular Filtration 47 ML/MIN (>89) 36 ML/MIN (>89) Rate Albumin 3.0 GM/DL (3.4-5.0) Imaging Last Impressions Chest X-Ray 10/13/16 0000 Signed Impressions: Service Date/Time: Thursday, October 13, 2016 08:34 - CONCLUSION: . Minimal airspace disease persists in the left base, stable in the short interval. Joss Salinas MD FACR Needle Aspiration Ultrasound 10/06/16 0000 Signed Impressions: Service Date/Time: Thursday, October 06, 2016 14:50 - CONCLUSION: Uncomplicated ultrasound guided aspiration of an abdomen and pelvic cystic lesion measuring up to 23.6 cm. It is presumed to be ovarian in origin and contains septations along the right lateral and inferior aspect. The lesion was almost completely drained except for the septated portion inferiorly. Prateek Pate MD Abdomen/Pelvis CT 10/04/16 1257 Signed Impressions: Service Date/Time: Tuesday, October 04, 2016 13:26 - CONCLUSION: 1. Large cystic right ovarian mass measuring up to 26 cm. 2. Hiatal hernia. 3. Atherosclerosis. 4. Diverticulosis. 5. Right renal calculus. 6. Lung nodular infiltrate and right lower lobe nodule. Walt Sanz MD PE at Discharge GENERAL: This is a pleasant 55 yo F, well-nourished, well-developed patient, in no apparent distress. CARDIOVASCULAR: Regular rate and regular rhythm without murmurs, gallops, or rubs. RESPIRATORY: Clear to auscultation. Breath sounds equal bilaterally. No wheezes , rales, or rhonchi. GASTROINTESTINAL: Abdomen soft, generalized tenderness, distended. Normal, active bowel sounds MUSCULOSKELETAL: Extremities without clubbing, cyanosis, or edema. NEURO: Alert & Oriented x4 to person, place, time, situation. Moves all ext x4 Hospital Course Abdominal pain with large ovarian mass- now pain has resolved. s/p needle aspiration of the mass -cultures negative-pathology suggestive of follicular cyst. 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 sputum culture with normal respiratory yeimy- mycobacterial culture negative so far. pulmonary has signed off. Acute kidney injury:likely due to Amikacin-renal function now fairly stable. will monitor I/O ,renal function and electrolytes closely - pharmacy consulted for dosing- continue gentle IV hydration. BUN/ Cr in am. COPD with no exacerbation; resumed advair- neb treatment as needed. Lung nodule- f/u as outpatient- pulmonary following. Hypothyroidism: resumed levothyroxine -DVT prophylaxis with SCD's. Pt Condition on Discharge: Good Discharge Disposition: Discharge Home Discharge Time: > 30 minutes Discharge Instructions DIET: Follow Instructions for: Heart Healthy Diet Activities you can perform: Regular-No Restrictions Follow up Referrals: Appointment for Follow Up POACHER OPERATOR Oncology - 2 Weeks with sara PCP Follow-up Pulmonology New Medications: Albuterol 8.5 GM Inh (Proair Hfa 8.5 GM Inh) 90 Mcg/Act Aer 2 PUFF INH Q6H 108 mcg/actuation PRN SHORTNESS OF BREATH #1 Ref 0 INHALER Clarithromycin (Biaxin) 500 Mg Tab 500 MG PO BID Infection Days 10 Ref 0 TAB Doxycycline Hyclate (Doxycycline Hyclate) 100 Mg Cap 100 MG PO BID Infection Days 10 Ref 0 CAP Continued Medications: Calcium Carbonate (Antacid) (Antacid Extra Strength) 750 Mg Chew 750 MG CHEW PRN REFLUX TAB Ferrous Sulfate (Ferrous Sulfate) 325 Mg Tab 325 MG PO DAILY Nutritional Supplement #30 Ref 0 TAB Fluticasone-Salmeterol Inh (Advair Diskus Inh) 100-50 Mcg/Blist Aer 1 PUFF INH BID Rinse mouth after use. Asthma Management #1 Ref 0 INHALER Ibuprofen-Diphenhydramine (Ibuprofen Pm) 200-38 Mg Tab 1 TAB PO HS PRN PAIN/SLEEP Ref 0 TAB Levothyroxine (Levothyroxine) 25 Mcg Tab 25 MCG PO DAILY Thyroid #30 Ref 0 TAB Ranitidine (Zantac) 150 Mg Tab 150 MG PO BID Reduce Stomach Acid #60 Ref 3 TAB Flory Benavides MD Oct 21, 2016 11:12
[2016-10-21 12:45] VITALS: BP 107/73; PULSE 73; RESP 16; TEMP 97.7; O2SAT 99
[2016-10-21 16:00] VITALS: BP 94/63; PULSE 79; RESP 16; TEMP 96.7; O2SAT 98
[2016-10-22] MEDS ORDERED: SODIUM CHLOR 0.9% IV SCH (14:00)
[2016-10-22] MEDS ORDERED: AMIKACIN IV SCH (14:00)
[2016-10-28] MEDS ORDERED: BIAX500T PO (12:08)
[2016-10-28] MEDS ORDERED: DOXY100C PO (12:08)
[2016-11-29] MEDS ORDERED: DOXY100C PO (13:00)
[2016-12-06] MEDS ORDERED: FERR325C (10:50)
[2016-12-06] MEDS ORDERED: CYCL5TAB PO (11:29)
[2016-12-06] MEDS ORDERED: DOXY100C PO (11:33)
== END 2016-10-21 17:35 | disposition home or self-care (01) | DRG 853 ==
LOC: NEPC 10:13 → NEDA 16:17 → HOCB 20:06
PROVIDERS: ADMIT Internal Medicine; ATTEND Internal Medicine
PROC: 0U9 Female Reproductive System, Drainage (ICD-10-PCS; principal; 2016-10-06)
DX: A41.9 Sepsis, unspecified organism (principal); J18.9 Pneumonia, unspecified organism; N17.9 Acute kidney failure, unspecified; A31.8 Other mycobacterial infections; N28.1 Cyst of kidney, acquired; N83.01 Follicular cyst of right ovary; E03.9 Hypothyroidism, unspecified; K44.9 Diaphragmatic hernia without obstruction or gangrene; Z87.891 Personal history of nicotine dependence; R91.8 Other nonspecific abnormal finding of lung field; Z87.01 Personal history of pneumonia (recurrent); K57.90 Diverticulosis of intestine, part unspecified, without perforation or abscess without bleeding; K21.9 Gastro-esophageal reflux disease without esophagitis; T36.5X5A Adverse effect of aminoglycosides, initial encounter; Y92.239 Unspecified place in hospital as the place of occurrence of the external cause
CPT/HCPCS: 10160; 36600; 71010; 71020; 74177; 76937; 76942; 80048; 80053; 80150; 81001; 82105; 82378; 82550; 82565; 82805; 83615; 83690; 83880; 84484; 84520; 84702; 85007; 85025; 85027; 85610; 85730; 86304; 87015; 87040; 87070; 87116; 87205; 87206; 93005; 94150; 94640; 94664; J0278; J0456; J0692; J0694; J1170; J7030; J7050; Q9967

== ENCOUNTER 2016-11-07 21:01 | Emergency (ER) | payer MEDICAID, OTHER ==
[~2016-11-07] VITALS: Ht 167.6 cm; Wt 75.0 kg
[~2016-11-07 21:01] MED LIST changes: +ALBUAER3 INH; +BIAX500T PO; +DOXY100C PO
[2016-11-07 21:04] VITALS: BP 118/77; PULSE 79; RESP 16; TEMP 98.6; O2SAT 97
[2016-11-07] MEDS ORDERED: ACETAMINOPHEN/HYDROcodone 325 MG/5 MG TAB PO ONE (21:30)
[2016-11-07] MEDS ORDERED: HYDR-3533 PO (21:31)
--- NOTE | 2016-11-07 21:33 | PD ---
HPI Chief Complaint: Injury Time Seen by Provider: 21:31 Travel History International Travel<30 days: No Contact w/Intl Traveler<30days: No Traveled to known affect area: No History of Present Illness HPI 55-year-old oniao-tovs-gqxhtwut white female presents emergency Department with complaints of left elbow pain after a trip and fall this afternoon at 11:30 AM. She states that she stumbled falling onto the concrete with her left elbow. She states the pain is moderate to severe. Worse with movement of the arm. Radiation of pain into her forearm. She states that it initially was only mild to moderate pain but now is become more severe. No neck or back pain. No numbness, tingling or weakness. PFSH Past Medical History Narrative Medical COPD, hypothyroidism, pneumonia Asthma: No Blood Disorders: No Heart Rhythm Problems: No Cancer: No Cardiovascular Problems: No High Cholesterol: No Chemotherapy: No Chest Pain: No Congestive Heart Failure: No COPD: Yes Diabetes: No Endocrine: Yes Genitourinary: No Hiatal Hernia: Yes Immune Disorder: No Musculoskeletal: No Neurologic: No Psychiatric: No Reproductive: No Respiratory: Yes Radiation Therapy: No Sleep Apnea: No Thyroid Disease: Yes (Hypothyroid) Menopausal: Yes : 2 Para: 2 Miscarriage: 0 : 0 Tubal Ligation: Yes Past Surgical History Abdominal Surgery: Yes (Appendix) Appendectomy: Yes Gynecologic Surgery: Yes (Tubal Ligation) Oral Surgery: Yes (Tonsills) Tonsillectomy: Yes Other Surgery: Yes (TONSILLS, APPENDIX, TUBAL LIGATION) Social History Alcohol Use: No Tobacco Use: No Substance Use: Yes (Pt states "I've tried everything at least once, or twice.") Allergies-Medications (Allergen,Severity, Reaction): Coded Allergies: No Known Allergies (Unverified , 10/28/16) Reported Meds & Prescriptions Reported Meds & Active Scripts Active Lortab (Hydrocodone-Acetaminophen) 5-325 Mg Tab 1 Tab PO Q6H PRN Doxycycline Hyclate 100 Mg Cap 100 Mg PO BID Biaxin (Clarithromycin) 500 Mg Tab 500 Mg PO BID Proair Hfa 8.5 GM Inh (Albuterol Sulfate) 90 Mcg/Act Aer 2 Puff INH Q6H PRN 108 mcg/actuation Zantac (Ranitidine HCl) 150 Mg Tab 150 Mg PO BID Ferrous Sulfate 325 Mg Tab 325 Mg PO DAILY Reported Antacid Extra Strength (Calcium Carbonate (Antacid)) 750 Mg Chew 750 Mg CHEW PRN Ibuprofen Pm (Ibuprofen-Diphenhydramine) 200-38 Mg Tab 1 Tab PO HS PRN Levothyroxine (Levothyroxine Sodium) 25 Mcg Tab 25 Mcg PO DAILY Advair Diskus Inh (Fluticasone-Salmeterol Inh) 100-50 Mcg/Blist Aer 1 Puff INH BID Rinse mouth after use. Review of Systems Except as stated in HPI: all other systems reviewed are Neg Physical Exam Narrative GENERAL: Well-developed, well-nourished in no apparent distress. Nontoxic appearing. HEAD: Normocephalic, atraumatic. EYES: Pupils equal round and reactive. Extraocular motions intact. No scleral icterus. No injection or drainage. ENT: Nose clear. Throat without erythema, tonsillar hypertrophy or exudate. Uvula midline. Airway patent. NECK: Trachea midline. Supple, nontender, moves head freely. No central bony tenderness or spasm. CARDIOVASCULAR: Regular rate and rhythm without murmurs, gallops, or rubs. RESPIRATORY: Clear to auscultation. Breath sounds equal bilaterally. No wheezes , rales, or rhonchi. GASTROINTESTINAL: Abdomen soft, non-tender, nondistended. No hepato-splenomegaly , or palpable masses. No guarding. EXTREMITIES: No clubbing, cyanosis, or edema. Examination of the left upper extremity reveals pain diffusely in the elbow with decreased range of motion. No pain in the clavicle, glenohumeral joint, wrist or hand. She has intact median/ulnar/radial nerves. The right upper extremity as well as lower extremities are unremarkable for acute trauma. BACK: Nontender without deformity. No flank tenderness. NEUROLOGICAL: Awake, alert and oriented x 3 .Cranial nerves grossly intact. Motor and sensory grossly within normal limits. Normal speech. Data Data Last Documented VS Vital Signs Date Time Temp Pulse Resp B/P Pulse Ox O2 Delivery O2 Flow Rate FiO2 11/07/16 21:04 98.6 79 16 118/77 97 Room Air Orders Elbow, Complete (4 Vws) (11/07/16 21:29) Ice/Cold Pack (11/07/16 21:29) Splint Or Brace Apply/Monitor (11/07/16 21:29) Acetamin-Hydrocod 325-5 Mg ([place] 5-325 (11/07/16 21:30) Sling Cradle Arm (11/07/16 ) MDM Medical Decision Making Medical Screen Exam Complete: Yes Emergency Medical Condition: Yes Medical Record Reviewed: Yes Interpretation(s) Left elbow: Patient has a small fat pad. No obvious fracture identified. This is an occult fracture left elbow Differential Diagnosis MDM: High Differential diagnoses: Fracture, sprain, strain, dislocation, contusion, neurovascular injury Narrative Course Patient is given ice pack, Lortab 5 milligrams by mouth, sling. Diagnosis Primary Impression: Occult fracture of left elbow Qualified Code: S42.492A - Occult fracture of left elbow, closed, initial encounter Patient Instructions: General Instructions Additional Instructions: Rest. Elevation. Ice for the next few days. 3 Advil every 6 hours. Benadryl for additional sleep. Lortab for severe pain. Follow-up with your doctor in the next few days. Call the office in the morning. Med/Other Pt SpecificInfo: Prescription(s) given Scripts Hydrocodone-Acetaminophen (Lortab)5-325 Mg Tab1 Tab PO Q6H PRN (PAIN) #20 TAB Prov:June Sandoval MD 11/07/16 Disposition: 01 DISCHARGE HOME Condition: Stable Andrew Prasad November 07, 2016 21:33
--- NOTE | 2016-11-07 22:18 | RADRPT ---
EXAM DATE/TIME: 11/07/2016 21:49 [facility] COMPARISON: No previous studies available for comparison. INDICATIONS : Left elbow pain from a fall.. MEDICAL HISTORY : None. SURGICAL HISTORY : None. ENCOUNTER: Initial ACUITY: 1 day PAIN SCORE: 10/10 LOCATION: Left Elbow FINDINGS: Multiple view examination of the left elbow demonstrates no soft tissue swelling, joint effusion, or fracture. The osseous structures are in normal alignment. Bony mineralization is normal. Minimal b ursal calcifications are evident. CONCLUSION: Negative for fracture or dislocation. Follow up in 7-10 days is suggested if symptoms persist. Joss Salinas MD FACR on November 07, 2016 at 22:15 Board Certified Radiologist. This report was verified electronically.
[2016-11-29] MEDS ORDERED: DOXY100C PO (13:00)
[2016-12-06] MEDS ORDERED: FERR325C (10:50)
[2016-12-06] MEDS ORDERED: CYCL5TAB PO (11:29)
[2016-12-06] MEDS ORDERED: DOXY100C PO (11:33)
== END 2016-11-07 22:35 | disposition home or self-care (01) ==
LOC: NEPK 21:01
DX: S42.402A Unspecified fracture of lower end of left humerus, initial encounter for closed fracture (principal); W01.198A Fall on same level from slipping, tripping and stumbling with subsequent striking against other object, initial encounter; Y93.9 Activity, unspecified; Y92.9 Unspecified place or not applicable; Y99.9 Unspecified external cause status
CPT/HCPCS: 73080; 99283

== ENCOUNTER → 2017-01-12 | Day surgery (SDC) | payer MEDICARE, MEDICAID ==
--- NOTE | 2017-01-06 10:56 | MH ---
cc: LUKAS MUNSON MD, JOHN DATE OF ADMISSION: 01/06/2017 CHIEF COMPLAINT Persistent left lower lobe pneumonia. HISTORY OF PRESENT ILLNESS This is a 55-year-old white female who was recently admitted to [facility] with a history of COPD and a left lower lobe lung infiltrate, was on antibiotic therapy for over 10 days. The patient initially was admitted with complaints of abdominal pain when she presented to the emergency room, mostly in the lower abdomen and of moderate intensity with associated nausea. She had a GI workup and CT of the abdomen done and CT also demonstrated evidence of a left lower lobe infiltrate. A pulmonary angiogram was done which showed no pulmonary embolus but multifocal pneumonia of the left lung presumably inflammatory, but there was a mass-like area in the left infrahilar region and bronchoscopy was suggested. The patient was given antibiotics and was discharged for outpatient followup. She is now presenting herself for followup and evaluation of the left lung infiltrate. The patient's previous chest x-rays have shown persistent infiltrate in the left lung base. She has no hemoptysis. No fevers or chills. She has not lost any weight. She is scheduled to go for a hysterectomy. PAST HISTORY This past history has included - 1. A tonsillectomy in 1966. 2. Appendectomy in 1972. 3. Tubal ligation and 1983. 4. She has had ovarian cysts operated. PAST MEDICAL HISTORY Denies history of diabetes or hypertension but has hypothyroidism. HABITS The patient was a smoker, one pack per day for 40 years and quit in 2014. No alcohol use. FAMILY HISTORY Father of old age as well as mother. Mother had heart disease and her aunt had cancer. ALLERGIES None listed. SYSTEMS REVIEW The patient denies weight loss, fatigue, fever. She has no double vision or cataracts. She has no vertigo or hoarseness. She does have some urinary frequency and denies hay fever but has shortness breath and some wheezing, persistent cough. She has abdominal pains and heartburn. No diarrhea. She has occasional chest pains and palpitations and she has anxiety attacks. She has no bruising but has joint pains and muscle stiffness. No seizures or headaches or memory loss. No skin rash, no itching. MEDICATIONS Med list included Levoxyl 100 mcg daily. PHYSICAL EXAMINATION GENERAL: This is a moderately obese middle-aged white female who is alert, in no acute distress. VITAL SIGNS: Blood pressure is 110/70, pulse is 85, respirations 20, temperature 98. Weight is 160. Saturation 97. HEENT: Head normocephalic. Pupils are reactive. Tongue is moist. Throat is injected. Nasal mucosa edematous. NECK: Supple. No bruits or thyroid enlargement or lymphadenopathy. CHEST: Equal movements with decreased excursions. Wheezes are scattered bilaterally. Prolonged expirations. HEART: The heart sounds are irregular. S1 and S2. No murmur. No S3. ABDOMEN: Soft, protuberant. No mass, no organomegaly or tenderness. Bowel sounds are active. EXTREMITIES: No edema. Mild varicosities and no calf tenderness. NEUROLOGIC: Reflexes are 1+ with no gross motor deficits. Cranial nerves grossly intact. RECTAL: Exam is deferred. SKIN: No lesions noted. IMPRESSION 1. Persistent left lower lung pneumonia. 2. COPD with emphysema. 3. Hypothyroidism. 4. Degenerative arthritis. PLAN 1. The patient has been advised to use a nebulizer with DuoNeb solution three times a day. 2. Also advised to use Symbicort 160 x 4.5 two puffs b.i.d. 3. Doxycycline 100 mg b.i.d. for 10 days. 4. Bronchoscopy to be scheduled at [facility] and procedure and risks including bleeding, respiratory failure, pneumothorax, etc. were explained and she is in agreement. Thank you for this consultation. Prateek Thomas MD JCHARLIE/GUALBERTO /12:19 AM /10:54 AM
[~2017-01-12] VITALS: Ht 160 cm; Wt 76.8 kg
[~2017-01-12] MED LIST changes: +*ONDANSETRON 4 MG VIAL PERIprocedural Use ONLY ONE; +*RESP: ALBUTEROL 2.5 MG/3 ML NEB (PRN) PERIprocedural Use ONLY NEB ONE; +*morphine SULFATE 8 MG/ML PERIprocedure ONLY ONE; -ANTA750C CHEW; -BIAX500T PO; +CHLORHEXIDINE GLUCONATE 2 % 1 PACK (2 CLOTHS) TOPICAL PRN; +CYCL5TAB PO; +DO NOT ADM ANY ANTICOAGULANT DRUGS PRN; -FERR325T PO; +HYDR-3533 PO; +INSULIN HUMAN REGULAR 1,000 UNITS/10 ML VIAL SQ PRN; +IRON18TA PO; +LACTATED RINGER'S 1000 ML IV PRN; +METOPROLOL TARTRATE 25 MG TAB PO PRN; +POVIDONE IODINE 5% (ANTISEPSIS KIT) 4 APPLICATIONS EACH NARE PRN; +PROPOFOL 200 MG/20 ML AMP IV ONE; +RESP: ALBUTEROL 2.5 MG/3 ML NEB (PRN) NEB; +SODIUM CHLORID 0.9% 500 ML IV PRN; +SUGAMMADEX SODIUM 200 MG/2 ML VIAL IV PUSH ONE
[2017-01-12 10:10] VITALS: BP 110/70; PULSE 85; RESP 18; TEMP 97.6; O2SAT 98
[2017-01-12 10:36] LABS: AUTOMATED NEUTROPHIL # 2.9 TH/MM3 (1.8-7.7); BASOPHIL # 0.1 TH/MM3 (0-0.2); BASOPHIL % 1.1 % (0.0-2.0); EOSINOPHIL # 0.4 TH/MM3 (0-0.4); EOSINOPHIL % 6.7 % (0.0-4.0); HEMATOCRIT 39.1 % (35.0-46.0); HEMO FLAGS DIFF FINAL; MEAN CELL VOLUME 78.3 FL (80.0-100.0); MEAN CORPUSCULAR HEMOGLOBIN 25.2 PG (27.0-34.0); MEAN CORPUSCULAR HGB CONC 32.2 % (32.0-36.0); MONO % 7.3 % (0.0-8.0); NEUT % 49.9 % (16.0-70.0); PLATELET COUNT 258 TH/MM3 (150-450); WHITE BLOOD COUNT 5.7 TH/MM3 (4.0-11.0)
[2017-01-12 10:46] LABS: APTT (PATIENT) 26.7 SEC (24.3-30.1); PROTHROMBIN TIME - PATIENT 10.9 SEC (9.8-11.6)
[2017-01-12 11:06] LABS: BICARBONATE 24.2 MEQ/L (21.0-32.0); POTASSIUM 4.1 MEQ/L (3.5-5.1)
--- NOTE | 2017-01-12 13:29 | RADRPT ---
EXAM DATE/TIME: 01/12/2017 12:35 [facility] COMPARISON: Prior study 10/04/16, use for comparison. INDICATIONS : Bronchoscopy. MEDICAL HISTORY : None. SURGICAL HISTORY : None. ENCOUNTER: Initial ACUITY: 1 day PAIN SCORE: 5/10 LOCATION: Epigastric. FINDINGS: A single view of the chest demonstrate there is some atelectasis both lung bases. There is lucency b ehind the heart I suspect is a small hiatal hernia. There is no visible pneumothorax. Mild atelecta sis right lung base. CONCLUSION: Bibasilar atelectasis. Suspicious for hiatal hernia. No pneumothorax. Raphael Ibrahim MD on January 12, 2017 at 13:22 Board Certified Radiologist. This report was verified electronically.
--- NOTE | 2017-01-12 13:39 | MP ---
cc: LUKAS MUNSON MD, JOHN DATE OF SURGERY 01/12/2017 PROCEDURE PERFORMED Fiberoptic bronchoscopy with biopsy, brushings, washings. PREOPERATIVE DIAGNOSIS Persistent left lower lobe pneumonia. POSTOPERATIVE DIAGNOSIS Persistent left lower lobe pneumonia. ANESTHESIA General with intubation. SURGEON Dr. Ann Thomas PROCEDURE AND FINDINGS The patient was intubated under general anesthesia following which the Olympus IT180 bronchoscope was used to visualized the bronchi. The scope was advanced via the endotracheal tube into the trachea. Trachea and ryder appeared normal. Next, the scope was advanced into the right mainstem and right upper lobe segmental bronchi. These bronchi demonstrated no gross endobronchial lesions. Next, the right middle lobe segmental bronchi were visualized. These demonstrated no endobronchial lesions. Saline washings were done. Following this, the right lower lobe segmental bronchi were visualized. These bronchi demonstrated no endobronchial lesions. There were mucoid secretions and moderate endobronchitis. After this, the scope was advanced into the left mainstem and left upper lobe segmental bronchi. The left upper lobe segmental bronchi demonstrated no gross endobronchial lesions. Saline washings were done. Following this, the left lower lobe segmental bronchi were visualized which demonstrated mucosal edema and ridging of the mucosa with narrowing of the lumen, but no endobronchial mass was seen. Brushings were done for micro and cytology. Biopsies were done from the left lower lobe as well and mild bleeding was observed controlled with saline solution. Lavage was also done from the left lower lobe area and the procedure was then terminated. The patient tolerated the procedure well. MD ANDREA Uriarte/RAFFI /12:01 PM /1:34 PM
[2017-01-12 14:39] VITALS: BP 109/69; PULSE 81; RESP 18; TEMP 97.8; O2SAT 94
== END | disposition home or self-care (01) ==
LOC: HEND 09:05
DX: J44.9 Chronic obstructive pulmonary disease, unspecified (principal); J18.9 Pneumonia, unspecified organism; R10.9 Unspecified abdominal pain; R11.0 Nausea; E03.9 Hypothyroidism, unspecified; M19.90 Unspecified osteoarthritis, unspecified site; Z87.891 Personal history of nicotine dependence
CPT/HCPCS: 00520; 31625; 71010; 80048; 85025; 85610; 85730; 87015; 87070; 87071; 87102; 87116; 87205; 87206; 88112; 88305; 94664; J2270; J2405; J3010; J7613

== ENCOUNTER → 2017-02-10 | Outpatient (CLI) | payer MEDICARE, MEDICAID ==
[~2017-02-10] MED LIST changes: -*ONDANSETRON 4 MG VIAL PERIprocedural Use ONLY ONE; -*RESP: ALBUTEROL 2.5 MG/3 ML NEB (PRN) PERIprocedural Use ONLY NEB ONE; -*morphine SULFATE 8 MG/ML PERIprocedure ONLY ONE; -CHLORHEXIDINE GLUCONATE 2 % 1 PACK (2 CLOTHS) TOPICAL PRN; -CYCL5TAB PO; -DO NOT ADM ANY ANTICOAGULANT DRUGS PRN; -DOXY100C PO; -HYDR-3533 PO; -INSULIN HUMAN REGULAR 1,000 UNITS/10 ML VIAL SQ PRN; -LACTATED RINGER'S 1000 ML IV PRN; -METOPROLOL TARTRATE 25 MG TAB PO PRN; +OXYC1TAB63 PO; -POVIDONE IODINE 5% (ANTISEPSIS KIT) 4 APPLICATIONS EACH NARE PRN; -PROPOFOL 200 MG/20 ML AMP IV ONE; -RESP: ALBUTEROL 2.5 MG/3 ML NEB (PRN) NEB; -SODIUM CHLORID 0.9% 500 ML IV PRN; -SUGAMMADEX SODIUM 200 MG/2 ML VIAL IV PUSH ONE
[2017-02-10 11:17] LABS: AUTOMATED NEUTROPHIL # 3.9 TH/MM3 (1.8-7.7); BASOPHIL # 0.1 TH/MM3 (0-0.2); BASOPHIL % 0.8 % (0.0-2.0); EOSINOPHIL # 0.4 TH/MM3 (0-0.4); EOSINOPHIL % 5.8 % (0.0-4.0); HEMATOCRIT 39.4 % (35.0-46.0); HEMO FLAGS DIFF FINAL; LYMPH % 31.6 % (9.0-44.0); LYMPHOCYTE # 2.3 TH/MM3 (1.0-4.8); MEAN CELL VOLUME 80.4 FL (80.0-100.0); MEAN CORPUSCULAR HEMOGLOBIN 25.7 PG (27.0-34.0); MONO % 7.5 % (0.0-8.0); NEUT % 54.3 % (16.0-70.0); PLATELET COUNT 293 TH/MM3 (150-450); RED CELL DISTRIBUTION WIDTH 16.7 % (11.6-17.2); WHITE BLOOD COUNT 7.2 TH/MM3 (4.0-11.0)
[2017-02-10 11:23] LABS: APTT (PATIENT) 26.6 SEC (24.3-30.1); PROTHROMBIN TIME - PATIENT 10.7 SEC (9.8-11.6)
[2017-02-10 11:31] LABS: ALT (GPT) 21 U/L (10-53); ANION GAP 7 MEQ/L (5-15); AST (GOT) 16 U/L (15-37); BLOOD UREA NITROGEN 8 MG/DL (7-18); CHLORIDE 110 MEQ/L (98-107); GLOMERULAR FILTRATION RATE 54 ML/MIN (>89); GLUCOSE,FASTING 83 MG/DL (74-99); POTASSIUM 3.8 MEQ/L (3.5-5.1); SODIUM (NA) 142 MEQ/L (136-145)
[2017-02-10 11:33] LABS: ALKALINE PHOSPHATASE 73 U/L (45-117); TOTAL BILIRUBIN ADULT 0.6 MG/DL (0.2-1.0)
--- NOTE | 2017-02-10 12:08 | RADRPT ---
EXAM DATE/TIME: 02/10/2017 11:16 [facility] COMPARISON: CHEST SINGLE AP, January 12, 2017, 12:35. INDICATIONS : Evaluate for pneumonia, pneumothorax, or communicable disease. Pre-op hysterectomy. MEDICAL HISTORY : Chronic obstructive pulmonary disease. SURGICAL HISTORY : None. ENCOUNTER: Initial ACUITY: 1 day PAIN SCORE: 0/10 LOCATION: Bilateral chest FINDINGS: The heart is normal in size. The lungs demonstrate some mild chronic interstitial changes but are oth erwise clear. The osseous structures demonstrate old healed right clavicular fracture but are intact. CONCLUSION: 1. Chronic appearing interstitial changes. No acute abnormality identified. Uzair Salinas MD on February 10, 2017 at 12:04 Board Certified Radiologist. This report was verified electronically.
--- NOTE | 2017-02-10 13:03 | EKG ---
Date Performed: 02/10/2017 Time Performed: 10:48:12 PTAGE: 56 years EKG: Sinus rhythm WITH OCCASIONAL SUPRAVENTRICULAR PREMATURE COMPLEXES LOW QRS VOLTAGE IN PRECORDIAL LEADS BORDERLINE ECG NO PREVIOUS TRACING DOCTOR: Patrick Ordonez Interpretating Date/Time 02/10/2017 13:02:32
== END ==
LOC: CPRE 10:15
PROVIDERS: ATTEND Obstetrics & Gynecology Gynecologic Oncology
DX: Z01.812 Encounter for preprocedural laboratory examination (principal); Z01.811 Encounter for preprocedural respiratory examination; Z01.810 Encounter for preprocedural cardiovascular examination; R19.09 Other intra-abdominal and pelvic swelling, mass and lump; R94.31 Abnormal electrocardiogram [ECG] [EKG]
CPT/HCPCS: 36415; 71020; 80053; 85025; 85610; 85730; 93005

== ENCOUNTER 2017-02-21 08:04 | Observation (INO) | payer MEDICARE, MEDICAID ==
[~2017-02-21] VITALS: Ht 160 cm; Wt 78.1 kg
[~2017-02-21 08:04] MED LIST changes: -OXYC1TAB63 PO
[2017-02-21] MEDS ORDERED: INSULIN HUMAN REGULAR 1,000 UNITS/10 ML VIAL SQ PRN (08:30)
[2017-02-21] MEDS ORDERED: ceFAZolin 1,000 MG/NS 100 ML IV SCH ×2 (08:30)
[2017-02-21] MEDS ORDERED: POVIDONE IODINE 5% (ANTISEPSIS KIT) 4 APPLICATIONS EACH NARE PRN (08:30)
[2017-02-21] MEDS ORDERED: CHLORHEXIDINE GLUCONATE 2 % 1 PACK (2 CLOTHS) TOPICAL PRN (08:30)
[2017-02-21] MEDS ORDERED: SODIUM CHLORID 0.9% 500 ML IV PRN (08:30)
[2017-02-21] MEDS ORDERED: METOPROLOL TARTRATE 25 MG TAB PO PRN (08:30)
[2017-02-21] MEDS ORDERED: HEPARIN SODIUM - SQ 10,000 UNITS/ML VIAL SQ SCH (08:30)
[2017-02-21] MEDS ORDERED: LACTATED RINGER'S 1000 ML IV PRN (08:30)
[2017-02-21] MEDS ORDERED: MIDAZOLAM HCL 2 MG/2 ML VIAL ONE (11:10)
[2017-02-21] MEDS ORDERED: ACETAMINOPHEN 1000 MG/100 ML 100 ML IV ONE (11:10)
[2017-02-21] MEDS ORDERED: HYDROmorphone HCL PF 2 MG/ML VIAL ONE (11:11)
[2017-02-21] MEDS ORDERED: SUGAMMADEX SODIUM 200 MG/2 ML VIAL IV PUSH ONE ×2 (11:11)
[2017-02-21] MEDS ORDERED: DEXAMETHASONE SOD PHOS 4 MG/ML VIAL ONE (11:11)
[2017-02-21] MEDS ORDERED: FAMOTIDINE 20 MG/2 ML VIAL ONE (11:11)
[2017-02-21] MEDS ORDERED: PHENYLEPH/NS 1000 MCG/10 ML SYR IV ONE (12:00)
[2017-02-21] MEDS ORDERED: ONDANSETRON HCL 4 MG/2 ML VIAL IV PUSH ONE (12:00)
[2017-02-21] MEDS ORDERED: ePHEDrine/NS 25 MG/5 ML SYR IV ONE (12:00)
[2017-02-21] MEDS ORDERED: NORMOSOL R INJ 1,000 ML IV ONE (12:00)
[2017-02-21] MEDS ORDERED: LACTATED RINGER'S 1000 ML INJ 2,000 ML IV ONE (12:00)
[2017-02-21] MEDS ORDERED: PROPOFOL 200 MG/20 ML AMP IV ONE (12:00)
[2017-02-21] MEDS ORDERED: LIDOCAINE 1%/EPINEPHrine 1:100,000 SOLN 50 ML VIAL INFIL ONE (12:30)
[2017-02-21] MEDS ORDERED: ceFAZolin INJ 1,000 MG VIAL ONE (13:33)
[2017-02-21] MEDS ORDERED: HYDROmorphone HCL PF 1 MG/ML VIAL IVP PRN (16:00)
[2017-02-21] MEDS ORDERED: SODIUM CHLORIDE 0.9% FLUSH 10 ML FLUSH IV FLUSH PRN (16:00)
[2017-02-21] MEDS ORDERED: diphenhydrAMINE HCL 25 MG CAP PO PRN (16:00)
[2017-02-21] MEDS ORDERED: ONDANSETRON HCL 4 MG/2 ML VIAL IVP PRN (16:00)
[2017-02-21] MEDS: D5-1/2 NS + KCL 20 MEQ INJ 1,000 ML IV SCH ×2 (16:00→23:30)
[2017-02-21] MEDS ORDERED: oxyCODONE/ACETAMINOPHEN 5 MG/325 MG TAB PO PRN (16:00)
[2017-02-21] MEDS ORDERED: LORazepam 0.5 MG TAB PO PRN (16:00)
[2017-02-21] MEDS ORDERED: DO NOT ADM ANY ANTICOAGULANT DRUGS PRN (16:05)
[2017-02-21 17:56] VITALS: BP 99/72; PULSE 79; RESP 16; TEMP 98.6; O2SAT 98
[2017-02-21 20:00] VITALS: BP 107/69; PULSE 67; RESP 18; TEMP 96.9; O2SAT 100
[2017-02-21] MEDS ORDERED: NON-FORMULARY DRUG (Ranitidine (Zantac) 150 MG) PO SCH (21:00)
[2017-02-21] MEDS ORDERED: NON-FORMULARY DRUG (Fluticasone-Salmeterol Inh (Advair Diskus Inh) 1 PUFF) INH SCH (21:00)
[2017-02-21] MEDS: BUDESONIDE-FORMOTEROL 80/4.5 MCG INHALER INH SCH (21:00)
[2017-02-21] MEDS: SODIUM CHLORIDE 0.9% FLUSH 10 ML FLUSH IV FLUSH SCH (21:00)
[2017-02-21] MEDS: FAMOTIDINE 20 MG TAB PO SCH (23:29)
[2017-02-21] MEDS: oxyCODONE/ACETAMINOPHEN 5 MG/325 MG TAB PO PRN (23:30)
[2017-02-22] VITALS: BP 108/64; PULSE 87; RESP 18; TEMP 97; O2SAT 96
[2017-02-22 04:00] VITALS: BP 110/70; PULSE 85; RESP 17; TEMP 97.1; O2SAT 99
[2017-02-22] MEDS: RESP: ALBUTEROL CONC 2.5 MG/0.5 ML NEB NEB SCH ×3 (04:00→16:00)
[2017-02-22] MEDS ORDERED: LEVOTHYROXINE SODIUM 25 MCG TAB PO SCH (06:00)
[2017-02-22] MEDS: BUDESONIDE-FORMOTEROL 80/4.5 MCG INHALER INH SCH (06:57)
[2017-02-22] MEDS: oxyCODONE/ACETAMINOPHEN 5 MG/325 MG TAB PO PRN ×2 (07:06→15:21)
[2017-02-22] MEDS ORDERED: OXYC1TAB63 PO (07:06)
[2017-02-22 08:00] VITALS: BP 138/80; PULSE 79; RESP 16; TEMP 98.1; O2SAT 98
[2017-02-22 08:30] VITALS: O2SAT 94
[2017-02-22 08:47] LABS: AUTOMATED NEUTROPHIL # 9.1 TH/MM3 (1.8-7.7); BASOPHIL % 0.4 % (0.0-2.0); EOSINOPHIL % 0.1 % (0.0-4.0); HEMATOCRIT 36.6 % (35.0-46.0); HEMO FLAGS DIFF FINAL; LYMPH % 12.8 % (9.0-44.0); LYMPHOCYTE # 1.4 TH/MM3 (1.0-4.8); MEAN CELL VOLUME 78.8 FL (80.0-100.0); MEAN CORPUSCULAR HEMOGLOBIN 25.4 PG (27.0-34.0); MEAN CORPUSCULAR HGB CONC 32.2 % (32.0-36.0); MONO % 4.4 % (0.0-8.0); NEUT % 82.3 % (16.0-70.0); PLATELET COUNT 256 TH/MM3 (150-450); RED BLOOD COUNT 4.65 MIL/MM3 (4.00-5.30); RED CELL DISTRIBUTION WIDTH 15.8 % (11.6-17.2)
[2017-02-22] MEDS: FAMOTIDINE 20 MG TAB PO SCH (09:02)
[2017-02-22] MEDS: SODIUM CHLORIDE 0.9% FLUSH 10 ML FLUSH IV FLUSH SCH (09:03)
[2017-02-22 09:08] LABS: BICARBONATE 25.1 MEQ/L (21.0-32.0); POTASSIUM 4.3 MEQ/L (3.5-5.1)
[2017-02-22] MEDS: D5-1/2 NS + KCL 20 MEQ INJ 1,000 ML IV SCH (11:48)
[2017-02-22 12:00] VITALS: BP 119/65; PULSE 84; RESP 18; TEMP 98.2; O2SAT 97
--- NOTE | 2017-02-23 10:06 | MP ---
cc: RAYNA PRITCHETT KELLY L. MD MCNISH, KARLA A. MD DATE OF SURGERY: 02/21/2017 PREOPERATIVE DIAGNOSIS Large pelvic mass. POSTOPERATIVE DIAGNOSIS 1. Right ovarian mucinous cystadenoma. 2. Pelvic adhesions. PROCEDURE Robotic-assisted laparoscopic hysterectomy, bilateral salpingo-oophorectomy (with resection of 25 cm right ovarian cystic mass) right ureterolysis with lysis of adhesions. SURGEON Aspen Loredo MD CABLE COVERER [place] casting assistant. ANESTHESIA General endotracheal anesthesia. ESTIMATED BLOOD LOSS 300 ccs. IV FLUIDS 2500 ccs. URINE OUTPUT 1500 ccs. FLUID REMOVED Fluid removed from the drain prior to resection 2100 ccs. HISTORY This is a 56-year-old female whom we first met a number of weeks ago as an inpatient in the hospital, being treated for pneumonia and complications of COPD. Also found to have a very large cystic mass in the pelvis extending to the abdomen, well above the umbilicus thought to be contributing to some of her respiratory discomfort. It was a large, smooth-walled fluid filled mass, it had the benign appearance. She was not an operative candidate at that time so the fluid was drained, multiple liters were removed. Cytology was negative and it provided symptomatic relief. Her pulmonary status has improved and her performance status has improved as an outpatient. The mass has reaccumulated fluid but is not yet as big as it initially was. At the present time it extends several centimeters above the umbilicus and it is estimated to be approximately 25 cm. She has been counseled regarding these findings. She is absolutely certain that in addition to having the mass removed, irrespective of the pathology she favors complete hysterectomy, bilateral salpingo-oophorectomy. She is in favor of minimally invasive techniques if possible and presents now for that endeavor. FINDINGS The mass is arising from and replacing the right ovary, it is smooth-walled cystic. The left tube and ovary appear normal. The uterus is small, appears normal. The right mass, the lateral aspect of it is adherent to the right pelvic sidewall. The ureter is deviated from its normal course, it is deviated ventrally and runs in close proximity and parallel to the infundibulopelvic ligament and is densely adherent to the posterolateral aspect of this mass. The peritoneal surfaces are otherwise normal. The liver diaphragm edges were smooth. The omentum, large and small bowel and adjacent mesentery are without peritoneal implants. The frozen section analysis of the right ovarian mass suggests it to be a benign mucinous cystadenoma. There is no abnormality visualized within the uterus. PROCEDURE She was taken to the operating room and placed in the dorsal lithotomy position after general endotracheal anesthesia was administered, time-out was undertaken. She was identified by sight recognition and hospital ID [email or web address] and the proposed procedure was reviewed and confirmed. She was carefully positioned in padded Dariel stirrups. Her arms were padded and secured to the sides. She was further secured to the operating table with eggcrate padding and tape in across chest over the shoulder fashion. All sites were noted to be properly aligned with no malalignments or pressure points. She was prepped and draped in sterile fashion, placed in lithotomy position, cervix was grasped. The uterine cavity sounded and a V-Care manipulator was inserted and secured in the usual fashion. Carney catheter was placed in the bladder. She was returned to the low lithotomy position. We completed draping in anticipation of laparoscopy, confirmed that an orogastric tube was in the stomach on suction. With manual elevation of the abdominal wall and direct laparoscopic visualization a 5 mm cannula was placed in the left upper quadrant and atraumatic entry was confirmed in the peritoneal cavity and carbon dioxide gas was insufflated. Under laparoscopic visualization 8 mm cannula was placed in the right upper quadrant, left lateral quadrant and a 10-mm cannula placed in midline above the umbilicus. The original 5 was exchanged for an 8-mm cannula. Under laparoscopic visualization needle aspiration was performed removing approximately 500 ccs of clear fluid to help take the pressure off of the capsule of the mass and then the opening was extended and suction device was entered into the cavity of the mass which more rapidly drained the fluid. Separate septation was entered and drained removing approximately 2100 ccs of clear fluid, reducing the size of the mass for surgical manipulation and exposure. She was placed in steep Trendelenburg position, small bowel was folded back on the mesenteric root. Three Ray-Brigid sponges were placed around the small bowel mesentery. Robotic system was brought into the operative field and attached in the usual fashion. Monopolar scissors, fenestrated bipolar forceps and Prograsp manipulators were placed in arms number one, two and three, respectively and I took my place at the surgeon's console. The right round ligament was isolated, cauterized and transected. The anterior and posterior leafs of the broad ligament were opened. The infundibulopelvic ligament was isolated above the level of the pelvic brim. The ureter was noted to be running parallel with the infundibulopelvic ligament. Due to adhesions to the wall of the mass its course was distorted so that adhesiolysis and ureterolysis was performed, isolating the ureter with sharp dissection, freeing the adjacent scar tissue and dissecting along the course in the pelvis, elevating the right ovarian mass to expose the ureter with sharp dissection carried out to free the adhesions and separate it from the mass and from the adhesions in the peritoneum along its course in the pelvis until the ureter was returned to its normal anatomical position. The right gonadal vessels were then thoroughly cauterized and transected and the remaining adhesions were taken down with sharp dissection leaving the ovarian mass attached to the uterus via the right utero-ovarian ligament. Posterior peritoneum was opened along the right side of the uterus and cervix and the right vesicouterine peritoneum was dissected off the lower uterine segment and cervix. The right uterine vessels were skeletonized, cauterized and transected as were the cardinal, paracervical and uterosacral ligaments. Attention was directed toward the left side where the left round ligament was isolated, cauterized, transected. The anterior and posterior leafs of the broad ligament were opened. The left ureter was identified, the left infundibulopelvic ligament was isolated. The intervening peritoneum was opened. The infundibulopelvic ligament was isolated to the level of the pelvic brim where it was cauterized and transected. Posterior peritoneum was opened along the left side of uterus and cervix and the left vesicouterine peritoneum was dissected off the lower uterine segment and cervix. Left uterine vessels were skeletonized, cauterized and transected as were the cardinal, paracervical and uterosacral ligaments. Colpotomy was performed the cervix from the upper vagina and the specimen was withdrawn transvaginally which included uterus, cervix, bilateral tubes and ovaries and including the deflated right ovarian mass. Instruments one and three were exchanged for needle drivers as 0 Vicryl suture was introduced. Vaginal cuff was closed starting at the left corner full-thickness closure incorporating the posterior peritoneum and edge of the uterosacral ligament, tied via instrument tie. The closure was held on countertraction as a running continuous full-thickness closure was carried across the vaginal apex to the contralateral corner where it was similarly fixed, secured and tied. The needle was cut and removed. Integrity of the bladder was confirmed by filling the bladder with saline dyed with methylene blue. The bladder distended nicely under pressure. There was a good margin between the bladder edge and the vaginal cuff suture line. There was no areas of thinning in the bladder, no extravasation of dye, good peristalsis of ureters bilaterally and the bladder was drained. In assessing for hemostasis it was noted that there was bleeding in the region of the right gonadal vessels where the infundibulopelvic ligament had been secured. The tissue appeared to be thoroughly cauterized but there was still bleeding in that region, perhaps a vessel posterior to the secured infundibulopelvic ligament that was bleeding. The air was isolated, suctioned and the Ray-Brigid sponges were used to access visibility. The area was cauterized but did not render that satisfactorily hemostatic. Further dissection of the peritoneum allowed better exposure. Instruments one and three were exchanged for needle drivers and a 3-0 Vicryl suture was introduced. The ureter was retracted medially and isolated along its course and then the area of bleeding was secured with [id number] 3-0 Vicryl sutures circumferentially around the infundibulopelvic ligament x2, tied securely via instrument tie. The needle was cut and removed. The area was thoroughly irrigated, now completely hemostatic. The areas of bleeding were isolated and had been suture ligated. No active bleeding in this area. The pelvis and abdomen was thoroughly irrigated to assist in continued hemostasis on this right side. Surgiflo was placed across and around the infundibulopelvic ligament and pressure pack with Surgicel was placed over this area and again all sites noted to be hemostatic. The ureter was followed from distal to proximal and noted to be showing good peristalsis, to be from the area of bleeding and was medial to the area that had been suture-ligated showing no compromise to the ureter throughout its course. It was felt that all reasonable surgical objectives had been completed. The robotic instruments were removed. The robotic system was disengaged from the operative field. I reentered the bedside under sterile condition. Each of the three Ray-Brigid sponges that had been placed in the peritoneal cavity were now removed through the 12-mm cannula. Each were inspected and noted to be removed in their entirety. Preliminary counts were correct, all sites hemostatic and there were no remaining foreign objects in the perineal cavity other than the intentionally placed hemostatic agent. The 12-mm fascial defect was closed with interrupted 0 Vicryl sutures using a needle pass apparatus, they were tied securely which rendered the fascia completely airtight and hemostatic. Remaining cannulas were withdrawn. Carbon dioxide gas was removed from the peritoneal cavity. 3-0 Vicryl subcutaneous, 3-0 Vicryl subcuticular and Steri-Strips were used to close the skin incisions. She was returned to dorsal lithotomy position. Pelvic exam confirmed the vaginal cuff to be well supported, hemostatic, no vaginal lacerations, no remaining foreign objects in the vagina. Final counts were correct. She was returned to dorsal supine position and was pending reversal of anesthesia when I left the operating room to precede her to the Post Anesthesia Care Unit. MD SILVER Natarajan/FADY /8:56 AM /9:17 AM
--- NOTE | 2017-02-28 12:13 | MD ---
cc: RAYNA PRITCHETT,KAMINI MUNSON,LUKAS Carmen MD ADMISSION DATE: 02/21/2017 DISCHARGE DATE: 02/22/2017 PROCEDURE 02/21/2017 - Robotic-assisted laparoscopic hysterectomy, bilateral salpingo-oophorectomy (with resection of 25 cm right ovarian cystic mass), right ureterolysis. PRELIMINARY PATHOLOGY Ovarian mucinous cystadenoma. HOSPITAL COURSE She has done well in the early postop period, tolerating oral intake, hemodynamically stable, in's and out's [id number]. Labs pending. PHYSICAL EXAMINATION VITAL SIGNS: Afebrile, pulse 67-87, respirations 16-18, blood pressure 99-110/64-72. O2 saturations greater than or equal to 96%. GENERAL: Alert and oriented x 3, in no acute distress. LUNGS: Mild rales at the bases, otherwise clear. CARDIOVASCULAR: Regular rate rhythm. ABDOMEN: Soft. Incisions are clean and dry. WORM PACKER: No bleeding. EXTREMITIES: Nontender. ASSESSMENT Postop day #1 doing well in early postoperative period. Steps taken, preliminary findings from surgery reviewed, activities and restrictions discussed. All questions were answered. She expressed good understanding. PLAN Therefore anticipate discharge to home today. She is to resume prior medications. She will have a prescription for Percocet. Our office number is made available and she is to contact our office to schedule follow up in two weeks. MD SILVER Natarajan/GUALBERTO /7:08 AM /12:01 PM
== END 2017-02-22 16:40 | disposition home or self-care (01) ==
LOC: HSDC 08:04 → HSDI 15:51 → HOCA 17:37
PROVIDERS: ADMIT Obstetrics & Gynecology Gynecologic Oncology; ATTEND Obstetrics & Gynecology Gynecologic Oncology
DX: D27.0 Benign neoplasm of right ovary (principal); N73.6 Female pelvic peritoneal adhesions (postinfective); J44.0 Chronic obstructive pulmonary disease with (acute) lower respiratory infection; Z87.01 Personal history of pneumonia (recurrent)
CPT/HCPCS: 00840; 36415; 58554; 80048; 85025; 86850; 86900; 86901; 88307; 88331; 94664; G0378; J0131; J0690; J1100; J1170; J1644; J2250; J2370; J2405; J3010; J3480; J7120; J7611